=== PATIENT | female | born 1945 | race Caucasian/White ===

== ENCOUNTER 2020-07-27 10:33 | Inpatient (IN) | payer MEDICARE ==
[~2020-07-27] VITALS: Ht 165.1 cm; Wt 76.4 kg
--- NOTE | 2020-07-27 11:12 | PHYS DOC ---
General Adult EDM: Chief Complaint: MEDICAL CLEARANCE HPI: HPI: 75-year-old female presents for medical clearance of behavioral health admission. The patient was reported to be combative at her care facility. She was folding over chairs and throwing things. She is agitated and does not want to be here in the ED. She denies any pain or medical complaints to me. Review of Systems: Review of Systems: Constitutional: Denies fever or chills Eyes: Denies change in visual acuity HENT: Denies nasal congestion or sore throat Respiratory: Denies cough or shortness of breath Cardiovascular: Denies chest pain or edema GI: Denies abdominal pain, nausea, vomiting, bloody stools or diarrhea : Denies dysuria Musculoskeletal: Denies back pain or joint pain Integument: Denies rash Neurologic: Denies headache, focal weakness or sensory changes Endocrine: Denies polyuria or polydipsia Lymphatic: Denies swollen glands Psychiatric: Agitated Physical Exam: PE: Constitutional: Well developed, well nourished, no acute distress, non-toxic appearance. [] HENT: Normocephalic, atraumatic, bilateral external ears normal, oropharynx moist, no oral exudates, nose normal. [] Eyes: PERRLA, EOMI, conjunctiva normal, no discharge. [] Neck: Normal range of motion, no tenderness, supple, no stridor. [] Cardiovascular: Heart rate regular rhythm, no murmur [] Lungs & Thorax: Bilateral breath sounds clear to auscultation [] Abdomen: Bowel sounds normal, soft, no tenderness, no masses, no pulsatile masses. [] Skin: Warm, dry, no erythema, no rash. [] Back: No tenderness, no CVA tenderness. [] Extremities: No tenderness, no cyanosis, no clubbing, ROM intact, no edema. [] Neurologic: Alert and oriented X 3, normal motor function, normal sensory func tion, no focal deficits noted. [] Psychologic: Affect agitated. [] EKG: EKG: Sinus rhythm, rate 60, normal axis, no ST elevation or depression. [] Radiology/Procedures: Radiology/Procedures: [] Heart Score: C/O Chest Pain: N/A Risk Factors: Risk Factors: DM, Current or recent (<one month) smoker, HTN, HLP, family history of CAD, obesity. Risk Scores: Score 0 - 3: 2.5% MACE over next 6 weeks - Discharge Home Score 4 - 6: 20.3% MACE over next 6 weeks - Admit for Clinical Observation Score 7 - 10: 72.7% MACE over next 6 weeks - Early Invasive Strategies Course & Med Decision Making: Course & Med Decision Making Pertinent Labs and Imaging studies reviewed. (See chart for details) The patient's labs are unremarkable. Her urinalysis is negative for infection. Her EKG is unremarkable. She has medically stable for behavioral health admission at this time. [] Dragon Disclaimer: Dragon Disclaimer: This electronic medical record was generated, in whole or in part, using a voice recognition dictation system. Departure Departure: Impression: Primary Impression: Medical clearance for psychiatric admission Disposition: HOME / SELF CARE / HOMELESS Condition: STABLE Referrals: JUDIT BULLOCK (PCP) PA AMANDA DO Jul 27, 2020 11:12
[2020-07-27 11:23] LABS: BASO # 0.1 x10^3/uL (0.0-0.2); BASO % 1 % (0-3); EOS % 0 % (0-3); HEMATOCRIT 35.6 % (36.0-47.0); HEMOGLOBIN 12.1 g/dL (12.0-15.5); LYMPH # 1.1 x10^3/uL (1.0-4.8); LYMPH % 10 % (24-48); MEAN CORPUSCULAR HEMOGLOBIN 33 pg (25-35); MEAN CORPUSCULAR HGB CONC 34 g/dL (31-37); MEAN CORPUSCULAR VOLUME 96 fL (79-100); MONO # 0.9 x10^3/uL (0.0-1.1); MONO % 8 % (0-9); NEUT # 8.9 x10^3uL (1.8-7.7); NEUT % 80 % (31-73); PLATELET COUNT 481 x10^3/uL (140-400); RED BLOOD COUNT 3.72 x10^6/uL (3.50-5.40); RED CELL DISTRIBUTION WIDTH 13.6 % (11.5-14.5)
[2020-07-27 11:30] LABS: CALCIUM 9.3 mg/dL (8.5-10.1); CREATININE 0.8 mg/dL (0.6-1.0); GFR 70.3; POTASSIUM 4.5 mmol/L (3.5-5.1)
[2020-07-27 11:36] LABS: ALBUMIN 3.2 g/dL (3.4-5.0); ALBUMIN/GLOBULIN RATIO 0.8 (1.0-1.7); MAGNESIUM 2.3 mg/dL (1.8-2.4); TOTAL BILIRUBIN 0.4 mg/dL (0.2-1.0); TOTAL PROTEIN 7.1 g/dL (6.4-8.2)
[2020-07-27 12:36] LABS: BILIRUBIN,URINE NEG (NEG); CLARITY,URINE CLEAR; COLOR,URINE YELLOW; GLUCOSE,URINE NEG (NEG); NITRITE,URINE NEG (NEG); UROBILINOGEN,URINE 0.2 mg/dL (0.2 mg/dL)
[2020-07-27 12:38] LABS: BACTERIA,URINE 0 /HPF (0-FEW); RBC,URINE OCC /HPF (0-2); SQUAMOUS EPITHELIAL CELL,UR MANY /LPF; WBC,URINE OCC /HPF (0-4)
[2020-07-27] MEDS ORDERED: ATOR10TA60 PO (13:12)
[2020-07-27] MEDS ORDERED: LOSA100T14 PO (13:12)
[2020-07-27] MEDS ORDERED: MONT10TA80 PO (13:12)
[2020-07-27] MEDS ORDERED: CARV6.25 PO (13:12)
[2020-07-27] MEDS ORDERED: ACET500T68 PO (13:12)
[2020-07-27] MEDS ORDERED: FEXO180T16 PO (13:12)
[2020-07-27] MEDS ORDERED: MULT1TAB82 PO (13:12)
[2020-07-27] MEDS ORDERED: CYCL1DRO EACHEYE (13:12)
[2020-07-27] MEDS ORDERED: PANT20TA58 PO (13:12)
[2020-07-27] MEDS ORDERED: CLON0.5T20 PO (13:12)
[2020-07-27] MEDS ORDERED: CLOB15CR TP (13:12)
[2020-07-27] MEDS ORDERED: PROP15DR40 EACHEYE (13:12)
[2020-07-27] MEDS ORDERED: DILT240T8 PO (13:12)
[2020-07-27] MEDS ORDERED: CLON0.5T4 PO ×2 (13:12)
[2020-07-27] MEDS ORDERED: LEVO125T5 PO (13:12)
[2020-07-27] MEDS ORDERED: MEMA10TA PO (13:12)
--- NOTE | 2020-07-27 13:30 | NUR ---
Admission Note with Justification for Admission to [facility] Patient admitted to [facility] for protective oversight for emergency stabilization of acute psychiatric crisis. Pt admitted from: [facility] via [facility] ED Mode of arrival: EMS Accompanied By: EMS and ED personnel Precipitating behaviors that initiated intake and admission: Patient admitted from [facility] via [facility] ED for reportedly flipping dining room chairs, throwing ensure bottles at staff, pushing and shoving staff, eloping from locked facility, being obsessive, and attention seeking Description of failure of out patient attempts at stabilization in previous setting list behavior and medication trials: Medication changes and verbal redirection not successful. Behaviors and assessment findings upon admission: Patient is manic, hyperverbal, and obsessive wearing a johnson jacket and gloves. She is asking repeatedly for her her . Patient will not sit down, is refusing to take off her jacket, and was aggressive with staff that removed her purse. Patient refused to stay in her room and was up wandering in the halls exit seeking. She is refusing assessment, is unable to answer orientation questions, and is very disorganized. Plan: Admit for protective oversight for adjustment and stabilization of medications, behaviors and mood. Intense treatment regimen including groups, medication adjustments, therapy, consistent regimen for ADL's, self care, and sleep hygiene. Daily monitoring by Inpatient staff, Psychiatry, and Medical Physician.
--- NOTE | 2020-07-27 13:32 | EKG ---
[address] [address] Test Date: 2020-07-27 Test Time: 11:39:41 Pat Name: JOSSIE TANG Department: Room: Gender: F Wire Lather: ESTEBAN : 1945 Requested By: PA AMANDA Order Number: [id number] Reading MD: Measurements Intervals Minter Rate: 60 P: 54 WY: 216 QRS: 12 QRSD: 84 T: 33 QT: 396 QTc: 396 Interpretive Statements SINUS RHYTHM NORMAL ECG RI6.02 No previous ECG available for comparison
[2020-07-27] MEDS ORDERED: clonazePAM 0.5 MG TABLET PO PRN ×2 (15:30→16:00)
[2020-07-27] MEDS ORDERED: MAG HYDROX/AL HYDROX/SIMETH 30 ML ORAL.SUSP PO PRN (15:30)
[2020-07-27] MEDS ORDERED: METHYL SALICYLATE/MENTHOL TOPICAL OINTMENT 57GM TUBE. TP PRN (15:30)
[2020-07-27] MEDS ORDERED: MAGNESIUM HYDROXIDE 2,400 MG/30 ML ORAL.SUSP. PO PRN (15:30)
[2020-07-27 15:52] VITALS: BP 160/90
[2020-07-27] MEDS ORDERED: CLOBETASOL EMOLLIENT 0.05% TOPICAL CREAM 15GM TUBE. TP PRN (16:00)
[2020-07-27] MEDS: CARVEDILOL 6.25 MG TABLET PO SCH (17:06)
[2020-07-27] MEDS: ATORVASTATIN CALCIUM 10 MG TABLET. PO SCH (19:55)
[2020-07-27] MEDS: MONTELUKAST 10 MG TABLET. PO SCH (19:55)
[2020-07-27] MEDS: cycloSPORINE 0.05% OPTH 1 DROP DROPERETTE OU SCH (19:55)
[2020-07-27] MEDS: MEMANTINE 10 MG TABLET. PO SCH (19:55)
[2020-07-27] MEDS ORDERED: clonazePAM 0.5 MG TABLET PO SCH (21:00)
--- NOTE | 2020-07-27 22:02 | PDOC ---
Exam Note: Roni Note: Please also refer to the separate dictated note~for this date of service dictated separately.~Patient seen individually. Discussed the patient with Nursing staff reviewed the chart.~Reviewed interim history and current functioning. Reviewed vital signs,~Labs/ Radiology~and current medications noted below. Continue current treatment with the changes noted in the dictated addendum note Assessment: Vital Signs/I&O: Vital Signs Date Time Temp Pulse Resp B/P (MAP) Pulse Ox O2 Delivery O2 Flow Rate FiO2 07/27/20 17:06 62 160/90 07/27/20 15:52 97.5 20 97 Labs: Laboratory Tests Test 07/27/20 11:00 07/27/20 11:45 White Blood Count 11.0 x10^3/uL (4.0-11.0) Red Blood Count 3.72 x10^6/uL (3.50-5.40) Hemoglobin 12.1 g/dL (12.0-15.5) Hematocrit 35.6 % (36.0-47.0) L Mean Corpuscular Volume 96 fL (79-100) Mean Corpuscular Hemoglobin 33 pg (25-35) Mean Corpuscular Hemoglobin Concent 34 g/dL (31-37) Red Cell Distribution Width 13.6 % (11.5-14.5) Platelet Count 481 x10^3/uL (140-400) H Neutrophils (%) (Auto) 80 % (31-73) H Lymphocytes (%) (Auto) 10 % (24-48) L Monocytes (%) (Auto) 8 % (0-9) Eosinophils (%) (Auto) 0 % (0-3) Basophils (%) (Auto) 1 % (0-3) Neutrophils # (Auto) 8.9 x10^3uL (1.8-7.7) H Lymphocytes # (Auto) 1.1 x10^3/uL (1.0-4.8) Monocytes # (Auto) 0.9 x10^3/uL (0.0-1.1) Eosinophils # (Auto) 0.0 x10^3/uL (0.0-0.7) Basophils # (Auto) 0.1 x10^3/uL (0.0-0.2) Sodium Level 133 mmol/L (136-145) L Potassium Level 4.5 mmol/L (3.5-5.1) Chloride Level 98 mmol/L (98-107) Carbon Dioxide Level 26 mmol/L (21-32) Anion Gap 9 (6-14) Blood Urea Nitrogen 13 mg/dL (7-20) Creatinine 0.8 mg/dL (0.6-1.0) Estimated GFR (Cockcroft-Gault) 70.3 BUN/Creatinine Ratio 16 (6-20) Glucose Level 114 mg/dL (70-99) H Calcium Level 9.3 mg/dL (8.5-10.1) Magnesium Level 2.3 mg/dL (1.8-2.4) Iron Level 61 ug/dL (50-170) Total Iron Binding Capacity 262 ug/dL (250-450) Iron Saturation 23 % (15-34) Total Bilirubin 0.4 mg/dL (0.2-1.0) Aspartate Amino Transferase (AST) 17 U/L (15-37) Alanine Aminotransferase (ALT) 23 U/L (14-59) Alkaline Phosphatase 109 U/L (46-116) Total Protein 7.1 g/dL (6.4-8.2) Albumin 3.2 g/dL (3.4-5.0) L Albumin/Globulin Ratio 0.8 (1.0-1.7) L Urine Collection Type Unknown Urine Color Yellow Urine Clarity Clear Urine pH 7.0 Urine Specific [place] 1.020 Urine Protein Neg (NEG-TRACE) Urine Glucose (UA) Neg mg/dL (NEG) Urine Ketones (Stick) Neg mg/dL (NEG) Urine Blood Neg (NEG) Urine Nitrite Neg (NEG) Urine Bilirubin Neg (NEG) Urine Urobilinogen Dipstick 0.2 mg/dL (0.2 mg/dL) Urine Leukocyte Esterase Neg (NEG) Urine RBC Occ /HPF (0-2) Urine WBC Occ /HPF (0-4) Urine Squamous Epithelial Cells Many /LPF Urine Bacteria 0 /HPF (0-FEW) Current Medications: Meds: Current Medications Medications (Trade) Dose Ordered Sig/Pino Route PRN Reason Start Time Stop Time Status Last Admin Dose Admin Atorvastatin Calcium (Lipitor) 10 mg QHS PO 07/27/20 21:00 07/27/20 19:55 Carvedilol (Coreg) 6.25 mg BIDWMEALS PO 07/27/20 17:00 07/27/20 17:06 Clonazepam (KlonoPIN) 0.5 mg PRN BID PRN PO ANXIETY / AGITATION 07/27/20 15:30 07/27/20 17:06 Clonazepam (KlonoPIN) 0.5 mg QHS PO 07/27/20 21:00 07/27/20 19:55 Cyclosporine (Restasis) 1 drop BID OU 07/27/20 21:00 07/27/20 19:55 Memantine (Namenda) 10 mg BID PO 07/27/20 21:00 07/27/20 19:55 Montelukast Sodium (Singulair) 10 mg HS PO 07/27/20 21:00 07/27/20 19:55 Olanzapine (ZyPREXA ZYDIS) 2.5 mg PRN Q2HRS PRN PO PSYCHOSIS 07/27/20 19:45 07/27/20 19:55 I have reviewed the current psychotropics carefully including drug interactions. Risk benefit ratio favors no change other than as noted in my dictated progress note. Diagnosis: Problems: (1) Major neurocognitive disorder KATHY BARNHART MD Jul 27, 2020 22:02
--- NOTE | 2020-07-27 23:59 | NUR ---
Patient is in the hallway outside the nurses station at start of shift. She is very angry, agitated, disorganized, demanding, and delusional. Banging on nurses station window and door and yelling loudly "You stole my ice cream! Give me my ice cream NOW! Why are you all such rude buttholes? Why did I come here?" She is dressed inappropriately, wearing a fleece winter coat and winter gloves that she refuses to take off. This nurse approached her and told her she could have just ONE more ice cream, but only if she took her medications. She took them whole with no issue, PRN Zydis given with HS medications. When it was time for HS cares, CNAs explained that we needed to take her clothing so we could launder it. She was very resistant, stating "No, these clothes protect me!" She did eventually allow them to take everything but her gloves. She is snarky, irritable, and continues to be demanding. Eventually she took her gloves off on her own and staff placed them in her closet. She denies any pain or discomfort. Appears to be sleeping comfortably at present time. Will continue to monitor.
[2020-07-28 05:29] VITALS: BP 178/82
[2020-07-28] MEDS: LEVOTHYROXINE 125 MCG TABLET PO SCH (05:37)
[2020-07-28] MEDS: MEMANTINE 10 MG TABLET. PO SCH ×2 (09:53→19:55)
[2020-07-28] MEDS: CARVEDILOL 6.25 MG TABLET PO SCH ×2 (09:58→17:18)
[2020-07-28] MEDS: CETIRIZINE HCL 10 MG TABLET PO SCH (09:59)
[2020-07-28] MEDS: MULTIVITAMIN with MINERAL TABLET. PO SCH (09:59)
[2020-07-28] MEDS: LOSARTAN 50 MG TABLET. PO SCH (09:59)
[2020-07-28] MEDS: PANTOPRAZOLE 40 MG TABLET. PO SCH (09:59)
[2020-07-28] MEDS: cycloSPORINE 0.05% OPTH 1 DROP DROPERETTE OU SCH ×2 (09:59→19:54)
[2020-07-28 12:43] LABS: THYROID STIM HORMONE (TSH) 2.957 uIU/mL (0.358-3.740)
[2020-07-28 15:52] VITALS: BP 135/69
--- NOTE | 2020-07-28 18:10 | NUR ---
Patient has been restless, wandering, and agitated during this shift. Before breakfast, she was preoccuppied with calling her . Patient was repeatedly asking staff if they had talked with him. She then became preoccuppied with her purse and was repeatedly demanding that staff return her purse. After breakfast, about 9:30, patient insisted that she had not eaten and repeatedly demanded food. Patient was repeatedly attempting to enter the nurses' station and banging on the window. Offered the patient a selection of snack foods from the dining room, she rejected all of them, stating she wanted 'real food'. She has spent the majority of the afternoon wandering with a peer, occasionally bickering with her and at one point the two had a shouted argument. Patients were and placed in different rooms. She stated that she believed the other patient would kill her in her sleep and that she could not stay here. After dinner these two patients were again walking together and friendly toward each other. Will continue to monitor and report to oncoming shift.
[2020-07-28] MEDS: MONTELUKAST 10 MG TABLET. PO SCH (19:55)
[2020-07-28] MEDS: clonazePAM 0.5 MG TABLET PO SCH (19:55)
[2020-07-28] MEDS: ATORVASTATIN CALCIUM 10 MG TABLET. PO SCH (19:56)
[2020-07-28] MEDS: QUEtiapine 25 MG TABLET. PO SCH (19:56)
--- NOTE | 2020-07-28 20:35 | HP ---
ADMIT DATE: 07/28/2020 PSYCHIATRIC ADMISSION HISTORY AND EVALUATION I met with the patient on evening of 07/28/2020 for this evaluation, also discussed with Jayshree England, field coordinator, and nursing staff; reviewed current and past records. IDENTIFYING DATA: The patient is a 75-year-old female referred to us from [facility] in [place], [place] by her primary care physician, Dr. Patricia Borrego on account of significant aggressive behaviors at the facility. She has reportedly "flipping dining room chairs, throwing and showed bottles at staff, pushing and shoving staff, eloping from locked facility." The patient is extremely obsessive, attention seeking. Behaviors were deemed dangerous, unmanageable. She had failed outpatient psychiatric interventions resulting in this referral. CHIEF COMPLAINT: "I need my snack, I need an extra snack, where is my snack, my snack, my snack." The patient is quite obsessive, repetitive, irritable, labile as I met with her on the evening of 07/28/2020. HISTORY OF PRESENT ILLNESS: The patient has a history of dementia, Alzheimer's, vascular type. She has been residing at the above facility for some time recently, getting more anxious, agitated, paranoid with marked mood lability and aggression. She has had sleep and appetite changes. No clear history of bipolar disorder. No suicidal or homicidal ideation. PAST PSYCHIATRIC HISTORY: As above. PAST MEDICAL HISTORY: Positive for hypothyroidism, bilateral lower extremity cellulitis, history of head injury, chronic constipation, hypertension, history of falls, acid reflux disease, hypokalemia, hyponatremia, diabetes, urinary retention. CODE STATUS: Full code. ACCU-CHEKS: None. ALLERGIES: ADHESIVE TAPE, CLINDAMYCIN, AMLODIPINE. DIET: Regular cardiac. Takes medications whole. ACTIVITIES: Ambulates up ad rylan. LABORATORY DATA: UA on 07/27/2020 was negative. CURRENT PSYCHOTROPICS: Namenda 10 mg b.i.d., Klonopin is being tapered since admission, Zyprexa was added p.r.n. and Luvox started 25 mg at bedtime, and Seroquel 12.5 mg at bedtime started since hospitalization. FAMILY HISTORY: Noncontributory. SOCIAL HISTORY: No history of alcohol, drug abuse, physical, sexual or elder abuse. She is not known to be a perpetrator. REACTION TO HOSPITALIZATION: The patient oblivious of it. ASSETS: Supportive living at the above facility. REVIEW OF SYSTEMS: No CV, , pulmonary, eye, ENT system symptoms on review. Reliability poor. MENTAL STATUS EXAM: Oriented to herself. Insight, judgment, recent and remote memory, attention, concentration, fund of knowledge poor consistent with her diagnosis. IMPERSSION: Major neurocognitive disorder, Alzheimer, vascular; with delusion, depression, behavioral disturbance; anxiety disorder, unspecified; impulse control disorder. Rest as noted above. PLAN: Admit to geropsychiatry unit at [facility]. I will see the patient daily individually from a Psychiatric standpoint, medical followup with Dr. Workman/Dr. Garza. Continue patient on her current psychotropics. Observe baseline, initiate Luvox 25 mg at bedtime, Seroquel 12.5 mg at bedtime. Continue Namenda, taper the Klonopin, add Zyprexa p.r.n. Make further changes as clinically indicated. Estimated length of stay 10-12 days. DISPOSITION PLANS: Back to detention when stable. VANDANA DR: Codi TID: [id number]
--- NOTE | 2020-07-28 22:01 | PDOC ---
Exam Note: Roni Note: Please also refer to the separate dictated note~for this date of service dictated separately.~Patient seen individually. Discussed the patient with Nursing staff reviewed the chart.~Reviewed interim history and current functioning. Reviewed vital signs,~Labs/ Radiology~and current medications noted below. Continue current treatment with the changes noted in the dictated addendum note Assessment: Vital Signs/I&O: Vital Signs Date Time Temp Pulse Resp B/P (MAP) Pulse Ox O2 Delivery O2 Flow Rate FiO2 07/28/20 17:18 82 135/69 07/28/20 15:52 98.5 16 98 Room Air I & O 07/27/20 07/27/20 07/28/20 15:00 23:00 07:00 Intake Total 720 ml Balance 720 ml Labs: Laboratory Tests Test 07/28/20 06:58 D-Dimer (Devi) 0.79 mg/L (0.00-0.50) H Iron Level 80 ug/dL (50-170) Total Iron Binding Capacity 277 ug/dL (250-450) Iron Saturation 29 % (15-34) Triglycerides Level 31 mg/dL (0-150) Cholesterol Level 178 mg/dL (0-200) LDL Cholesterol, Calculated 80 mg/dL (0-100) VLDL Cholesterol, Calculated 6 mg/dL (0-40) Non-HDL Cholesterol Calculated 86 mg/dL (0-129) HDL Cholesterol 92 mg/dL (40-60) H Cholesterol/HDL Ratio 1.0 Thyroid Stimulating Hormone (TSH) 2.957 uIU/mL (0.358-3.740) Current Medications: Meds: Laboratory Tests Test 07/28/20 06:58 D-Dimer (Devi) 0.79 mg/L Iron Level 80 ug/dL Total Iron Binding Capacity 277 ug/dL Iron Saturation 29 % Triglycerides Level 31 mg/dL Cholesterol Level 178 mg/dL LDL Cholesterol, Calculated 80 mg/dL VLDL Cholesterol, Calculated 6 mg/dL Non-HDL Cholesterol Calculated 86 mg/dL HDL Cholesterol 92 mg/dL Cholesterol/HDL Ratio 1.0 Thyroid Stimulating Hormone (TSH) 2.957 uIU/mL Current Medications Medications (Trade) Dose Ordered Sig/Pino Route PRN Reason Start Time Stop Time Status Last Admin Dose Admin Multi-Ingredient Ointment (Analgesic Rand) 1 cole PRN QID PRN TP MUSCLE PAIN 07/27/20 15:30 Al Hydroxide/Mg Hydroxide (Mylanta Plus Xs) 15 ml PRN AFTMEALHC PRN PO DYSPEPSIA 07/27/20 15:30 Magnesium Hydroxide (Milk Of Magnesia) 2,400 mg PRN QHS PRN PO CONSTIPATION 07/27/20 15:30 Acetaminophen (Tylenol) 1,000 mg PRN Q6HRS PRN PO PAIN 07/27/20 15:30 Atorvastatin Calcium (Lipitor) 10 mg QHS PO 07/27/20 21:00 07/28/20 19:56 Carvedilol (Coreg) 6.25 mg BIDWMEALS PO 07/27/20 17:00 07/28/20 17:18 Clonazepam (KlonoPIN) 0.5 mg PRN BID PRN PO ANXIETY / AGITATION 07/27/20 15:30 07/28/20 16:12 DC 07/27/20 17:06 Clonazepam (KlonoPIN) 0.5 mg QHS PO 07/27/20 21:00 07/28/20 16:13 DC 07/27/20 19:55 Cyclosporine (Restasis) 1 drop BID OU 07/27/20 21:00 07/28/20 19:54 Levothyroxine Sodium (Synthroid) 125 mcg DAILY06 PO 07/28/20 06:00 07/28/20 05:37 Memantine (Namenda) 10 mg BID PO 07/27/20 21:00 07/28/20 19:55 Montelukast Sodium (Singulair) 10 mg HS PO 07/27/20 21:00 07/28/20 19:55 Clobetasol Propionate 1 cole PRN DAILY PRN TP dermatitis 07/27/20 16:00 Clonazepam (KlonoPIN) 0.25 mg PRN QHS PRN PO INSOMNIA, MRX1 07/27/20 16:00 07/28/20 16:13 DC Diltiazem HCl (Cardizem 24hr Cd) 240 mg DAILY PO 07/28/20 09:00 07/28/20 09:59 Cetirizine HCl (ZyrTEC) 10 mg DAILY PO 07/28/20 09:00 07/28/20 09:59 Losartan Potassium (Cozaar) 100 mg DAILY PO 07/28/20 09:00 07/28/20 09:59 Multivitamins/ Calcium (Thera-M Plus) 1 tab DAILY PO 07/28/20 09:00 07/28/20 09:59 Pantoprazole Sodium (Protonix) 40 mg DAILY PO 07/28/20 09:00 07/28/20 09:59 Artificial Tears (Artificial Tears) 1 drop PRN QID PRN OU DRY EYE 07/27/20 16:00 Olanzapine (ZyPREXA ZYDIS) 2.5 mg PRN Q2HRS PRN PO PSYCHOSIS 07/27/20 19:45 07/28/20 19:56 Clonazepam (KlonoPIN) 0.25 mg QHS PO 07/28/20 21:00 07/30/20 23:50 07/28/20 19:55 Quetiapine Fumarate (SEROquel) 12.5 mg QHS PO 07/28/20 21:00 07/28/20 19:56 Fluvoxamine Maleate (Luvox) 25 mg QHS PO 07/28/20 21:00 07/28/20 19:54 Current Medications Medications (Trade) Dose Ordered Sig/Pino Route PRN Reason Start Time Stop Time Status Last Admin Dose Admin Levothyroxine Sodium (Synthroid) 125 mcg DAILY06 PO 07/28/20 06:00 07/28/20 05:37 Diltiazem HCl (Cardizem 24hr Cd) 240 mg DAILY PO 07/28/20 09:00 07/28/20 09:59 Cetirizine HCl (ZyrTEC) 10 mg DAILY PO 07/28/20 09:00 07/28/20 09:59 Losartan Potassium (Cozaar) 100 mg DAILY PO 07/28/20 09:00 07/28/20 09:59 Multivitamins/ Calcium (Thera-M Plus) 1 tab DAILY PO 07/28/20 09:00 07/28/20 09:59 Pantoprazole Sodium (Protonix) 40 mg DAILY PO 07/28/20 09:00 07/28/20 09:59 Clonazepam (KlonoPIN) 0.25 mg QHS PO 07/28/20 21:00 07/30/20 23:50 07/28/20 19:55 Quetiapine Fumarate (SEROquel) 12.5 mg QHS PO 07/28/20 21:00 07/28/20 19:56 Fluvoxamine Maleate (Luvox) 25 mg QHS PO 07/28/20 21:00 07/28/20 19:54 I have reviewed the current psychotropics carefully including drug interactions. Risk benefit ratio favors no change other than as noted in my dictated progress note. Diagnosis: Problems: (1) Dementia in Alzheimer's disease with delusions (2) Dementia in Alzheimer's disease with depression (3) Dementia of the Alzheimer's type with early onset with behavioral disturbance (4) Dementia, vascular, with delusions (5) Dementia, vascular, with depression (6) Anxiety disorder, unspecified (7) Impulse control disorder, unspecified (8) Major neurocognitive disorder KATHY BARNHART MD Jul 28, 2020 22:01
--- NOTE | 2020-07-28 22:32 | NUR ---
Patient is located in the day room on assumption of care. She continues to be disorganized, confused and demanding. She consistently picks fights with other patients and staff, name calling and being rude for no apparent reason. She was compliant with medications taken whole. Resistant and angry with HS cares, worried about her clothing. Denies any pain or discomfort. She is currently in her room, awake in bed. Will continue to monitor.
--- NOTE | 2020-07-28 23:30 | CONS ---
CONSULTATION FOR MEDICAL MANAGEMENT HISTORY OF PRESENT ILLNESS: The patient is a 75-year-old female patient, a resident at [facility] in Memory Unit in [place] who was admitted to [facility] Emergency Department on account of reportedly flipping dining room chairs, throwing Ensure bottles at staff, pushing and shoving staffs, eloping from locked facility, being obsessive and attention seeking all this in a background of major neurocognitive disorder, vascular Alzheimer with delusion, depression with anxiety disorder and unspecified impulse control disorder. She apparently has had multiple medical problems including hypothyroidism, history of head injury, bilateral lower extremity cellulitis, chronic constipation, hypertension, history of falls, acid reflux disease, hypokalemia, hyponatremia, type 2 diabetes mellitus and urinary retention, PAST PSYCHIATRIC HISTORY: Significant for anxiety and dementia. PAST SURGICAL HISTORY: Unremarkable. ALLERGIES: She is allergic to ADHESIVES, AMLODIPINE and CLINDAMYCIN. MEDICATIONS: She is currently on the following medications: She is on fexofenadine for Amanda 180 mg once a day, atorvastatin calcium 10 mg at bedtime, carvedilol 6.25 mg twice a day with meals, diltiazem 240 mg daily, losartan potassium 100 mg daily, acetaminophen 1000 mg every 6 hours, clonazepam 0.5 mg at bedtime, clonazepam 0.5 mg at 07:17, clonazepam 0.25-0.5 mg p.o. p.r.n. at bedtime, Namenda 10 mg twice a day, Singulair 10 mg a day at bedtime, cyclosporine for Restasis 1 drop to both eyes twice a day and polyethylene glycol 1 drop to both eyes 4 times a day, Protonix 40 mg once a day, levothyroxine sodium 125 mcg once a day, clobetasol propionate 15 g cream apply topically daily for dermatitis, and multivitamin with mineral 1 tablet once a day. FAMILY HISTORY: Unobtainable. SOCIAL HISTORY: She is apparently . Her lives in the assisted living side. 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 No further information available. PHYSICAL EXAMINATION: GENERAL: When I saw her today, she looked well and was clearly in no apparent respiratory distress. There was no pallor, jaundice, cyanosis. No lymphadenopathy, no thyromegaly, no jugular venous distention, no lower limb edema. VITAL SIGNS: Her heart rate was 62, blood pressure was 178/82, temperature was 97.5, respiratory rate was 18, and oxygen saturation was 100% on room air. HEENT: Showed normocephalic, atraumatic. NECK: Supple. HEART: Showed normal first and second heart sounds, no gallop, rub or murmur. CHEST: Clear to auscultation. No crepitation or rhonchi. ABDOMEN: Distended, soft, nontender. NEUROLOGIC: She is demented, but without any obvious lateralizing sign. All her cranial nerves are intact. She moves extremities without difficulty. She ambulates without assistance or assistive devices. LABORATORY DATA: Showed a white cell count of 11,000, hemoglobin 12, hematocrit 36, MCV 96 and platelet count of 481,000 with normal manual differential. Her chemistry showed a serum sodium 133, potassium 4.5, chloride 98, bicarbonate 26, anion gap of 9, BUN 13, creatinine 0.8. Estimated GFR was 70 mL per minute. Her glucose 114, calcium was 9.3, magnesium was 2.3. Serum iron 61, TIBC was 262 and iron saturation was 23. Total bilirubin, AST, ALT, alkaline phosphatase were normal. Total protein 7.1, albumin was 3.2. Her D-dimer was 0.79. Urinalysis was essentially unremarkable. ASSESSMENT: In summary, this is a 75-year-old female patient, a resident at [facility] ____ Memory unit who was admitted on account of flipping dining room chairs, throwing Ensure bottles at staff, pushing a shoving staff, eloping from locked facility, being obsessed and attention seeking all this in a background of major neurocognitive disorder, vascular Alzheimer with delusion, depression; behavioral disorder; anxiety disorder and impulse control disorder. The patient has multiple medical problems including hypertension, hypothyroidism, gastroesophageal reflux disease, type 2 diabetes. Her vital signs show that her blood pressure is suboptimally controlled, but otherwise all her lab work are well within acceptable range except perhaps mild hyponatremia. PLAN: My plan is to continue to monitor her blood pressure and might have to adjust her antihypertensive medication as she is already on losartan 100 mg once a day, diltiazem 240 mg once a day. She is also on carvedilol 6.25 mg twice a day. We might have to increase the carvedilol if heart rate ____. Meanwhile, continue with all other medication. I would also follow all her lab work that is still pending at the time of this dictation and make any necessary recommendation. Thank you, Dr. Valderrama, for allowing me to participate in the care of this patient. DANETTE/ADAMS/HORTENCIA DR: DANETTE/seven TID: [id number]
[2020-07-29] MEDS: POLYVINYL ALCOHOL 1.4% OPHTH SOLUTION 15ML BOTTLE. OU PRN (01:07)
[2020-07-29 02:31] LABS: HEMOGLOBIN A1C 4.9 % (4.8-5.6)
[2020-07-29 05:44] VITALS: BP 173/81
[2020-07-29] MEDS: LEVOTHYROXINE 125 MCG TABLET PO SCH (05:58)
--- NOTE | 2020-07-29 08:44 | PDOC ---
Exam Note: Roni Note: This is an addendum to Initial Psychiatric Evaluation to correct the error in my dictation under # [id number]. The correct information is Date of admission 07/27/2018. Date of dictation 07/28/2020. This document corrects the original document under dictation #[id number]. Assessment: Vital Signs/I&O: Vital Signs Date Time Temp Pulse Resp B/P (MAP) Pulse Ox O2 Delivery O2 Flow Rate FiO2 07/29/20 05:44 98.0 72 16 173/81 (111) 95 Room Air I & O 07/28/20 07/28/20 07/29/20 15:00 23:00 07:00 Intake Total 600 ml 480 ml Balance 600 ml 480 ml Current Medications: Meds: Current Medications Medications (Trade) Dose Ordered Sig/Pino Route PRN Reason Start Time Stop Time Status Last Admin Dose Admin Multi-Ingredient Ointment (Analgesic [place]) 1 cole PRN QID PRN TP MUSCLE PAIN 07/27/20 15:30 Al Hydroxide/Mg Hydroxide (Mylanta Plus Xs) 15 ml PRN AFTMEALHC PRN PO DYSPEPSIA 07/27/20 15:30 Magnesium Hydroxide (Milk Of Magnesia) 2,400 mg PRN QHS PRN PO CONSTIPATION 07/27/20 15:30 Acetaminophen (Tylenol) 1,000 mg PRN Q6HRS PRN PO PAIN 07/27/20 15:30 Atorvastatin Calcium (Lipitor) 10 mg QHS PO 07/27/20 21:00 07/28/20 19:56 Carvedilol (Coreg) 6.25 mg BIDWMEALS PO 07/27/20 17:00 07/28/20 17:18 Clonazepam (KlonoPIN) 0.5 mg PRN BID PRN PO ANXIETY / AGITATION 07/27/20 15:30 07/28/20 16:12 DC 07/27/20 17:06 Clonazepam (KlonoPIN) 0.5 mg QHS PO 07/27/20 21:00 07/28/20 16:13 DC 07/27/20 19:55 Cyclosporine (Restasis) 1 drop BID OU 07/27/20 21:00 07/28/20 19:54 Levothyroxine Sodium (Synthroid) 125 mcg DAILY06 PO 07/28/20 06:00 07/29/20 05:58 Memantine (Namenda) 10 mg BID PO 07/27/20 21:00 07/28/20 19:55 Montelukast Sodium (Singulair) 10 mg HS PO 07/27/20 21:00 07/28/20 19:55 Clobetasol Propionate 1 cole PRN DAILY PRN TP dermatitis 07/27/20 16:00 Clonazepam (KlonoPIN) 0.25 mg PRN QHS PRN PO INSOMNIA, MRX1 07/27/20 16:00 07/28/20 16:13 DC Diltiazem HCl (Cardizem 24hr Cd) 240 mg DAILY PO 07/28/20 09:00 07/28/20 09:59 Cetirizine HCl (ZyrTEC) 10 mg DAILY PO 07/28/20 09:00 07/28/20 09:59 Losartan Potassium (Cozaar) 100 mg DAILY PO 07/28/20 09:00 07/28/20 09:59 Multivitamins/ Calcium (Thera-M Plus) 1 tab DAILY PO 07/28/20 09:00 07/28/20 09:59 Pantoprazole Sodium (Protonix) 40 mg DAILY PO 07/28/20 09:00 07/28/20 09:59 Artificial Tears (Artificial Tears) 1 drop PRN QID PRN OU DRY EYE 07/27/20 16:00 07/29/20 01:07 Olanzapine (ZyPREXA ZYDIS) 2.5 mg PRN Q2HRS PRN PO PSYCHOSIS 07/27/20 19:45 07/29/20 01:07 Clonazepam (KlonoPIN) 0.25 mg QHS PO 07/28/20 21:00 07/30/20 23:50 07/28/20 19:55 Quetiapine Fumarate (SEROquel) 12.5 mg QHS PO 07/28/20 21:00 07/28/20 19:56 Fluvoxamine Maleate (Luvox) 25 mg QHS PO 07/28/20 21:00 07/28/20 19:54 Current Medications Medications (Trade) Dose Ordered Sig/Pino Route PRN Reason Start Time Stop Time Status Last Admin Dose Admin Diltiazem HCl (Cardizem 24hr Cd) 240 mg DAILY PO 07/28/20 09:00 07/28/20 09:59 Cetirizine HCl (ZyrTEC) 10 mg DAILY PO 07/28/20 09:00 07/28/20 09:59 Losartan Potassium (Cozaar) 100 mg DAILY PO 07/28/20 09:00 07/28/20 09:59 Multivitamins/ Calcium (Thera-M Plus) 1 tab DAILY PO 07/28/20 09:00 07/28/20 09:59 Pantoprazole Sodium (Protonix) 40 mg DAILY PO 07/28/20 09:00 07/28/20 09:59 Clonazepam (KlonoPIN) 0.25 mg QHS PO 07/28/20 21:00 07/30/20 23:50 07/28/20 19:55 Quetiapine Fumarate (SEROquel) 12.5 mg QHS PO 07/28/20 21:00 07/28/20 19:56 Fluvoxamine Maleate (Luvox) 25 mg QHS PO 07/28/20 21:00 07/28/20 19:54 I have reviewed the current psychotropics carefully including drug interactions. Risk benefit ratio favors no change other than as noted in my dictated progress note. Diagnosis: Problems: (1) Major neurocognitive disorder (2) Impulse control disorder, unspecified (3) Anxiety disorder, unspecified (4) Dementia, vascular, with depression (5) Dementia, vascular, with delusions (6) Dementia in Alzheimer's disease with depression (7) Dementia in Alzheimer's disease with delusions (8) Dementia of the Alzheimer's type with early onset with behavioral disturbance KATHY BARNHART MD Jul 29, 2020 08:44
[2020-07-29] MEDS: cycloSPORINE 0.05% OPTH 1 DROP DROPERETTE OU SCH ×2 (09:00→20:06)
--- NOTE | 2020-07-29 09:01 | PDOC ---
Exam Note: Roni Note: This note is a late entry for 07/28/2020 covers elements not covered in my initial note. Subjective: The patient was seen individually in the evening of 07/28/2020 with Artemio SCHAFER, discussed and reviewed the chart. She slept 6-1/2 hours previous night. Overall the patient remains somewhat obsessive, very confused, anxious, restless, yelling at one of the other demented patients at one point. Review of Systems: Ambulation impaired in wheelchair. No CV, , pulmonary, eye system symptoms on review. Mental Status Exam: The patient is reasonably oriented. Insight and judgment, recent and remote memory, attention and concentration, fund of knowledge is poor consistent with her diagnoses. Laboratory Data: Reviewed. 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 Anxiety disorder unspecified. Impulse control disorder unspecified. Plan: The patient is currently on Klonopin 0.5 mg h.s., reduce to 0.25 mg h.s. for 3 days and stop it. DC p.r.n. Klonopin. Start Luvox 25 mg p.o h.s., Seroquel 12.5 mg p.o. h.s. as a mood stabilizer. Hopefully the Luvox will help some of her obsessive, repetitive, persistent, disruptive, intrusive behaviors. We will adjust further as clinically indicated. Assessment: Vital Signs/I&O: Vital Signs Date Time Temp Pulse Resp B/P (MAP) Pulse Ox O2 Delivery O2 Flow Rate FiO2 07/29/20 05:44 98.0 72 16 173/81 (111) 95 Room Air I & O 07/28/20 07/28/20 07/29/20 15:00 23:00 07:00 Intake Total 600 ml 480 ml Balance 600 ml 480 ml Current Medications: Meds: Current Medications Medications (Trade) Dose Ordered Sig/Pino Route PRN Reason Start Time Stop Time Status Last Admin Dose Admin Multi-Ingredient Ointment (Analgesic [place]) 1 cole PRN QID PRN TP MUSCLE PAIN 07/27/20 15:30 Al Hydroxide/Mg Hydroxide (Mylanta Plus Xs) 15 ml PRN AFTMEALHC PRN PO DYSPEPSIA 07/27/20 15:30 Magnesium Hydroxide (Milk Of Magnesia) 2,400 mg PRN QHS PRN PO CONSTIPATION 07/27/20 15:30 Acetaminophen (Tylenol) 1,000 mg PRN Q6HRS PRN PO PAIN 07/27/20 15:30 Atorvastatin Calcium (Lipitor) 10 mg QHS PO 07/27/20 21:00 07/28/20 19:56 Carvedilol (Coreg) 6.25 mg BIDWMEALS PO 07/27/20 17:00 07/28/20 17:18 Clonazepam (KlonoPIN) 0.5 mg PRN BID PRN PO ANXIETY / AGITATION 07/27/20 15:30 07/28/20 16:12 DC 07/27/20 17:06 Clonazepam (KlonoPIN) 0.5 mg QHS PO 07/27/20 21:00 07/28/20 16:13 DC 07/27/20 19:55 Cyclosporine (Restasis) 1 drop BID OU 07/27/20 21:00 07/28/20 19:54 Levothyroxine Sodium (Synthroid) 125 mcg DAILY06 PO 07/28/20 06:00 07/29/20 05:58 Memantine (Namenda) 10 mg BID PO 07/27/20 21:00 07/28/20 19:55 Montelukast Sodium (Singulair) 10 mg HS PO 07/27/20 21:00 07/28/20 19:55 Clobetasol Propionate 1 cole PRN DAILY PRN TP dermatitis 07/27/20 16:00 Clonazepam (KlonoPIN) 0.25 mg PRN QHS PRN PO INSOMNIA, MRX1 07/27/20 16:00 07/28/20 16:13 DC Diltiazem HCl (Cardizem 24hr Cd) 240 mg DAILY PO 07/28/20 09:00 07/28/20 09:59 Cetirizine HCl (ZyrTEC) 10 mg DAILY PO 07/28/20 09:00 07/28/20 09:59 Losartan Potassium (Cozaar) 100 mg DAILY PO 07/28/20 09:00 07/28/20 09:59 Multivitamins/ Calcium (Thera-M Plus) 1 tab DAILY PO 07/28/20 09:00 07/28/20 09:59 Pantoprazole Sodium (Protonix) 40 mg DAILY PO 07/28/20 09:00 07/28/20 09:59 Artificial Tears (Artificial Tears) 1 drop PRN QID PRN OU DRY EYE 07/27/20 16:00 07/29/20 01:07 Olanzapine (ZyPREXA ZYDIS) 2.5 mg PRN Q2HRS PRN PO PSYCHOSIS 07/27/20 19:45 07/29/20 01:07 Clonazepam (KlonoPIN) 0.25 mg QHS PO 07/28/20 21:00 07/30/20 23:50 07/28/20 19:55 Quetiapine Fumarate (SEROquel) 12.5 mg QHS PO 07/28/20 21:00 07/28/20 19:56 Fluvoxamine Maleate (Luvox) 25 mg QHS PO 07/28/20 21:00 07/28/20 19:54 Current Medications Medications (Trade) Dose Ordered Sig/Pino Route PRN Reason Start Time Stop Time Status Last Admin Dose Admin Clonazepam (KlonoPIN) 0.25 mg QHS PO 07/28/20 21:00 07/30/20 23:50 07/28/20 19:55 Quetiapine Fumarate (SEROquel) 12.5 mg QHS PO 07/28/20 21:00 07/28/20 19:56 Fluvoxamine Maleate (Luvox) 25 mg QHS PO 07/28/20 21:00 07/28/20 19:54 I have reviewed the current psychotropics carefully including drug interactions. Risk benefit ratio favors no change other than as noted in my dictated progress note. Diagnosis: Problems: (1) Major neurocognitive disorder (2) Impulse control disorder, unspecified (3) Anxiety disorder, unspecified (4) Dementia, vascular, with depression (5) Dementia, vascular, with delusions (6) Dementia in Alzheimer's disease with depression (7) Dementia in Alzheimer's disease with delusions (8) Dementia of the Alzheimer's type with early onset with behavioral d KATHY Pink MD Jul 29, 2020 09:01
[2020-07-29] MEDS: CETIRIZINE HCL 10 MG TABLET PO SCH (11:27)
[2020-07-29] MEDS: MEMANTINE 10 MG TABLET. PO SCH ×2 (11:28→20:07)
[2020-07-29] MEDS: LOSARTAN 50 MG TABLET. PO SCH (11:28)
[2020-07-29] MEDS: MULTIVITAMIN with MINERAL TABLET. PO SCH (11:28)
[2020-07-29] MEDS: PANTOPRAZOLE 40 MG TABLET. PO SCH (11:28)
[2020-07-29] MEDS: CARVEDILOL 6.25 MG TABLET PO SCH ×2 (11:29→17:50)
--- NOTE | 2020-07-29 11:30 | NUR ---
Attempted to provide patient with morning medications; she refused to get out of bed and refused medications stating she doesn't 'feel well'. Patient would not elaborate or describe what was wrong, she repeatedly answered 'leave me alone' to most questions. She refused assessment. Patient did eventually get out of bed then pointed to the room aross the [place] and stated she was going to bed over there and walked away. Patient has again removed her armband. Will attempt to provide medications at a later time and continue to monitor.
--- NOTE | 2020-07-29 12:30 | NUR ---
Patient is in better mood, accepted morning medications. She is refusing all the food on the tray except the desert, stating she cannot eat that food. Will continue to monitor.
[2020-07-29 15:17] VITALS: BP 128/83
[2020-07-29] MEDS: QUEtiapine 25 MG TABLET. PO SCH (20:07)
[2020-07-29] MEDS: clonazePAM 0.5 MG TABLET PO SCH (20:07)
[2020-07-29] MEDS: ATORVASTATIN CALCIUM 10 MG TABLET. PO SCH (20:07)
[2020-07-29] MEDS: MONTELUKAST 10 MG TABLET. PO SCH (20:08)
[2020-07-29] MEDS: MIRTAZAPINE 7.5 MG TABLET. PO SCH (20:08)
--- NOTE | 2020-07-29 22:04 | PDOC ---
Exam Note: Roni Note: Please also refer to the separate dictated note~for this date of service dictated separately.~Patient seen individually. Discussed the patient with Nursing staff reviewed the chart.~Reviewed interim history and current functioning. Reviewed vital signs,~Labs/ Radiology~and current medications noted below. Continue current treatment with the changes noted in the dictated addendum note Assessment: Vital Signs/I&O: Vital Signs Date Time Temp Pulse Resp B/P (MAP) Pulse Ox O2 Delivery O2 Flow Rate FiO2 07/29/20 17:50 60 128/83 07/29/20 15:17 97.9 17 98 07/29/20 05:44 Room Air I & O 07/28/20 07/28/20 07/29/20 15:00 23:00 07:00 Intake Total 600 ml 480 ml Balance 600 ml 480 ml Current Medications: Meds: Current Medications Medications (Trade) Dose Ordered Sig/Pino Route PRN Reason Start Time Stop Time Status Last Admin Dose Admin Multi-Ingredient Ointment (Analgesic [place]) 1 cole PRN QID PRN TP MUSCLE PAIN 07/27/20 15:30 Al Hydroxide/Mg Hydroxide (Mylanta Plus Xs) 15 ml PRN AFTMEALHC PRN PO DYSPEPSIA 07/27/20 15:30 Magnesium Hydroxide (Milk Of Magnesia) 2,400 mg PRN QHS PRN PO CONSTIPATION 07/27/20 15:30 Acetaminophen (Tylenol) 1,000 mg PRN Q6HRS PRN PO PAIN 07/27/20 15:30 Atorvastatin Calcium (Lipitor) 10 mg QHS PO 07/27/20 21:00 07/29/20 20:07 Carvedilol (Coreg) 6.25 mg BIDWMEALS PO 07/27/20 17:00 07/29/20 17:50 Clonazepam (KlonoPIN) 0.5 mg PRN BID PRN PO ANXIETY / AGITATION 07/27/20 15:30 07/28/20 16:12 DC 07/27/20 17:06 Clonazepam (KlonoPIN) 0.5 mg QHS PO 07/27/20 21:00 07/28/20 16:13 DC 07/27/20 19:55 Cyclosporine (Restasis) 1 drop BID OU 07/27/20 21:00 07/29/20 20:06 Levothyroxine Sodium (Synthroid) 125 mcg DAILY06 PO 07/28/20 06:00 07/29/20 05:58 Memantine (Namenda) 10 mg BID PO 07/27/20 21:00 07/29/20 20:07 Montelukast Sodium (Singulair) 10 mg HS PO 07/27/20 21:00 07/29/20 20:08 Clobetasol Propionate 1 cole PRN DAILY PRN TP dermatitis 07/27/20 16:00 Clonazepam (KlonoPIN) 0.25 mg PRN QHS PRN PO INSOMNIA, MRX1 07/27/20 16:00 07/28/20 16:13 DC Diltiazem HCl (Cardizem 24hr Cd) 240 mg DAILY PO 07/28/20 09:00 07/29/20 11:27 Cetirizine HCl (ZyrTEC) 10 mg DAILY PO 07/28/20 09:00 07/29/20 11:27 Losartan Potassium (Cozaar) 100 mg DAILY PO 07/28/20 09:00 07/29/20 11:28 Multivitamins/ Calcium (Thera-M Plus) 1 tab DAILY PO 07/28/20 09:00 07/29/20 11:28 Pantoprazole Sodium (Protonix) 40 mg DAILY PO 07/28/20 09:00 07/29/20 11:28 Artificial Tears (Artificial Tears) 1 drop PRN QID PRN OU DRY EYE 07/27/20 16:00 07/29/20 01:07 Olanzapine (ZyPREXA ZYDIS) 2.5 mg PRN Q2HRS PRN PO PSYCHOSIS 07/27/20 19:45 07/29/20 01:07 Clonazepam (KlonoPIN) 0.25 mg QHS PO 07/28/20 21:00 07/30/20 23:50 07/29/20 20:07 Quetiapine Fumarate (SEROquel) 12.5 mg QHS PO 07/28/20 21:00 07/29/20 20:07 Fluvoxamine Maleate (Luvox) 25 mg QHS PO 07/28/20 21:00 07/29/20 20:07 Mirtazapine (Remeron) 7.5 mg QHS PO 07/29/20 21:00 07/29/20 20:08 Current Medications Medications (Trade) Dose Ordered Sig/Pino Route PRN Reason Start Time Stop Time Status Last Admin Dose Admin Mirtazapine (Remeron) 7.5 mg QHS PO 07/29/20 21:00 07/29/20 20:08 I have reviewed the current psychotropics carefully including drug interactions. Risk benefit ratio favors no change other than as noted in my dictated progress note. Diagnosis: Problems: (1) Major neurocognitive disorder (2) Impulse control disorder, unspecified (3) Anxiety disorder, unspecified (4) Dementia, vascular, with depression (5) Dementia, vascular, with delusions (6) Dementia in Alzheimer's disease with depression (7) Dementia in Alzheimer's disease with delusions (8) Dementia of the Alzheimer's type with early onset with behavioral disturbance KATHY BARNHART MD Jul 29, 2020 22:04
--- NOTE | 2020-07-29 23:22 | NUR ---
Patient is located in the day room on assumption of care. She continues to be disorganized, confused and demanding. She consistently picks fights with other patients and staff, name calling and being rude for no apparent reason. She was compliant with medications taken whole. Denies any pain or discomfort. She is currently in her room, awake in bed. Will continue to monitor.
[2020-07-30] MEDS: LEVOTHYROXINE 125 MCG TABLET PO SCH (05:46)
[2020-07-30 06:01] VITALS: BP 160/88
--- NOTE | 2020-07-30 08:31 | PDOC ---
Exam Note: Roni Note: This note is a late entry for 07/29/2020 covers elements not covered in my initial note. Subjective: The patient was seen individually in the evening of 07/29/2020 with Artemio SCHAFER, discussed and reviewed the chart. She slept 4-1/2 hours previous night. The patient has been rude, sarcastic. Received Zyprexa at night and 1 a.m., due to her marked agitation. She has been following another demented patient around the unit and was up all night repeatedly washing her face and compulsively doing this. She has been irritable at times, refusing a.m. medications. She remains extremely confused. Review of Systems: Ambulation impaired in wheelchair. No CV, , pulmonary, eye system symptoms on review. Reliability poor. She complains of feeling cold, had both her hands folded forward and hands put inside the opposite sleeve to keep her warm. Mental Status Exam: The patient is reasonably oriented. Insight and judgment, recent and remote memory, attention and concentration, fund of knowledge is poor consistent with her diagnoses. Laboratory Data: Reviewed. 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 Anxiety disorder unspecified. Impulse control disorder unspecified. Plan: Continue current psychotropics. Start Remeron 7.5 mg p.o. h.s. to help insomnia and anxiety as well. Adjust further as clinically indicated. Assessment: Vital Signs/I&O: Vital Signs Date Time Temp Pulse Resp B/P (MAP) Pulse Ox O2 Delivery O2 Flow Rate FiO2 07/30/20 06:01 97.8 63 18 160/88 (112) 98 07/29/20 05:44 Room Air I & O 07/29/20 07/29/20 07/30/20 15:00 23:00 07:00 Intake Total 120 ml 480 ml Balance 120 ml 480 ml Current Medications: Meds: Current Medications Medications (Trade) Dose Ordered Sig/Pino Route PRN Reason Start Time Stop Time Status Last Admin Dose Admin Multi-Ingredient Ointment (Analgesic [place]) 1 cole PRN QID PRN TP MUSCLE PAIN 07/27/20 15:30 Al Hydroxide/Mg Hydroxide (Mylanta Plus Xs) 15 ml PRN AFTMEALHC PRN PO DYSPEPSIA 07/27/20 15:30 Magnesium Hydroxide (Milk Of Magnesia) 2,400 mg PRN QHS PRN PO CONSTIPATION 07/27/20 15:30 Acetaminophen (Tylenol) 1,000 mg PRN Q6HRS PRN PO PAIN 07/27/20 15:30 Atorvastatin Calcium (Lipitor) 10 mg QHS PO 07/27/20 21:00 07/29/20 20:07 Carvedilol (Coreg) 6.25 mg BIDWMEALS PO 07/27/20 17:00 07/29/20 17:50 Clonazepam (KlonoPIN) 0.5 mg PRN BID PRN PO ANXIETY / AGITATION 07/27/20 15:30 07/28/20 16:12 DC 07/27/20 17:06 Clonazepam (KlonoPIN) 0.5 mg QHS PO 07/27/20 21:00 07/28/20 16:13 DC 07/27/20 19:55 Cyclosporine (Restasis) 1 drop BID OU 07/27/20 21:00 07/29/20 20:06 Levothyroxine Sodium (Synthroid) 125 mcg DAILY06 PO 07/28/20 06:00 07/30/20 05:46 Memantine (Namenda) 10 mg BID PO 07/27/20 21:00 07/29/20 20:07 Montelukast Sodium (Singulair) 10 mg HS PO 07/27/20 21:00 07/29/20 20:08 Clobetasol Propionate 1 cole PRN DAILY PRN TP dermatitis 07/27/20 16:00 Clonazepam (KlonoPIN) 0.25 mg PRN QHS PRN PO INSOMNIA, MRX1 07/27/20 16:00 07/28/20 16:13 DC Diltiazem HCl (Cardizem 24hr Cd) 240 mg DAILY PO 07/28/20 09:00 07/29/20 11:27 Cetirizine HCl (ZyrTEC) 10 mg DAILY PO 07/28/20 09:00 07/29/20 11:27 Losartan Potassium (Cozaar) 100 mg DAILY PO 07/28/20 09:00 07/29/20 11:28 Multivitamins/ Calcium (Thera-M Plus) 1 tab DAILY PO 07/28/20 09:00 07/29/20 11:28 Pantoprazole Sodium (Protonix) 40 mg DAILY PO 07/28/20 09:00 07/29/20 11:28 Artificial Tears (Artificial Tears) 1 drop PRN QID PRN OU DRY EYE 07/27/20 16:00 07/29/20 01:07 Olanzapine (ZyPREXA ZYDIS) 2.5 mg PRN Q2HRS PRN PO PSYCHOSIS 07/27/20 19:45 07/29/20 01:07 Clonazepam (KlonoPIN) 0.25 mg QHS PO 07/28/20 21:00 07/30/20 23:50 07/29/20 20:07 Quetiapine Fumarate (SEROquel) 12.5 mg QHS PO 07/28/20 21:00 07/29/20 20:07 Fluvoxamine Maleate (Luvox) 25 mg QHS PO 07/28/20 21:00 07/29/20 20:07 Mirtazapine (Remeron) 7.5 mg QHS PO 07/29/20 21:00 07/29/20 20:08 Current Medications Medications (Trade) Dose Ordered Sig/Pino Route PRN Reason Start Time Stop Time Status Last Admin Dose Admin Mirtazapine (Remeron) 7.5 mg QHS PO 07/29/20 21:00 07/29/20 20:08 I have reviewed the current psychotropics carefully including drug interactions. Risk benefit ratio favors no change other than as noted in my dictated progress note. Diagnosis: Problems: (1) Major neurocognitive disorder (2) Impulse control disorder, unspecified (3) Anxiety disorder, unspecified (4) Dementia, vascular, with depression (5) Dementia, vascular, with delusions (6) Dementia in Alzheimer's disease with depression (7) Dementia in Alzheimer's disease with delusions (8) Dementia of the Alzheimer's type with early onset with behavioral disturbance KATHY BARNHART MD Jul 30, 2020 08:31
[2020-07-30] MEDS: MULTIVITAMIN with MINERAL TABLET. PO SCH (09:14)
[2020-07-30] MEDS: MEMANTINE 10 MG TABLET. PO SCH ×2 (09:14→19:25)
[2020-07-30] MEDS: LOSARTAN 50 MG TABLET. PO SCH (09:14)
[2020-07-30] MEDS: PANTOPRAZOLE 40 MG TABLET. PO SCH (09:15)
[2020-07-30] MEDS: CETIRIZINE HCL 10 MG TABLET PO SCH (09:15)
[2020-07-30] MEDS: cycloSPORINE 0.05% OPTH 1 DROP DROPERETTE OU SCH ×2 (09:15→19:26)
[2020-07-30] MEDS: CARVEDILOL 6.25 MG TABLET PO SCH ×2 (09:15→17:19)
--- NOTE | 2020-07-30 11:39 | NUR ---
WEEKLY ACTIVITY THERAPY NOTE Date of Admission:07/27/20 Date of AT Assessment: TBD Precipitating behaviors that initiated intake and admission: Patient admitted from [facility] via [facility] for reportedly flipping dining room chairs, throwing ensure bottles at staff, pushing and shoving staff, eloping from locked facility, being obsessive, and attention seeking Goal aimed: TBD Initial Goal: TBD Weekly progress towards goal: NA Group participation level: new patient Weekly highlights: arrived to unit Behaviors observed: wandering when group was going on, difficult to engage, restless and concerned about being alone, needed a lot of reassurance Plan: meet/ assess Pt Beneficial adaptations:
--- NOTE | 2020-07-30 12:10 | NUR ---
ACTIVITY THERAPY ASSESSMENT completed based on notes, observation and interview. Pt was sitting in the dining room eating her lunch. Pt was compliant and willing to answer assessment questions. Pt was a bit irritable at times during the assessment. AT explained groups that were offered on [facility] and pt had little to no interests. Pt said that she doubts she would attend group. AT reminded pt that she was in exercise group this morning. Pt asked if she did any exercises this morning and AT told her that she followed along to all exercises. Pt was able to recall past event but struggled with current events. Pt said that she was in [place] and was unaware of where she came from prior to admission. Pt said that she was and had two children. Pt said that she does not have any contact with her children or anybody. AT asked pt if she felt stress at this point in time.Pt said that she she feels stressed everyday. AT asked pt how she geremias with stress and she said "eating or I paint things out in my head." Pt was hard to redirect at this time as she said she wanted to find her . Initial goal aimed to increase stress management and relaxation skills. Pt will participate in at least five individual or group Activity Therapy sessions per week. Addendum: 08/06/20 at 1138 by RAY HICKS ACT Goal changed 08/06:Pt will participate in all group Activity Therapy sessions offered.
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
[2020-07-30 15:29] VITALS: BP 172/82
--- NOTE | 2020-07-30 16:06 | NUR ---
Nursing note: Pt has been pleasantly confused, med compliant and cooperative this shift. She denies having any pain at time of assessment. It was noted that pt has shanika in the back of her head, that pt was picking at. Facility was called to determine when the shanika were placed and when they were supposed to be removed. Facility was unable to give me a date that the shanika were placed and said they would call back with the information. Awaiting a return phone call from [facility]. She is currently sitting quietly in the day room. Will continue to monitor.
[2020-07-30] MEDS: MONTELUKAST 10 MG TABLET. PO SCH (19:25)
[2020-07-30] MEDS: MIRTAZAPINE 7.5 MG TABLET. PO SCH (19:25)
[2020-07-30] MEDS: QUEtiapine 25 MG TABLET. PO SCH (19:25)
[2020-07-30] MEDS: ATORVASTATIN CALCIUM 10 MG TABLET. PO SCH (19:26)
[2020-07-30] MEDS: clonazePAM 0.5 MG TABLET PO SCH (19:27)
[2020-07-30] MEDS: POLYVINYL ALCOHOL 1.4% OPHTH SOLUTION 15ML BOTTLE. OU PRN (20:17)
--- NOTE | 2020-07-30 21:51 | PDOC ---
Exam Note: Roni Note: Please also refer to the separate dictated note~for this date of service dictated separately.~Patient seen individually. Discussed the patient with Nursing staff reviewed the chart.~Reviewed interim history and current functioning. Reviewed vital signs,~Labs/ Radiology~and current medications noted below. Continue current treatment with the changes noted in the dictated addendum note Assessment: Vital Signs/I&O: Vital Signs Date Time Temp Pulse Resp B/P (MAP) Pulse Ox O2 Delivery O2 Flow Rate FiO2 07/30/20 17:19 61 172/82 07/30/20 15:29 97.1 18 99 07/29/20 05:44 Room Air I & O 07/29/20 07/29/20 07/30/20 15:00 23:00 07:00 Intake Total 120 ml 480 ml Balance 120 ml 480 ml Current Medications: Meds: Current Medications Medications (Trade) Dose Ordered Sig/Pino Route PRN Reason Start Time Stop Time Status Last Admin Dose Admin Multi-Ingredient Ointment (Analgesic [place]) 1 cole PRN QID PRN TP MUSCLE PAIN 07/27/20 15:30 Al Hydroxide/Mg Hydroxide (Mylanta Plus Xs) 15 ml PRN AFTMEALHC PRN PO DYSPEPSIA 07/27/20 15:30 Magnesium Hydroxide (Milk Of Magnesia) 2,400 mg PRN QHS PRN PO CONSTIPATION 07/27/20 15:30 Acetaminophen (Tylenol) 1,000 mg PRN Q6HRS PRN PO PAIN 07/27/20 15:30 Atorvastatin Calcium (Lipitor) 10 mg QHS PO 07/27/20 21:00 07/30/20 19:26 Carvedilol (Coreg) 6.25 mg BIDWMEALS PO 07/27/20 17:00 07/30/20 17:19 Clonazepam (KlonoPIN) 0.5 mg PRN BID PRN PO ANXIETY / AGITATION 07/27/20 15:30 07/28/20 16:12 DC 07/27/20 17:06 Clonazepam (KlonoPIN) 0.5 mg QHS PO 07/27/20 21:00 07/28/20 16:13 DC 07/27/20 19:55 Cyclosporine (Restasis) 1 drop BID OU 07/27/20 21:00 07/30/20 19:26 Levothyroxine Sodium (Synthroid) 125 mcg DAILY06 PO 07/28/20 06:00 07/30/20 05:46 Memantine (Namenda) 10 mg BID PO 07/27/20 21:00 07/30/20 19:25 Montelukast Sodium (Singulair) 10 mg HS PO 07/27/20 21:00 07/30/20 19:25 Clobetasol Propionate 1 cole PRN DAILY PRN TP dermatitis 07/27/20 16:00 Clonazepam (KlonoPIN) 0.25 mg PRN QHS PRN PO INSOMNIA, MRX1 07/27/20 16:00 07/28/20 16:13 DC Diltiazem HCl (Cardizem 24hr Cd) 240 mg DAILY PO 07/28/20 09:00 07/30/20 09:16 Cetirizine HCl (ZyrTEC) 10 mg DAILY PO 07/28/20 09:00 07/30/20 09:15 Losartan Potassium (Cozaar) 100 mg DAILY PO 07/28/20 09:00 07/30/20 09:14 Multivitamins/ Calcium (Thera-M Plus) 1 tab DAILY PO 07/28/20 09:00 07/30/20 09:14 Pantoprazole Sodium (Protonix) 40 mg DAILY PO 07/28/20 09:00 07/30/20 09:15 Artificial Tears (Artificial Tears) 1 drop PRN QID PRN OU DRY EYE 07/27/20 16:00 07/30/20 20:17 Olanzapine (ZyPREXA ZYDIS) 2.5 mg PRN Q2HRS PRN PO PSYCHOSIS 07/27/20 19:45 07/29/20 01:07 Clonazepam (KlonoPIN) 0.25 mg QHS PO 07/28/20 21:00 07/30/20 23:50 07/30/20 19:27 Quetiapine Fumarate (SEROquel) 12.5 mg QHS PO 07/28/20 21:00 07/30/20 19:25 Fluvoxamine Maleate (Luvox) 25 mg QHS PO 07/28/20 21:00 07/30/20 23:00 07/30/20 19:26 Mirtazapine (Remeron) 7.5 mg QHS PO 07/29/20 21:00 07/30/20 19:25 Fluvoxamine Maleate (Luvox) 50 mg QHS PO 07/31/20 21:00 I have reviewed the current psychotropics carefully including drug interactions. Risk benefit ratio favors no change other than as noted in my dictated progress note. Diagnosis: Problems: (1) Major neurocognitive disorder (2) Impulse control disorder, unspecified (3) Anxiety disorder, unspecified (4) Dementia, vascular, with depression (5) Dementia, vascular, with delusions (6) Dementia in Alzheimer's disease with depression (7) Dementia in Alzheimer's disease with delusions (8) Dementia of the Alzheimer's type with early onset with behavioral disturbance KATHY BARNHART MD Jul 30, 2020 21:51
--- NOTE | 2020-07-31 00:42 | NUR ---
Pt sitting in day room when approached. Pt confused, disorganized, and sarcastic. Pt was moving her straw up and down in her water bottle causing a distraction. When staff asked her not to do it, pt stated "well, I have to have water for my eyes, they are so dry". I then asked pt if she would like her eye drops to which she rudely stated "like you're going to get them for me anyway. It's not like you care". I informed pt that I would in fact get her eye drops for her and that she needs to request them and not speak passive aggressively to other pt's. Pt cooperative with assessment and compliant with medications administered whole. PRN Artificial Tears administered for dry eyes.
[2020-07-31] MEDS: LEVOTHYROXINE 125 MCG TABLET PO SCH (06:00)
[2020-07-31 06:11] VITALS: BP 173/80
--- NOTE | 2020-07-31 07:50 | NUR ---
Wound/Ostomy Care Wound Type/Assessment: right great toe and left 4th toe have unstageable pressure ulcers to plantar side with large callouses. Both toes are reddened and swollen. Redness extending down right foot, outlined at this time. 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
[2020-07-31] MEDS: PANTOPRAZOLE 40 MG TABLET. PO SCH (08:33)
[2020-07-31] MEDS: MULTIVITAMIN with MINERAL TABLET. PO SCH (08:33)
[2020-07-31] MEDS: CARVEDILOL 6.25 MG TABLET PO SCH ×2 (08:33→17:10)
[2020-07-31] MEDS: MEMANTINE 10 MG TABLET. PO SCH ×2 (08:33→20:12)
[2020-07-31] MEDS: LOSARTAN 50 MG TABLET. PO SCH (08:33)
[2020-07-31] MEDS: CETIRIZINE HCL 10 MG TABLET PO SCH (08:33)
[2020-07-31] MEDS: cycloSPORINE 0.05% OPTH 1 DROP DROPERETTE OU SCH ×2 (08:37→20:13)
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
--- NOTE | 2020-07-31 10:29 | NUR ---
Nursing note: Pt in dining room at time of AM med pass and assessment. She is med compliant and cooperative. She is pleasantly confused and has no concerns at time of assessment. She is currently sitting in the day room for group. Will continue to monitor.
--- NOTE | 2020-07-31 10:34 | NUR ---
Nursing note: Wound care saw pt regarding the open areas on pt's toes. Wound care suggested x-rays of both the R great toe and L 3rd toe d/t possible infection. Dr. Workman notified. New orders received to get x-rays, CBC, CMP, CRP and sed rate.
--- NOTE | 2020-07-31 11:27 | TX PLAN ---
Interdisciplinary Tx Plan Admission Information Jul 27, 2020 at 13:19 Legal Status (on Admission): Voluntary DPOA/Guardian Name: Emre Carroll Contact Other Contact Name: [facility] Other Contact Verified Code Status: Full Code Allergies: Coded Allergies: adhesive (Verified Allergy, Unknown, 07/27/20) amlodipine (Verified Allergy, Unknown, Swelling, 07/27/20) clindamycin (Verified Allergy, Unknown, Rash, 07/27/20) Diagnoses Primary Diagnosis: Major Neurocognitiave D/O vascular Alzheimers with Delusions, depression and BD Reasons for Admission: Aggressive, Combative, Confusion/Disoriented, Poor impulse control Problem in Patient's Words: Definite decline in cognition Additional Admission Comments: According to the intake, pt is flipping chairs in the dining room, aggressive, throwing Ensure bottles at staff, agitated, pushing/shoving staff, eloped from facility in which staff was trying to prevent. Problems Active Problems: delusional verbal aggression Inactive Problems: Medication compliance Pt Strengths/Limitations Ability for [place]: Poor Cognitive Functioning/Ability: Fair Communication Skills/Ability: Fair Financial Resources: Good Insight/Judgement: Poor Intellectual Ability: Fair Physical Health: Poor Social Skills: Poor Stability in Family: Good Stability in School/Work: Poor Verbal Skills: Fair Discharge Criteria Discharge Criteria: No need for close observ., Adequate arrangements @DC, Improved behavior, Improved mood/thought Preliminary Discharge Plan Preliminary DC Plan: Current Living Arrange. Special Precautions Fall Risk: Low Initial D/C Plan Pt may return to [facility] (memory care unit) once stable. Identified Discharge Needs: Continued psychiatric services Currently Utilized Resources Currently Utilized Resources/P: Primary care physician Referrals Community Resources: Referral for continued psychiatric services Identified Problems/Hx/Goals Objectives/Short-Term Goals Short Term Goals: Dec. Aggression, Dec. Hallucination/Delus, Dec. Outbursts, Improved Social Skills, Medication Stabilization, Promote Coping Skill Short Term Goals in Patient's: N/A Interventions/Frequency Staff Interventions/Frequency&: Psychiatrist to assess pt at least 3x per week for medication management Social work to assess pt at least 2x per week to identify barriers to care and discharge planning. Nursing to assess medication effects, behavioral management and completion of 15 minute checks daily. Encourage group participation in activities (if applicable) or 1:1 engagement based off activity dept goals. 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 She also worked 4 years at the [employer] and received a certificate to further her skills in psychology. 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 Pt has her Bachelors in Psychology and received her Masters in Psychology; pt attended and initially started on her degree in School Counseling/Psychology. Community Follow-up Primary Care Physician Referral to psychiatrist/neurology Treatment Plan Explained Patient/Breeding Manager had this treatment plan explained to him/her as indicated by the signature below and has been given the opportunity to ask questions and make suggestions: Date: Patient/Breeding Manager Signature: Patient/Breeding Manager Decline: No (Pt is involved in pt care.) LUPE IGNACIO Jul 31, 2020 11:27
--- NOTE | 2020-07-31 14:56 | RAD ---
XR BILAT FEET 3 VIEWS Clinical Indication: Reason: possible infection left 3rd toe Comparison: None. Findings: Right: No acute fracture is identified. No bone erosion is seen. There is mild dorsal soft tissue swelling o verlying the metatarsals. There is calcification along the distal Achilles tendon, cannot exclude tatum cific tendinosis. The joint spaces are maintained. Left: There is soft tissue swelling of the third toe. No definite bone erosion is identified. Lateral view is limited due to bony overlap. There is mild lateral subluxation of the distal phalanx of the second toe in relation to the middle phalanx. No acute fracture is identified. There are moderate calcaneal bone spurs. The mineralization is normal. IMPRESSION: There is soft tissue swelling of the left third toe. No radiographic evidence of osteomyelitis. If th ere is high clinical suspicion consider three-phase bone scan. Electronically signed by: Lane Mejia MD (07/31/2020 2:53 PM) [facility]
[2020-07-31 15:48] VITALS: BP 126/62
[2020-07-31 19:34] LABS: BASO # 0.1 x10^3/uL (0.0-0.2); BASO % 1 % (0-3); EOS # 0.1 x10^3/uL (0.0-0.7); EOS % 1 % (0-3); HEMOGLOBIN 10.8 g/dL (12.0-15.5); LYMPH # 1.5 x10^3/uL (1.0-4.8); LYMPH % 19 % (24-48); MEAN CORPUSCULAR HEMOGLOBIN 33 pg (25-35); MEAN CORPUSCULAR HGB CONC 34 g/dL (31-37); MEAN CORPUSCULAR VOLUME 96 fL (79-100); MONO # 1.2 x10^3/uL (0.0-1.1); MONO % 15 % (0-9); NEUT % 64 % (31-73); PLATELET COUNT 344 x10^3/uL (140-400); RED BLOOD COUNT 3.32 x10^6/uL (3.50-5.40); RED CELL DISTRIBUTION WIDTH 13.5 % (11.5-14.5); WHITE BLOOD COUNT 7.8 x10^3/uL (4.0-11.0)
[2020-07-31 19:42] LABS: ALBUMIN 2.9 g/dL (3.4-5.0); ALBUMIN/GLOBULIN RATIO 0.8 (1.0-1.7); C REACTIVE PROTEIN 16.9 mg/L (0-3.3); CALCIUM 8.6 mg/dL (8.5-10.1); CREATININE 1.1 mg/dL (0.6-1.0); GFR 48.7; POTASSIUM 3.9 mmol/L (3.5-5.1); TOTAL BILIRUBIN 0.4 mg/dL (0.2-1.0); TOTAL PROTEIN 6.6 g/dL (6.4-8.2)
[2020-07-31] MEDS: MIRTAZAPINE 7.5 MG TABLET. PO SCH (20:12)
[2020-07-31] MEDS: QUEtiapine 25 MG TABLET. PO SCH (20:12)
[2020-07-31] MEDS: MONTELUKAST 10 MG TABLET. PO SCH (20:12)
[2020-07-31] MEDS: ATORVASTATIN CALCIUM 10 MG TABLET. PO SCH (20:12)
[2020-07-31 20:38] LABS: SEDIMENTATION RATE 25 (0-25)
--- NOTE | 2020-07-31 21:58 | PDOC ---
Exam Note: Roni Note: Please also refer to the separate dictated note~for this date of service dictated separately.~Patient seen individually. Discussed the patient with Nursing staff reviewed the chart.~Reviewed interim history and current functioning. Reviewed vital signs,~Labs/ Radiology~and current medications noted below. Continue current treatment with the changes noted in the dictated addendum note Assessment: Vital Signs/I&O: Vital Signs Date Time Temp Pulse Resp B/P (MAP) Pulse Ox O2 Delivery O2 Flow Rate FiO2 07/31/20 17:10 60 126/62 07/31/20 15:48 97.9 18 98 07/29/20 05:44 Room Air I & O 07/30/20 07/30/20 07/31/20 15:00 23:00 07:00 Intake Total 600 ml 360 ml 240 ml Balance 600 ml 360 ml 240 ml Labs: Laboratory Tests Test 07/31/20 19:17 White Blood Count 7.8 x10^3/uL (4.0-11.0) Red Blood Count 3.32 x10^6/uL (3.50-5.40) L Hemoglobin 10.8 g/dL (12.0-15.5) L Hematocrit 32.0 % (36.0-47.0) L Mean Corpuscular Volume 96 fL (79-100) Mean Corpuscular Hemoglobin 33 pg (25-35) Mean Corpuscular Hemoglobin Concent 34 g/dL (31-37) Red Cell Distribution Width 13.5 % (11.5-14.5) Platelet Count 344 x10^3/uL (140-400) Neutrophils (%) (Auto) 64 % (31-73) Lymphocytes (%) (Auto) 19 % (24-48) L Monocytes (%) (Auto) 15 % (0-9) H Eosinophils (%) (Auto) 1 % (0-3) Basophils (%) (Auto) 1 % (0-3) Neutrophils # (Auto) 5.0 x10^3uL (1.8-7.7) Lymphocytes # (Auto) 1.5 x10^3/uL (1.0-4.8) Monocytes # (Auto) 1.2 x10^3/uL (0.0-1.1) H Eosinophils # (Auto) 0.1 x10^3/uL (0.0-0.7) Basophils # (Auto) 0.1 x10^3/uL (0.0-0.2) Erythrocyte Sedimentation Rate 25 (0-25) Sodium Level 140 mmol/L (136-145) Potassium Level 3.9 mmol/L (3.5-5.1) Chloride Level 102 mmol/L (98-107) Carbon Dioxide Level 32 mmol/L (21-32) Anion Gap 6 (6-14) Blood Urea Nitrogen 29 mg/dL (7-20) H Creatinine 1.1 mg/dL (0.6-1.0) H Estimated GFR (Cockcroft-Gault) 48.7 BUN/Creatinine Ratio 26 (6-20) H Glucose Level 104 mg/dL (70-99) H Calcium Level 8.6 mg/dL (8.5-10.1) Total Bilirubin 0.4 mg/dL (0.2-1.0) Aspartate Amino Transferase (AST) 17 U/L (15-37) Alanine Aminotransferase (ALT) 19 U/L (14-59) Alkaline Phosphatase 84 U/L (46-116) C-Reactive Protein 16.9 mg/L (0-3.3) H Total Protein 6.6 g/dL (6.4-8.2) Albumin 2.9 g/dL (3.4-5.0) L Albumin/Globulin Ratio 0.8 (1.0-1.7) L Current Medications: Meds: Laboratory Tests Test 07/31/20 19:17 White Blood Count 7.8 x10^3/uL Red Blood Count 3.32 x10^6/uL Hemoglobin 10.8 g/dL Hematocrit 32.0 % Mean Corpuscular Volume 96 fL Mean Corpuscular Hemoglobin 33 pg Mean Corpuscular Hemoglobin Concent 34 g/dL Red Cell Distribution Width 13.5 % Platelet Count 344 x10^3/uL Neutrophils (%) (Auto) 64 % Lymphocytes (%) (Auto) 19 % Monocytes (%) (Auto) 15 % Eosinophils (%) (Auto) 1 % Basophils (%) (Auto) 1 % Neutrophils # (Auto) 5.0 x10^3uL Lymphocytes # (Auto) 1.5 x10^3/uL Monocytes # (Auto) 1.2 x10^3/uL Eosinophils # (Auto) 0.1 x10^3/uL Basophils # (Auto) 0.1 x10^3/uL Erythrocyte Sedimentation Rate 25 Sodium Level 140 mmol/L Potassium Level 3.9 mmol/L Chloride Level 102 mmol/L Carbon Dioxide Level 32 mmol/L Anion Gap 6 Blood Urea Nitrogen 29 mg/dL Creatinine 1.1 mg/dL Estimated GFR (Cockcroft-Gault) 48.7 BUN/Creatinine Ratio 26 Glucose Level 104 mg/dL Calcium Level 8.6 mg/dL Total Bilirubin 0.4 mg/dL Aspartate Amino Transf (AST/SGOT) 17 U/L Alanine Aminotransferase (ALT/SGPT) 19 U/L Alkaline Phosphatase 84 U/L C-Reactive Protein 16.9 mg/L Total Protein 6.6 g/dL Albumin 2.9 g/dL Albumin/Globulin Ratio 0.8 Current Medications Medications (Trade) Dose Ordered Sig/Pino Route PRN Reason Start Time Stop Time Status Last Admin Dose Admin Multi-Ingredient Ointment (Analgesic [place]) 1 cole PRN QID PRN TP MUSCLE PAIN 07/27/20 15:30 Al Hydroxide/Mg Hydroxide (Mylanta Plus Xs) 15 ml PRN AFTMEALHC PRN PO DYSPEPSIA 07/27/20 15:30 Magnesium Hydroxide (Milk Of Magnesia) 2,400 mg PRN QHS PRN PO CONSTIPATION 07/27/20 15:30 Acetaminophen (Tylenol) 1,000 mg PRN Q6HRS PRN PO PAIN 07/27/20 15:30 Atorvastatin Calcium (Lipitor) 10 mg QHS PO 07/27/20 21:00 07/31/20 20:12 Carvedilol (Coreg) 6.25 mg BIDWMEALS PO 07/27/20 17:00 07/31/20 17:10 Clonazepam (KlonoPIN) 0.5 mg PRN BID PRN PO ANXIETY / AGITATION 07/27/20 15:30 07/28/20 16:12 DC 07/27/20 17:06 Clonazepam (KlonoPIN) 0.5 mg QHS PO 07/27/20 21:00 07/28/20 16:13 DC 07/27/20 19:55 Cyclosporine (Restasis) 1 drop BID OU 07/27/20 21:00 07/31/20 20:13 Levothyroxine Sodium (Synthroid) 125 mcg DAILY06 PO 07/28/20 06:00 07/31/20 06:00 Memantine (Namenda) 10 mg BID PO 07/27/20 21:00 07/31/20 20:12 Montelukast Sodium (Singulair) 10 mg HS PO 07/27/20 21:00 07/31/20 20:12 Clobetasol Propionate 1 cole PRN DAILY PRN TP dermatitis 07/27/20 16:00 Clonazepam (KlonoPIN) 0.25 mg PRN QHS PRN PO INSOMNIA, MRX1 07/27/20 16:00 07/28/20 16:13 DC Diltiazem HCl (Cardizem 24hr Cd) 240 mg DAILY PO 07/28/20 09:00 07/31/20 08:37 Cetirizine HCl (ZyrTEC) 10 mg DAILY PO 07/28/20 09:00 07/31/20 08:33 Losartan Potassium (Cozaar) 100 mg DAILY PO 07/28/20 09:00 07/31/20 08:33 Multivitamins/ Calcium (Thera-M Plus) 1 tab DAILY PO 07/28/20 09:00 07/31/20 08:33 Pantoprazole Sodium (Protonix) 40 mg DAILY PO 07/28/20 09:00 07/31/20 08:33 Artificial Tears (Artificial Tears) 1 drop PRN QID PRN OU DRY EYE 07/27/20 16:00 07/30/20 20:17 Olanzapine (ZyPREXA ZYDIS) 2.5 mg PRN Q2HRS PRN PO PSYCHOSIS 07/27/20 19:45 07/29/20 01:07 Clonazepam (KlonoPIN) 0.25 mg QHS PO 07/28/20 21:00 07/30/20 23:50 DC 07/30/20 19:27 Quetiapine Fumarate (SEROquel) 12.5 mg QHS PO 07/28/20 21:00 07/31/20 20:12 Fluvoxamine Maleate (Luvox) 25 mg QHS PO 07/28/20 21:00 07/30/20 23:00 DC 07/30/20 19:26 Mirtazapine (Remeron) 7.5 mg QHS PO 07/29/20 21:00 07/31/20 20:12 Fluvoxamine Maleate (Luvox) 50 mg QHS PO 07/31/20 21:00 07/31/20 20:11 Current Medications Medications (Trade) Dose Ordered Sig/Pino Route PRN Reason Start Time Stop Time Status Last Admin Dose Admin Fluvoxamine Maleate (Luvox) 50 mg QHS PO 07/31/20 21:00 07/31/20 20:11 I have reviewed the current psychotropics carefully including drug interactions. Risk benefit ratio favors no change other than as noted in my dictated progress note. Diagnosis: Problems: (1) Major neurocognitive disorder (2) Impulse control disorder, unspecified (3) Anxiety disorder, unspecified (4) Dementia, vascular, with depression (5) Dementia, vascular, with delusions (6) Dementia in Alzheimer's disease with depression (7) Dementia in Alzheimer's disease with delusions (8) Dementia of the Alzheimer's type with early onset with behavioral disturbance KATHY BARNHART MD Jul 31, 2020 21:58
--- NOTE | 2020-07-31 22:16 | NUR ---
Pt sitting quietly in the day room when approached. Pt confused, disorganized, and anxious. Pt worried about where she will be staying tonight and wanting to know where she will be sleeping. Staff provided reassurance and re-direction. Pt cooperative with assessment and compliant with medications administered whole.
[2020-08-01 05:44] VITALS: BP 163/84
[2020-08-01] MEDS: LEVOTHYROXINE 125 MCG TABLET PO SCH (05:57)
--- NOTE | 2020-08-01 07:56 | PDOC ---
Exam Note: Roni Note: This note is a late entry for 07/30/2020 covers elements not covered in my initial note. Subjective: The patient was reviewed in the morning of 07/30/2020 for a treatment team meeting with Jayshree Ramachandran, Fide Delgado (social services coordinator), An Akers, [employer], Myrna, activity therapy and Glendy SCHAFER, discussed and reviewed the chart. She slept 5-1/2 hours previous night. The patient was found to have some two scalp sutures. Nursing staff will check with Dr. Workman and given her history of head injury, we will check her CT head as well. Review of Systems: Ambulation impaired in wheelchair. No CV, , pulmonary, eye system symptoms on review. Positive for feeling cold. Mental Status Exam: The patient is reasonably oriented. Insight and judgment, recent and remote memory, attention and concentration, fund of knowledge is poor consistent with her diagnoses. 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 Laboratory Data: Reviewed. 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 Anxiety disorder unspecified. Impulse control disorder unspecified. Plan: Continue current psychotropics. Adjust further as clinically indicated. Follow up on the scalp shanika. Assessment: Vital Signs/I&O: Vital Signs Date Time Temp Pulse Resp B/P (MAP) Pulse Ox O2 Delivery O2 Flow Rate FiO2 08/01/20 05:44 97.6 61 16 163/84 (110) 98 07/29/20 05:44 Room Air I & O 07/31/20 07/31/20 08/01/20 14:59 22:59 06:59 Intake Total 600 ml 360 ml 240 ml Balance 600 ml 360 ml 240 ml Labs: Laboratory Tests Test 07/31/20 19:17 White Blood Count 7.8 x10^3/uL (4.0-11.0) Red Blood Count 3.32 x10^6/uL (3.50-5.40) L Hemoglobin 10.8 g/dL (12.0-15.5) L Hematocrit 32.0 % (36.0-47.0) L Mean Corpuscular Volume 96 fL (79-100) Mean Corpuscular Hemoglobin 33 pg (25-35) Mean Corpuscular Hemoglobin Concent 34 g/dL (31-37) Red Cell Distribution Width 13.5 % (11.5-14.5) Platelet Count 344 x10^3/uL (140-400) Neutrophils (%) (Auto) 64 % (31-73) Lymphocytes (%) (Auto) 19 % (24-48) L Monocytes (%) (Auto) 15 % (0-9) H Eosinophils (%) (Auto) 1 % (0-3) Basophils (%) (Auto) 1 % (0-3) Neutrophils # (Auto) 5.0 x10^3uL (1.8-7.7) Lymphocytes # (Auto) 1.5 x10^3/uL (1.0-4.8) Monocytes # (Auto) 1.2 x10^3/uL (0.0-1.1) H Eosinophils # (Auto) 0.1 x10^3/uL (0.0-0.7) Basophils # (Auto) 0.1 x10^3/uL (0.0-0.2) Erythrocyte Sedimentation Rate 25 (0-25) Sodium Level 140 mmol/L (136-145) Potassium Level 3.9 mmol/L (3.5-5.1) Chloride Level 102 mmol/L (98-107) Carbon Dioxide Level 32 mmol/L (21-32) Anion Gap 6 (6-14) Blood Urea Nitrogen 29 mg/dL (7-20) H Creatinine 1.1 mg/dL (0.6-1.0) H Estimated GFR (Cockcroft-Gault) 48.7 BUN/Creatinine Ratio 26 (6-20) H Glucose Level 104 mg/dL (70-99) H Calcium Level 8.6 mg/dL (8.5-10.1) Total Bilirubin 0.4 mg/dL (0.2-1.0) Aspartate Amino Transferase (AST) 17 U/L (15-37) Alanine Aminotransferase (ALT) 19 U/L (14-59) Alkaline Phosphatase 84 U/L (46-116) C-Reactive Protein 16.9 mg/L (0-3.3) H Total Protein 6.6 g/dL (6.4-8.2) Albumin 2.9 g/dL (3.4-5.0) L Albumin/Globulin Ratio 0.8 (1.0-1.7) L Current Medications: Meds: Laboratory Tests Test 07/31/20 19:17 White Blood Count 7.8 x10^3/uL Red Blood Count 3.32 x10^6/uL Hemoglobin 10.8 g/dL Hematocrit 32.0 % Mean Corpuscular Volume 96 fL Mean Corpuscular Hemoglobin 33 pg Mean Corpuscular Hemoglobin Concent 34 g/dL Red Cell Distribution Width 13.5 % Platelet Count 344 x10^3/uL Neutrophils (%) (Auto) 64 % Lymphocytes (%) (Auto) 19 % Monocytes (%) (Auto) 15 % Eosinophils (%) (Auto) 1 % Basophils (%) (Auto) 1 % Neutrophils # (Auto) 5.0 x10^3uL Lymphocytes # (Auto) 1.5 x10^3/uL Monocytes # (Auto) 1.2 x10^3/uL Eosinophils # (Auto) 0.1 x10^3/uL Basophils # (Auto) 0.1 x10^3/uL Erythrocyte Sedimentation Rate 25 Sodium Level 140 mmol/L Potassium Level 3.9 mmol/L Chloride Level 102 mmol/L Carbon Dioxide Level 32 mmol/L Anion Gap 6 Blood Urea Nitrogen 29 mg/dL Creatinine 1.1 mg/dL Estimated GFR (Cockcroft-Gault) 48.7 BUN/Creatinine Ratio 26 Glucose Level 104 mg/dL Calcium Level 8.6 mg/dL Total Bilirubin 0.4 mg/dL Aspartate Amino Transf (AST/SGOT) 17 U/L Alanine Aminotransferase (ALT/SGPT) 19 U/L Alkaline Phosphatase 84 U/L C-Reactive Protein 16.9 mg/L Total Protein 6.6 g/dL Albumin 2.9 g/dL Albumin/Globulin Ratio 0.8 Current Medications Medications (Trade) Dose Ordered Sig/Pino Route PRN Reason Start Time Stop Time Status Last Admin Dose Admin Multi-Ingredient Ointment (Analgesic [place]) 1 cole PRN QID PRN TP MUSCLE PAIN 07/27/20 15:30 Al Hydroxide/Mg Hydroxide (Mylanta Plus Xs) 15 ml PRN AFTMEALHC PRN PO DYSPEPSIA 07/27/20 15:30 Magnesium Hydroxide (Milk Of Magnesia) 2,400 mg PRN QHS PRN PO CONSTIPATION 07/27/20 15:30 Acetaminophen (Tylenol) 1,000 mg PRN Q6HRS PRN PO PAIN 07/27/20 15:30 Atorvastatin Calcium (Lipitor) 10 mg QHS PO 07/27/20 21:00 07/31/20 20:12 Carvedilol (Coreg) 6.25 mg BIDWMEALS PO 07/27/20 17:00 07/31/20 17:10 Clonazepam (KlonoPIN) 0.5 mg PRN BID PRN PO ANXIETY / AGITATION 07/27/20 15:30 07/28/20 16:12 DC 07/27/20 17:06 Clonazepam (KlonoPIN) 0.5 mg QHS PO 07/27/20 21:00 07/28/20 16:13 DC 07/27/20 19:55 Cyclosporine (Restasis) 1 drop BID OU 07/27/20 21:00 07/31/20 20:13 Levothyroxine Sodium (Synthroid) 125 mcg DAILY06 PO 07/28/20 06:00 08/01/20 05:57 Memantine (Namenda) 10 mg BID PO 07/27/20 21:00 07/31/20 20:12 Montelukast Sodium (Singulair) 10 mg HS PO 07/27/20 21:00 07/31/20 20:12 Clobetasol Propionate 1 cole PRN DAILY PRN TP dermatitis 07/27/20 16:00 Clonazepam (KlonoPIN) 0.25 mg PRN QHS PRN PO INSOMNIA, MRX1 07/27/20 16:00 07/28/20 16:13 DC Diltiazem HCl (Cardizem 24hr Cd) 240 mg DAILY PO 07/28/20 09:00 07/31/20 08:37 Cetirizine HCl (ZyrTEC) 10 mg DAILY PO 07/28/20 09:00 07/31/20 08:33 Losartan Potassium (Cozaar) 100 mg DAILY PO 07/28/20 09:00 07/31/20 08:33 Multivitamins/ Calcium (Thera-M Plus) 1 tab DAILY PO 07/28/20 09:00 07/31/20 08:33 Pantoprazole Sodium (Protonix) 40 mg DAILY PO 07/28/20 09:00 07/31/20 08:33 Artificial Tears (Artificial Tears) 1 drop PRN QID PRN OU DRY EYE 07/27/20 16:00 07/30/20 20:17 Olanzapine (ZyPREXA ZYDIS) 2.5 mg PRN Q2HRS PRN PO PSYCHOSIS 07/27/20 19:45 07/29/20 01:07 Clonazepam (KlonoPIN) 0.25 mg QHS PO 07/28/20 21:00 07/30/20 23:50 DC 07/30/20 19:27 Quetiapine Fumarate (SEROquel) 12.5 mg QHS PO 07/28/20 21:00 07/31/20 20:12 Fluvoxamine Maleate (Luvox) 25 mg QHS PO 07/28/20 21:00 07/30/20 23:00 DC 07/30/20 19:26 Mirtazapine (Remeron) 7.5 mg QHS PO 07/29/20 21:00 07/31/20 20:12 Fluvoxamine Maleate (Luvox) 50 mg QHS PO 07/31/20 21:00 07/31/20 20:11 Current Medications Medications (Trade) Dose Ordered Sig/Pino Route PRN Reason Start Time Stop Time Status Last Admin Dose Admin Fluvoxamine Maleate (Luvox) 50 mg QHS PO 07/31/20 21:00 07/31/20 20:11 I have reviewed the current psychotropics carefully including drug interactions. Risk benefit ratio favors no change other than as noted in my dictated progress note. Diagnosis: Problems: (1) Major neurocognitive disorder (2) Impulse control disorder, unspecified (3) Anxiety disorder, unspecified (4) Dementia, vascular, with depression (5) Dementia, vascular, with delusions (6) Dementia in Alzheimer's disease with depression (7) Dementia in Alzheimer's disease with delusions (8) Dementia of the Alzheimer's type with early onset with behavioral disturbance KATHY BARNHART MD Aug 01, 2020 07:56
--- NOTE | 2020-08-01 08:15 | PDOC ---
Exam Note: Roni Note: This note is a late entry for 07/31/2020 covers elements not covered in my initial note. Subjective: The patient was seen individually in the evening of 07/31/2020 with Glendy SCHAFER, discussed and reviewed the chart. She slept 4-3/4 hours previous night. Previous night the patient was snarky and irritable per nursing staff. She has done better today. Her toes look terrible per nursing staff and wound consult has been requested. We will defer to Dr. Workman/Dr. Garza. X-ray and bone scan have been requested by Dr. Workman. Review of Systems: Ambulation impaired in wheelchair. No CV, , pulmonary, eye system symptoms on review. Mental Status Exam: The patient is reasonably oriented. Insight and judgment, recent and remote memory, attention and concentration, fund of knowledge is poor consistent with her diagnoses. Laboratory Data: Reviewed. 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 Anxiety disorder unspecified. Impulse control disorder unspecified. Plan: Continue current psychotropics. Assessment: Vital Signs/I&O: Vital Signs Date Time Temp Pulse Resp B/P (MAP) Pulse Ox O2 Delivery O2 Flow Rate FiO2 08/01/20 05:44 97.6 61 16 163/84 (110) 98 07/29/20 05:44 Room Air I & O 07/31/20 07/31/20 08/01/20 14:59 22:59 06:59 Intake Total 600 ml 360 ml 240 ml Balance 600 ml 360 ml 240 ml Labs: Laboratory Tests Test 07/31/20 19:17 White Blood Count 7.8 x10^3/uL (4.0-11.0) Red Blood Count 3.32 x10^6/uL (3.50-5.40) L Hemoglobin 10.8 g/dL (12.0-15.5) L Hematocrit 32.0 % (36.0-47.0) L Mean Corpuscular Volume 96 fL (79-100) Mean Corpuscular Hemoglobin 33 pg (25-35) Mean Corpuscular Hemoglobin Concent 34 g/dL (31-37) Red Cell Distribution Width 13.5 % (11.5-14.5) Platelet Count 344 x10^3/uL (140-400) Neutrophils (%) (Auto) 64 % (31-73) Lymphocytes (%) (Auto) 19 % (24-48) L Monocytes (%) (Auto) 15 % (0-9) H Eosinophils (%) (Auto) 1 % (0-3) Basophils (%) (Auto) 1 % (0-3) Neutrophils # (Auto) 5.0 x10^3uL (1.8-7.7) Lymphocytes # (Auto) 1.5 x10^3/uL (1.0-4.8) Monocytes # (Auto) 1.2 x10^3/uL (0.0-1.1) H Eosinophils # (Auto) 0.1 x10^3/uL (0.0-0.7) Basophils # (Auto) 0.1 x10^3/uL (0.0-0.2) Erythrocyte Sedimentation Rate 25 (0-25) Sodium Level 140 mmol/L (136-145) Potassium Level 3.9 mmol/L (3.5-5.1) Chloride Level 102 mmol/L (98-107) Carbon Dioxide Level 32 mmol/L (21-32) Anion Gap 6 (6-14) Blood Urea Nitrogen 29 mg/dL (7-20) H Creatinine 1.1 mg/dL (0.6-1.0) H Estimated GFR (Cockcroft-Gault) 48.7 BUN/Creatinine Ratio 26 (6-20) H Glucose Level 104 mg/dL (70-99) H Calcium Level 8.6 mg/dL (8.5-10.1) Total Bilirubin 0.4 mg/dL (0.2-1.0) Aspartate Amino Transferase (AST) 17 U/L (15-37) Alanine Aminotransferase (ALT) 19 U/L (14-59) Alkaline Phosphatase 84 U/L (46-116) C-Reactive Protein 16.9 mg/L (0-3.3) H Total Protein 6.6 g/dL (6.4-8.2) Albumin 2.9 g/dL (3.4-5.0) L Albumin/Globulin Ratio 0.8 (1.0-1.7) L Current Medications: Meds: Laboratory Tests Test 07/31/20 19:17 White Blood Count 7.8 x10^3/uL Red Blood Count 3.32 x10^6/uL Hemoglobin 10.8 g/dL Hematocrit 32.0 % Mean Corpuscular Volume 96 fL Mean Corpuscular Hemoglobin 33 pg Mean Corpuscular Hemoglobin Concent 34 g/dL Red Cell Distribution Width 13.5 % Platelet Count 344 x10^3/uL Neutrophils (%) (Auto) 64 % Lymphocytes (%) (Auto) 19 % Monocytes (%) (Auto) 15 % Eosinophils (%) (Auto) 1 % Basophils (%) (Auto) 1 % Neutrophils # (Auto) 5.0 x10^3uL Lymphocytes # (Auto) 1.5 x10^3/uL Monocytes # (Auto) 1.2 x10^3/uL Eosinophils # (Auto) 0.1 x10^3/uL Basophils # (Auto) 0.1 x10^3/uL Erythrocyte Sedimentation Rate 25 Sodium Level 140 mmol/L Potassium Level 3.9 mmol/L Chloride Level 102 mmol/L Carbon Dioxide Level 32 mmol/L Anion Gap 6 Blood Urea Nitrogen 29 mg/dL Creatinine 1.1 mg/dL Estimated GFR (Cockcroft-Gault) 48.7 BUN/Creatinine Ratio 26 Glucose Level 104 mg/dL Calcium Level 8.6 mg/dL Total Bilirubin 0.4 mg/dL Aspartate Amino Transf (AST/SGOT) 17 U/L Alanine Aminotransferase (ALT/SGPT) 19 U/L Alkaline Phosphatase 84 U/L C-Reactive Protein 16.9 mg/L Total Protein 6.6 g/dL Albumin 2.9 g/dL Albumin/Globulin Ratio 0.8 Current Medications Medications (Trade) Dose Ordered Sig/Pino Route PRN Reason Start Time Stop Time Status Last Admin Dose Admin Multi-Ingredient Ointment (Analgesic [place]) 1 cole PRN QID PRN TP MUSCLE PAIN 07/27/20 15:30 Al Hydroxide/Mg Hydroxide (Mylanta Plus Xs) 15 ml PRN AFTMEALHC PRN PO DYSPEPSIA 07/27/20 15:30 Magnesium Hydroxide (Milk Of Magnesia) 2,400 mg PRN QHS PRN PO CONSTIPATION 07/27/20 15:30 Acetaminophen (Tylenol) 1,000 mg PRN Q6HRS PRN PO PAIN 07/27/20 15:30 Atorvastatin Calcium (Lipitor) 10 mg QHS PO 07/27/20 21:00 07/31/20 20:12 Carvedilol (Coreg) 6.25 mg BIDWMEALS PO 07/27/20 17:00 07/31/20 17:10 Clonazepam (KlonoPIN) 0.5 mg PRN BID PRN PO ANXIETY / AGITATION 07/27/20 15:30 07/28/20 16:12 DC 07/27/20 17:06 Clonazepam (KlonoPIN) 0.5 mg QHS PO 07/27/20 21:00 07/28/20 16:13 DC 07/27/20 19:55 Cyclosporine (Restasis) 1 drop BID OU 07/27/20 21:00 07/31/20 20:13 Levothyroxine Sodium (Synthroid) 125 mcg DAILY06 PO 07/28/20 06:00 08/01/20 05:57 Memantine (Namenda) 10 mg BID PO 07/27/20 21:00 07/31/20 20:12 Montelukast Sodium (Singulair) 10 mg HS PO 07/27/20 21:00 07/31/20 20:12 Clobetasol Propionate 1 cole PRN DAILY PRN TP dermatitis 07/27/20 16:00 Clonazepam (KlonoPIN) 0.25 mg PRN QHS PRN PO INSOMNIA, MRX1 07/27/20 16:00 07/28/20 16:13 DC Diltiazem HCl (Cardizem 24hr Cd) 240 mg DAILY PO 07/28/20 09:00 07/31/20 08:37 Cetirizine HCl (ZyrTEC) 10 mg DAILY PO 07/28/20 09:00 07/31/20 08:33 Losartan Potassium (Cozaar) 100 mg DAILY PO 07/28/20 09:00 07/31/20 08:33 Multivitamins/ Calcium (Thera-M Plus) 1 tab DAILY PO 07/28/20 09:00 07/31/20 08:33 Pantoprazole Sodium (Protonix) 40 mg DAILY PO 07/28/20 09:00 07/31/20 08:33 Artificial Tears (Artificial Tears) 1 drop PRN QID PRN OU DRY EYE 07/27/20 16:00 07/30/20 20:17 Olanzapine (ZyPREXA ZYDIS) 2.5 mg PRN Q2HRS PRN PO PSYCHOSIS 07/27/20 19:45 07/29/20 01:07 Clonazepam (KlonoPIN) 0.25 mg QHS PO 07/28/20 21:00 07/30/20 23:50 DC 07/30/20 19:27 Quetiapine Fumarate (SEROquel) 12.5 mg QHS PO 07/28/20 21:00 07/31/20 20:12 Fluvoxamine Maleate (Luvox) 25 mg QHS PO 07/28/20 21:00 07/30/20 23:00 DC 07/30/20 19:26 Mirtazapine (Remeron) 7.5 mg QHS PO 07/29/20 21:00 07/31/20 20:12 Fluvoxamine Maleate (Luvox) 50 mg QHS PO 07/31/20 21:00 07/31/20 20:11 Current Medications Medications (Trade) Dose Ordered Sig/Pino Route PRN Reason Start Time Stop Time Status Last Admin Dose Admin Fluvoxamine Maleate (Luvox) 50 mg QHS PO 07/31/20 21:00 07/31/20 20:11 I have reviewed the current psychotropics carefully including drug interactions. Risk benefit ratio favors no change other than as noted in my dictated progress note. Diagnosis: Problems: (1) Major neurocognitive disorder (2) Impulse control disorder, unspecified (3) Anxiety disorder, unspecified (4) Dementia, vascular, with depression (5) Dementia, vascular, with delusions (6) Dementia in Alzheimer's disease with depression (7) Dementia in Alzheimer's disease with delusions (8) Dementia of the Alzheimer's type with early onset with behavioral disturbance KATHY BARNHART MD Aug 01, 2020 08:15
[2020-08-01] MEDS: CARVEDILOL 6.25 MG TABLET PO SCH ×2 (08:33→17:44)
[2020-08-01] MEDS: PANTOPRAZOLE 40 MG TABLET. PO SCH (08:33)
[2020-08-01] MEDS: CETIRIZINE HCL 10 MG TABLET PO SCH (08:33)
[2020-08-01] MEDS: MULTIVITAMIN with MINERAL TABLET. PO SCH (08:33)
[2020-08-01] MEDS: MEMANTINE 10 MG TABLET. PO SCH ×2 (08:34→21:00)
[2020-08-01] MEDS: cycloSPORINE 0.05% OPTH 1 DROP DROPERETTE OU SCH ×2 (08:34→21:00)
[2020-08-01] MEDS: LOSARTAN 50 MG TABLET. PO SCH (08:34)
--- NOTE | 2020-08-01 11:30 | NUR ---
Pt A&O to name and only, she is pleasantly confused. Pt is appropriate with her interactions with others and no behavior issues are noted at this time. She is compliant with whole medications. She is scheduled for a bone scan today d/t wounds on the L foot. She denies pain when asked. No SI/HI/VH/AH/delusions noted at this time. Plan of care continues will pass to next shift.
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
[2020-08-01 15:50] VITALS: BP 147/74
--- NOTE | 2020-08-01 16:49 | RAD ---
NM THREE PHASE BONE SCAN Clinical Indication: Right foot first and third toe and left foot third toe wounds. Comparison: Bilateral foot radiographs, prior day. TECHNIQUE: Patient is injected with 25 mCi of technetium 99m MDP. Dorsal and plantar angiographic pha se images of the feet acquired. Immediate static dorsal and plantar images obtained. Following routin e delay, right and left lateral, plantar, and dorsal images of the feet acquired. Findings: There is hyperemia of the medial distal right foot and hyperemia of the distal left foot. On the immediate static (blood pool) images the increased tracer uptake that localizes to the left th ird toe and the right great toe. On the delay images there is moderate increased tracer uptake of the distal phalanx of the right grea t toe. There is faint increased tracer uptake at the tip of the right third toe and the tip of the le ft third toe. IMPRESSION: 1. The distal phalanx of the right great toe is positive on all 3 phases of the bone scan suggesting osteomyelitis. 2. The tip of the left third toe is also positive on all 3 phases of the bone scan although only lavell ntly positive on the delay images, but remains suspicious for osteomyelitis. 3. There is faint increased tracer uptake at the tip of the right third toe on the delay images but is negative on the angiographic and immediate static phases. Electronically signed by: Lane Mejia MD (08/01/2020 4:47 PM) [facility]
[2020-08-01] MEDS: MIRTAZAPINE 7.5 MG TABLET. PO SCH (20:59)
[2020-08-01] MEDS: MONTELUKAST 10 MG TABLET. PO SCH (20:59)
[2020-08-01] MEDS: QUEtiapine 25 MG TABLET. PO SCH (20:59)
[2020-08-01] MEDS: ATORVASTATIN CALCIUM 10 MG TABLET. PO SCH (21:00)
--- NOTE | 2020-08-01 21:51 | PDOC ---
Exam Note: Roni Note: Please also refer to the separate dictated note~for this date of service dictated separately.~Patient seen individually. Discussed the patient with Nursing staff reviewed the chart.~Reviewed interim history and current functioning. Reviewed vital signs,~Labs/ Radiology~and current medications noted below. Continue current treatment with the changes noted in the dictated addendum note Assessment: Vital Signs/I&O: Vital Signs Date Time Temp Pulse Resp B/P (MAP) Pulse Ox O2 Delivery O2 Flow Rate FiO2 08/01/20 17:44 64 147/74 08/01/20 15:50 98.2 18 99 07/29/20 05:44 Room Air I & O 07/31/20 07/31/20 08/01/20 14:59 22:59 06:59 Intake Total 600 ml 360 ml 240 ml Balance 600 ml 360 ml 240 ml Current Medications: Meds: Current Medications Medications (Trade) Dose Ordered Sig/Pino Route PRN Reason Start Time Stop Time Status Last Admin Dose Admin Multi-Ingredient Ointment (Analgesic [place]) 1 cole PRN QID PRN TP MUSCLE PAIN 07/27/20 15:30 Al Hydroxide/Mg Hydroxide (Mylanta Plus Xs) 15 ml PRN AFTMEALHC PRN PO DYSPEPSIA 07/27/20 15:30 Magnesium Hydroxide (Milk Of Magnesia) 2,400 mg PRN QHS PRN PO CONSTIPATION 07/27/20 15:30 Acetaminophen (Tylenol) 1,000 mg PRN Q6HRS PRN PO PAIN 07/27/20 15:30 Atorvastatin Calcium (Lipitor) 10 mg QHS PO 07/27/20 21:00 08/01/20 21:00 Carvedilol (Coreg) 6.25 mg BIDWMEALS PO 07/27/20 17:00 08/01/20 17:44 Clonazepam (KlonoPIN) 0.5 mg PRN BID PRN PO ANXIETY / AGITATION 07/27/20 15:30 07/28/20 16:12 DC 07/27/20 17:06 Clonazepam (KlonoPIN) 0.5 mg QHS PO 07/27/20 21:00 07/28/20 16:13 DC 07/27/20 19:55 Cyclosporine (Restasis) 1 drop BID OU 07/27/20 21:00 08/01/20 21:00 Levothyroxine Sodium (Synthroid) 125 mcg DAILY06 PO 07/28/20 06:00 08/01/20 05:57 Memantine (Namenda) 10 mg BID PO 07/27/20 21:00 08/01/20 21:00 Montelukast Sodium (Singulair) 10 mg HS PO 07/27/20 21:00 08/01/20 20:59 Clobetasol Propionate 1 cole PRN DAILY PRN TP dermatitis 07/27/20 16:00 Clonazepam (KlonoPIN) 0.25 mg PRN QHS PRN PO INSOMNIA, MRX1 07/27/20 16:00 07/28/20 16:13 DC Diltiazem HCl (Cardizem 24hr Cd) 240 mg DAILY PO 07/28/20 09:00 08/01/20 08:33 Cetirizine HCl (ZyrTEC) 10 mg DAILY PO 07/28/20 09:00 08/01/20 08:33 Losartan Potassium (Cozaar) 100 mg DAILY PO 07/28/20 09:00 08/01/20 08:34 Multivitamins/ Calcium (Thera-M Plus) 1 tab DAILY PO 07/28/20 09:00 08/01/20 08:33 Pantoprazole Sodium (Protonix) 40 mg DAILY PO 07/28/20 09:00 08/01/20 08:33 Artificial Tears (Artificial Tears) 1 drop PRN QID PRN OU DRY EYE 07/27/20 16:00 07/30/20 20:17 Olanzapine (ZyPREXA ZYDIS) 2.5 mg PRN Q2HRS PRN PO PSYCHOSIS 07/27/20 19:45 07/29/20 01:07 Clonazepam (KlonoPIN) 0.25 mg QHS PO 07/28/20 21:00 07/30/20 23:50 DC 07/30/20 19:27 Quetiapine Fumarate (SEROquel) 12.5 mg QHS PO 07/28/20 21:00 08/01/20 20:59 Fluvoxamine Maleate (Luvox) 25 mg QHS PO 07/28/20 21:00 07/30/20 23:00 DC 07/30/20 19:26 Mirtazapine (Remeron) 7.5 mg QHS PO 07/29/20 21:00 08/01/20 20:59 Fluvoxamine Maleate (Luvox) 50 mg QHS PO 07/31/20 21:00 08/01/20 20:59 Quetiapine Fumarate (SEROquel) 12.5 mg 1200 PO 08/02/20 12:00 I have reviewed the current psychotropics carefully including drug interactions. Risk benefit ratio favors no change other than as noted in my dictated progress note. Diagnosis: Problems: (1) Major neurocognitive disorder (2) Impulse control disorder, unspecified (3) Anxiety disorder, unspecified (4) Dementia, vascular, with depression (5) Dementia, vascular, with delusions (6) Dementia in Alzheimer's disease with depression (7) Dementia in Alzheimer's disease with delusions (8) Dementia of the Alzheimer's type with early onset with behavioral disturbance KATHY BARNHART MD Aug 01, 2020 21:51
--- NOTE | 2020-08-02 00:11 | NUR ---
Pt lying in bed with eyes closed when approached. Pt confused, disorganized, and irritable. Pt became anxious and was yelling at staff during HS cares, requiring re-direction from staff. Pt cooperative with assessment and compliant with medications administered whole. Pt has not displayed any aggressive behaviors thus far this shift.
[2020-08-02] MEDS: LEVOTHYROXINE 125 MCG TABLET PO SCH (05:25)
[2020-08-02 05:48] VITALS: BP 153/72
--- NOTE | 2020-08-02 06:51 | PDOC ---
Exam Note: Roni Note: This note is a late entry for 08/01/2020 covers elements not covered in my initial note. Subjective: The patient was seen individually in the evening of 08/01/2020 with Cassi RN, discussed and reviewed the chart. She slept 5-3/4 hours previous night. The patient remains confused. Her bone scan is positive for osteomyelitis. We will defer to Dr. Garza. She was quite agitated during showers and ended up getting a skin tear and trying to hit the nursing staff who were assisting her. Review of Systems: Ambulation impaired in wheelchair. No CV, , pulmonary, ey e system symptoms on review. Mental Status Exam: The patient is reasonably oriented. Insight and judgment, recent and remote memory, attention and concentration, fund of knowledge is poor consistent with her diagnoses. Laboratory Data: Reviewed. 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 Anxiety disorder unspecified. Impulse control disorder unspecified. Plan: Continue current psychotropics. Add Seroquel 12.5 mg at noon. Continue 12.5 mg h.s. along with Luvox and Namenda. Klonopin is being tapered and Remeron 7.5 mg h.s. Adjust further as clinically indicated. Assessment: Vital Signs/I&O: Vital Signs Date Time Temp Pulse Resp B/P (MAP) Pulse Ox O2 Delivery O2 Flow Rate FiO2 08/02/20 05:48 97.7 60 16 153/72 (99) 98 07/29/20 05:44 Room Air I & O 08/01/20 08/01/20 08/02/20 15:00 23:00 07:00 Intake Total 1140 ml 360 ml 240 ml Balance 1140 ml 360 ml 240 ml Current Medications: Meds: Current Medications Medications (Trade) Dose Ordered Sig/Pino Route PRN Reason Start Time Stop Time Status Last Admin Dose Admin Multi-Ingredient Ointment (Analgesic [place]) 1 cole PRN QID PRN TP MUSCLE PAIN 07/27/20 15:30 Al Hydroxide/Mg Hydroxide (Mylanta Plus Xs) 15 ml PRN AFTMEALHC PRN PO DYSPEPSIA 07/27/20 15:30 Magnesium Hydroxide (Milk Of Magnesia) 2,400 mg PRN QHS PRN PO CONSTIPATION 07/27/20 15:30 Acetaminophen (Tylenol) 1,000 mg PRN Q6HRS PRN PO PAIN 07/27/20 15:30 Atorvastatin Calcium (Lipitor) 10 mg QHS PO 07/27/20 21:00 08/01/20 21:00 Carvedilol (Coreg) 6.25 mg BIDWMEALS PO 07/27/20 17:00 08/01/20 17:44 Clonazepam (KlonoPIN) 0.5 mg PRN BID PRN PO ANXIETY / AGITATION 07/27/20 15:30 07/28/20 16:12 DC 07/27/20 17:06 Clonazepam (KlonoPIN) 0.5 mg QHS PO 07/27/20 21:00 07/28/20 16:13 DC 07/27/20 19:55 Cyclosporine (Restasis) 1 drop BID OU 07/27/20 21:00 08/01/20 21:00 Levothyroxine Sodium (Synthroid) 125 mcg DAILY06 PO 07/28/20 06:00 08/02/20 05:25 Memantine (Namenda) 10 mg BID PO 07/27/20 21:00 08/01/20 21:00 Montelukast Sodium (Singulair) 10 mg HS PO 07/27/20 21:00 08/01/20 20:59 Clobetasol Propionate 1 cole PRN DAILY PRN TP dermatitis 07/27/20 16:00 Clonazepam (KlonoPIN) 0.25 mg PRN QHS PRN PO INSOMNIA, MRX1 07/27/20 16:00 07/28/20 16:13 DC Diltiazem HCl (Cardizem 24hr Cd) 240 mg DAILY PO 07/28/20 09:00 08/01/20 08:33 Cetirizine HCl (ZyrTEC) 10 mg DAILY PO 07/28/20 09:00 08/01/20 08:33 Losartan Potassium (Cozaar) 100 mg DAILY PO 07/28/20 09:00 08/01/20 08:34 Multivitamins/ Calcium (Thera-M Plus) 1 tab DAILY PO 07/28/20 09:00 08/01/20 08:33 Pantoprazole Sodium (Protonix) 40 mg DAILY PO 07/28/20 09:00 08/01/20 08:33 Artificial Tears (Artificial Tears) 1 drop PRN QID PRN OU DRY EYE 07/27/20 16:00 07/30/20 20:17 Olanzapine (ZyPREXA ZYDIS) 2.5 mg PRN Q2HRS PRN PO PSYCHOSIS 07/27/20 19:45 07/29/20 01:07 Clonazepam (KlonoPIN) 0.25 mg QHS PO 07/28/20 21:00 07/30/20 23:50 DC 07/30/20 19:27 Quetiapine Fumarate (SEROquel) 12.5 mg QHS PO 07/28/20 21:00 08/01/20 20:59 Fluvoxamine Maleate (Luvox) 25 mg QHS PO 07/28/20 21:00 07/30/20 23:00 DC 07/30/20 19:26 Mirtazapine (Remeron) 7.5 mg QHS PO 07/29/20 21:00 08/01/20 20:59 Fluvoxamine Maleate (Luvox) 50 mg QHS PO 07/31/20 21:00 08/01/20 20:59 Quetiapine Fumarate (SEROquel) 12.5 mg 1200 PO 08/02/20 12:00 I have reviewed the current psychotropics carefully including drug interactions. Risk benefit ratio favors no change other than as noted in my dictated progress note. Diagnosis: Problems: (1) Major neurocognitive disorder (2) Impulse control disorder, unspecified (3) Anxiety disorder, unspecified (4) Dementia, vascular, with depression (5) Dementia, vascular, with delusions (6) Dementia in Alzheimer's disease with depression (7) Dementia in Alzheimer's disease with delusions (8) Dementia of the Alzheimer's type with early onset with behavioral disturbance KATHY BARNHART MD Aug 02, 2020 06:51
[2020-08-02] MEDS: CARVEDILOL 6.25 MG TABLET PO SCH ×2 (08:18→17:15)
[2020-08-02] MEDS: cycloSPORINE 0.05% OPTH 1 DROP DROPERETTE OU SCH ×2 (08:18→20:01)
[2020-08-02] MEDS: PANTOPRAZOLE 40 MG TABLET. PO SCH (08:19)
[2020-08-02] MEDS: MEMANTINE 10 MG TABLET. PO SCH ×2 (08:19→20:00)
[2020-08-02] MEDS: LOSARTAN 50 MG TABLET. PO SCH (08:19)
[2020-08-02] MEDS: CETIRIZINE HCL 10 MG TABLET PO SCH (08:20)
[2020-08-02] MEDS: MULTIVITAMIN with MINERAL TABLET. PO SCH (08:20)
[2020-08-02] MEDS: DOXYCYCLINE HYCLATE 100 MG TABLET PO SCH ×2 (12:28→20:00)
[2020-08-02] MEDS: QUEtiapine 25 MG TABLET. PO SCH ×2 (12:29→20:01)
[2020-08-02] MEDS: SMZ/TMP 800/160MG TABLET. PO SCH ×2 (12:29→20:00)
[2020-08-02 15:55] VITALS: BP 160/78
--- NOTE | 2020-08-02 18:30 | NUR ---
Patient has been mildly anxious, restless, and wandering throughout this shift. She has been compliant with medications and assessment. Patient repeatedly asked staff 'why am i here' throughout the afternoon. Will continue to monitor and report to oncoming.
[2020-08-02] MEDS: MIRTAZAPINE 7.5 MG TABLET. PO SCH (20:00)
[2020-08-02] MEDS: MONTELUKAST 10 MG TABLET. PO SCH (20:00)
[2020-08-02] MEDS: LACTOBACILLUS RHAMNOSUS GG 1 CAPSULE. PO SCH (20:00)
[2020-08-02] MEDS: ATORVASTATIN CALCIUM 10 MG TABLET. PO SCH (20:01)
[2020-08-02] MEDS: ACETAMINOPHEN 500 MG TABLET PO PRN (20:10)
--- NOTE | 2020-08-02 21:00 | NUR ---
Patient reports pain in her feet and toes. Patient has wounds on her Right foot, 1st and 2nd toes and on her Left foot 3rd toe, is on antibiotics and wound care follows. PRN tylenol given for pain per order, will continue to monitor.
--- NOTE | 2020-08-02 22:00 | PDOC ---
Exam Note: Roni Note: Please also refer to the separate dictated note~for this date of service dictated separately.~Patient seen individually. Discussed the patient with Nursing staff reviewed the chart.~Reviewed interim history and current functioning. Reviewed vital signs,~Labs/ Radiology~and current medications noted below. Continue current treatment with the changes noted in the dictated addendum note Assessment: Vital Signs/I&O: Vital Signs Date Time Temp Pulse Resp B/P (MAP) Pulse Ox O2 Delivery O2 Flow Rate FiO2 08/02/20 17:15 53 160/78 08/02/20 15:55 97.2 16 99 Room Air I & O 08/01/20 08/01/20 08/02/20 15:00 23:00 07:00 Intake Total 1140 ml 360 ml 240 ml Balance 1140 ml 360 ml 240 ml Current Medications: Meds: Current Medications Medications (Trade) Dose Ordered Sig/Pino Route PRN Reason Start Time Stop Time Status Last Admin Dose Admin Multi-Ingredient Ointment (Analgesic [place]) 1 cole PRN QID PRN TP MUSCLE PAIN 07/27/20 15:30 Al Hydroxide/Mg Hydroxide (Mylanta Plus Xs) 15 ml PRN AFTMEALHC PRN PO DYSPEPSIA 07/27/20 15:30 Magnesium Hydroxide (Milk Of Magnesia) 2,400 mg PRN QHS PRN PO CONSTIPATION 07/27/20 15:30 Acetaminophen (Tylenol) 1,000 mg PRN Q6HRS PRN PO PAIN 07/27/20 15:30 08/02/20 20:10 Atorvastatin Calcium (Lipitor) 10 mg QHS PO 07/27/20 21:00 08/02/20 20:01 Carvedilol (Coreg) 6.25 mg BIDWMEALS PO 07/27/20 17:00 08/02/20 17:15 Clonazepam (KlonoPIN) 0.5 mg PRN BID PRN PO ANXIETY / AGITATION 07/27/20 15:30 07/28/20 16:12 DC 07/27/20 17:06 Clonazepam (KlonoPIN) 0.5 mg QHS PO 07/27/20 21:00 07/28/20 16:13 DC 07/27/20 19:55 Cyclosporine (Restasis) 1 drop BID OU 07/27/20 21:00 08/02/20 20:01 Levothyroxine Sodium (Synthroid) 125 mcg DAILY06 PO 07/28/20 06:00 08/02/20 05:25 Memantine (Namenda) 10 mg BID PO 07/27/20 21:00 08/02/20 20:00 Montelukast Sodium (Singulair) 10 mg HS PO 07/27/20 21:00 08/02/20 20:00 Clobetasol Propionate 1 cole PRN DAILY PRN TP dermatitis 07/27/20 16:00 Clonazepam (KlonoPIN) 0.25 mg PRN QHS PRN PO INSOMNIA, MRX1 07/27/20 16:00 07/28/20 16:13 DC Diltiazem HCl (Cardizem 24hr Cd) 240 mg DAILY PO 07/28/20 09:00 08/02/20 08:19 Cetirizine HCl (ZyrTEC) 10 mg DAILY PO 07/28/20 09:00 08/02/20 08:20 Losartan Potassium (Cozaar) 100 mg DAILY PO 07/28/20 09:00 08/02/20 08:19 Multivitamins/ Calcium (Thera-M Plus) 1 tab DAILY PO 07/28/20 09:00 08/02/20 08:20 Pantoprazole Sodium (Protonix) 40 mg DAILY PO 07/28/20 09:00 08/02/20 08:19 Artificial Tears (Artificial Tears) 1 drop PRN QID PRN OU DRY EYE 07/27/20 16:00 07/30/20 20:17 Olanzapine (ZyPREXA ZYDIS) 2.5 mg PRN Q2HRS PRN PO PSYCHOSIS 07/27/20 19:45 07/29/20 01:07 Clonazepam (KlonoPIN) 0.25 mg QHS PO 07/28/20 21:00 07/30/20 23:50 DC 07/30/20 19:27 Quetiapine Fumarate (SEROquel) 12.5 mg QHS PO 07/28/20 21:00 08/02/20 20:01 Fluvoxamine Maleate (Luvox) 25 mg QHS PO 07/28/20 21:00 07/30/20 23:00 DC 07/30/20 19:26 Mirtazapine (Remeron) 7.5 mg QHS PO 07/29/20 21:00 08/02/20 20:00 Fluvoxamine Maleate (Luvox) 50 mg QHS PO 07/31/20 21:00 08/02/20 20:00 Quetiapine Fumarate (SEROquel) 12.5 mg 1200 PO 08/02/20 12:00 08/02/20 12:29 Doxycycline Hyclate (Vibra-Tab) 100 mg BID PO 08/02/20 10:00 08/02/20 20:00 Trimethoprim/ Sulfamethoxazole (Bactrim Ds) 1 tab BID PO 08/02/20 10:00 08/02/20 20:00 Lactobacillus Rhamnosus (Culturelle) 1 cap BID PO 08/02/20 21:00 08/02/20 20:00 Current Medications Medications (Trade) Dose Ordered Sig/Pino Route PRN Reason Start Time Stop Time Status Last Admin Dose Admin Quetiapine Fumarate (SEROquel) 12.5 mg 1200 PO 08/02/20 12:00 08/02/20 12:29 Doxycycline Hyclate (Vibra-Tab) 100 mg BID PO 08/02/20 10:00 08/02/20 20:00 Trimethoprim/ Sulfamethoxazole (Bactrim Ds) 1 tab BID PO 08/02/20 10:00 08/02/20 20:00 Lactobacillus Rhamnosus (Culturelle) 1 cap BID PO 08/02/20 21:00 08/02/20 20:00 I have reviewed the current psychotropics carefully including drug interactions. Risk benefit ratio favors no change other than as noted in my dictated progress note. Diagnosis: Problems: (1) Major neurocognitive disorder (2) Impulse control disorder, unspecified (3) Anxiety disorder, unspecified (4) Dementia, vascular, with depression (5) Dementia, vascular, with delusions (6) Dementia in Alzheimer's disease with depression (7) Dementia in Alzheimer's disease with delusions (8) Dementia of the Alzheimer's type with early onset with behavioral disturbance KATHY BARNHART MD Aug 02, 2020 22:00
--- NOTE | 2020-08-03 00:24 | PN ---
DATE: 08/02/2020 ATTENDING PHYSICIAN: Dr. Valderrama I am seeing this patient for abnormal bone scan. SUBJECTIVE: The patient is a 75. She was here and Dr. Workman saw her initially. He is the one that ordered the bone scan. She is diabetic. There is swelling, erythema of both feet, specifically the great toe of the right foot. OBJECTIVE FINDINGS: GENERAL: On exam today, she is ambulating with her padded sock. There is no pain due to neuropathy. Her blood pressure and vital signs are stable. She is afebrile. LUNGS: Clear. CARDIOVASCULAR: Showed regular heart tones. ABDOMEN: Soft. EXTREMITIES: There is redness and erythema involving the right great toe. There is a distal callus formation and there is minimal swelling. There are no open sores identified. LABORATORY DATA: The 3-phase bone scan ordered by Dr. Workman shows the distal phalanx of the right great toe is positive, all 3 phases bone scan suggesting osteomyelitis. The tip of the left third toe was also positive. There is also associated cellulitis of the skin. ASSESSMENT: 1. A 75-year-old female from a [facility] in [place] with diabetes. 2. Osteomyelitis, distal phalanx of the right great toe. She is not too symptomatic this time. 3. The osteomyelitis appears to be chronic. 4. Type 2 diabetes. 5. Profound dementia. RECOMMENDATIONS: 1. I would recommend a trial of one week of oral antibiotics to help with the local cellulitis. 2. We will try to contact her power of corporate attorney, I am not sure if the or any children. In any event, she will eventually need orthopedic consultation for debridement and most likely amputation of the great toe. 3. Other home meds were continued. 4. At this time, I reviewed her allergies. I would recommend a trial of a combination of doxycycline 100 mg b.i.d. and Bactrim DS 1 b.i.d. I should gladly follow along during her next several days to see if the infection is improved. NAMITA/OUMAR/HORTENCIA DR: Johnnie TID: [id number]
--- NOTE | 2020-08-03 00:28 | NUR ---
Shadi patient was attention seeking from staff and peers. She is very forgetful and asks the same questions repeatedly despite being answered, this was becoming an annoyance to peers around her that are more oriented. She has a very short term memory (less than 5 minutes) and is forgetful. Patient following a peer and then following this nurse around the unit and stating "I don't want to be alone". Nurse assisted patient in the bathroom, patient was disorganized and seemed unable to comprehend how to pull her brief up before her pants after going to the bathroom. Patient stated repeatedly that her feet/toes hurt. Patient has diagnosis of osteomylitis on several toes. Dr Garza started her on oral Bactrim and Doxycyline for the infection. Wound care has seen patient, patient will not keep bandages on her toes and they are currently open to air. Nurse encouraged patient to keep her socks on, stop touching her toes and to elevate her feet. PRN tylenol provided for patient per order for foot/toe pain. It was not fully effective as she was still reporting pain after reassessment.
[2020-08-03] MEDS: ACETAMINOPHEN 500 MG TABLET PO PRN ×2 (05:18→20:47)
[2020-08-03] MEDS: LEVOTHYROXINE 125 MCG TABLET PO SCH (05:18)
--- NOTE | 2020-08-03 05:21 | NUR ---
Patient has temporal temperature of 101.3 F. PRN tylenol given for elevated temperature and foot pain per order. Will advise hospitalist of elevated temperature.
[2020-08-03 05:40] VITALS: BP 159/74
[2020-08-03] MEDS ORDERED: CETI10TA16 PO (05:51)
[2020-08-03] MEDS ORDERED: DOXY100C2 PO (05:52)
[2020-08-03] MEDS ORDERED: LACT1CAP21 PO (05:52)
[2020-08-03] MEDS ORDERED: MAG355OR12 PO (05:53)
[2020-08-03] MEDS ORDERED: METH57CR17 TP (05:54)
[2020-08-03] MEDS ORDERED: MAGN24003 PO (05:54)
[2020-08-03] MEDS ORDERED: MIRT7.5T8 PO (05:55)
[2020-08-03] MEDS ORDERED: OLAN5TAB99 PO (05:56)
[2020-08-03] MEDS ORDERED: QUET25TA5 PO ×2 (05:58→06:00)
[2020-08-03] MEDS ORDERED: FLUV50TA2 PO (06:01)
[2020-08-03] MEDS ORDERED: SULF1TAB24 PO (06:01)
--- NOTE | 2020-08-03 06:06 | NUR ---
Dr Garza ordered Zofran 4mg PRN q 6hrs for nausea. He stated he plans to speak with her POA today per his progress note of yesterday. No other orders were received.
[2020-08-03] MEDS ORDERED: ONDANSETRON ODT 4 MG TAB.RAPDIS PO PRN (06:15)
--- NOTE | 2020-08-03 06:19 | NUR ---
Patient reports nausea. PRN zofran given per order for nausea, will continue to monitor.
[2020-08-03] MEDS ORDERED: ONDA4TAB12 PO (06:23)
[2020-08-03] MEDS: CETIRIZINE HCL 10 MG TABLET PO SCH (09:12)
[2020-08-03] MEDS: LACTOBACILLUS RHAMNOSUS GG 1 CAPSULE. PO SCH ×2 (09:13→20:46)
[2020-08-03] MEDS: DOXYCYCLINE HYCLATE 100 MG TABLET PO SCH ×2 (09:13→20:46)
[2020-08-03] MEDS: CARVEDILOL 6.25 MG TABLET PO SCH ×2 (09:13→17:43)
[2020-08-03] MEDS: PANTOPRAZOLE 40 MG TABLET. PO SCH (09:14)
[2020-08-03] MEDS: MULTIVITAMIN with MINERAL TABLET. PO SCH (09:14)
[2020-08-03] MEDS: MEMANTINE 10 MG TABLET. PO SCH ×2 (09:14→20:46)
[2020-08-03] MEDS: cycloSPORINE 0.05% OPTH 1 DROP DROPERETTE OU SCH ×2 (09:14→20:48)
[2020-08-03] MEDS: LOSARTAN 50 MG TABLET. PO SCH (09:14)
[2020-08-03] MEDS: SMZ/TMP 800/160MG TABLET. PO SCH ×2 (09:14→20:48)
[2020-08-03] MEDS: QUEtiapine 25 MG TABLET. PO SCH ×2 (12:19→20:47)
[2020-08-03 16:03] VITALS: BP 100/62
--- NOTE | 2020-08-03 17:48 | NUR ---
Patient has been mildly anxious, restless, and wandering throughout this shift. She has been compliant with medications and assessment. She was occasionally preoccupied with another patient and followed her around. Will continue to monitor and report to oncoming.
[2020-08-03] MEDS: MONTELUKAST 10 MG TABLET. PO SCH (20:46)
[2020-08-03] MEDS: ATORVASTATIN CALCIUM 10 MG TABLET. PO SCH (20:47)
[2020-08-03] MEDS: MIRTAZAPINE 7.5 MG TABLET. PO SCH (20:48)
--- NOTE | 2020-08-03 21:56 | PDOC ---
Exam Note: Roni Note: Please also refer to the separate dictated note~for this date of service dictated separately.~Patient seen individually. Discussed the patient with Nursing staff reviewed the chart.~Reviewed interim history and current functioning. Reviewed vital signs,~Labs/ Radiology~and current medications noted below. Continue current treatment with the changes noted in the dictated addendum note Assessment: Vital Signs/I&O: Vital Signs Date Time Temp Pulse Resp B/P (MAP) Pulse Ox O2 Delivery O2 Flow Rate FiO2 08/03/20 17:43 67 100/62 08/03/20 16:03 97.8 16 95 Room Air I & O 08/02/20 08/02/20 08/03/20 15:00 23:00 07:00 Intake Total 840 ml 480 ml Balance 840 ml 480 ml Current Medications: Meds: Current Medications Medications (Trade) Dose Ordered Sig/Pino Route PRN Reason Start Time Stop Time Status Last Admin Dose Admin Multi-Ingredient Ointment (Analgesic [place]) 1 cole PRN QID PRN TP MUSCLE PAIN 07/27/20 15:30 Al Hydroxide/Mg Hydroxide (Mylanta Plus Xs) 15 ml PRN AFTMEALHC PRN PO DYSPEPSIA 07/27/20 15:30 Magnesium Hydroxide (Milk Of Magnesia) 2,400 mg PRN QHS PRN PO CONSTIPATION 07/27/20 15:30 Acetaminophen (Tylenol) 1,000 mg PRN Q6HRS PRN PO PAIN 07/27/20 15:30 08/03/20 20:47 Atorvastatin Calcium (Lipitor) 10 mg QHS PO 07/27/20 21:00 08/03/20 20:47 Carvedilol (Coreg) 6.25 mg BIDWMEALS PO 07/27/20 17:00 08/03/20 17:43 Clonazepam (KlonoPIN) 0.5 mg PRN BID PRN PO ANXIETY / AGITATION 07/27/20 15:30 07/28/20 16:12 DC 07/27/20 17:06 Clonazepam (KlonoPIN) 0.5 mg QHS PO 07/27/20 21:00 07/28/20 16:13 DC 07/27/20 19:55 Cyclosporine (Restasis) 1 drop BID OU 07/27/20 21:00 08/03/20 20:48 Levothyroxine Sodium (Synthroid) 125 mcg DAILY06 PO 07/28/20 06:00 08/03/20 05:18 Memantine (Namenda) 10 mg BID PO 07/27/20 21:00 08/03/20 20:46 Montelukast Sodium (Singulair) 10 mg HS PO 07/27/20 21:00 08/03/20 20:46 Clobetasol Propionate 1 cole PRN DAILY PRN TP dermatitis 07/27/20 16:00 Clonazepam (KlonoPIN) 0.25 mg PRN QHS PRN PO INSOMNIA, MRX1 07/27/20 16:00 07/28/20 16:13 DC Diltiazem HCl (Cardizem 24hr Cd) 240 mg DAILY PO 07/28/20 09:00 08/03/20 09:14 Cetirizine HCl (ZyrTEC) 10 mg DAILY PO 07/28/20 09:00 08/03/20 09:12 Losartan Potassium (Cozaar) 100 mg DAILY PO 07/28/20 09:00 08/03/20 09:14 Multivitamins/ Calcium (Thera-M Plus) 1 tab DAILY PO 07/28/20 09:00 08/03/20 09:14 Pantoprazole Sodium (Protonix) 40 mg DAILY PO 07/28/20 09:00 08/03/20 09:14 Artificial Tears (Artificial Tears) 1 drop PRN QID PRN OU DRY EYE 07/27/20 16:00 07/30/20 20:17 Olanzapine (ZyPREXA ZYDIS) 2.5 mg PRN Q2HRS PRN PO PSYCHOSIS 07/27/20 19:45 07/29/20 01:07 Clonazepam (KlonoPIN) 0.25 mg QHS PO 07/28/20 21:00 07/30/20 23:50 DC 07/30/20 19:27 Quetiapine Fumarate (SEROquel) 12.5 mg QHS PO 07/28/20 21:00 08/03/20 20:47 Fluvoxamine Maleate (Luvox) 25 mg QHS PO 07/28/20 21:00 07/30/20 23:00 DC 07/30/20 19:26 Mirtazapine (Remeron) 7.5 mg QHS PO 07/29/20 21:00 08/03/20 20:48 Fluvoxamine Maleate (Luvox) 50 mg QHS PO 07/31/20 21:00 08/03/20 20:47 Quetiapine Fumarate (SEROquel) 12.5 mg 1200 PO 08/02/20 12:00 08/03/20 12:19 Doxycycline Hyclate (Vibra-Tab) 100 mg BID PO 08/02/20 10:00 08/03/20 20:46 Trimethoprim/ Sulfamethoxazole (Bactrim Ds) 1 tab BID PO 08/02/20 10:00 08/03/20 20:48 Lactobacillus Rhamnosus (Culturelle) 1 cap BID PO 08/02/20 21:00 08/03/20 20:46 Ondansetron HCl (Zofran Odt) 4 mg PRN Q6HRS PRN PO NAUSEA/VOMITING 08/03/20 06:15 08/03/20 06:18 Current Medications Medications (Trade) Dose Ordered Sig/Pino Route PRN Reason Start Time Stop Time Status Last Admin Dose Admin Ondansetron HCl (Zofran Odt) 4 mg PRN Q6HRS PRN PO NAUSEA/VOMITING 08/03/20 06:15 08/03/20 06:18 I have reviewed the current psychotropics carefully including drug interactions. Risk benefit ratio favors no change other than as noted in my dictated progress note. Diagnosis: Problems: (1) Major neurocognitive disorder (2) Impulse control disorder, unspecified (3) Anxiety disorder, unspecified (4) Dementia, vascular, with depression (5) Dementia, vascular, with delusions (6) Dementia in Alzheimer's disease with depression (7) Dementia in Alzheimer's disease with delusions (8) Dementia of the Alzheimer's type with early onset with behavioral disturbance KATHY BARNHART MD Aug 03, 2020 21:56
--- NOTE | 2020-08-03 22:54 | NUR ---
Patient has been intrusive tonight, constantly entering peers rooms. She has been hard to redirect and irritable. She gets angry when staff approaches her to return to the day room or to exit a peers room. She said "well what do you want?" when nurse handed her the med cup and water. She is compliant with medications taken whole but needed instructions as to what to do with them ie: put them in your mouth, now drink some water. At other times she says random things like "I need to wash my eyes", she is disorganized and oriented only to herself at this time. Patient has sores/wounds to toes and was encourages to sit with feet elevated but was not willing to do so. She takes her bandages off and also her socks. PRN tylenol given with HS meds per order for foot pain.
[2020-08-04 05:53] VITALS: BP 134/69
[2020-08-04] MEDS: ACETAMINOPHEN 500 MG TABLET PO PRN ×2 (05:54→20:24)
[2020-08-04] MEDS: LEVOTHYROXINE 125 MCG TABLET PO SCH (05:54)
--- NOTE | 2020-08-04 05:55 | NUR ---
PRN tylenol provided for pain per order. Patient has pain in her feet and toes.
--- NOTE | 2020-08-04 07:12 | PDOC ---
Exam Note: Roni Note: This note is a late entry for 08/02/2020 covers elements not covered in my initial note. Subjective: The patient was seen individually in the evening of 08/02/2020 with Artemio SCHAFER, discussed and reviewed the chart. She slept 7-1/4 hours previous night. The patient has been started on antibiotics for osteomyelitis per Dr. Garza and if this ineffective she may need surgical intervention for her toes. She remains confused, somewhat restless at times, disorganized, irritable but redirects. Review of Systems: Ambulation impaired in wheelchair. No CV, , pulmonary, eye system symptoms on review. Mental Status Exam: The patient is reasonably oriented. Insight and judgment, recent and remote memory, attention and concentration, fund of knowledge is poor consistent with her diagnoses. Laboratory Data: Reviewed. 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 Anxiety disorder unspecified. Impulse control disorder unspecified. Plan: Continue current psychotropics. Assessment: Vital Signs/I&O: Vital Signs Date Time Temp Pulse Resp B/P (MAP) Pulse Ox O2 Delivery O2 Flow Rate FiO2 08/04/20 05:53 98.0 65 16 134/69 (90) 97 Room Air I & O 08/03/20 08/03/20 08/04/20 15:00 23:00 07:00 Intake Total 240 ml 840 ml Balance 240 ml 840 ml Current Medications: Meds: Current Medications Medications (Trade) Dose Ordered Sig/Pino Route PRN Reason Start Time Stop Time Status Last Admin Dose Admin Multi-Ingredient Ointment (Analgesic [place]) 1 cole PRN QID PRN TP MUSCLE PAIN 07/27/20 15:30 Al Hydroxide/Mg Hydroxide (Mylanta Plus Xs) 15 ml PRN AFTMEALHC PRN PO DYSPEPSIA 07/27/20 15:30 Magnesium Hydroxide (Milk Of Magnesia) 2,400 mg PRN QHS PRN PO CONSTIPATION 07/27/20 15:30 Acetaminophen (Tylenol) 1,000 mg PRN Q6HRS PRN PO PAIN 07/27/20 15:30 08/04/20 05:54 Atorvastatin Calcium (Lipitor) 10 mg QHS PO 07/27/20 21:00 08/03/20 20:47 Carvedilol (Coreg) 6.25 mg BIDWMEALS PO 07/27/20 17:00 08/03/20 17:43 Clonazepam (KlonoPIN) 0.5 mg PRN BID PRN PO ANXIETY / AGITATION 07/27/20 15:30 07/28/20 16:12 DC 07/27/20 17:06 Clonazepam (KlonoPIN) 0.5 mg QHS PO 07/27/20 21:00 07/28/20 16:13 DC 07/27/20 19:55 Cyclosporine (Restasis) 1 drop BID OU 07/27/20 21:00 08/03/20 20:48 Levothyroxine Sodium (Synthroid) 125 mcg DAILY06 PO 07/28/20 06:00 08/04/20 05:54 Memantine (Namenda) 10 mg BID PO 07/27/20 21:00 08/03/20 20:46 Montelukast Sodium (Singulair) 10 mg HS PO 07/27/20 21:00 08/03/20 20:46 Clobetasol Propionate 1 cole PRN DAILY PRN TP dermatitis 07/27/20 16:00 Clonazepam (KlonoPIN) 0.25 mg PRN QHS PRN PO INSOMNIA, MRX1 07/27/20 16:00 07/28/20 16:13 DC Diltiazem HCl (Cardizem 24hr Cd) 240 mg DAILY PO 07/28/20 09:00 08/03/20 09:14 Cetirizine HCl (ZyrTEC) 10 mg DAILY PO 07/28/20 09:00 08/03/20 09:12 Losartan Potassium (Cozaar) 100 mg DAILY PO 07/28/20 09:00 08/03/20 09:14 Multivitamins/ Calcium (Thera-M Plus) 1 tab DAILY PO 07/28/20 09:00 08/03/20 09:14 Pantoprazole Sodium (Protonix) 40 mg DAILY PO 07/28/20 09:00 08/03/20 09:14 Artificial Tears (Artificial Tears) 1 drop PRN QID PRN OU DRY EYE 07/27/20 16:00 07/30/20 20:17 Olanzapine (ZyPREXA ZYDIS) 2.5 mg PRN Q2HRS PRN PO PSYCHOSIS 07/27/20 19:45 07/29/20 01:07 Clonazepam (KlonoPIN) 0.25 mg QHS PO 07/28/20 21:00 07/30/20 23:50 DC 07/30/20 19:27 Quetiapine Fumarate (SEROquel) 12.5 mg QHS PO 07/28/20 21:00 08/03/20 20:47 Fluvoxamine Maleate (Luvox) 25 mg QHS PO 07/28/20 21:00 07/30/20 23:00 DC 07/30/20 19:26 Mirtazapine (Remeron) 7.5 mg QHS PO 07/29/20 21:00 08/03/20 20:48 Fluvoxamine Maleate (Luvox) 50 mg QHS PO 07/31/20 21:00 08/03/20 20:47 Quetiapine Fumarate (SEROquel) 12.5 mg 1200 PO 08/02/20 12:00 08/03/20 12:19 Doxycycline Hyclate (Vibra-Tab) 100 mg BID PO 08/02/20 10:00 08/03/20 20:46 Trimethoprim/ Sulfamethoxazole (Bactrim Ds) 1 tab BID PO 08/02/20 10:00 08/03/20 20:48 Lactobacillus Rhamnosus (Culturelle) 1 cap BID PO 08/02/20 21:00 08/03/20 20:46 Ondansetron HCl (Zofran Odt) 4 mg PRN Q6HRS PRN PO NAUSEA/VOMITING 08/03/20 06:15 08/03/20 06:18 I have reviewed the current psychotropics carefully including drug interactions. Risk benefit ratio favors no change other than as noted in my dictated progress note. Diagnosis: Problems: (1) Major neurocognitive disorder (2) Impulse control disorder, unspecified (3) Anxiety disorder, unspecified (4) Dementia, vascular, with depression (5) Dementia, vascular, with delusions (6) Dementia in Alzheimer's disease with depression (7) Dementia in Alzheimer's disease with delusions (8) Dementia of the Alzheimer's type with early onset with behavioral disturbance KATHY BARNHART MD Aug 04, 2020 07:12
--- NOTE | 2020-08-04 07:29 | PDOC ---
Exam Note: Roni Note: This note is a late entry for 08/03/2020 covers elements not covered in my initial note. Subjective: The patient was seen individually in the evening of 08/03/2020 with Artemio SCHAFER, discussed and reviewed the chart. She slept 8-1/4 hours previous night. The patient has been started on antibiotics per Dr. Garza for her toe infection but we will defer management also to Dr. Workman/Dr. Garza. Review of Systems: Ambulation impaired in wheelchair. No CV, , pulmonary, eye system symptoms on review. Mental Status Exam: The patient is reasonably oriented. Insight and judgment, recent and remote memory, attention and concentration, fund of knowledge is poor consistent with her diagnoses. Laboratory Data: Reviewed. 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 Anxiety disorder unspecified. Impulse control disorder unspecified. Plan: Continue current psychotropics. Assessment: Vital Signs/I&O: Vital Signs Date Time Temp Pulse Resp B/P (MAP) Pulse Ox O2 Delivery O2 Flow Rate FiO2 08/04/20 05:53 98.0 65 16 134/69 (90) 97 Room Air I & O 08/03/20 08/03/20 08/04/20 15:00 23:00 07:00 Intake Total 240 ml 840 ml Balance 240 ml 840 ml Current Medications: Meds: Current Medications Medications (Trade) Dose Ordered Sig/Pino Route PRN Reason Start Time Stop Time Status Last Admin Dose Admin Multi-Ingredient Ointment (Analgesic [place]) 1 cole PRN QID PRN TP MUSCLE PAIN 07/27/20 15:30 Al Hydroxide/Mg Hydroxide (Mylanta Plus Xs) 15 ml PRN AFTMEALHC PRN PO DYSPEPSIA 07/27/20 15:30 Magnesium Hydroxide (Milk Of Magnesia) 2,400 mg PRN QHS PRN PO CONSTIPATION 07/27/20 15:30 Acetaminophen (Tylenol) 1,000 mg PRN Q6HRS PRN PO PAIN 07/27/20 15:30 08/04/20 05:54 Atorvastatin Calcium (Lipitor) 10 mg QHS PO 07/27/20 21:00 08/03/20 20:47 Carvedilol (Coreg) 6.25 mg BIDWMEALS PO 07/27/20 17:00 08/03/20 17:43 Clonazepam (KlonoPIN) 0.5 mg PRN BID PRN PO ANXIETY / AGITATION 07/27/20 15:30 07/28/20 16:12 DC 07/27/20 17:06 Clonazepam (KlonoPIN) 0.5 mg QHS PO 07/27/20 21:00 07/28/20 16:13 DC 07/27/20 19:55 Cyclosporine (Restasis) 1 drop BID OU 07/27/20 21:00 08/03/20 20:48 Levothyroxine Sodium (Synthroid) 125 mcg DAILY06 PO 07/28/20 06:00 08/04/20 05:54 Memantine (Namenda) 10 mg BID PO 07/27/20 21:00 08/03/20 20:46 Montelukast Sodium (Singulair) 10 mg HS PO 07/27/20 21:00 08/03/20 20:46 Clobetasol Propionate 1 cole PRN DAILY PRN TP dermatitis 07/27/20 16:00 Clonazepam (KlonoPIN) 0.25 mg PRN QHS PRN PO INSOMNIA, MRX1 07/27/20 16:00 07/28/20 16:13 DC Diltiazem HCl (Cardizem 24hr Cd) 240 mg DAILY PO 07/28/20 09:00 08/03/20 09:14 Cetirizine HCl (ZyrTEC) 10 mg DAILY PO 07/28/20 09:00 08/03/20 09:12 Losartan Potassium (Cozaar) 100 mg DAILY PO 07/28/20 09:00 08/03/20 09:14 Multivitamins/ Calcium (Thera-M Plus) 1 tab DAILY PO 07/28/20 09:00 08/03/20 09:14 Pantoprazole Sodium (Protonix) 40 mg DAILY PO 07/28/20 09:00 08/03/20 09:14 Artificial Tears (Artificial Tears) 1 drop PRN QID PRN OU DRY EYE 07/27/20 16:00 07/30/20 20:17 Olanzapine (ZyPREXA ZYDIS) 2.5 mg PRN Q2HRS PRN PO PSYCHOSIS 07/27/20 19:45 07/29/20 01:07 Clonazepam (KlonoPIN) 0.25 mg QHS PO 07/28/20 21:00 07/30/20 23:50 DC 07/30/20 19:27 Quetiapine Fumarate (SEROquel) 12.5 mg QHS PO 07/28/20 21:00 08/03/20 20:47 Fluvoxamine Maleate (Luvox) 25 mg QHS PO 07/28/20 21:00 07/30/20 23:00 DC 07/30/20 19:26 Mirtazapine (Remeron) 7.5 mg QHS PO 07/29/20 21:00 08/03/20 20:48 Fluvoxamine Maleate (Luvox) 50 mg QHS PO 07/31/20 21:00 08/03/20 20:47 Quetiapine Fumarate (SEROquel) 12.5 mg 1200 PO 08/02/20 12:00 08/03/20 12:19 Doxycycline Hyclate (Vibra-Tab) 100 mg BID PO 08/02/20 10:00 08/03/20 20:46 Trimethoprim/ Sulfamethoxazole (Bactrim Ds) 1 tab BID PO 08/02/20 10:00 08/03/20 20:48 Lactobacillus Rhamnosus (Culturelle) 1 cap BID PO 08/02/20 21:00 08/03/20 20:46 Ondansetron HCl (Zofran Odt) 4 mg PRN Q6HRS PRN PO NAUSEA/VOMITING 08/03/20 06:15 08/03/20 06:18 I have reviewed the current psychotropics carefully including drug interactions. Risk benefit ratio favors no change other than as noted in my dictated progress note. Diagnosis: Problems: (1) Major neurocognitive disorder (2) Impulse control disorder, unspecified (3) Anxiety disorder, unspecified (4) Dementia, vascular, with depression (5) Dementia, vascular, with delusions (6) Dementia in Alzheimer's disease with depression (7) Dementia in Alzheimer's disease with delusions (8) Dementia of the Alzheimer's type with early onset with behavioral disturbance KATHY BARNHART MD Aug 04, 2020 07:29
[2020-08-04] MEDS: CETIRIZINE HCL 10 MG TABLET PO SCH (07:54)
[2020-08-04] MEDS: PANTOPRAZOLE 40 MG TABLET. PO SCH (07:54)
[2020-08-04] MEDS: LOSARTAN 50 MG TABLET. PO SCH (07:54)
[2020-08-04] MEDS: LACTOBACILLUS RHAMNOSUS GG 1 CAPSULE. PO SCH ×2 (07:54→20:24)
[2020-08-04] MEDS: SMZ/TMP 800/160MG TABLET. PO SCH ×2 (07:54→20:24)
[2020-08-04] MEDS: MULTIVITAMIN with MINERAL TABLET. PO SCH (07:54)
[2020-08-04] MEDS: DOXYCYCLINE HYCLATE 100 MG TABLET PO SCH ×2 (07:54→20:24)
[2020-08-04] MEDS: MEMANTINE 10 MG TABLET. PO SCH ×2 (07:55→20:24)
[2020-08-04] MEDS: CARVEDILOL 6.25 MG TABLET PO SCH ×2 (07:55→17:40)
[2020-08-04] MEDS: cycloSPORINE 0.05% OPTH 1 DROP DROPERETTE OU SCH ×2 (07:55→20:25)
[2020-08-04] MEDS: QUEtiapine 25 MG TABLET. PO SCH ×2 (12:24→20:25)
[2020-08-04 16:11] VITALS: BP 114/62
[2020-08-04] MEDS: ATORVASTATIN CALCIUM 10 MG TABLET. PO SCH (20:24)
[2020-08-04] MEDS: MONTELUKAST 10 MG TABLET. PO SCH (20:24)
[2020-08-04] MEDS: MIRTAZAPINE 7.5 MG TABLET. PO SCH (20:25)
--- NOTE | 2020-08-04 23:15 | PDOC ---
Exam Note: Roni Note: Please also refer to the separate dictated note~for this date of service dictated separately.~Patient seen individually. Discussed the patient with Nursing staff reviewed the chart.~Reviewed interim history and current functioning. Reviewed vital signs,~Labs/ Radiology~and current medications noted below. Continue current treatment with the changes noted in the dictated addendum note Assessment: Vital Signs/I&O: Vital Signs Date Time Temp Pulse Resp B/P (MAP) Pulse Ox O2 Delivery O2 Flow Rate FiO2 08/04/20 17:40 67 114/62 08/04/20 16:11 97.2 18 98 08/04/20 05:53 Room Air I & O 08/03/20 08/03/20 08/04/20 15:00 23:00 07:00 Intake Total 240 ml 840 ml Balance 240 ml 840 ml Current Medications: Meds: Current Medications Medications (Trade) Dose Ordered Sig/Pino Route PRN Reason Start Time Stop Time Status Last Admin Dose Admin Multi-Ingredient Ointment (Analgesic [place]) 1 cole PRN QID PRN TP MUSCLE PAIN 07/27/20 15:30 Al Hydroxide/Mg Hydroxide (Mylanta Plus Xs) 15 ml PRN AFTMEALHC PRN PO DYSPEPSIA 07/27/20 15:30 Magnesium Hydroxide (Milk Of Magnesia) 2,400 mg PRN QHS PRN PO CONSTIPATION 07/27/20 15:30 Acetaminophen (Tylenol) 1,000 mg PRN Q6HRS PRN PO PAIN 07/27/20 15:30 08/04/20 20:24 Atorvastatin Calcium (Lipitor) 10 mg QHS PO 07/27/20 21:00 08/04/20 20:24 Carvedilol (Coreg) 6.25 mg BIDWMEALS PO 07/27/20 17:00 08/04/20 17:40 Clonazepam (KlonoPIN) 0.5 mg PRN BID PRN PO ANXIETY / AGITATION 07/27/20 15:30 07/28/20 16:12 DC 07/27/20 17:06 Clonazepam (KlonoPIN) 0.5 mg QHS PO 07/27/20 21:00 07/28/20 16:13 DC 07/27/20 19:55 Cyclosporine (Restasis) 1 drop BID OU 07/27/20 21:00 08/04/20 20:25 Levothyroxine Sodium (Synthroid) 125 mcg DAILY06 PO 07/28/20 06:00 08/04/20 05:54 Memantine (Namenda) 10 mg BID PO 07/27/20 21:00 08/04/20 20:24 Montelukast Sodium (Singulair) 10 mg HS PO 07/27/20 21:00 08/04/20 20:24 Clobetasol Propionate 1 cole PRN DAILY PRN TP dermatitis 07/27/20 16:00 Clonazepam (KlonoPIN) 0.25 mg PRN QHS PRN PO INSOMNIA, MRX1 07/27/20 16:00 07/28/20 16:13 DC Diltiazem HCl (Cardizem 24hr Cd) 240 mg DAILY PO 07/28/20 09:00 08/04/20 07:53 Cetirizine HCl (ZyrTEC) 10 mg DAILY PO 07/28/20 09:00 08/04/20 07:54 Losartan Potassium (Cozaar) 100 mg DAILY PO 07/28/20 09:00 08/04/20 07:54 Multivitamins/ Calcium (Thera-M Plus) 1 tab DAILY PO 07/28/20 09:00 08/04/20 07:54 Pantoprazole Sodium (Protonix) 40 mg DAILY PO 07/28/20 09:00 08/04/20 07:54 Artificial Tears (Artificial Tears) 1 drop PRN QID PRN OU DRY EYE 07/27/20 16:00 07/30/20 20:17 Olanzapine (ZyPREXA ZYDIS) 2.5 mg PRN Q2HRS PRN PO PSYCHOSIS 07/27/20 19:45 08/04/20 20:24 Clonazepam (KlonoPIN) 0.25 mg QHS PO 07/28/20 21:00 07/30/20 23:50 DC 07/30/20 19:27 Quetiapine Fumarate (SEROquel) 12.5 mg QHS PO 07/28/20 21:00 08/04/20 20:25 Fluvoxamine Maleate (Luvox) 25 mg QHS PO 07/28/20 21:00 07/30/20 23:00 DC 07/30/20 19:26 Mirtazapine (Remeron) 7.5 mg QHS PO 07/29/20 21:00 08/04/20 20:25 Fluvoxamine Maleate (Luvox) 50 mg QHS PO 07/31/20 21:00 08/04/20 20:25 Quetiapine Fumarate (SEROquel) 12.5 mg 1200 PO 08/02/20 12:00 08/04/20 12:24 Doxycycline Hyclate (Vibra-Tab) 100 mg BID PO 08/02/20 10:00 08/04/20 20:24 Trimethoprim/ Sulfamethoxazole (Bactrim Ds) 1 tab BID PO 08/02/20 10:00 08/04/20 20:24 Lactobacillus Rhamnosus (Culturelle) 1 cap BID PO 08/02/20 21:00 08/04/20 20:24 Ondansetron HCl (Zofran Odt) 4 mg PRN Q6HRS PRN PO NAUSEA/VOMITING 08/03/20 06:15 08/03/20 06:18 I have reviewed the current psychotropics carefully including drug interactions. Risk benefit ratio favors no change other than as noted in my dictated progress note. Diagnosis: Problems: (1) Major neurocognitive disorder (2) Impulse control disorder, unspecified (3) Anxiety disorder, unspecified (4) Dementia, vascular, with depression (5) Dementia, vascular, with delusions (6) Dementia in Alzheimer's disease with depression (7) Dementia in Alzheimer's disease with delusions (8) Dementia of the Alzheimer's type with early onset with behavioral disturbance KATHY BARNHART MD Aug 04, 2020 23:15
--- NOTE | 2020-08-05 05:38 | NUR ---
PRN Tylenol provided per order at bed time for foot/toe pain. Patient was disorganized and irritable last night. She is hard to redirect when she gets focused on something but has a short attention span. She can become confrontational at times but is redirectable because of her short term memory deficit. Patient compliant with medications taken whole, she often needs to be told to put the pills in her mouth and swallow them.
[2020-08-05] MEDS: LEVOTHYROXINE 125 MCG TABLET PO SCH (06:00)
[2020-08-05 06:30] VITALS: BP 126/68
[2020-08-05] MEDS: MULTIVITAMIN with MINERAL TABLET. PO SCH (08:08)
[2020-08-05] MEDS: ACETAMINOPHEN 500 MG TABLET PO PRN (08:08)
[2020-08-05] MEDS: LACTOBACILLUS RHAMNOSUS GG 1 CAPSULE. PO SCH ×2 (08:09→20:32)
[2020-08-05] MEDS: PANTOPRAZOLE 40 MG TABLET. PO SCH (08:09)
[2020-08-05] MEDS: SMZ/TMP 800/160MG TABLET. PO SCH ×2 (08:09→20:33)
[2020-08-05] MEDS: MEMANTINE 10 MG TABLET. PO SCH ×2 (08:09→20:32)
[2020-08-05] MEDS: DOXYCYCLINE HYCLATE 100 MG TABLET PO SCH ×2 (08:09→20:33)
[2020-08-05] MEDS: CETIRIZINE HCL 10 MG TABLET PO SCH (08:09)
[2020-08-05] MEDS: LOSARTAN 50 MG TABLET. PO SCH (08:09)
[2020-08-05] MEDS: CARVEDILOL 6.25 MG TABLET PO SCH ×2 (08:09→17:28)
[2020-08-05] MEDS: cycloSPORINE 0.05% OPTH 1 DROP DROPERETTE OU SCH ×2 (08:10→20:32)
[2020-08-05] MEDS: QUEtiapine 25 MG TABLET. PO SCH ×2 (12:11→20:33)
[2020-08-05 15:42] VITALS: BP 108/67
[2020-08-05] MEDS: ATORVASTATIN CALCIUM 10 MG TABLET. PO SCH (20:32)
[2020-08-05] MEDS: MONTELUKAST 10 MG TABLET. PO SCH (20:32)
[2020-08-05] MEDS: MIRTAZAPINE 7.5 MG TABLET. PO SCH (20:33)
--- NOTE | 2020-08-06 02:27 | NUR ---
Last evening pt walked the halls or sat in the day room until going to bed. She took meds whole without difficulty and requested that we gat a doctor that can fix her toes for her. She has been cooperative with no behaviors tonight.
[2020-08-06 05:53] VITALS: BP 118/68
[2020-08-06] MEDS: LEVOTHYROXINE 125 MCG TABLET PO SCH (07:59)
[2020-08-06] MEDS: SMZ/TMP 800/160MG TABLET. PO SCH ×2 (08:35→19:59)
[2020-08-06] MEDS: LACTOBACILLUS RHAMNOSUS GG 1 CAPSULE. PO SCH ×2 (08:35→20:00)
[2020-08-06] MEDS: CARVEDILOL 6.25 MG TABLET PO SCH ×2 (08:35→17:13)
[2020-08-06] MEDS: CETIRIZINE HCL 10 MG TABLET PO SCH (08:35)
[2020-08-06] MEDS: DOXYCYCLINE HYCLATE 100 MG TABLET PO SCH ×2 (08:35→20:00)
[2020-08-06] MEDS: PANTOPRAZOLE 40 MG TABLET. PO SCH (08:35)
[2020-08-06] MEDS: MULTIVITAMIN with MINERAL TABLET. PO SCH (08:35)
[2020-08-06] MEDS: MEMANTINE 10 MG TABLET. PO SCH ×2 (08:35→19:58)
[2020-08-06] MEDS: cycloSPORINE 0.05% OPTH 1 DROP DROPERETTE OU SCH ×2 (08:36→20:00)
[2020-08-06] MEDS: LOSARTAN 50 MG TABLET. PO SCH (08:36)
--- NOTE | 2020-08-06 09:16 | PDOC ---
Exam Note: Roni Note: This note is a late entry for 08/04/2020 covers elements not covered in my initial note. Subjective: The patient was seen on telehealth rounds in the evening of 08/04/2020 with the nursing staff taking the telehealth camera to each patient, which was on a secure portal, discussed and reviewed the chart with Artemio SCHAFER. She slept 6-1/4 hours previous night. I met with her in her room. She has not been overtly agitated or disruptive. She may have to go to [facility] for surgical debridement of her toe area. We will defer to Dr. Garza. Review of Systems: Positive for some discomfort in her toe. No CV, , pulmonary, eye system symptoms on review. Reliability poor. Mental Status Exam: The patient is reasonably oriented. Insight and judgment, recent and remote memory, attention and concentration, fund of knowledge is poor consistent with her diagnoses. Laboratory Data: Reviewed. 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 Anxiety disorder unspecified. Impulse control disorder unspecified. Plan: Continue current psychotropics. Assessment: Vital Signs/I&O: Vital Signs Date Time Temp Pulse Resp B/P (MAP) Pulse Ox O2 Delivery O2 Flow Rate FiO2 08/06/20 08:36 70 118/68 08/06/20 05:53 99.0 16 94 08/05/20 15:42 Room Air I & O 08/05/20 08/05/20 08/06/20 15:00 23:00 07:00 Intake Total 240 ml 480 ml Balance 240 ml 480 ml Current Medications: Meds: Current Medications Medications (Trade) Dose Ordered Sig/Pino Route PRN Reason Start Time Stop Time Status Last Admin Dose Admin Multi-Ingredient Ointment (Analgesic [place]) 1 cole PRN QID PRN TP MUSCLE PAIN 07/27/20 15:30 Al Hydroxide/Mg Hydroxide (Mylanta Plus Xs) 15 ml PRN AFTMEALHC PRN PO DYSPEPSIA 07/27/20 15:30 Magnesium Hydroxide (Milk Of Magnesia) 2,400 mg PRN QHS PRN PO CONSTIPATION 07/27/20 15:30 Acetaminophen (Tylenol) 1,000 mg PRN Q6HRS PRN PO PAIN 07/27/20 15:30 08/05/20 08:08 Atorvastatin Calcium (Lipitor) 10 mg QHS PO 07/27/20 21:00 08/05/20 20:32 Carvedilol (Coreg) 6.25 mg BIDWMEALS PO 07/27/20 17:00 08/06/20 08:35 Clonazepam (KlonoPIN) 0.5 mg PRN BID PRN PO ANXIETY / AGITATION 07/27/20 15:30 07/28/20 16:12 DC 07/27/20 17:06 Clonazepam (KlonoPIN) 0.5 mg QHS PO 07/27/20 21:00 07/28/20 16:13 DC 07/27/20 19:55 Cyclosporine (Restasis) 1 drop BID OU 07/27/20 21:00 08/06/20 08:36 Levothyroxine Sodium (Synthroid) 125 mcg DAILY06 PO 07/28/20 06:00 08/06/20 07:59 Memantine (Namenda) 10 mg BID PO 07/27/20 21:00 08/06/20 08:35 Montelukast Sodium (Singulair) 10 mg HS PO 07/27/20 21:00 08/05/20 20:32 Clobetasol Propionate 1 cole PRN DAILY PRN TP dermatitis 07/27/20 16:00 Clonazepam (KlonoPIN) 0.25 mg PRN QHS PRN PO INSOMNIA, MRX1 07/27/20 16:00 07/28/20 16:13 DC Diltiazem HCl (Cardizem 24hr Cd) 240 mg DAILY PO 07/28/20 09:00 08/06/20 08:36 Cetirizine HCl (ZyrTEC) 10 mg DAILY PO 07/28/20 09:00 08/06/20 08:35 Losartan Potassium (Cozaar) 100 mg DAILY PO 07/28/20 09:00 08/06/20 08:36 Multivitamins/ Calcium (Thera-M Plus) 1 tab DAILY PO 07/28/20 09:00 08/06/20 08:35 Pantoprazole Sodium (Protonix) 40 mg DAILY PO 07/28/20 09:00 08/06/20 08:35 Artificial Tears (Artificial Tears) 1 drop PRN QID PRN OU DRY EYE 07/27/20 16:00 07/30/20 20:17 Olanzapine (ZyPREXA ZYDIS) 2.5 mg PRN Q2HRS PRN PO PSYCHOSIS 07/27/20 19:45 08/05/20 08:09 Clonazepam (KlonoPIN) 0.25 mg QHS PO 07/28/20 21:00 07/30/20 23:50 DC 07/30/20 19:27 Quetiapine Fumarate (SEROquel) 12.5 mg QHS PO 07/28/20 21:00 08/05/20 20:33 Fluvoxamine Maleate (Luvox) 25 mg QHS PO 07/28/20 21:00 07/30/20 23:00 DC 07/30/20 19:26 Mirtazapine (Remeron) 7.5 mg QHS PO 07/29/20 21:00 08/05/20 20:33 Fluvoxamine Maleate (Luvox) 50 mg QHS PO 07/31/20 21:00 08/05/20 20:33 Quetiapine Fumarate (SEROquel) 12.5 mg 1200 PO 08/02/20 12:00 08/05/20 12:11 Doxycycline Hyclate (Vibra-Tab) 100 mg BID PO 08/02/20 10:00 08/06/20 08:35 Trimethoprim/ Sulfamethoxazole (Bactrim Ds) 1 tab BID PO 08/02/20 10:00 08/06/20 08:35 Lactobacillus Rhamnosus (Culturelle) 1 cap BID PO 08/02/20 21:00 08/06/20 08:35 Ondansetron HCl (Zofran Odt) 4 mg PRN Q6HRS PRN PO NAUSEA/VOMITING 08/03/20 06:15 08/03/20 06:18 I have reviewed the current psychotropics carefully including drug interactions. Risk benefit ratio favors no change other than as noted in my dictated progress note. Diagnosis: Problems: (1) Major neurocognitive disorder (2) Impulse control disorder, unspecified (3) Anxiety disorder, unspecified (4) Dementia, vascular, with depression (5) Dementia, vascular, with delusions (6) Dementia in Alzheimer's disease with depression (7) Dementia in Alzheimer's disease with delusions (8) Dementia of the Alzheimer's type with early onset with behavioral disturbance KATHY BARNHART MD Aug 06, 2020 09:16
--- NOTE | 2020-08-06 11:28 | NUR ---
WEEKLY ACTIVITY THERAPY NOTE Date of Admission:07/27/20 Date of AT Assessment: 07/30 Precipitating behaviors that initiated intake and admission: [facility] for reportedly flipping dining room chairs, throwing ensure bottles at staff, pushing and shoving staff, eloping from locked facility, being obsessive, and attention seeking Goal aimed: increase stress management and relaxation skills Initial Goal: Pt will participate in at least five individual or group Activity Therapy sessions per week. Weekly progress towards goal: exceeded, 10/14 Group participation level: 1 min, 5 mod, 3 full Weekly highlights: flexibility Thursday, tv show theme songs Thursday, balloon bop , flexibility Thursday Behaviors observed: needs some prompting, mostly independent, pleasant Plan: change goal to: Pt will participate in all group Activity Therapy sessions offered. Beneficial adaptations: exercise, some prompting
[2020-08-06] MEDS: QUEtiapine 25 MG TABLET. PO SCH ×2 (12:07→19:59)
--- NOTE | 2020-08-06 13:19 | NUR ---
Nursing Note Patient had an uneventful shift, compliant with medications, patient continues to ask questions repeatedly within minutes of each other but is now easily redirected. Patient still awaiting bed for [facility]. Patient otherwise pleasant throughout shift. Up in dayroom and participating in activities.
--- NOTE | 2020-08-06 14:52 | TX PLAN ---
Interdisciplinary Tx Plan Admission Information Jul 27, 2020 at 13:19 Legal Status (on Admission): Voluntary DPOA/Guardian Name: Emre Carroll Contact Other Contact Name: Camryn Boone Other Contact Verified Code Status: Full Code Allergies: Coded Allergies: adhesive (Verified Allergy, Unknown, 07/27/20) amlodipine (Verified Allergy, Unknown, Swelling, 07/27/20) clindamycin (Verified Allergy, Unknown, Rash, 07/27/20) Diagnoses Primary Diagnosis: Major Neurocognitiave D/O vascular Alzheimers with Delusions, depression and BD Reasons for Admission: Aggressive, Combative, Confusion/Disoriented, Poor impulse control Problem in Patient's Words: Definite decline in cognition Additional Admission Comments: According to the intake, pt is flipping chairs in the dining room, aggressive, throwing Ensure bottles at staff, agitated, pushing/shoving staff, eloped from facility in which staff was trying to prevent. Problems Active Problems: delusional verbal aggression Inactive Problems: Medication compliance Pt Strengths/Limitations Ability for [place]: Poor Cognitive Functioning/Ability: Fair Communication Skills/Ability: Fair Financial Resources: Good Insight/Judgement: Poor Intellectual Ability: Fair Physical Health: Poor Social Skills: Poor Stability in Family: Good Stability in School/Work: Poor Verbal Skills: Fair Discharge Criteria Discharge Criteria: No need for close observ., Adequate arrangements @DC, Improved behavior, Improved mood/thought Preliminary Discharge Plan Preliminary DC Plan: Current Living Arrange. Special Precautions Fall Risk: Low Initial D/C Plan Pt may return [facility] (memory care unit) once stable. Identified Discharge Needs: Continued psychiatric services Currently Utilized Resources Currently Utilized Resources/P: Primary care physician Referrals Community Resources: Referral for continued psychiatric services Identified Problems/Hx/Goals Objectives/Short-Term Goals Short Term Goals: Dec. Aggression, Dec. Hallucination/Delus, Dec. Outbursts, Improved Social Skills, Medication Stabilization, Promote Coping Skill Short Term Goals in Patient's: N/A Interventions/Frequency Staff Interventions/Frequency&: Psychiatrist to assess pt at least 3x per week for medication management Social work to assess pt at least 2x per week to identify barriers to care and discharge planning. Nursing to assess medication effects, behavioral management and completion of 15 minute checks daily. Encourage group participation in activities (if applicable) or 1:1 engagement based off activity dept goals. 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 She also worked 4 years at the [employer] and received a certificate to further her skills in psychology. 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 Pt has her Bachelors in Psychology and received her Masters in Psychology; pt attended and initially started on her degree in School Counseling/Psychology. Community Follow-up Primary Care Physician Referral to psychiatrist/neurology Treatment Plan Explained Patient/Host/Hostess had this treatment plan explained to him/her as indicated by the signature below and has been given the opportunity to ask questions and make suggestions: Date: Patient/Host/Hostess Signature: Status Update Update Pt is eating roughly 50% of meals and sleeping on average 5.5. hours per night. Pt is currently waiting for a bed at [facility] due to her Osteomyelitis and will have potentially three toes amputated. Pt gets somewhat irritated with redirection but can be pleasant and medication compliant. Pt participated in nine groups this week with minimal to moderate participation. Once a bed is opened at [facility] pt will be transferred. Pt family and facility has been notified. LUPE IGNACIO Aug 06, 2020 14:52
[2020-08-06 15:38] VITALS: BP 127/82
--- NOTE | 2020-08-06 16:08 | DS ---
DATE OF DISCHARGE: 08/06/2020 ATTENDING PHYSICIAN: Dr. Valderrama and Dr. Garza. FINAL DISCHARGE DIAGNOSES: 1. Profound dementia with behavioral issues. 2. Type 2 diabetes mellitus. 3. Impulse control disorder. 4. Neurocognitive deficit. 5. Probable osteomyelitis, right great toe. 6. Hypothyroidism, on replacement. 7. Cellulitis. 8. History of closed head injury. 9. Chronic constipation. 10. Essential hypertension. 11. Gastroesophageal reflux disease. HISTORY AND PHYSICAL: This is a 75-year-old female admitted from [facility] in [place], [place] with significant aggressive behavior at the facility and she was throwing chairs and becoming very belligerent. PHYSICAL EXAMINATION: Please see the dictated note. PERTINENT LABORATORY AND X-RAY STUDIES: Are on the database. Please refer to the extensive database. She had an imaging study including a bone scan dated 08/01/2020. There is evidence on all three phases of bone scan suggesting osteomyelitis involving the right great toe. The tip of the left third toe is also positive on three scans, only faintly. There is increased tracer uptake at the tip of the right third toe on the distal images. The patient was admitted. She was seen in consultation by Dr. Workman. Because of persistent swelling and erythema, he ordered a bone scan involving the right great toe. All three phases of the bone scan component is positive and consistent with osteomyelitis. Her psych meds were continued. I talked with Dr. Workman, he was agreeable then to take the patient and transfer to admit her to [facility] and obtain orthopedic consultation for probable debridement and/or amputation. Therefore, on 08/06/2020, arrangements were made for the patient to be transferred to [facility] to be admitted under Dr. Workman for treatment of the osteomyelitis. Her home meds have been reviewed by Dr. Valderrama that include the following: He recommends that she continues her Lipitor 10 mg daily, Coreg 6.25 mg b.i.d., cetirizine p.r.n., Restasis eyedrops twice a day, diltiazem 240 daily, continuation of oral doxycycline 100 mg b.i.d. and Bactrim DS 1 b.i.d. I had started this 4 days ago to help with the cellulitis in addition to losartan, lactobacillus, , Namenda, Remeron, Singulair, multivitamin and ondansetron p.o. . Seroquel 25 mg at bedtime. She remains a FULL CODE. The patient was then discharged from our hospital to go to [facility] with Dr. Workman to be admitted for treatment and orthopedic consultation. ELKIN DR: Johnnie TID: [id number] CC: KATHY VALDERRAMA MD, MARTINA WORKMAN MD
[2020-08-06 17:13] VITALS: BP 127/82
[2020-08-06] MEDS: ATORVASTATIN CALCIUM 10 MG TABLET. PO SCH (19:58)
[2020-08-06] MEDS: MONTELUKAST 10 MG TABLET. PO SCH (19:59)
[2020-08-06] MEDS: MIRTAZAPINE 7.5 MG TABLET. PO SCH (19:59)
--- NOTE | 2020-08-06 22:04 | PDOC ---
Exam Note: Roni Note: Please also refer to the separate dictated note~for this date of service dictated separately.~Patient seen individually. Discussed the patient with Nursing staff reviewed the chart.~Reviewed interim history and current functioning. Reviewed vital signs,~Labs/ Radiology~and current medications noted below. Continue current treatment with the changes noted in the dictated addendum note Assessment: Vital Signs/I&O: Vital Signs Date Time Temp Pulse Resp B/P (MAP) Pulse Ox O2 Delivery O2 Flow Rate FiO2 08/06/20 17:13 62 127/82 08/06/20 15:38 97.9 18 99 08/05/20 15:42 Room Air I & O 08/05/20 08/05/20 08/06/20 15:00 23:00 07:00 Intake Total 240 ml 480 ml Balance 240 ml 480 ml Current Medications: Meds: Current Medications Medications (Trade) Dose Ordered Sig/Pino Route PRN Reason Start Time Stop Time Status Last Admin Dose Admin Multi-Ingredient Ointment (Analgesic [place]) 1 cole PRN QID PRN TP MUSCLE PAIN 07/27/20 15:30 Al Hydroxide/Mg Hydroxide (Mylanta Plus Xs) 15 ml PRN AFTMEALHC PRN PO DYSPEPSIA 07/27/20 15:30 Magnesium Hydroxide (Milk Of Magnesia) 2,400 mg PRN QHS PRN PO CONSTIPATION 07/27/20 15:30 Acetaminophen (Tylenol) 1,000 mg PRN Q6HRS PRN PO PAIN 07/27/20 15:30 08/05/20 08:08 Atorvastatin Calcium (Lipitor) 10 mg QHS PO 07/27/20 21:00 08/06/20 19:58 Carvedilol (Coreg) 6.25 mg BIDWMEALS PO 07/27/20 17:00 08/06/20 17:13 Clonazepam (KlonoPIN) 0.5 mg PRN BID PRN PO ANXIETY / AGITATION 07/27/20 15:30 07/28/20 16:12 DC 07/27/20 17:06 Clonazepam (KlonoPIN) 0.5 mg QHS PO 07/27/20 21:00 07/28/20 16:13 DC 07/27/20 19:55 Cyclosporine (Restasis) 1 drop BID OU 07/27/20 21:00 08/06/20 20:00 Levothyroxine Sodium (Synthroid) 125 mcg DAILY06 PO 07/28/20 06:00 08/06/20 07:59 Memantine (Namenda) 10 mg BID PO 07/27/20 21:00 08/06/20 19:58 Montelukast Sodium (Singulair) 10 mg HS PO 07/27/20 21:00 08/06/20 19:59 Clobetasol Propionate 1 cole PRN DAILY PRN TP dermatitis 07/27/20 16:00 Clonazepam (KlonoPIN) 0.25 mg PRN QHS PRN PO INSOMNIA, MRX1 07/27/20 16:00 07/28/20 16:13 DC Diltiazem HCl (Cardizem 24hr Cd) 240 mg DAILY PO 07/28/20 09:00 08/06/20 08:36 Cetirizine HCl (ZyrTEC) 10 mg DAILY PO 07/28/20 09:00 08/06/20 08:35 Losartan Potassium (Cozaar) 100 mg DAILY PO 07/28/20 09:00 08/06/20 08:36 Multivitamins/ Calcium (Thera-M Plus) 1 tab DAILY PO 07/28/20 09:00 08/06/20 08:35 Pantoprazole Sodium (Protonix) 40 mg DAILY PO 07/28/20 09:00 08/06/20 08:35 Artificial Tears (Artificial Tears) 1 drop PRN QID PRN OU DRY EYE 07/27/20 16:00 07/30/20 20:17 Olanzapine (ZyPREXA ZYDIS) 2.5 mg PRN Q2HRS PRN PO PSYCHOSIS 07/27/20 19:45 08/05/20 08:09 Clonazepam (KlonoPIN) 0.25 mg QHS PO 07/28/20 21:00 07/30/20 23:50 DC 07/30/20 19:27 Quetiapine Fumarate (SEROquel) 12.5 mg QHS PO 07/28/20 21:00 08/06/20 19:59 Fluvoxamine Maleate (Luvox) 25 mg QHS PO 07/28/20 21:00 07/30/20 23:00 DC 07/30/20 19:26 Mirtazapine (Remeron) 7.5 mg QHS PO 07/29/20 21:00 08/06/20 19:59 Fluvoxamine Maleate (Luvox) 50 mg QHS PO 07/31/20 21:00 08/06/20 19:59 Quetiapine Fumarate (SEROquel) 12.5 mg 1200 PO 08/02/20 12:00 08/06/20 12:07 Doxycycline Hyclate (Vibra-Tab) 100 mg BID PO 08/02/20 10:00 08/06/20 20:00 Trimethoprim/ Sulfamethoxazole (Bactrim Ds) 1 tab BID PO 08/02/20 10:00 08/06/20 19:59 Lactobacillus Rhamnosus (Culturelle) 1 cap BID PO 08/02/20 21:00 08/06/20 20:00 Ondansetron HCl (Zofran Odt) 4 mg PRN Q6HRS PRN PO NAUSEA/VOMITING 08/03/20 06:15 08/03/20 06:18 I have reviewed the current psychotropics carefully including drug interactions. Risk benefit ratio favors no change other than as noted in my dictated progress note. Diagnosis: Problems: (1) Major neurocognitive disorder (2) Impulse control disorder, unspecified (3) Anxiety disorder, unspecified (4) Dementia, vascular, with depression (5) Dementia, vascular, with delusions (6) Dementia in Alzheimer's disease with depression (7) Dementia in Alzheimer's disease with delusions (8) Dementia of the Alzheimer's type with early onset with behavioral disturbance KATHY BARNHART MD Aug 06, 2020 22:04
--- NOTE | 2020-08-06 23:33 | NUR ---
Transition Record was faxed to follow-up provider with the following elements: [address] Reason for admission, procedures, tests, principal diagnosis, pending studies, patient instructions, 01/09 contact information for unit, phone number to obtain pending test results, plan for follow-up care, physician follow-up, advanced directive information, and medication list with dose, duration and instructions. This information was included in the following documents: discharge summary History and physical, lab results, study results, progress notes, social work planning form, DC instruction form, patient visit summary, and medication reconciliation form. Date & time record faxed: 08/06/20 1893 Record faxed to: [phone] Record discussed with/ report given to: Laura Cortes RN
--- NOTE | 2020-08-07 06:32 | NUR ---
Called family to inform of pts discharge [facility] [place] at [phone] there was no answer, message left. Also Emre Carroll was called at [phone] no answer, brief message left.
--- NOTE | 2020-08-07 09:34 | PDOC ---
Exam Note: Roni Note: This note is a late entry for 08/05/2020 covers elements not covered in my initial note. Subjective: The patient was seen on telehealth rounds in the afternoon of 08/05/2020 with the nursing staff taking the telehealth camera to each patient, which was on a secure portal, discussed and reviewed the chart with Varghese SCHAFER. She slept 7 hours previous night. Overall the patient remains confused, but otherwise, cooperative. She has had conflicts with one of the other female demented patients but redirects. She may need to be transferred to [facility] for surgical debridement of her feet but we will defer to Dr. Garza. Review of Systems: Positive for discomfort in her toe. No CV, , pulmonary, eye system symptoms on review. Reliability poor. Mental Status Exam: The patient is reasonably oriented. Insight and judgment, recent and remote memory, attention and concentration, fund of knowledge is poor consistent with her diagnoses. Laboratory Data: Reviewed. 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 Anxiety disorder unspecified. Impulse control disorder unspecified. Plan: Continue current psychotropics from initial note. We will defer medical management to Dr. Garza. Assessment: Vital Signs/I&O: Vital Signs Date Time Temp Pulse Resp B/P (MAP) Pulse Ox O2 Delivery O2 Flow Rate FiO2 08/06/20 17:13 62 127/82 08/06/20 15:38 97.9 18 99 08/05/20 15:42 Room Air I & O 08/06/20 08/06/20 08/07/20 15:00 23:00 07:00 Intake Total 720 ml 600 ml Balance 720 ml 600 ml Current Medications: Meds: Current Medications Medications (Trade) Dose Ordered Sig/Pino Route PRN Reason Start Time Stop Time Status Last Admin Dose Admin Multi-Ingredient Ointment (Analgesic [place]) 1 cole PRN QID PRN TP MUSCLE PAIN 07/27/20 15:30 08/06/20 23:48 DC Al Hydroxide/Mg Hydroxide (Mylanta Plus Xs) 15 ml PRN AFTMEALHC PRN PO DYSPEPSIA 07/27/20 15:30 08/06/20 23:48 DC Magnesium Hydroxide (Milk Of Magnesia) 2,400 mg PRN QHS PRN PO CONSTIPATION 07/27/20 15:30 08/06/20 23:48 DC Acetaminophen (Tylenol) 1,000 mg PRN Q6HRS PRN PO PAIN 07/27/20 15:30 08/06/20 23:48 DC 08/05/20 08:08 Atorvastatin Calcium (Lipitor) 10 mg QHS PO 07/27/20 21:00 08/06/20 23:48 DC 08/06/20 19:58 Carvedilol (Coreg) 6.25 mg BIDWMEALS PO 07/27/20 17:00 08/06/20 23:48 DC 08/06/20 17:13 Clonazepam (KlonoPIN) 0.5 mg PRN BID PRN PO ANXIETY / AGITATION 07/27/20 15:30 07/28/20 16:12 DC 07/27/20 17:06 Clonazepam (KlonoPIN) 0.5 mg QHS PO 07/27/20 21:00 07/28/20 16:13 DC 07/27/20 19:55 Cyclosporine (Restasis) 1 drop BID OU 07/27/20 21:00 08/06/20 23:48 DC 08/06/20 20:00 Levothyroxine Sodium (Synthroid) 125 mcg DAILY06 PO 07/28/20 06:00 08/06/20 23:48 DC 08/06/20 07:59 Memantine (Namenda) 10 mg BID PO 07/27/20 21:00 08/06/20 23:48 DC 08/06/20 19:58 Montelukast Sodium (Singulair) 10 mg HS PO 07/27/20 21:00 08/06/20 23:48 DC 08/06/20 19:59 Clobetasol Propionate 1 cole PRN DAILY PRN TP dermatitis 07/27/20 16:00 08/06/20 23:48 DC Clonazepam (KlonoPIN) 0.25 mg PRN QHS PRN PO INSOMNIA, MRX1 07/27/20 16:00 07/28/20 16:13 DC Diltiazem HCl (Cardizem 24hr Cd) 240 mg DAILY PO 07/28/20 09:00 08/06/20 23:48 DC 08/06/20 08:36 Cetirizine HCl (ZyrTEC) 10 mg DAILY PO 07/28/20 09:00 08/06/20 23:48 DC 08/06/20 08:35 Losartan Potassium (Cozaar) 100 mg DAILY PO 07/28/20 09:00 08/06/20 23:48 DC 08/06/20 08:36 Multivitamins/ Calcium (Thera-M Plus) 1 tab DAILY PO 07/28/20 09:00 08/06/20 23:48 DC 08/06/20 08:35 Pantoprazole Sodium (Protonix) 40 mg DAILY PO 07/28/20 09:00 08/06/20 23:48 DC 08/06/20 08:35 Artificial Tears (Artificial Tears) 1 drop PRN QID PRN OU DRY EYE 07/27/20 16:00 08/06/20 23:48 DC 07/30/20 20:17 Olanzapine (ZyPREXA ZYDIS) 2.5 mg PRN Q2HRS PRN PO PSYCHOSIS 07/27/20 19:45 08/06/20 23:48 DC 08/05/20 08:09 Clonazepam (KlonoPIN) 0.25 mg QHS PO 07/28/20 21:00 07/30/20 23:50 DC 07/30/20 19:27 Quetiapine Fumarate (SEROquel) 12.5 mg QHS PO 07/28/20 21:00 08/06/20 23:48 DC 08/06/20 19:59 Fluvoxamine Maleate (Luvox) 25 mg QHS PO 07/28/20 21:00 07/30/20 23:00 DC 07/30/20 19:26 Mirtazapine (Remeron) 7.5 mg QHS PO 07/29/20 21:00 08/06/20 23:48 DC 08/06/20 19:59 Fluvoxamine Maleate (Luvox) 50 mg QHS PO 07/31/20 21:00 08/06/20 23:48 DC 08/06/20 19:59 Quetiapine Fumarate (SEROquel) 12.5 mg 1200 PO 08/02/20 12:00 08/06/20 23:48 DC 08/06/20 12:07 Doxycycline Hyclate (Vibra-Tab) 100 mg BID PO 08/02/20 10:00 08/06/20 23:48 DC 08/06/20 20:00 Trimethoprim/ Sulfamethoxazole (Bactrim Ds) 1 tab BID PO 08/02/20 10:00 08/06/20 23:48 DC 08/06/20 19:59 Lactobacillus Rhamnosus (Culturelle) 1 cap BID PO 08/02/20 21:00 08/06/20 23:48 DC 08/06/20 20:00 Ondansetron HCl (Zofran Odt) 4 mg PRN Q6HRS PRN PO NAUSEA/VOMITING 08/03/20 06:15 08/06/20 23:48 DC 08/03/20 06:18 I have reviewed the current psychotropics carefully including drug interactions. Risk benefit ratio favors no change other than as noted in my dictated progress note. Diagnosis: Problems: (1) Major neurocognitive disorder (2) Impulse control disorder, unspecified (3) Anxiety disorder, unspecified (4) Dementia, vascular, with depression (5) Dementia, vascular, with delusions (6) Dementia in Alzheimer's disease with depression (7) Dementia in Alzheimer's disease with delusions (8) Dementia of the Alzheimer's type with early onset with behavioral disturbance KATHY BARNHART MD Aug 07, 2020 09:34
--- NOTE | 2020-08-09 23:44 | DS ---
DATE OF DISCHARGE: 08/06/2020 DISCHARGE SUMMARY-PSYCHIATRIC PROGRESS NOTE This is a late entry, date of service 08/06, covers the elements not covered in my initial note 08/06. REASON FOR ADMISSION: Please refer to the admission history for details. Briefly, the patient is a 75-year-old female [facility]. She has been increasingly confused, was "flipping dining room chairs, throwing Ensure bottles at staff, pushing and shoving staff, eloping from locked facility." She was being obsessive, reportedly attention seeking. Behaviors were deemed dangerous, unmanageable. She is more confused, psychotic, had failed outpatient psychiatric interventions resulting in this referral. SIGNIFICANT FINDINGS AND CLINICAL COURSE: Following admission, the patient was seen daily individually by myself from a psychiatric standpoint, medical followup with Dr. Workman/Dr. Garza. The patient remained extremely confused, paranoid, agitated. Following admission, adjustments were made in her psychotropics. She was doing better on a combination of Luvox 50 mg at bedtime for her obsessive-compulsive symptoms and mood symptoms, Seroquel 12.5 mg noon at 2100, Remeron 7.5 mg at bedtime, Namenda 10 mg b.i.d., Zyprexa p.r.n. Adjustments were being made in her psychotropics, but at this stage, she seemed to need amputation of the toe on her lower extremity and was transferred to [facility] for that. Prior to discharge, no CV, , pulmonary, eye, ENT system symptoms on review. MENTAL STATUS EXAMINATION: The patient is oriented to herself. Insight, judgment, recent and remote memory, attention, concentration, fund of knowledge poor consistent with her diagnoses. FINAL DIAGNOSES: Major neurocognitive disorder; Alzheimer, vascular with delusion; depression, behavioral disturbance; anxiety disorder, unspecified; impulse control disorder, unspecified. Rest unchanged from admission. Toe on the lower extremity needed amputation. DISCHARGE MEDICATIONS: Please refer to the MRAD and if the patient continues to have behavioral dyscontrol post-medical stabilization at [facility], we will consider readmitting her for further psychiatric stabilization; otherwise, she may return back to the residential from [facility]. KATHARINA/MEGAN/TOMAS DR: Codi TID: [id number]
== END 2020-08-06 23:09 | disposition short-term general hospital (02) | DRG 57 ==
LOC: ER 10:33 → GEROPSY 13:19
PROVIDERS: ADMIT Psychiatry & Neurology Psychiatry; ATTEND Psychiatry & Neurology Psychiatry
DX: G30.9 Alzheimer's disease, unspecified (principal); F02.81 Dementia in other diseases classified elsewhere, unspecified severity, with behavioral disturbance; M86.8X7 Other osteomyelitis, ankle and foot; L03.90 Cellulitis, unspecified; F01.51 Vascular dementia, unspecified severity, with behavioral disturbance; E03.9 Hypothyroidism, unspecified; E11.69 Type 2 diabetes mellitus with other specified complication; F41.8 Other specified anxiety disorders; F63.9 Impulse disorder, unspecified; I10 Essential (primary) hypertension; K21.9 Gastro-esophageal reflux disease without esophagitis; K59.09 Other constipation; Z87.828 Personal history of other (healed) physical injury and trauma; Z91.81 History of falling; Z79.4 Long term (current) use of insulin; Z88.8 Allergy status to other drugs, medicaments and biological substances; Z79.899 Other long term (current) drug therapy
CPT/HCPCS: 36415; 73630; 78315; 80053; 80061; 81001; 82306; 82607; 83036; 83540; 83550; 83735; 84436; 84443; 84480; 85025; 85379; 85651; 86140; 86592; 93005; A9503; Q0162; 97535; 99285-25

== ENCOUNTER 2020-08-08 17:30 | Inpatient (IN) | payer MEDICARE ==
[~2020-08-08] VITALS: Ht 167.6 cm; Wt 75.0 kg
[~2020-08-08 17:30] MED LIST: ACET500T68 PO; ATOR10TA60 PO; CARV6.25 PO; CETI10TA16 PO; CLOB15CR TP; CLON0.5T20 PO; CLON0.5T4 PO; CYCL1DRO EACHEYE; DILT240T8 PO; DOXY100C2 PO; FEXO180T16 PO; FLUV50TA2 PO; LACT1CAP21 PO; LEVO125T5 PO; LOSA100T14 PO; MAG355OR12 PO; MAGN24003 PO; MEMA10TA PO; METH57CR17 TP; MIRT7.5T8 PO; MONT10TA80 PO; MULT1TAB82 PO; OLAN5TAB99 PO; ONDA4TAB12 PO; PANT20TA58 PO; PROP15DR40 EACHEYE; QUET25TA5 PO; SULF1TAB24 PO
[2020-08-08 22:35] VITALS: BP 174/68
[2020-08-08] MEDS ORDERED: MAG HYDROX/AL HYDROX/SIMETH 30 ML ORAL.SUSP PO PRN (23:00)
[2020-08-08] MEDS ORDERED: METHYL SALICYLATE/MENTHOL TOPICAL OINTMENT 57GM TUBE. TP PRN (23:00)
[2020-08-08] MEDS ORDERED: CEFD300C PO (23:06)
[2020-08-08] MEDS ORDERED: MAGNESIUM HYDROXIDE 2,400 MG/30 ML ORAL.SUSP. PO PRN (23:15)
[2020-08-08] MEDS ORDERED: ACETAMINOPHEN 325 MG TABLET PO PRN (23:15)
[2020-08-08] MEDS ORDERED: CLOBETASOL EMOLLIENT 0.05% TOPICAL CREAM 15GM TUBE. TP PRN (23:30)
[2020-08-09] MEDS: cycloSPORINE 0.05% OPTH 1 DROP DROPERETTE OU SCH ×3 (00:22→20:51)
[2020-08-09] MEDS: QUEtiapine 25 MG TABLET. PO SCH ×3 (00:23→20:51)
[2020-08-09] MEDS: MIRTAZAPINE 7.5 MG TABLET. PO SCH ×2 (00:23→20:50)
[2020-08-09] MEDS: ATORVASTATIN CALCIUM 10 MG TABLET. PO SCH ×2 (00:23→20:51)
[2020-08-09] MEDS: MONTELUKAST 10 MG TABLET. PO SCH ×2 (00:23→20:50)
[2020-08-09] MEDS: MEMANTINE 10 MG TABLET. PO SCH ×3 (00:23→20:52)
--- NOTE | 2020-08-09 01:32 | NUR ---
Admission Note with Justification for Admission to [facility] Patient admitted to [facility] for protective oversight for emergency stabilization of acute psychiatric crisis. Pt admitted from: [place] Mode of arrival: EMS Accompanied By: [facility] Staff Precipitating behaviors that initiated intake and admission: Pt ripped out her IV at [facility] was wandering about confused. Description of failure of out patient attempts at stabilization in previous setting list behavior and medication trials: Pt was transferred to [facility] for orthopedic surgery. 2 amputations first the to right great toe, and right third toe nail, then right foot third toe amputation partial. Behaviors and assessment findings upon admission: Pt calm and cooperative, pleasant denies complaints no behaviors. Plan: Admit for protective oversight for adjustment and stabilization of medications, behaviors and mood. Intense treatment regimen including groups, medication adjustments, therapy, consistent regimen for ADL's, self care, and sleep hygiene. Daily monitoring by Inpatient staff, Psychiatry, and Medical Physician.
--- NOTE | 2020-08-09 02:30 | NUR ---
Patient arrived at facility from [place] around 2230, transported by EMT and was directed to her room (206). Patient showed some confusion and incoherence in her communication, but was able to answer some questions and follow simple commands. Patient admission vitals were within normal ranges (see vitals record/history). Patient has bilateral amputation: Big toe of right foot and Middle toe of left foot following Osteomyelitis. Wounds were assessed and were both well approximated with no signs of bleeding and/or infection. New Petrolatum Gauze and Kerlix were applied as wound dressing. Patient has Bilateral edema +2 left foot and +4 right leg; for which patient has been placed on list to be seen by Dr. Workman in the morning. Patient was administered er night meds after orientation to her room and being helped into bed. She was compliant with all her bedtime medications and showed no signs of nausea and vomiting. She reports more of tenderness than pain on both legs, but also has some neuropathy which may make pain sensation diminished. Patient stayed in bed, resting with eyes closed, breathing normally and showing no signs of distress. Will continue to monitor patient throughout shift for any changes.
--- NOTE | 2020-08-09 03:07 | NUR ---
Patient was very ambulatory and labile during shit and on a few occasions was exit seeking. She was redirected by nursing staff at least twice after banging loudly on the wall, glass or door, while speaking incoherently. Patient was also delusional, believing she was talking to her brother or family at certain times. She was compliant with bed time medications and showed no signs of nausea and vomiting. After wandering the hallways for almost 3 hours of the shift, patient was directed to her room where she stayed for the remainder of the night in bed, resting with eyes closed. breathing normally and showing no distress. Addendum: 08/09/20 at 0340 by VERÓNICA MORRISSEY RN note on wrong patient
[2020-08-09] MEDS: ACETAMINOPHEN 500 MG TABLET PO PRN ×2 (05:36→13:20)
[2020-08-09] MEDS: LEVOTHYROXINE 125 MCG TABLET PO SCH (05:36)
--- NOTE | 2020-08-09 05:45 | NUR ---
VS at 0625 shows temp 99.2, cheeks flushed; SaO2 low 90's; pt sleeping, arouses easily to voice, denies any distress; temp recheck in 5 min shows 100.2 oral; PRN Tylenol 1000mg given; O2 at 2L via nasal applied, Sats increased to 94% with ease; lungs CTA bilaterally, respirations even and unlabored; easily returns to sleep; will continue to monitor.
[2020-08-09 05:47] LABS: BILIRUBIN,URINE NEG (NEG); CLARITY,URINE CLEAR; COLOR,URINE YELLOW; GLUCOSE,URINE NEG (NEG); NITRITE,URINE NEG (NEG); UROBILINOGEN,URINE 0.2 mg/dL (0.2 mg/dL)
[2020-08-09 05:50] LABS: BACTERIA,URINE 0 /HPF (0-FEW); RBC,URINE 0 /HPF (0-2); SQUAMOUS EPITHELIAL CELL,UR OCC /LPF; WBC,URINE RARE /HPF (0-4)
[2020-08-09 06:07] VITALS: BP 155/70
--- NOTE | 2020-08-09 06:28 | NUR ---
notified of pt condition, orders taken for BCx2, bilat venous doppler, bladder scan, and d/c ceftin; bladder scan at bedside shows 910ml urine in bladder, assisted pt to restroom, voids without difficulty; transfers with minimal assist x1; upon returning to bed, post-void residual shows 876ml urine; red agnes catheter inserted via sterile technique, immediate return of 900ml clear pale yellow urine via dependent drainage bag, pt marino procedure without distress; catheter remains in place at present time pending physician eval; temp unchanged at 100.2 oral; O2 Sat 95-96% on 2L via nasal canula; easily returns to sleep; denies any pain or c/o when questioned; will continue to monitor and relay all clinical findings at change of shift to oncoming nurse.
--- NOTE | 2020-08-09 06:45 | NUR ---
Wound Care Wound care follow up for post op assessment of distal amputation of L 2nd toe and right great toes. Sutures intact and skin approximated, dry bloody drainage cleansed with chloroprep. No redness noted on left foot, right great toe and metatarsals remain red and swollen. Pt is mildly febrile at 99.9 at time of visit. Recommend incisions be cleansed daily with chloroprep or betadine and covered with xeroform and gauze. Discussed care of incisions with RN who will follow up with Dr Workman regarding pt status. WC will follow up next week to monitor incision sites
[2020-08-09 07:00] LABS: BASO # 0.1 x10^3/uL (0.0-0.2); BASO % 1 % (0-3); EOS # 0.2 x10^3/uL (0.0-0.7); EOS % 1 % (0-3); HEMATOCRIT 30.7 % (36.0-47.0); HEMOGLOBIN 10.5 g/dL (12.0-15.5); LYMPH # 0.8 x10^3/uL (1.0-4.8); LYMPH % 7 % (24-48); MEAN CORPUSCULAR HEMOGLOBIN 32 pg (25-35); MEAN CORPUSCULAR HGB CONC 34 g/dL (31-37); MEAN CORPUSCULAR VOLUME 95 fL (79-100); MONO % 9 % (0-9); NEUT # 9.8 x10^3uL (1.8-7.7); NEUT % 83 % (31-73); PLATELET COUNT 336 x10^3/uL (140-400); RED BLOOD COUNT 3.25 x10^6/uL (3.50-5.40); RED CELL DISTRIBUTION WIDTH 13.1 % (11.5-14.5); WHITE BLOOD COUNT 11.9 x10^3/uL (4.0-11.0)
[2020-08-09 07:13] LABS: ALBUMIN 2.5 g/dL (3.4-5.0); ALBUMIN/GLOBULIN RATIO 0.7 (1.0-1.7); CALCIUM 8.7 mg/dL (8.5-10.1); GFR 54.3; MAGNESIUM 1.7 mg/dL (1.8-2.4); TOTAL BILIRUBIN 0.5 mg/dL (0.2-1.0); TOTAL PROTEIN 5.9 g/dL (6.4-8.2)
[2020-08-09] MEDS ORDERED: CEFDINIR 300 MG CAPSULE PO SCH (09:00)
--- NOTE | 2020-08-09 10:32 | NUR ---
Pt was re-admitted last night; pt slept 5 hours and continues to be sleep as team meets. Pt has a low grade fever and her lower legs are swollen, red and hot to the touch. Pt has not had any behaviors at this time. Pt Clonazepam was discontinued as she received IV Geodon at the hospital. Pt is retaining water and has a lainez in. Nursing has expressed concerns that pt is not medically stable and will address this with Dr. Workman during rounds. No medications will be started until we know she is medically stable. Pt had a right toe amputated, took her toenail off the 3rd toe and her other is still present. Wound care saw pt this morning and is concerned that she is back.
--- NOTE | 2020-08-09 11:56 | NUR ---
WEEKLY ACTIVITY THERAPY NOTE Date of Admission:07/27/20, DC 08/[address] [facility], Readmitted 08/09 Date of AT Assessment: 07/30 remains valid Precipitating behaviors that initiated 08/09 admission: Pt ripped out her IV at [facility] was wandering about confused. Precipitating behaviors that initiated intake and 07/27 admission: Patient admitted from [facility] via [facility] for reportedly flipping dining room chairs, throwing ensure bottles at staff, pushing and shoving staff, eloping from locked facility, being obsessive, and attention seeking Goal aimed: increase stress management and relaxation skills Initial Goal: Pt will participate in at least five individual or group Activity Therapy sessions per week. Weekly progress towards goal: goal evaluation begins next week due to readmit Group participation level: Prior to DC, Pt. engaged moderately to fully in most groups Weekly highlights: arrived back to unit Behaviors observed: Prior to DC, Pt. was pleasant and appropriate in groups, smiled often and was able to recall most trivia questions Plan: no change to goal Beneficial adaptations: TBD
[2020-08-09 12:12] LABS: THYROXINE 9.1 ug/dL (4.5-12.0)
[2020-08-09] MEDS: LACTOBACILLUS RHAMNOSUS GG 1 CAPSULE. PO SCH ×2 (12:14→20:51)
[2020-08-09] MEDS: LOSARTAN 50 MG TABLET. PO SCH (12:14)
[2020-08-09] MEDS: MULTIVITAMIN with MINERAL TABLET. PO SCH (12:14)
[2020-08-09] MEDS: CETIRIZINE HCL 10 MG TABLET PO SCH (12:14)
[2020-08-09] MEDS: CARVEDILOL 6.25 MG TABLET PO SCH ×2 (12:15→17:28)
[2020-08-09] MEDS: PANTOPRAZOLE 40 MG TABLET. PO SCH (12:15)
[2020-08-09] MEDS: DOXYCYCLINE HYCLATE 100 MG TABLET PO SCH ×2 (12:17→20:52)
[2020-08-09] MEDS: SMZ/TMP 800/160MG TABLET. PO SCH ×2 (12:17→20:51)
--- NOTE | 2020-08-09 12:50 | RAD ---
Bilateral lower extremity venous duplex study 08/09/2020 11:19 AM Clinical History: Reason: SWELLING BLE / Spl. Instructions: / History: Comparison: None Technique: Using a combination of real time ultrasound imaging and color-flow and pulse Doppler imagi ng techniques along with graded compression and augmentation, duplex evaluation of the deep venous sy stem of the both lower extremities was performed. Multiple images were obtained. Findings: There is no sonographic evidence of deep venous thrombosis involving the visualized deep ve nous structures of either lower extremity. 4.1 x 2.7 x 1.9 cm Nagy's cyst noted on the right. Impression: No evidence of deep venous thrombosis involving either lower extremity Electronically signed by: Deangelo Rhodes MD (08/09/2020 12:48 PM) [id number]
[2020-08-09] MEDS ORDERED: IOHEXOL 350 MG/ML 100 ML VIAL. IV ONE (15:15)
--- NOTE | 2020-08-09 15:58 | NUR ---
BETTYE returned call to BETTYE Jamison at [facility]. She was not available in which SW asked to speak with Berenice Boyer or Colten. Colten was available; BETTYE gave him an update on how pt is doing and concerns that she continues to be medically unstable. At this time, pt has not had any physical aggression or behaviors noted; however, pt is getting more medical work up as nursing is concerned about possible sepsis or complications from the amputation. BETTYE will continue to keep the facility updated.
--- NOTE | 2020-08-09 16:17 | RAD ---
EXAM: CT angiography of the chest with intravenous contrast. HISTORY: Respiratory failure. Elevated d-dimer. TECHNIQUE: Computed tomographic images of the chest were obtained following the administration of int ravenous contrast according to angiography protocol. Multiplanar reformatting was performed and three dimensional maximum intensity projection images were obtained. *One or more of the following individualized dose reduction techniques were utilized for this examina tion: 1. Automated exposure control. 2. Adjustment of the mA and/or kV according to patient size. 3. Use of iterative reconstruction technique. COMPARISON: None. FINDINGS: There is no convincing pulmonary embolism. There is cardiomegaly. There are prominent centr al pulmonary arteries suggesting a component of pulmonary artery hypertension. There is no aortic dis section or aneurysm. There are nonspecific mediastinal and hilar lymph nodes which are likely reactiv e. There are small thyroid nodules and calcifications. There are moderate right and small left pleura l effusions. There is no pneumothorax. There is bilateral basilar compressive atelectasis. There is a 5 mm nodule within the lateral right middle lobe. There is a 4 mm nodule with adjacent 6 mm pleural- based nodule within the posterior right lung apex. There is no acute finding involving the upper abdo men. There is a subacute appearing left L1 transverse process fracture with surrounding callus format ion. No vertebral fracture is seen. IMPRESSION: 1. Moderate right and small left pleural effusions with bilateral basilar compressive atelectasis. 2. Small bilateral pulmonary nodules measuring up to 6 mm. Follow-up can be performed in one year if there are risk factors for for neoplasm. 3. Cardiomegaly and prominent central pulmonary arteries likely due to chronic pulmonary artery hyper tension. 4. Prominent mediastinal and hilar lymph nodes, likely reactive in etiology. 5. Heterogeneous thyroid. This can be better assessed with a thyroid sonogram. 6. Subacute appearing left L1 transverse process fracture. Electronically signed by: Rosalind Grant MD (08/09/2020 4:14 PM) [id number]
[2020-08-09 16:24] VITALS: BP 126/73
--- NOTE | 2020-08-09 16:26 | NUR ---
Nursing note: Pt was allowed to sleep in this AM and received AM meds when she got up for lunch. Pt's temperature has decreased and is WNL. Pt's O2 sats are upper 90s on RA. She is complaining of pain in her feet. PRN tylenol given with good effect. Pt has had no behaviors this shift. Dr. Workman informed of pt's ultrasound & lab results. New orders for chest CTA of the chest. 20G IV started in R wrist. Pt tolerated procedure well. She is currently sitting quietly in the day room. Will continue to monitor.
--- NOTE | 2020-08-09 18:47 | NUR ---
Nursing note: Dr. Workman informed of pt's chest CTA results. New orders received for lovenox 40mg daily for PE prophylaxis.
--- NOTE | 2020-08-09 20:07 | HP ---
ADMIT DATE: 08/09/2020 PSYCHIATRIC ADMISSION HISTORY/EVALUATION IDENTIFYING DATA: The patient is a 75-year-old female who was referred back to us from [facility] after she had her toe amputated. She was previously an inpatient on a unit being medically stabilized and adjustments had been made in her psychotropics for the marked agitation and aggression, disruptive, and paranoia, which made her unmanageable at [facility]. Despite surgical intervention, the patient continued to be extremely agitated, disruptive at [facility], had been on one-on-one status. She is referred back for inpatient psychiatric stabilization. CHIEF COMPLAINT: "I have been here a long time." The patient in fact was admitted last evening. I received a call from GILMAR Cosme last evening with clinical information from [facility] with disruptive behaviors, agitation, paranoia, confusion, needing further inpatient psychiatric stabilization. HISTORY OF PRESENT ILLNESS: The patient has a history of dementia, Alzheimer's, vascular type. She has been residing at [facility] prior to coming to us. On 07/17/2020, she has remained extremely agitated on one-on-one status, paranoid, confused at [facility] post her amputation. She has had sleep and appetite changes. No active suicidal or homicidal ideation. PAST PSYCHIATRIC HISTORY: As above. PAST MEDICAL HISTORY: Osteomyelitis of the toes, hypertension, hyperlipidemia, hypothyroidism, GERD, frequent falls. DIET: Regular. CODE STATUS: Full code. Ambulates with assistance. CURRENT PSYCHOTROPICS: Luvox 50 mg at bedtime, Namenda 10 mg b.i.d., Remeron 7.5 mg at bedtime, Seroquel 12.5 mg at noon and at bedtime, Zyprexa p.r.n. The patient's Klonopin was discontinued at [facility]. FAMILY HISTORY: Noncontributory. SOCIAL HISTORY: No history of alcohol, drug abuse, physical, sexual or elder abuse. She is not known to be a perpetrator. REACTION TO HOSPITALIZATION: The patient oblivious of this. ASSETS: Supportive living at the longterm. Supportive family. REVIEW OF SYSTEMS: Positive for some discomfort in her right great toe, which has been amputated. No CV, , pulmonary, eye, ENT system symptoms on review. MENTAL STATUS EXAM: The patient is oriented to herself. Insight, judgment, recent and remote memory, attention, concentration, fund of knowledge poor consistent with her diagnosis. The patient was also staffed at treatment team meeting with entire team today including, GILMAR Haynes; Fide; Jayshree England; and Kassi, social service staff; Pallavi, activity therapy staff. She has had a low-grade fever. Bilateral lower extremities are hot, we will defer to Dr. Workman. She slept 5 hours previous night. Continues to have poorly because she retains urine. Venous Dopplers, bilateral lower extremity ordered per Dr. Workman. D-dimer elevated. Mental status exam, oriented to herself. Insight, judgment, recent and remote memory, attention, concentration, fund of knowledge poor consistent with her diagnosis. IMPRESSION: Major neurocognitive disorder, Alzheimer, vascular with delusion, depression, behavioral disturbance, anxiety disorder, unspecified; impulse control disorder, unspecified. Rest as above. PLAN: Admit to geropsychiatry unit at [facility]. I will see the patient daily individually from a psychiatric standpoint, medical followup, Dr. Workman/Dr. Garza. Continue current psychotropics, make further adjustments as clinically indicated for behavioral control and once stable, we will transition back to longterm. ESTIMATED LENGTH OF STAY: Five to seven days. DISPOSITION: Plan is back to longterm when stable. MEGAN DR: Codi TID: [id number]
[2020-08-09] MEDS: ENOXAPARIN 40 MG/0.4 ML SYRINGE. SQ SCH (20:50)
[2020-08-09] MEDS: MAGNESIUM HYDROXIDE 2,400 MG/30 ML ORAL.SUSP. PO PRN (21:10)
--- NOTE | 2020-08-09 21:10 | CONS ---
DATE OF CONSULTATION: 08/09/2020 HISTORY OF PRESENT ILLNESS: The patient is a 75-year-old female patient who was transferred to [facility], as she was diagnosed with osteomyelitis involving the right big toe and left third toe based on a bone scan done at [facility]. She was seen in consultation by the orthopedic surgeon as well as the Infectious Disease and she was continued on her doxycycline and Bactrim. She underwent amputation of the right great toe and left third toe, debridement of the right third toe and trimming the remaining toenails and was transferred back to [facility] for inpatient psychiatric stabilization. Early this morning, the nursing staff stated that the patient has markedly swollen right lower extremity compared to the left. She was also hypoxic with an oxygen saturation of 88% on room air, for which she was started on 2 liters of oxygen and therefore, we ordered lab work including CBC and a CMP, D-dimer, venous Doppler ultrasound of both lower extremities. Her lab work showed mild leukocytosis with a white cell count of 11,900 with normochromic normocytic anemia; however, the platelet count were normal. Her D-dimer was elevated at 1.77. We did actually ordered venous Doppler ultrasound and showed no evidence of deep vein thrombosis involving either lower extremity. The patient was continued on her medication including doxycycline and trimethoprim sulfamethoxazole. PAST MEDICAL HISTORY: Significant for hypothyroidism, history of head injury, bilateral lower extremity cellulitis, chronic constipation, hypertension, history of falls, acid reflux disease, hypokalemia, hyponatremia, type 2 diabetes mellitus, urinary retention. PAST SURGICAL HISTORY: Significant for amputation of right big toe and left third toe. ALLERGIES: SHE IS ALLERGIC TO ADHESIVES, AMLODIPINE AND CLINDAMYCIN. FAMILY HISTORY: Noncontributory. SOCIAL HISTORY: She is apparently . Her lives in the [facility]isted Living Facility. 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 She does not smoke, drink alcohol or use any recreational drugs. MEDICATIONS: She is currently on the following medication: She is on Seroquel 12.5 mg at noon, multivitamin 1 tablet once a day, losartan potassium 100 mg daily, lactobacillus rhamnosus 1 capsule twice a day, doxycycline 100 mg twice a day, diltiazem 240 mg daily, trimethoprim sulfamethoxazole 1 tablet twice a day, cetirizine 10 mg daily, carvedilol 6.25 mg twice a day, Protonix 40 mg daily, levothyroxine 125 mcg daily, fluvoxamine 50 mg at bedtime, Seroquel 12.5 mg at bedtime, Singulair 10 mg at bedtime, mirtazapine 7.5 mg at bedtime, Namenda 10 mg twice a day, cyclosporine 1 drop to both eyes twice a day, atorvastatin 10 mg at bedtime, milk of magnesia 30 mL once a day, clobetasol propionate 1 application daily p.r.n. for dermatitis. She is on Zofran ODT 4 mg every 6 hours and acetaminophen 1000 mg every 6 hours. PHYSICAL EXAMINATION: GENERAL: When I examined her this afternoon, she was sitting comfortably in her chair in no apparent respiratory distress. There was no pallor, jaundice, cyanosis, no lymphadenopathy, no thyromegaly, no jugular venous distention, but mild bilateral lower limb edema, more so on the right than left. VITAL SIGNS: Her heart rate was 82, blood pressure is 155/70, temperature was 100.2, respiratory rate was 16 and oxygen saturation was 94% on 2 liters of oxygen. HEAD, EYES, EARS, NOSE, AND THROAT: Normocephalic, atraumatic. NECK: Supple. HEART: Normal first and second heart sounds, no gallop, rub or murmur. CHEST: Clear to auscultation. No crepitation or rhonchi. ABDOMEN: Distended, soft, nontender. NEUROLOGIC: She is demented without any obvious lateralizing sign. The patient has wounds in both feet covered with dressing. LABORATORY DATA: This morning showed a white cell count of 11,900, hemoglobin 10.5, hematocrit 30, MCV 95 and platelet count 336,000 with normal manual differential. Her D-dimer was high at 1.77. Her chemistry showed a serum sodium 137, potassium 4, chloride 104, bicarbonate 28, anion gap of 5, BUN 19, creatinine 1, estimated GFR was 54 mL per minute. Her glucose was 94, calcium was 8.7, magnesium was 1.7. Total bilirubin, AST, ALT, alkaline phosphatase were normal. Total protein was 5.9, albumin was 2.5. Her serum iron, TIBC and iron saturation are all consistent with replete iron stores. Her vitamin B12 was 644 picograms, 25-hydroxy vitamin D was 35 ng/mL, which is well within normal range. Her TSH is normal. Total T4 is normal, however, total T3 was slightly low at 55. Urinalysis was essentially unremarkable. Her venous Doppler ultrasound was negative for deep vein thrombosis. Given that she has fever, hypoxia and elevated D-dimer, I will arrange for her to have a CT angio of the chest and meanwhile we will continue with oral antibiotics as before. If CT angio of the chest shows any abnormality, we will decide on management accordingly. Thank you, Dr. Valderrama, for allowing me to participate in the care of this patient. TARYN DR: Donna TID: [id number]
--- NOTE | 2020-08-09 21:58 | PDOC ---
Exam Note: Roni Note: This is late entry for 08/09/2020. Please also refer to the separate dictated note~for this date of service dictated separately.~Patient seen individually. Discussed the patient with Nursing staff reviewed the chart.~Reviewed interim history and current functioning. Reviewed vital signs,~Labs/ Radiology~and curre nt medications noted below. Continue current treatment with the changes noted in the dictated addendum note Assessment: Vital Signs/I&O: Vital Signs Date Time Temp Pulse Resp B/P (MAP) Pulse Ox O2 Delivery O2 Flow Rate FiO2 08/09/20 17:28 65 126/73 08/09/20 16:24 98.0 20 97 Room Air 08/09/20 06:07 2.0 Labs: Laboratory Tests Test 08/09/20 01:30 08/09/20 06:48 08/09/20 08:19 Urine Collection Type Unknown Urine Color Yellow Urine Clarity Clear Urine pH 7.0 Urine Specific [place] 1.015 Urine Protein Neg (NEG-TRACE) Urine Glucose (UA) Neg mg/dL (NEG) Urine Ketones (Stick) Neg mg/dL (NEG) Urine Blood Neg (NEG) Urine Nitrite Neg (NEG) Urine Bilirubin Neg (NEG) Urine Urobilinogen Dipstick 0.2 mg/dL (0.2 mg/dL) Urine Leukocyte Esterase Neg (NEG) Urine RBC 0 /HPF (0-2) Urine WBC Rare /HPF (0-4) Urine Squamous Epithelial Cells Occ /LPF Urine Bacteria 0 /HPF (0-FEW) White Blood Count 11.9 x10^3/uL (4.0-11.0) H Red Blood Count 3.25 x10^6/uL (3.50-5.40) L Hemoglobin 10.5 g/dL (12.0-15.5) L Hematocrit 30.7 % (36.0-47.0) L Mean Corpuscular Volume 95 fL (79-100) Mean Corpuscular Hemoglobin 32 pg (25-35) Mean Corpuscular Hemoglobin Concent 34 g/dL (31-37) Red Cell Distribution Width 13.1 % (11.5-14.5) Platelet Count 336 x10^3/uL (140-400) Neutrophils (%) (Auto) 83 % (31-73) H Lymphocytes (%) (Auto) 7 % (24-48) L Monocytes (%) (Auto) 9 % (0-9) Eosinophils (%) (Auto) 1 % (0-3) Basophils (%) (Auto) 1 % (0-3) Neutrophils # (Auto) 9.8 x10^3uL (1.8-7.7) H Lymphocytes # (Auto) 0.8 x10^3/uL (1.0-4.8) L Monocytes # (Auto) 1.0 x10^3/uL (0.0-1.1) Eosinophils # (Auto) 0.2 x10^3/uL (0.0-0.7) Basophils # (Auto) 0.1 x10^3/uL (0.0-0.2) D-Dimer (Devi) 1.77 mg/L (0.00-0.50) H Sodium Level 137 mmol/L (136-145) Potassium Level 4.0 mmol/L (3.5-5.1) Chloride Level 104 mmol/L (98-107) Carbon Dioxide Level 28 mmol/L (21-32) Anion Gap 5 (6-14) L Blood Urea Nitrogen 19 mg/dL (7-20) Creatinine 1.0 mg/dL (0.6-1.0) Estimated GFR (Cockcroft-Gault) 54.3 BUN/Creatinine Ratio 19 (6-20) Glucose Level 94 mg/dL (70-99) Calcium Level 8.7 mg/dL (8.5-10.1) Magnesium Level 1.7 mg/dL (1.8-2.4) L Iron Level 15 ug/dL (50-170) L Total Iron Binding Capacity 160 ug/dL (250-450) L Iron Saturation 9 % (15-34) L Total Bilirubin 0.5 mg/dL (0.2-1.0) Aspartate Amino Transferase (AST) 26 U/L (15-37) Alanine Aminotransferase (ALT) 41 U/L (14-59) Alkaline Phosphatase 94 U/L (46-116) Total Protein 5.9 g/dL (6.4-8.2) L Albumin 2.5 g/dL (3.4-5.0) L Albumin/Globulin Ratio 0.7 (1.0-1.7) L Vitamin B12 Level 644 pg/mL (247-911) 25-Hydroxy Vitamin D Total 35.0 ng/mL (30-100) Thyroid Stimulating Hormone (TSH) 3.190 uIU/mL (0.358-3.740) Thyroxine (T4) 9.1 ug/dL (4.5-12.0) Total Triiodothyronine (TT3) 55 ng/dL (71-180) L Glucose (Fingerstick) 89 mg/dL (70-99) Current Medications: Meds: Laboratory Tests Test 08/09/20 01:30 08/09/20 06:48 08/09/20 08:19 Urine Collection Type Unknown Urine Color Yellow Urine Clarity Clear Urine pH 7.0 Urine Specific [place] 1.015 Urine Protein Neg Urine Glucose (UA) Neg mg/dL Urine Ketones (Stick) Neg mg/dL Urine Blood Neg Urine Nitrite Neg Urine Bilirubin Neg Urine Urobilinogen Dipstick 0.2 mg/dL Urine Leukocyte Esterase Neg Urine RBC 0 /HPF Urine WBC Rare /HPF Urine Squamous Epithelial Cells Occ /LPF Urine Bacteria 0 /HPF White Blood Count 11.9 x10^3/uL Red Blood Count 3.25 x10^6/uL Hemoglobin 10.5 g/dL Hematocrit 30.7 % Mean Corpuscular Volume 95 fL Mean Corpuscular Hemoglobin 32 pg Mean Corpuscular Hemoglobin Concent 34 g/dL Red Cell Distribution Width 13.1 % Platelet Count 336 x10^3/uL Neutrophils (%) (Auto) 83 % Lymphocytes (%) (Auto) 7 % Monocytes (%) (Auto) 9 % Eosinophils (%) (Auto) 1 % Basophils (%) (Auto) 1 % Neutrophils # (Auto) 9.8 x10^3uL Lymphocytes # (Auto) 0.8 x10^3/uL Monocytes # (Auto) 1.0 x10^3/uL Eosinophils # (Auto) 0.2 x10^3/uL Basophils # (Auto) 0.1 x10^3/uL D-Dimer (Devi) 1.77 mg/L Sodium Level 137 mmol/L Potassium Level 4.0 mmol/L Chloride Level 104 mmol/L Carbon Dioxide Level 28 mmol/L Anion Gap 5 Blood Urea Nitrogen 19 mg/dL Creatinine 1.0 mg/dL Estimated GFR (Cockcroft-Gault) 54.3 BUN/Creatinine Ratio 19 Glucose Level 94 mg/dL Calcium Level 8.7 mg/dL Magnesium Level 1.7 mg/dL Iron Level 15 ug/dL Total Iron Binding Capacity 160 ug/dL Iron Saturation 9 % Total Bilirubin 0.5 mg/dL Aspartate Amino Transf (AST/SGOT) 26 U/L Alanine Aminotransferase (ALT/SGPT) 41 U/L Alkaline Phosphatase 94 U/L Total Protein 5.9 g/dL Albumin 2.5 g/dL Albumin/Globulin Ratio 0.7 Vitamin B12 Level 644 pg/mL 25-Hydroxy Vitamin D Total 35.0 ng/mL Thyroid Stimulating Hormone (TSH) 3.190 uIU/mL Thyroxine (T4) 9.1 ug/dL Total Triiodothyronine 55 ng/dL Glucose (Fingerstick) 89 mg/dL Current Medications Medications (Trade) Dose Ordered Sig/Pino Route PRN Reason Start Time Stop Time Status Last Admin Dose Admin Acetaminophen (Tylenol) 1,000 mg PRN Q6HRS PRN PO PAIN 08/08/20 23:00 08/09/20 13:20 Atorvastatin Calcium (Lipitor) 10 mg QHS PO 08/09/20 00:00 08/09/20 20:51 Carvedilol (Coreg) 6.25 mg BIDWMEALS PO 08/09/20 08:00 08/09/20 17:28 Cefdinir (Omnicef) 300 mg BID PO 08/09/20 09:00 08/09/20 05:54 DC Cetirizine HCl (ZyrTEC) 10 mg DAILY PO 08/09/20 09:00 08/09/20 12:14 Cyclosporine (Restasis) 1 drop BID OU 08/09/20 00:00 08/09/20 20:51 Levothyroxine Sodium (Synthroid) 125 mcg DAILY06 PO 08/09/20 06:00 08/09/20 05:36 Al Hydroxide/Mg Hydroxide (Mylanta Plus Xs) 15 ml PRN AFTMEALHC PRN PO DYSPEPSIA 08/08/20 23:00 Memantine (Namenda) 10 mg BID PO 08/09/20 00:00 08/09/20 20:52 Multi-Ingredient Ointment (Analgesic Furman) 1 cole PRN QID PRN TP MUSCLE PAIN 08/08/20 23:00 Mirtazapine (Remeron) 7.5 mg QHS PO 08/09/20 00:00 08/09/20 20:50 Montelukast Sodium (Singulair) 10 mg HS PO 08/09/20 00:00 08/09/20 20:50 Olanzapine (ZyPREXA ZYDIS) 2.5 mg PRN Q2HRS PRN PO PSYCHOSIS 08/08/20 23:00 Ondansetron HCl (Zofran Odt) 4 mg PRN Q6HRS PRN PO nausea/vomiting 08/08/20 23:00 Quetiapine Fumarate (SEROquel) 12.5 mg NOON PO 08/09/20 12:00 08/09/20 12:13 Quetiapine Fumarate (SEROquel) 12.5 mg QHS PO 08/09/20 00:00 08/09/20 20:51 Trimethoprim/ Sulfamethoxazole (Bactrim Ds) 1 tab BID PO 08/09/20 09:00 08/09/20 20:51 Clobetasol Propionate 1 cole PRN DAILY PRN TP dermatitis 08/08/20 23:30 Diltiazem HCl (Cardizem 24hr Cd) 240 mg DAILY PO 08/09/20 09:00 08/09/20 12:14 Doxycycline Hyclate (Vibra-Tab) 100 mg BID PO 08/09/20 09:00 08/09/20 20:52 Fluvoxamine Maleate (Luvox) 50 mg QHS PO 08/09/20 00:00 08/09/20 20:52 Lactobacillus Rhamnosus (Culturelle) 1 cap BID PO 08/09/20 09:00 08/09/20 20:51 Losartan Potassium (Cozaar) 100 mg DAILY PO 08/09/20 09:00 08/09/20 12:14 Magnesium Hydroxide (Milk Of Magnesia) 2,400 mg PRN QHS PRN PO CONSTIPATION 08/08/20 23:30 08/09/20 21:10 Multivitamins/ Calcium (Thera-M Plus) 1 tab DAILY PO 08/09/20 09:00 08/09/20 12:14 Pantoprazole Sodium (Protonix) 40 mg DAILYAC PO 08/09/20 07:30 08/09/20 12:15 Acetaminophen (Tylenol) 650 mg PRN Q6HRS PRN PO MILD PAIN / TEMP > 100.3'F 08/08/20 23:15 UNV Magnesium Hydroxide (Milk Of Magnesia) 2,400 mg PRN QHS PRN PO CONSTIPATION 08/08/20 23:15 UNV Iohexol (Omnipaque 350 Mg/ml) 100 ml 1X ONCE IV 08/09/20 15:15 08/09/20 15:16 DC 08/09/20 15:15 Enoxaparin Sodium (Lovenox 40mg Syringe) 40 mg Q24H SQ 08/09/20 21:00 08/09/20 20:50 Current Medications Medications (Trade) Dose Ordered Sig/Pino Route PRN Reason Start Time Stop Time Status Last Admin Dose Admin Acetaminophen (Tylenol) 1,000 mg PRN Q6HRS PRN PO PAIN 08/08/20 23:00 08/09/20 13:20 Atorvastatin Calcium (Lipitor) 10 mg QHS PO 08/09/20 00:00 08/09/20 20:51 Carvedilol (Coreg) 6.25 mg BIDWMEALS PO 08/09/20 08:00 08/09/20 17:28 Cetirizine HCl (ZyrTEC) 10 mg DAILY PO 08/09/20 09:00 08/09/20 12:14 Cyclosporine (Restasis) 1 drop BID OU 08/09/20 00:00 08/09/20 20:51 Levothyroxine Sodium (Synthroid) 125 mcg DAILY06 PO 08/09/20 06:00 08/09/20 05:36 Memantine (Namenda) 10 mg BID PO 08/09/20 00:00 08/09/20 20:52 Mirtazapine (Remeron) 7.5 mg QHS PO 08/09/20 00:00 08/09/20 20:50 Montelukast Sodium (Singulair) 10 mg HS PO 08/09/20 00:00 08/09/20 20:50 Quetiapine Fumarate (SEROquel) 12.5 mg NOON PO 08/09/20 12:00 08/09/20 12:13 Quetiapine Fumarate (SEROquel) 12.5 mg QHS PO 08/09/20 00:00 08/09/20 20:51 Trimethoprim/ Sulfamethoxazole (Bactrim Ds) 1 tab BID PO 08/09/20 09:00 08/09/20 20:51 Diltiazem HCl (Cardizem 24hr Cd) 240 mg DAILY PO 08/09/20 09:00 08/09/20 12:14 Doxycycline Hyclate (Vibra-Tab) 100 mg BID PO 08/09/20 09:00 08/09/20 20:52 Fluvoxamine Maleate (Luvox) 50 mg QHS PO 08/09/20 00:00 08/09/20 20:52 Lactobacillus Rhamnosus (Culturelle) 1 cap BID PO 08/09/20 09:00 08/09/20 20:51 Losartan Potassium (Cozaar) 100 mg DAILY PO 08/09/20 09:00 08/09/20 12:14 Magnesium Hydroxide (Milk Of Magnesia) 2,400 mg PRN QHS PRN PO CONSTIPATION 08/08/20 23:30 08/09/20 21:10 Multivitamins/ Calcium (Thera-M Plus) 1 tab DAILY PO 08/09/20 09:00 08/09/20 12:14 Pantoprazole Sodium (Protonix) 40 mg DAILYAC PO 08/09/20 07:30 08/09/20 12:15 Iohexol (Omnipaque 350 Mg/ml) 100 ml 1X ONCE IV 08/09/20 15:15 08/09/20 15:16 DC 08/09/20 15:15 Enoxaparin Sodium (Lovenox 40mg Syringe) 40 mg Q24H SQ 08/09/20 21:00 08/09/20 20:50 I have reviewed the current psychotropics carefully including drug interactions. Risk benefit ratio favors no change other than as noted in my dictated progress note. Diagnosis: Problems: (1) Major neurocognitive disorder (2) Impulse control disorder, unspecified (3) Anxiety disorder, unspecified (4) Dementia, vascular, with depression (5) Dementia, vascular, with delusions (6) Dementia in Alzheimer's disease with depression (7) Dementia in Alzheimer's disease with delusions (8) Dementia of the Alzheimer's type with early onset with behavioral dist KATHY Rivera MD Aug 09, 2020 21:58
--- NOTE | 2020-08-10 00:54 | NUR ---
Nursing Note Pt up in chair in day room, was somewhat drowsy, slumped over in chair to one side. Awakens to voice takes po meds willingly, pt states she feels better this evening. VSS at this point and skin is cool and dry. Pt assisted to bed with staff X 2 for ADLS, complained of constipation, milk of mag given at HS. Pt states her tarun area feels as though it's not working as it should, reminded her that she has a lainez in place for urinary retention. Draining clear yellow urine. Pt confused regarding orientation questions. Resting in bed follow up vitals this pm WNL. Lungs diminished in the bases.
[2020-08-10] MEDS: LEVOTHYROXINE 125 MCG TABLET PO SCH (06:00)
[2020-08-10 06:04] VITALS: BP 151/74
[2020-08-10] MEDS: PANTOPRAZOLE 40 MG TABLET. PO SCH (06:17)
[2020-08-10] MEDS: CETIRIZINE HCL 10 MG TABLET PO SCH (08:18)
[2020-08-10] MEDS: MULTIVITAMIN with MINERAL TABLET. PO SCH (08:19)
[2020-08-10] MEDS: CARVEDILOL 6.25 MG TABLET PO SCH ×2 (08:19→17:10)
[2020-08-10] MEDS: LOSARTAN 50 MG TABLET. PO SCH (08:20)
[2020-08-10] MEDS: SMZ/TMP 800/160MG TABLET. PO SCH ×2 (08:20→20:21)
[2020-08-10] MEDS: MEMANTINE 10 MG TABLET. PO SCH ×2 (08:20→20:21)
[2020-08-10] MEDS: LACTOBACILLUS RHAMNOSUS GG 1 CAPSULE. PO SCH ×2 (08:20→20:21)
[2020-08-10] MEDS: DOXYCYCLINE HYCLATE 100 MG TABLET PO SCH ×2 (08:20→20:21)
[2020-08-10] MEDS: cycloSPORINE 0.05% OPTH 1 DROP DROPERETTE OU SCH ×2 (08:21→20:20)
--- NOTE | 2020-08-10 09:30 | NUR ---
ACTIVITY THERAPY ASSESSMENT Pt. was agreeable to speak with CIRCUIT WALKER. She was confused about recent events that qualified her to return to [facility]. She didn't know where she went, why she left but figured she was being "shown as an object" and did not like that way she was treated- inhumane and that makes her very mad she explained. When asked where we were now, she thought some place "" and figured she should be safe here. She was calm and planned on staying low-santos while she was here. She responds well to being reassured and explained how things work. Goal change from 08/06: Pt will participate in all group Activity Therapy sessions offered remains valid. Original ACTIVITY THERAPY ASSESSMENT from 07/30/2020 at 1210 remains valid: completed based on notes, observation and interview. Pt was sitting in the dining room eating her lunch. Pt was compliant and willing to answer assessment questions. Pt was a bit irritable at times during the assessment. AT explained groups that were offered on [facility] and pt had little to no interests. Pt said that she doubts she would attend group. AT reminded pt that she was in exercise group this morning. Pt asked if she did any exercises this morning and AT told her that she followed along to all exercises. Pt was able to recall past event but struggled with current events. Pt said that she was in [place] and was unaware of where she came from prior to admission. Pt said that she was and had two children. Pt said that she does not have any contact with her children or anybody. AT asked pt if she felt stress at this point in time.Pt said that she she feels stressed everyday. AT asked pt how she geremias with stress and she said "eating or I paint things out in my head." Pt was hard to redirect at this time as she said she wanted to find her . Initial goal aimed to increase stress management and relaxation skills. Pt will participate in at least five individual or group Activity Therapy sessions per week. Goal changed 08/06:Pt will participate in all group Activity Therapy sessions offered.
--- NOTE | 2020-08-10 10:00 | NUR ---
PSYCHOSOCIAL ASSESSMENT ADMISSION DATE: 08/08/20 CONTACT INFORMATION: DPOA/Guardian Contact Name: Emre Carroll Contact Address: [address] [place] [address], [address]; [place] [address] Contact Phone #: ETHNIC ORIGIN: REASONS FOR ADMISSION: ADDITIONAL ADMISSION COMMENTS: According to the intake, pt was readmitted to [facility] from receiving an amputation on the right foot. Pt continues to be confused, agitated, pulled out her IV, verbally and physically aggressive. REASON FOR ADMISSION IN PATIENT/FAMILY'S OWN WORDS: Decline in cognition PATIENT/FAMILY EXPECTATIONS FOR ADMISSION: Medication and behavioral mgmt LIVING SITUATION: Patient lives with: Other living arrangements: Contact Name: Camryn Boone Contact Address: [facility], [place] [address] Contact Phone #: Contact Fax #: FAMILY RELATIONS: Marital Status: # of Marriages: 1 # of Children: 2 [facility] Family Support: Cooperative Involved in DC Planning Additional Comments r/t Family: Pt has been to her Emre for the last 54 years. P states that he is not sure why they have remained as they have had a toxic relationship and guess "it was the right thing to do by honoring their vows". Pt admits to cheating a few times and pt was very verbally abusive towards him. He was never good enough and could not appease her with the things he did. Together shira and Emre have a daughter (Zenobia) and a son (Rodríguez) who both live in [place]. SIGNIFICANT PSYCHIATRIC/MEDICAL HISTORY: Psychiatric/Treatment History: This is pt second admission to [facility]. Pt has never been inpt before. Pt started showing signs of Dementia in 2015 but was not diagnosed until years later by the neurologist Dr. Naidu. Pertinent Family History: Pt father had Parkinsons, her mother had terminal colon cancer, pt son Rodríguez is dx with Bipolar D/O but stable. Pt had breast cancer in 2009. HISTORICAL DATA: Childhood Environment: Other-see below Childhood Environment Additional Comments: Pt was born in [place]. Reports that pt mother was also very aggressive in her demeanor but her father was a laid back/soft spoken man. Pt father had Parkinson and her mother from terminal Cancer. Pt has 2 brothers both living, but do not have contact with them. Trauma History: Abuses Others Is Trauma: Additional Comments: Pt reports not abuse in her history; however, pt was very verbally and emotionally abusive to others. 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 Pt also did some training at the [employer] for a few years. She retired in 2009 due to complications with breast cancer. service: N Anabaptist background: Not very synagogue. Pt believes in organized cheondoism but no specific denomination. Pt attended Muslim services without pt. Sexual orientation: Heterosexual Educational Level: Pt graduated HS (12th grade). Pt has her Bachelors in Psychology and received her Masters in Psychology; pt attended and initially started on her degree in School Counseling/Psychology. Past/Present Interests/Hobbies: Pt "no clue. 53 years and I couldn't tell you". Financial support/resources: Alf/Pension Social Security Monthly income: Person handling finances: Pt handles all finances Do you have a history of legal problems: N Cultural considerations: None SOCIAL RELATIONSHIPS-CURRENT/PAST: Psychiatrist: None PCP: Dr. Patricia Borrego Counselor/Therapist: None [facility] [facility]: None Support Group: None Body Welder/Filler Operator: None Other relationships: Neurologist (Dr. Naidu) STRENGTHS & WEAKNESSES: Patient's strengths: Good family support Financial support Other patient strengths: Patient's weaknesses: Impulsive Physically Aggressive Verbally Aggressive Other patient weaknesses: PRELIMINARY PLAN OF TREATMENT: Preliminary plan: Promote Coping Skill Medication Stabilization Dec. Outbursts Dec. Aggression Other preliminary treatment comments: DISCHARGE PLANNING: Discharge planning/disposition: Current Living Arrange. Additional discharge needs identified: Continued psychiatric services ADDITIONAL INFORMATION: Other Pertinent Data: Completed PSA from previous admission. Pt will plan to return to [facility] upon discharge and SW will work with the family and facility on those plans.
[2020-08-10] MEDS: QUEtiapine 25 MG TABLET. PO SCH ×2 (12:16→20:21)
--- NOTE | 2020-08-10 15:06 | NUR ---
NURSING NOTE Alert to self et location, but not situation. She takes a leader role with a small group of ladies that follow her around the unit, et sit together at meals. She was very agitated this morning 2/2 lainez catheter bag and wheelchair use. After repeatedly disconnecting bag from indwelling portion of lainez, pt was changed to leg bag and has been more compliant. She has been encouraged to use wheelchair for mobility 2/2 very recent partial amputation of toes, but insists on walking and does not take appreciable periods of rest. She rates pain low, et declines any pain control for surgically altered areas of feet. Dressings are dry et intact. Wanders unit with group of women, but is not exit seeking. No disruptive behaviors exhibited this shift once catheter bag change made.
[2020-08-10 16:01] VITALS: BP 129/76
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
[2020-08-10] MEDS: ATORVASTATIN CALCIUM 10 MG TABLET. PO SCH (20:20)
[2020-08-10] MEDS: ENOXAPARIN 40 MG/0.4 ML SYRINGE. SQ SCH (20:20)
[2020-08-10] MEDS: MONTELUKAST 10 MG TABLET. PO SCH (20:21)
[2020-08-10] MEDS: MIRTAZAPINE 7.5 MG TABLET. PO SCH (20:21)
[2020-08-10] MEDS: MAGNESIUM HYDROXIDE 2,400 MG/30 ML ORAL.SUSP. PO PRN (21:58)
--- NOTE | 2020-08-10 22:49 | NUR ---
Nursing note: Pt compliant with medications today at beginning of shift; attempted to have BM and per PENELOPE Norris, pt was straining and unable to pass BM. HS, pt became anxious/agitated. Stated that she did not want lainez left in place, did not believe she had surgery on her feet, became anxious when staff tried to leave room, restless. Gave pt milk of mag for constipation, zydis for agitation. Addendum: 08/11/20 at 0514 by CODY LOERA RN Bilat toe dressings changed with iodine, xeroform, ABD, and kerlex + sock per orders from wound care.
--- NOTE | 2020-08-10 22:50 | PDOC ---
Exam Note: Roni Note: Please also refer to the separate dictated note~for this date of service dictated separately.~Patient seen individually. Discussed the patient with Nursing staff reviewed the chart.~Reviewed interim history and current functioning. Reviewed vital signs,~Labs/ Radiology~and current medications noted below. Continue current treatment with the changes noted in the dictated addendum note Assessment: Vital Signs/I&O: Vital Signs Date Time Temp Pulse Resp B/P (MAP) Pulse Ox O2 Delivery O2 Flow Rate FiO2 08/10/20 17:10 62 129/76 08/10/20 16:01 97.9 18 96 08/10/20 06:04 Room Air 08/09/20 06:07 2.0 I & O 08/09/20 08/09/20 08/10/20 15:00 23:00 07:00 Intake Total 120 ml 240 ml Output Total 650 ml Balance 120 ml 240 ml -650 ml Current Medications: I have reviewed the current psychotropics carefully including drug interactions. Risk benefit ratio favors no change other than as noted in my dictated progress note. Diagnosis: Problems: (1) Impulse control disorder, unspecified (2) Anxiety disorder, unspecified (3) Dementia, vascular, with depression (4) Dementia, vascular, with delusions (5) Dementia in Alzheimer's disease with depression (6) Dementia in Alzheimer's disease with delusions (7) Dementia of the Alzheimer's type with early onset with behavioral disturbanc e (8) Major neurocognitive disorder KATHY BARNHART MD Aug 10, 2020 22:50
[2020-08-11] MEDS: LEVOTHYROXINE 125 MCG TABLET PO SCH (05:04)
[2020-08-11 05:54] VITALS: BP 130/72
[2020-08-11] MEDS: PANTOPRAZOLE 40 MG TABLET. PO SCH (11:07)
[2020-08-11] MEDS: ACETAMINOPHEN 500 MG TABLET PO PRN (11:07)
[2020-08-11] MEDS: LOSARTAN 50 MG TABLET. PO SCH (11:07)
[2020-08-11] MEDS: CARVEDILOL 6.25 MG TABLET PO SCH ×2 (11:07→17:00)
[2020-08-11] MEDS: LACTOBACILLUS RHAMNOSUS GG 1 CAPSULE. PO SCH ×2 (11:07→19:56)
[2020-08-11] MEDS: MULTIVITAMIN with MINERAL TABLET. PO SCH (11:07)
[2020-08-11] MEDS: DOXYCYCLINE HYCLATE 100 MG TABLET PO SCH ×2 (11:07→19:49)
[2020-08-11] MEDS: SMZ/TMP 800/160MG TABLET. PO SCH ×2 (11:07→19:49)
[2020-08-11] MEDS: MEMANTINE 10 MG TABLET. PO SCH ×2 (11:07→19:49)
[2020-08-11] MEDS: cycloSPORINE 0.05% OPTH 1 DROP DROPERETTE OU SCH ×2 (11:08→19:48)
[2020-08-11] MEDS: CETIRIZINE HCL 10 MG TABLET PO SCH (11:08)
[2020-08-11] MEDS: QUEtiapine 25 MG TABLET. PO SCH ×2 (12:23→19:49)
[2020-08-11 15:37] VITALS: BP 102/64
[2020-08-11] MEDS: ENOXAPARIN 40 MG/0.4 ML SYRINGE. SQ SCH (19:48)
[2020-08-11] MEDS: MIRTAZAPINE 7.5 MG TABLET. PO SCH (19:49)
[2020-08-11] MEDS: MONTELUKAST 10 MG TABLET. PO SCH (19:49)
[2020-08-11] MEDS: ATORVASTATIN CALCIUM 10 MG TABLET. PO SCH (19:49)
--- NOTE | 2020-08-11 22:27 | PDOC ---
Exam Note: Roni Note: Please also refer to the separate dictated note~for this date of service dictated separately.~Patient seen individually. Discussed the patient with Nursing staff reviewed the chart.~Reviewed interim history and current functioning. Reviewed vital signs,~Labs/ Radiology~and current medications noted below. Continue current treatment with the changes noted in the dictated addendum note Assessment: Vital Signs/I&O: Vital Signs Date Time Temp Pulse Resp B/P (MAP) Pulse Ox O2 Delivery O2 Flow Rate FiO2 08/11/20 17:00 60 102/64 08/11/20 15:37 97.9 20 98 08/11/20 05:54 Room Air 08/09/20 06:07 2.0 I & O 08/10/20 08/10/20 08/11/20 15:00 23:00 07:00 Intake Total 700 ml 480 ml Output Total 1100 ml Balance 700 ml -620 ml Current Medications: I have reviewed the current psychotropics carefully including drug interactions. Risk benefit ratio favors no change other than as noted in my dictated progress note. Diagnosis: Problems: (1) Impulse control disorder, unspecified (2) Anxiety disorder, unspecified (3) Dementia, vascular, with depression (4) Dementia, vascular, with delusions (5) Dementia in Alzheimer's disease with depression (6) Dementia in Alzheimer's disease with delusions (7) Dementia of the Alzheimer's type with early onset with behavioral disturbance (8) Major neurocognitive disorder KATHY BARNHART MD Aug 11, 2020 22:27
--- NOTE | 2020-08-12 04:46 | NUR ---
2130: Pt accidental DC'd her catheter last night. Pt agitated and restive with adls. Pt shouting a staff. Pt changed and dressed for bed with x2 assist. 0415: Pt bladder scanned this am, greater than 492 notes. Pt assisted to the toilet and was able to void a minimal amount. Bladder scan repeated and greater than 450 remained. Lainez catheter replaced. Pt educated on lainez catheter and reminded about the importance of leaving it in place.
[2020-08-12] MEDS: ONDANSETRON ODT 4 MG TAB.RAPDIS PO PRN (05:13)
[2020-08-12] MEDS: LEVOTHYROXINE 125 MCG TABLET PO SCH (05:13)
[2020-08-12 05:43] VITALS: BP 152/75
--- NOTE | 2020-08-12 05:59 | NUR ---
Pt increasingly more agitated, attempting remove catheter. Attempt to educated pt on the purpose of the catheter. Pt attempting again to undress and pull on catheter. Pt placed in onesie x4 assist. Pt still attempting to remove catheter again. Assisted pt to the dayroom. Pt stating that she can't trust us and that we are trying to harm her. PRN zyprexa given as ordered. Pt standing in dayroom and refusing to let go of the door. Pt stating, "Its the only thing i have left, if i let go you will have taken everything from me." Reassured pt that we were trying to look out for her best interest and that she is safe. Redirecting unsuccessful at this time.
[2020-08-12] MEDS: CARVEDILOL 6.25 MG TABLET PO SCH ×2 (08:50→16:49)
[2020-08-12] MEDS: MULTIVITAMIN with MINERAL TABLET. PO SCH (08:50)
[2020-08-12] MEDS: cycloSPORINE 0.05% OPTH 1 DROP DROPERETTE OU SCH ×2 (08:50→19:46)
[2020-08-12] MEDS: LACTOBACILLUS RHAMNOSUS GG 1 CAPSULE. PO SCH ×2 (08:51→19:44)
[2020-08-12] MEDS: CETIRIZINE HCL 10 MG TABLET PO SCH (08:51)
[2020-08-12] MEDS: LOSARTAN 50 MG TABLET. PO SCH (08:51)
[2020-08-12] MEDS: SMZ/TMP 800/160MG TABLET. PO SCH ×2 (08:51→19:46)
[2020-08-12] MEDS: PANTOPRAZOLE 40 MG TABLET. PO SCH (08:51)
[2020-08-12] MEDS: DOXYCYCLINE HYCLATE 100 MG TABLET PO SCH ×2 (08:51→19:45)
[2020-08-12] MEDS: MEMANTINE 10 MG TABLET. PO SCH ×2 (08:51→19:45)
--- NOTE | 2020-08-12 09:21 | PDOC ---
Exam Note: Roni Note: This note is a late entry for 08/10/2020 covers elements not covered in my initial note. Subjective: The patient was seen on telehealth rounds in the afternoon of 08/10/2020 as an option during the COVID-19 pandemic period with Emi SCHAFER, discussed and reviewed the chart. She slept 7 hours previous night. The patient has been confused and her catheter is leaking. She has been given a leg bag and then seems to tolerate this well. She does have bilateral pleural effusion. We will defer medical management to Dr. Workman/Dr. Garza. The patient has not been agitated or aggressive but remains confused. Review of Systems: No CV, , pulmonary, eye, ENT system symptoms on review. Mental Status Exam: The patient is alert and oriented to herself and situation. Speech has some latency, coherent. Abstraction fair. Computation impaired Attention span short. Mood and affect labile. No suicidal or homicidal ideation. Laboratory Data: Reviewed. Impression: Major neurocognitive disorder Alzheimer vascular with delusion, depression, and behavioral disturbance. Anxiety disorder unspecified. Impulse control disorder unspecified. Plan: Continue current psychotropics unchanged. Assessment: Vital Signs/I&O: Vital Signs Date Time Temp Pulse Resp B/P (MAP) Pulse Ox O2 Delivery O2 Flow Rate FiO2 08/12/20 08:51 76 152/75 08/12/20 05:43 98.9 16 96 08/11/20 05:54 Room Air 08/09/20 06:07 2.0 I & O 08/11/20 08/11/20 08/12/20 15:00 23:00 07:00 Intake Total 120 ml 600 ml Output Total 600 ml Balance 120 ml 0 ml Current Medications: Meds: Current Medications Medications (Trade) Dose Ordered Sig/Pino Route PRN Reason Start Time Stop Time Status Last Admin Dose Admin Acetaminophen (Tylenol) 1,000 mg PRN Q6HRS PRN PO PAIN 08/08/20 23:00 08/11/20 11:07 Atorvastatin Calcium (Lipitor) 10 mg QHS PO 08/09/20 00:00 08/11/20 19:49 Carvedilol (Coreg) 6.25 mg BIDWMEALS PO 08/09/20 08:00 08/12/20 08:50 Cefdinir (Omnicef) 300 mg BID PO 08/09/20 09:00 08/09/20 05:54 DC Cetirizine HCl (ZyrTEC) 10 mg DAILY PO 08/09/20 09:00 08/12/20 08:51 Cyclosporine (Restasis) 1 drop BID OU 08/09/20 00:00 08/12/20 08:50 Levothyroxine Sodium (Synthroid) 125 mcg DAILY06 PO 08/09/20 06:00 08/12/20 05:13 Al Hydroxide/Mg Hydroxide (Mylanta Plus Xs) 15 ml PRN AFTMEALHC PRN PO DYSPEPSIA 08/08/20 23:00 Memantine (Namenda) 10 mg BID PO 08/09/20 00:00 08/12/20 08:51 Multi-Ingredient Ointment (Analgesic [place]) 1 cole PRN QID PRN TP MUSCLE PAIN 08/08/20 23:00 Mirtazapine (Remeron) 7.5 mg QHS PO 08/09/20 00:00 08/11/20 19:49 Montelukast Sodium (Singulair) 10 mg HS PO 08/09/20 00:00 08/11/20 19:49 Olanzapine (ZyPREXA ZYDIS) 2.5 mg PRN Q2HRS PRN PO PSYCHOSIS 08/08/20 23:00 08/12/20 05:39 Ondansetron HCl (Zofran Odt) 4 mg PRN Q6HRS PRN PO nausea/vomiting 08/08/20 23:00 08/12/20 05:13 Quetiapine Fumarate (SEROquel) 12.5 mg NOON PO 08/09/20 12:00 08/11/20 12:23 Quetiapine Fumarate (SEROquel) 12.5 mg QHS PO 08/09/20 00:00 08/11/20 19:49 Trimethoprim/ Sulfamethoxazole (Bactrim Ds) 1 tab BID PO 08/09/20 09:00 08/12/20 08:51 Clobetasol Propionate 1 cole PRN DAILY PRN TP dermatitis 08/08/20 23:30 Diltiazem HCl (Cardizem 24hr Cd) 240 mg DAILY PO 08/09/20 09:00 08/12/20 08:51 Doxycycline Hyclate (Vibra-Tab) 100 mg BID PO 08/09/20 09:00 08/12/20 08:51 Fluvoxamine Maleate (Luvox) 50 mg QHS PO 08/09/20 00:00 08/11/20 19:49 Lactobacillus Rhamnosus (Culturelle) 1 cap BID PO 08/09/20 09:00 08/12/20 08:51 Losartan Potassium (Cozaar) 100 mg DAILY PO 08/09/20 09:00 08/12/20 08:51 Magnesium Hydroxide (Milk Of Magnesia) 2,400 mg PRN QHS PRN PO CONSTIPATION 08/08/20 23:30 08/10/20 21:58 Multivitamins/ Calcium (Thera-M Plus) 1 tab DAILY PO 08/09/20 09:00 08/12/20 08:50 Pantoprazole Sodium (Protonix) 40 mg DAILYAC PO 08/09/20 07:30 08/12/20 08:51 Acetaminophen (Tylenol) 650 mg PRN Q6HRS PRN PO MILD PAIN / TEMP > 100.3'F 08/08/20 23:15 UNV Magnesium Hydroxide (Milk Of Magnesia) 2,400 mg PRN QHS PRN PO CONSTIPATION 08/08/20 23:15 UNV Iohexol (Omnipaque 350 Mg/ml) 100 ml 1X ONCE IV 08/09/20 15:15 08/09/20 15:16 DC 08/09/20 15:15 Enoxaparin Sodium (Lovenox 40mg Syringe) 40 mg Q24H SQ 08/09/20 21:00 08/11/20 19:48 Oxycodone HCl (Roxicodone) 5 mg PRN Q6HRS PRN PO PAIN 08/11/20 14:30 I have reviewed the current psychotropics carefully including drug interactions. Risk benefit ratio favors no change other than as noted in my dictated progress note. Diagnosis: Problems: (1) Impulse control disorder, unspecified (2) Anxiety disorder, unspecified (3) Dementia, vascular, with depression (4) Dementia, vascular, with delusions (5) Dementia in Alzheimer's disease with depression (6) Dementia in Alzheimer's disease with delusions (7) Dementia of the Alzheimer's type with early onset with behavioral disturbance (8) Major neurocognitive disorder KATHY BARNHART MD Aug 12, 2020 09:21
--- NOTE | 2020-08-12 09:44 | PDOC ---
Exam Note: Roni Note: This note is a late entry for 08/11/2020 covers elements not covered in my initial note. Subjective: The patient was seen on telehealth rounds in the afternoon of 08/11/2020 as an option during the COVID-19 pandemic period with Carmelina SCHAFER, discussed and reviewed the chart. She slept 6-1/4 hours previous night. She slept in, in the morning as well. She got up around 11 a.m. Review of Systems: She complains of some back pain and impaired ambulation. No CV, , pulmonary, eye, ENT system symptoms on review. Mental Status Exam: The patient is alert and oriented to herself and situation. Speech has some latency, coherent. Abstraction fair. Computation impaired Attention span short. Mood and affect labile. No suicidal or homicidal ideation. Laboratory Data: Reviewed. Impression: Major neurocognitive disorder Alzheimer vascular with delusion, depression, and behavioral disturbance. Anxiety disorder unspecified. Impulse control disorder unspecified. Plan: Continue current psychotropics unchanged. Assessment: Vital Signs/I&O: Vital Signs Date Time Temp Pulse Resp B/P (MAP) Pulse Ox O2 Delivery O2 Flow Rate FiO2 08/12/20 08:51 76 152/75 08/12/20 05:43 98.9 16 96 08/11/20 05:54 Room Air 08/09/20 06:07 2.0 I & O 08/11/20 08/11/20 08/12/20 15:00 23:00 07:00 Intake Total 120 ml 600 ml Output Total 600 ml Balance 120 ml 0 ml Current Medications: Meds: Current Medications Medications (Trade) Dose Ordered Sig/Pino Route PRN Reason Start Time Stop Time Status Last Admin Dose Admin Acetaminophen (Tylenol) 1,000 mg PRN Q6HRS PRN PO PAIN 08/08/20 23:00 08/11/20 11:07 Atorvastatin Calcium (Lipitor) 10 mg QHS PO 08/09/20 00:00 08/11/20 19:49 Carvedilol (Coreg) 6.25 mg BIDWMEALS PO 08/09/20 08:00 08/12/20 08:50 Cefdinir (Omnicef) 300 mg BID PO 08/09/20 09:00 08/09/20 05:54 DC Cetirizine HCl (ZyrTEC) 10 mg DAILY PO 08/09/20 09:00 08/12/20 08:51 Cyclosporine (Restasis) 1 drop BID OU 08/09/20 00:00 08/12/20 08:50 Levothyroxine Sodium (Synthroid) 125 mcg DAILY06 PO 08/09/20 06:00 08/12/20 05:13 Al Hydroxide/Mg Hydroxide (Mylanta Plus Xs) 15 ml PRN AFTMEALHC PRN PO DYSPEPSIA 08/08/20 23:00 Memantine (Namenda) 10 mg BID PO 08/09/20 00:00 08/12/20 08:51 Multi-Ingredient Ointment (Analgesic [place]) 1 cole PRN QID PRN TP MUSCLE PAIN 08/08/20 23:00 Mirtazapine (Remeron) 7.5 mg QHS PO 08/09/20 00:00 08/11/20 19:49 Montelukast Sodium (Singulair) 10 mg HS PO 08/09/20 00:00 08/11/20 19:49 Olanzapine (ZyPREXA ZYDIS) 2.5 mg PRN Q2HRS PRN PO PSYCHOSIS 08/08/20 23:00 08/12/20 05:39 Ondansetron HCl (Zofran Odt) 4 mg PRN Q6HRS PRN PO nausea/vomiting 08/08/20 23:00 08/12/20 05:13 Quetiapine Fumarate (SEROquel) 12.5 mg NOON PO 08/09/20 12:00 08/11/20 12:23 Quetiapine Fumarate (SEROquel) 12.5 mg QHS PO 08/09/20 00:00 08/11/20 19:49 Trimethoprim/ Sulfamethoxazole (Bactrim Ds) 1 tab BID PO 08/09/20 09:00 08/12/20 08:51 Clobetasol Propionate 1 cole PRN DAILY PRN TP dermatitis 08/08/20 23:30 Diltiazem HCl (Cardizem 24hr Cd) 240 mg DAILY PO 08/09/20 09:00 08/12/20 08:51 Doxycycline Hyclate (Vibra-Tab) 100 mg BID PO 08/09/20 09:00 08/12/20 08:51 Fluvoxamine Maleate (Luvox) 50 mg QHS PO 08/09/20 00:00 08/11/20 19:49 Lactobacillus Rhamnosus (Culturelle) 1 cap BID PO 08/09/20 09:00 08/12/20 08:51 Losartan Potassium (Cozaar) 100 mg DAILY PO 08/09/20 09:00 08/12/20 08:51 Magnesium Hydroxide (Milk Of Magnesia) 2,400 mg PRN QHS PRN PO CONSTIPATION 08/08/20 23:30 08/10/20 21:58 Multivitamins/ Calcium (Thera-M Plus) 1 tab DAILY PO 08/09/20 09:00 08/12/20 08:50 Pantoprazole Sodium (Protonix) 40 mg DAILYAC PO 08/09/20 07:30 08/12/20 08:51 Acetaminophen (Tylenol) 650 mg PRN Q6HRS PRN PO MILD PAIN / TEMP > 100.3'F 08/08/20 23:15 UNV Magnesium Hydroxide (Milk Of Magnesia) 2,400 mg PRN QHS PRN PO CONSTIPATION 08/08/20 23:15 UNV Iohexol (Omnipaque 350 Mg/ml) 100 ml 1X ONCE IV 08/09/20 15:15 08/09/20 15:16 DC 08/09/20 15:15 Enoxaparin Sodium (Lovenox 40mg Syringe) 40 mg Q24H SQ 08/09/20 21:00 08/11/20 19:48 Oxycodone HCl (Roxicodone) 5 mg PRN Q6HRS PRN PO PAIN 08/11/20 14:30 I have reviewed the current psychotropics carefully including drug interactions. Risk benefit ratio favors no change other than as noted in my dictated progress note. Diagnosis: Problems: (1) Impulse control disorder, unspecified (2) Anxiety disorder, unspecified (3) Dementia, vascular, with depression (4) Dementia, vascular, with delusions (5) Dementia in Alzheimer's disease with depression (6) Dementia in Alzheimer's disease with delusions (7) Dementia of the Alzheimer's type with early onset with behavioral disturbance (8) Major neurocognitive disorder KATHY BARNHART MD Aug 12, 2020 09:44
--- NOTE | 2020-08-12 11:22 | NUR ---
Nursing Note Shama given at 1045, pt pacing and wandering looking for her family anxious and upset. Med compliant and cooperative.
[2020-08-12] MEDS: QUEtiapine 25 MG TABLET. PO SCH ×2 (12:19→19:45)
[2020-08-12] MEDS: oxyCODONE IR 5 MG TABLET PO PRN (16:01)
[2020-08-12 16:32] VITALS: BP 123/73
[2020-08-12] MEDS: ATORVASTATIN CALCIUM 10 MG TABLET. PO SCH (19:45)
[2020-08-12] MEDS: MONTELUKAST 10 MG TABLET. PO SCH (19:45)
[2020-08-12] MEDS: ENOXAPARIN 40 MG/0.4 ML SYRINGE. SQ SCH (19:46)
[2020-08-12] MEDS: MIRTAZAPINE 7.5 MG TABLET. PO SCH (19:46)
--- NOTE | 2020-08-12 21:56 | PDOC ---
Exam Note: Roni Note: Please also refer to the separate dictated note~for this date of service dictated separately.~Patient seen individually. Discussed the patient with Nursing staff reviewed the chart.~Reviewed interim history and current functioning. Reviewed vital signs,~Labs/ Radiology~and current medications noted below. Continue current treatment with the changes noted in the dictated addendum note Assessment: Vital Signs/I&O: Vital Signs Date Time Temp Pulse Resp B/P (MAP) Pulse Ox O2 Delivery O2 Flow Rate FiO2 08/12/20 16:49 62 123/73 08/12/20 16:44 98 08/12/20 16:32 97.5 18 08/11/20 05:54 Room Air 08/09/20 06:07 2.0 I & O 08/11/20 08/11/20 08/12/20 15:00 23:00 07:00 Intake Total 120 ml 600 ml Output Total 600 ml Balance 120 ml 0 ml Current Medications: Meds: Current Medications Medications (Trade) Dose Ordered Sig/Pino Route PRN Reason Start Time Stop Time Status Last Admin Dose Admin Acetaminophen (Tylenol) 1,000 mg PRN Q6HRS PRN PO PAIN 08/08/20 23:00 08/11/20 11:07 Atorvastatin Calcium (Lipitor) 10 mg QHS PO 08/09/20 00:00 08/12/20 19:45 Carvedilol (Coreg) 6.25 mg BIDWMEALS PO 08/09/20 08:00 08/12/20 16:49 Cefdinir (Omnicef) 300 mg BID PO 08/09/20 09:00 08/09/20 05:54 DC Cetirizine HCl (ZyrTEC) 10 mg DAILY PO 08/09/20 09:00 08/12/20 08:51 Cyclosporine (Restasis) 1 drop BID OU 08/09/20 00:00 08/12/20 19:46 Levothyroxine Sodium (Synthroid) 125 mcg DAILY06 PO 08/09/20 06:00 08/12/20 05:13 Al Hydroxide/Mg Hydroxide (Mylanta Plus Xs) 15 ml PRN AFTMEALHC PRN PO DYSPEPSIA 08/08/20 23:00 Memantine (Namenda) 10 mg BID PO 08/09/20 00:00 08/12/20 19:45 Multi-Ingredient Ointment (Analgesic [place]) 1 cole PRN QID PRN TP MUSCLE PAIN 08/08/20 23:00 Mirtazapine (Remeron) 7.5 mg QHS PO 08/09/20 00:00 08/12/20 19:46 Montelukast Sodium (Singulair) 10 mg HS PO 08/09/20 00:00 08/12/20 19:45 Olanzapine (ZyPREXA ZYDIS) 2.5 mg PRN Q2HRS PRN PO PSYCHOSIS 08/08/20 23:00 08/12/20 16:01 Ondansetron HCl (Zofran Odt) 4 mg PRN Q6HRS PRN PO nausea/vomiting 08/08/20 23:00 08/12/20 05:13 Quetiapine Fumarate (SEROquel) 12.5 mg NOON PO 08/09/20 12:00 08/12/20 12:19 Quetiapine Fumarate (SEROquel) 12.5 mg QHS PO 08/09/20 00:00 08/12/20 19:45 Trimethoprim/ Sulfamethoxazole (Bactrim Ds) 1 tab BID PO 08/09/20 09:00 08/12/20 19:46 Clobetasol Propionate 1 cole PRN DAILY PRN TP dermatitis 08/08/20 23:30 Diltiazem HCl (Cardizem 24hr Cd) 240 mg DAILY PO 08/09/20 09:00 08/12/20 08:51 Doxycycline Hyclate (Vibra-Tab) 100 mg BID PO 08/09/20 09:00 08/12/20 19:45 Fluvoxamine Maleate (Luvox) 50 mg QHS PO 08/09/20 00:00 08/12/20 19:45 Lactobacillus Rhamnosus (Culturelle) 1 cap BID PO 08/09/20 09:00 08/12/20 19:44 Losartan Potassium (Cozaar) 100 mg DAILY PO 08/09/20 09:00 08/12/20 08:51 Magnesium Hydroxide (Milk Of Magnesia) 2,400 mg PRN QHS PRN PO CONSTIPATION 08/08/20 23:30 08/10/20 21:58 Multivitamins/ Calcium (Thera-M Plus) 1 tab DAILY PO 08/09/20 09:00 08/12/20 08:50 Pantoprazole Sodium (Protonix) 40 mg DAILYAC PO 08/09/20 07:30 08/12/20 08:51 Acetaminophen (Tylenol) 650 mg PRN Q6HRS PRN PO MILD PAIN / TEMP > 100.3'F 08/08/20 23:15 UNV Magnesium Hydroxide (Milk Of Magnesia) 2,400 mg PRN QHS PRN PO CONSTIPATION 08/08/20 23:15 UNV Iohexol (Omnipaque 350 Mg/ml) 100 ml 1X ONCE IV 08/09/20 15:15 08/09/20 15:16 DC 08/09/20 15:15 Enoxaparin Sodium (Lovenox 40mg Syringe) 40 mg Q24H SQ 08/09/20 21:00 08/12/20 19:46 Oxycodone HCl (Roxicodone) 5 mg PRN Q6HRS PRN PO PAIN 08/11/20 14:30 08/12/20 16:01 I have reviewed the current psychotropics carefully including drug interactions. Risk benefit ratio favors no change other than as noted in my dictated progress note. Diagnosis: Problems: (1) Impulse control disorder, unspecified (2) Anxiety disorder, unspecified (3) Dementia, vascular, with depression (4) Dementia, vascular, with delusions (5) Dementia in Alzheimer's disease with depression (6) Dementia in Alzheimer's disease with delusions (7) Dementia of the Alzheimer's type with early onset with behavioral disturbance (8) Major neurocognitive disorder KATHY BARNHART MD Aug 12, 2020 21:56
--- NOTE | 2020-08-12 23:00 | NUR ---
Pt anxious and disorganized this evening. Pt wandering unit and repeatedly stating that she needs to go pee. Pt unable to comprehend/ retain that she has a lainez in place. Pt compliant with whole medications and shower.
[2020-08-13 05:24] VITALS: BP 155/72
[2020-08-13] MEDS: LEVOTHYROXINE 125 MCG TABLET PO SCH (05:29)
[2020-08-13] MEDS: MULTIVITAMIN with MINERAL TABLET. PO SCH (08:02)
[2020-08-13] MEDS: MEMANTINE 10 MG TABLET. PO SCH ×2 (08:02→20:14)
[2020-08-13] MEDS: SMZ/TMP 800/160MG TABLET. PO SCH ×2 (08:03→20:14)
[2020-08-13] MEDS: LOSARTAN 50 MG TABLET. PO SCH (08:03)
[2020-08-13] MEDS: CETIRIZINE HCL 10 MG TABLET PO SCH (08:04)
[2020-08-13] MEDS: DOXYCYCLINE HYCLATE 100 MG TABLET PO SCH ×2 (08:04→20:14)
[2020-08-13] MEDS: PANTOPRAZOLE 40 MG TABLET. PO SCH (08:04)
[2020-08-13] MEDS: LACTOBACILLUS RHAMNOSUS GG 1 CAPSULE. PO SCH ×2 (08:04→20:14)
[2020-08-13] MEDS: cycloSPORINE 0.05% OPTH 1 DROP DROPERETTE OU SCH ×2 (08:04→20:14)
[2020-08-13] MEDS: CARVEDILOL 6.25 MG TABLET PO SCH ×2 (08:04→17:30)
--- NOTE | 2020-08-13 08:41 | PDOC ---
Exam Note: Rnoi Note: This note is a late entry for 08/12/2020 covers elements not covered in my initial note. Subjective: The patient was seen individually in the evening of 08/12/2020 with Nevaeh SCHAFER, discussed and reviewed the chart. She slept 6-3/4 hours previous night. She remains confused, anxious, wandering at times. 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 We will defer to Dr. Workman. Review of Systems: She complains of some back pain and impaired ambulation. No CV, , pulmonary, eye, ENT system symptoms on review. Mental Status Exam: The patient is alert and oriented to herself and situation. Speech has some latency, coherent. Abstraction fair. Computation impaired Attention span short. Mood and affect labile. No suicidal or homicidal ideation. Laboratory Data: Reviewed. Impression: Major neurocognitive disorder Alzheimer vascular with delusion, depression, and behavioral disturbance. Anxiety disorder unspecified. Impulse control disorder unspecified. Plan: Continue current psychotropics unchanged. Assessment: Vital Signs/I&O: Vital Signs Date Time Temp Pulse Resp B/P (MAP) Pulse Ox O2 Delivery O2 Flow Rate FiO2 08/13/20 08:28 76 155/72 08/13/20 05:24 98.0 18 93 08/11/20 05:54 Room Air 08/09/20 06:07 2.0 l I & O 08/12/20 08/12/20 08/13/20 15:00 23:00 07:00 Intake Total 480 ml 360 ml Output Total 650 ml 1000 ml Balance 480 ml -290 ml -1000 ml Current Medications: Meds: Current Medications Medications (Trade) Dose Ordered Sig/Pino Route PRN Reason Start Time Stop Time Status Last Admin Dose Admin Acetaminophen (Tylenol) 1,000 mg PRN Q6HRS PRN PO PAIN 08/08/20 23:00 08/11/20 11:07 Atorvastatin Calcium (Lipitor) 10 mg QHS PO 08/09/20 00:00 08/12/20 19:45 Carvedilol (Coreg) 6.25 mg BIDWMEALS PO 08/09/20 08:00 08/13/20 08:04 Cefdinir (Omnicef) 300 mg BID PO 08/09/20 09:00 08/09/20 05:54 DC Cetirizine HCl (ZyrTEC) 10 mg DAILY PO 08/09/20 09:00 08/13/20 08:04 Cyclosporine (Restasis) 1 drop BID OU 08/09/20 00:00 08/13/20 08:04 Levothyroxine Sodium (Synthroid) 125 mcg DAILY06 PO 08/09/20 06:00 08/13/20 05:29 Al Hydroxide/Mg Hydroxide (Mylanta Plus Xs) 15 ml PRN AFTMEALHC PRN PO DYSPEPSIA 08/08/20 23:00 Memantine (Namenda) 10 mg BID PO 08/09/20 00:00 08/13/20 08:02 Multi-Ingredient Ointment (Analgesic [place]) 1 cole PRN QID PRN TP MUSCLE PAIN 08/08/20 23:00 Mirtazapine (Remeron) 7.5 mg QHS PO 08/09/20 00:00 08/12/20 19:46 Montelukast Sodium (Singulair) 10 mg HS PO 08/09/20 00:00 08/12/20 19:45 Olanzapine (ZyPREXA ZYDIS) 2.5 mg PRN Q2HRS PRN PO PSYCHOSIS 08/08/20 23:00 08/12/20 16:01 Ondansetron HCl (Zofran Odt) 4 mg PRN Q6HRS PRN PO nausea/vomiting 08/08/20 23:00 08/12/20 05:13 Quetiapine Fumarate (SEROquel) 12.5 mg NOON PO 08/09/20 12:00 08/12/20 12:19 Quetiapine Fumarate (SEROquel) 12.5 mg QHS PO 08/09/20 00:00 08/12/20 19:45 Trimethoprim/ Sulfamethoxazole (Bactrim Ds) 1 tab BID PO 08/09/20 09:00 08/13/20 08:03 Clobetasol Propionate 1 cole PRN DAILY PRN TP dermatitis 08/08/20 23:30 Diltiazem HCl (Cardizem 24hr Cd) 240 mg DAILY PO 08/09/20 09:00 08/13/20 08:28 Doxycycline Hyclate (Vibra-Tab) 100 mg BID PO 08/09/20 09:00 08/13/20 08:04 Fluvoxamine Maleate (Luvox) 50 mg QHS PO 08/09/20 00:00 08/12/20 19:45 Lactobacillus Rhamnosus (Culturelle) 1 cap BID PO 08/09/20 09:00 08/13/20 08:04 Losartan Potassium (Cozaar) 100 mg DAILY PO 08/09/20 09:00 08/13/20 08:03 Magnesium Hydroxide (Milk Of Magnesia) 2,400 mg PRN QHS PRN PO CONSTIPATION 08/08/20 23:30 08/10/20 21:58 Multivitamins/ Calcium (Thera-M Plus) 1 tab DAILY PO 08/09/20 09:00 08/13/20 08:02 Pantoprazole Sodium (Protonix) 40 mg DAILYAC PO 08/09/20 07:30 08/13/20 08:04 Acetaminophen (Tylenol) 650 mg PRN Q6HRS PRN PO MILD PAIN / TEMP > 100.3'F 08/08/20 23:15 UNV Magnesium Hydroxide (Milk Of Magnesia) 2,400 mg PRN QHS PRN PO CONSTIPATION 08/08/20 23:15 UNV Iohexol (Omnipaque 350 Mg/ml) 100 ml 1X ONCE IV 08/09/20 15:15 08/09/20 15:16 DC 08/09/20 15:15 Enoxaparin Sodium (Lovenox 40mg Syringe) 40 mg Q24H SQ 08/09/20 21:00 08/12/20 19:46 Oxycodone HCl (Roxicodone) 5 mg PRN Q6HRS PRN PO PAIN 08/11/20 14:30 08/12/20 16:01 I have reviewed the current psychotropics carefully including drug interactions. Risk benefit ratio favors no change other than as noted in my dictated progress note. Diagnosis: Problems: (1) Impulse control disorder, unspecified (2) Anxiety disorder, unspecified (3) Dementia, vascular, with depression (4) Dementia, vascular, with delusions (5) Dementia in Alzheimer's disease with depression (6) Dementia in Alzheimer's disease with delusions (7) Dementia of the Alzheimer's type with early onset with behavioral disturbance (8) Major neurocognitive disorder KATHY BARNHART MD Aug 13, 2020 08:41
[2020-08-13] MEDS: QUEtiapine 25 MG TABLET. PO SCH ×2 (12:24→20:15)
--- NOTE | 2020-08-13 14:29 | NUR ---
nsg note; beltran has been calm and cooperative today, but anxious at times about the dressings on her feet and the lainez catheter. she states she needs to urinate and is reminded that she has a lainez in, but she forgets this information fairly quickly. she has BLE 2+ edema and cooperated this afternoon by laying down for a nap so we could elevate her feet. the dressing changes were down on both feet after lunch before her nap. the incisions are healing well.
[2020-08-13 16:08] VITALS: BP 120/68
[2020-08-13] MEDS: MONTELUKAST 10 MG TABLET. PO SCH (20:14)
[2020-08-13] MEDS: ATORVASTATIN CALCIUM 10 MG TABLET. PO SCH (20:14)
[2020-08-13] MEDS: MIRTAZAPINE 7.5 MG TABLET. PO SCH (20:14)
[2020-08-13] MEDS: ENOXAPARIN 40 MG/0.4 ML SYRINGE. SQ SCH (20:16)
[2020-08-13] MEDS: oxyCODONE IR 5 MG TABLET PO PRN (21:18)
--- NOTE | 2020-08-13 21:56 | PDOC ---
Exam Note: Roni Note: Please also refer to the separate dictated note~for this date of service dictated separately.~Patient seen individually. Discussed the patient with Nursing staff reviewed the chart.~Reviewed interim history and current functioning. Reviewed vital signs,~Labs/ Radiology~and current medications noted below. Continue current treatment with the changes noted in the dictated addendum note Assessment: Vital Signs/I&O: Vital Signs Date Time Temp Pulse Resp B/P (MAP) Pulse Ox O2 Delivery O2 Flow Rate FiO2 08/13/20 21:48 95 08/13/20 17:30 76 120/68 08/13/20 16:08 98.6 18 08/11/20 05:54 Room Air 08/09/20 06:07 2.0 I & O 08/12/20 08/12/20 08/13/20 15:00 23:00 07:00 Intake Total 480 ml 360 ml Output Total 650 ml 1000 ml Balance 480 ml -290 ml -1000 ml Current Medications: Meds: Current Medications Medications (Trade) Dose Ordered Sig/Pino Route PRN Reason Start Time Stop Time Status Last Admin Dose Admin Acetaminophen (Tylenol) 1,000 mg PRN Q6HRS PRN PO PAIN 08/08/20 23:00 08/11/20 11:07 Atorvastatin Calcium (Lipitor) 10 mg QHS PO 08/09/20 00:00 08/13/20 20:14 Carvedilol (Coreg) 6.25 mg BIDWMEALS PO 08/09/20 08:00 08/13/20 17:30 Cefdinir (Omnicef) 300 mg BID PO 08/09/20 09:00 08/09/20 05:54 DC Cetirizine HCl (ZyrTEC) 10 mg DAILY PO 08/09/20 09:00 08/13/20 08:04 Cyclosporine (Restasis) 1 drop BID OU 08/09/20 00:00 08/13/20 20:14 Levothyroxine Sodium (Synthroid) 125 mcg DAILY06 PO 08/09/20 06:00 08/13/20 05:29 Al Hydroxide/Mg Hydroxide (Mylanta Plus Xs) 15 ml PRN AFTMEALHC PRN PO DYSPEPSIA 08/08/20 23:00 Memantine (Namenda) 10 mg BID PO 08/09/20 00:00 08/13/20 20:14 Multi-Ingredient Ointment (Analgesic [place]) 1 cole PRN QID PRN TP MUSCLE PAIN 08/08/20 23:00 Mirtazapine (Remeron) 7.5 mg QHS PO 08/09/20 00:00 08/13/20 20:14 Montelukast Sodium (Singulair) 10 mg HS PO 08/09/20 00:00 08/13/20 20:14 Olanzapine (ZyPREXA ZYDIS) 2.5 mg PRN Q2HRS PRN PO PSYCHOSIS 08/08/20 23:00 08/12/20 16:01 Ondansetron HCl (Zofran Odt) 4 mg PRN Q6HRS PRN PO nausea/vomiting 08/08/20 23:00 08/12/20 05:13 Quetiapine Fumarate (SEROquel) 12.5 mg NOON PO 08/09/20 12:00 08/13/20 12:24 Quetiapine Fumarate (SEROquel) 12.5 mg QHS PO 08/09/20 00:00 08/13/20 20:15 Trimethoprim/ Sulfamethoxazole (Bactrim Ds) 1 tab BID PO 08/09/20 09:00 08/13/20 20:14 Clobetasol Propionate 1 cole PRN DAILY PRN TP dermatitis 08/08/20 23:30 Diltiazem HCl (Cardizem 24hr Cd) 240 mg DAILY PO 08/09/20 09:00 08/13/20 08:28 Doxycycline Hyclate (Vibra-Tab) 100 mg BID PO 08/09/20 09:00 08/13/20 20:14 Fluvoxamine Maleate (Luvox) 50 mg QHS PO 08/09/20 00:00 08/13/20 20:15 Lactobacillus Rhamnosus (Culturelle) 1 cap BID PO 08/09/20 09:00 08/13/20 20:14 Losartan Potassium (Cozaar) 100 mg DAILY PO 08/09/20 09:00 08/13/20 08:03 Magnesium Hydroxide (Milk Of Magnesia) 2,400 mg PRN QHS PRN PO CONSTIPATION 08/08/20 23:30 08/10/20 21:58 Multivitamins/ Calcium (Thera-M Plus) 1 tab DAILY PO 08/09/20 09:00 08/13/20 08:02 Pantoprazole Sodium (Protonix) 40 mg DAILYAC PO 08/09/20 07:30 08/13/20 08:04 Acetaminophen (Tylenol) 650 mg PRN Q6HRS PRN PO MILD PAIN / TEMP > 100.3'F 08/08/20 23:15 UNV Magnesium Hydroxide (Milk Of Magnesia) 2,400 mg PRN QHS PRN PO CONSTIPATION 08/08/20 23:15 UNV Iohexol (Omnipaque 350 Mg/ml) 100 ml 1X ONCE IV 08/09/20 15:15 08/09/20 15:16 DC 08/09/20 15:15 Enoxaparin Sodium (Lovenox 40mg Syringe) 40 mg Q24H SQ 08/09/20 21:00 08/13/20 20:16 Oxycodone HCl (Roxicodone) 5 mg PRN Q6HRS PRN PO PAIN 08/11/20 14:30 08/13/20 21:18 I have reviewed the current psychotropics carefully including drug interactions. Risk benefit ratio favors no change other than as noted in my dictated progress note. Diagnosis: Problems: (1) Impulse control disorder, unspecified (2) Anxiety disorder, unspecified (3) Dementia, vascular, with depression (4) Dementia, vascular, with delusions (5) Dementia in Alzheimer's disease with depression (6) Dementia in Alzheimer's disease with delusions (7) Dementia of the Alzheimer's type with early onset with behavioral disturbance (8) Major neurocognitive disorder KATHY BARNHART MD Aug 13, 2020 21:56
--- NOTE | 2020-08-13 23:51 | NUR ---
Pt highly anxious and restless tonight. Pt repeatedly asking the same questions over and over, unable to retain any information. Compliant with whole medications. Pt complained of headache this evening. PRN Tramadol administered with HS medications. Once placed in bed, pt continued to be restless setting off bed alarm repeatedly. Staff at bedside for over an hour redirecting pt to lay down. PRN Zyprexa administered at 2240. Pt currently sleeping in bed with bed alarm on.
[2020-08-14] MEDS: LEVOTHYROXINE 125 MCG TABLET PO SCH (05:47)
[2020-08-14 05:49] VITALS: BP 158/72
--- NOTE | 2020-08-14 06:23 | PDOC ---
Exam Note: Roni Note: This note is a late entry for 08/13/2020 covers elements not covered in my initial note. Subjective: The patient was seen individually in the evening of 08/13/2020 with Carmelina SCHAFER, discussed and reviewed the chart. She slept 7 hours previous night. Appetite is 50%. She gets anxious with Rascon catheter. We will defer to Dr. Workman. She has been quite calm with nursing staff after she got up from her nap. Review of Systems: Impaired ambulation. No CV, , pulmonary, eye, ENT system symptoms on review. Mental Status Exam: The patient is alert and oriented to herself and situation. Speech has some latency, coherent. Abstraction fair. Computation impaired Attention span short. Mood and affect labile. No suicidal or homicidal ideation. Laboratory Data: Reviewed. Impression: Major neurocognitive disorder Alzheimer vascular with delusion, depression, and behavioral disturbance. Anxiety disorder unspecified. Impulse control disorder unspecified. Plan: Continue current psychotropics unchanged. Assessment: Vital Signs/I&O: Vital Signs Date Time Temp Pulse Resp B/P (MAP) Pulse Ox O2 Delivery O2 Flow Rate FiO2 08/14/20 05:49 98.0 78 16 158/72 (100) 96 Room Air 08/09/20 06:07 2.0 I & O 08/13/20 08/13/20 08/14/20 15:00 23:00 07:00 Intake Total 480 ml 480 ml Output Total 1500 ml 2500 ml Balance 480 ml -1020 ml -2500 ml Current Medications: Meds: Current Medications Medications (Trade) Dose Ordered Sig/Pino Route PRN Reason Start Time Stop Time Status Last Admin Dose Admin Acetaminophen (Tylenol) 1,000 mg PRN Q6HRS PRN PO PAIN 08/08/20 23:00 08/11/20 11:07 Atorvastatin Calcium (Lipitor) 10 mg QHS PO 08/09/20 00:00 08/13/20 20:14 Carvedilol (Coreg) 6.25 mg BIDWMEALS PO 08/09/20 08:00 08/13/20 17:30 Cefdinir (Omnicef) 300 mg BID PO 08/09/20 09:00 08/09/20 05:54 DC Cetirizine HCl (ZyrTEC) 10 mg DAILY PO 08/09/20 09:00 08/13/20 08:04 Cyclosporine (Restasis) 1 drop BID OU 08/09/20 00:00 08/13/20 20:14 Levothyroxine Sodium (Synthroid) 125 mcg DAILY06 PO 08/09/20 06:00 08/14/20 05:47 Al Hydroxide/Mg Hydroxide (Mylanta Plus Xs) 15 ml PRN AFTMEALHC PRN PO DYSPEPSIA 08/08/20 23:00 Memantine (Namenda) 10 mg BID PO 08/09/20 00:00 08/13/20 20:14 Multi-Ingredient Ointment (Analgesic [place]) 1 cloe PRN QID PRN TP MUSCLE PAIN 08/08/20 23:00 Mirtazapine (Remeron) 7.5 mg QHS PO 08/09/20 00:00 08/13/20 20:14 Montelukast Sodium (Singulair) 10 mg HS PO 08/09/20 00:00 08/13/20 20:14 Olanzapine (ZyPREXA ZYDIS) 2.5 mg PRN Q2HRS PRN PO PSYCHOSIS 08/08/20 23:00 08/13/20 22:42 Ondansetron HCl (Zofran Odt) 4 mg PRN Q6HRS PRN PO nausea/vomiting 08/08/20 23:00 08/12/20 05:13 Quetiapine Fumarate (SEROquel) 12.5 mg NOON PO 08/09/20 12:00 08/13/20 12:24 Quetiapine Fumarate (SEROquel) 12.5 mg QHS PO 08/09/20 00:00 08/13/20 20:15 Trimethoprim/ Sulfamethoxazole (Bactrim Ds) 1 tab BID PO 08/09/20 09:00 08/13/20 20:14 Clobetasol Propionate 1 cole PRN DAILY PRN TP dermatitis 08/08/20 23:30 Diltiazem HCl (Cardizem 24hr Cd) 240 mg DAILY PO 08/09/20 09:00 08/13/20 08:28 Doxycycline Hyclate (Vibra-Tab) 100 mg BID PO 08/09/20 09:00 08/13/20 20:14 Fluvoxamine Maleate (Luvox) 50 mg QHS PO 08/09/20 00:00 08/13/20 20:15 Lactobacillus Rhamnosus (Culturelle) 1 cap BID PO 08/09/20 09:00 08/13/20 20:14 Losartan Potassium (Cozaar) 100 mg DAILY PO 08/09/20 09:00 08/13/20 08:03 Magnesium Hydroxide (Milk Of Magnesia) 2,400 mg PRN QHS PRN PO CONSTIPATION 08/08/20 23:30 08/10/20 21:58 Multivitamins/ Calcium (Thera-M Plus) 1 tab DAILY PO 08/09/20 09:00 08/13/20 08:02 Pantoprazole Sodium (Protonix) 40 mg DAILYAC PO 08/09/20 07:30 08/13/20 08:04 Acetaminophen (Tylenol) 650 mg PRN Q6HRS PRN PO MILD PAIN / TEMP > 100.3'F 08/08/20 23:15 UNV Magnesium Hydroxide (Milk Of Magnesia) 2,400 mg PRN QHS PRN PO CONSTIPATION 08/08/20 23:15 UNV Iohexol (Omnipaque 350 Mg/ml) 100 ml 1X ONCE IV 08/09/20 15:15 08/09/20 15:16 DC 08/09/20 15:15 Enoxaparin Sodium (Lovenox 40mg Syringe) 40 mg Q24H SQ 08/09/20 21:00 08/13/20 20:16 Oxycodone HCl (Roxicodone) 5 mg PRN Q6HRS PRN PO PAIN 08/11/20 14:30 08/13/20 21:18 I have reviewed the current psychotropics carefully including drug interactions. Risk benefit ratio favors no change other than as noted in my dictated progress note. Diagnosis: Problems: (1) Impulse control disorder, unspecified (2) Anxiety disorder, unspecified (3) Dementia, vascular, with depression (4) Dementia, vascular, with delusions (5) Dementia in Alzheimer's disease with depression (6) Dementia in Alzheimer's disease with delusions (7) Dementia of the Alzheimer's type with early onset with behavioral disturbance (8) Major neurocognitive disorder KATHY BARNHART MD Aug 14, 2020 06:23
[2020-08-14 08:00] LABS: ALBUMIN 2.8 g/dL (3.4-5.0); ALBUMIN/GLOBULIN RATIO 0.7 (1.0-1.7); CALCIUM 8.6 mg/dL (8.5-10.1); CREATININE 0.9 mg/dL (0.6-1.0); GFR 61.4; POTASSIUM 4.1 mmol/L (3.5-5.1); TOTAL BILIRUBIN 0.4 mg/dL (0.2-1.0); TOTAL PROTEIN 6.6 g/dL (6.4-8.2)
[2020-08-14 08:05] LABS: BASO # 0.1 x10^3/uL (0.0-0.2); BASO % 1 % (0-3); EOS % 0 % (0-3); HEMATOCRIT 32.7 % (36.0-47.0); HEMOGLOBIN 10.7 g/dL (12.0-15.5); LYMPH # 0.5 x10^3/uL (1.0-4.8); LYMPH % 5 % (24-48); MEAN CORPUSCULAR HEMOGLOBIN 31 pg (25-35); MEAN CORPUSCULAR HGB CONC 33 g/dL (31-37); MEAN CORPUSCULAR VOLUME 95 fL (79-100); MONO % 9 % (0-9); NEUT # 9.6 x10^3uL (1.8-7.7); NEUT % 86 % (31-73); PLATELET COUNT 340 x10^3/uL (140-400); RED BLOOD COUNT 3.43 x10^6/uL (3.50-5.40); RED CELL DISTRIBUTION WIDTH 13.4 % (11.5-14.5); WHITE BLOOD COUNT 11.2 x10^3/uL (4.0-11.0)
[2020-08-14] MEDS: SMZ/TMP 800/160MG TABLET. PO SCH ×2 (08:47→19:40)
[2020-08-14] MEDS: MEMANTINE 10 MG TABLET. PO SCH ×2 (08:47→19:40)
[2020-08-14] MEDS: MULTIVITAMIN with MINERAL TABLET. PO SCH (08:47)
[2020-08-14] MEDS: PANTOPRAZOLE 40 MG TABLET. PO SCH (08:47)
[2020-08-14] MEDS: CETIRIZINE HCL 10 MG TABLET PO SCH (08:47)
[2020-08-14] MEDS: CARVEDILOL 6.25 MG TABLET PO SCH ×2 (08:47→17:25)
[2020-08-14] MEDS: DOXYCYCLINE HYCLATE 100 MG TABLET PO SCH ×2 (08:47→19:40)
[2020-08-14] MEDS: LACTOBACILLUS RHAMNOSUS GG 1 CAPSULE. PO SCH ×2 (08:47→19:41)
[2020-08-14] MEDS: LOSARTAN 50 MG TABLET. PO SCH (08:48)
[2020-08-14] MEDS: oxyCODONE IR 5 MG TABLET PO PRN (08:48)
[2020-08-14] MEDS: cycloSPORINE 0.05% OPTH 1 DROP DROPERETTE OU SCH ×2 (08:48→19:40)
[2020-08-14] MEDS: QUEtiapine 25 MG TABLET. PO SCH ×2 (12:03→19:40)
[2020-08-14 15:48] VITALS: BP 119/74
[2020-08-14] MEDS: MONTELUKAST 10 MG TABLET. PO SCH (19:40)
[2020-08-14] MEDS: ENOXAPARIN 40 MG/0.4 ML SYRINGE. SQ SCH (19:41)
[2020-08-14] MEDS: MIRTAZAPINE 7.5 MG TABLET. PO SCH (19:41)
[2020-08-14] MEDS: ATORVASTATIN CALCIUM 10 MG TABLET. PO SCH (19:41)
--- NOTE | 2020-08-14 21:59 | PDOC ---
Exam Note: Roni Note: Please also refer to the separate dictated note~for this date of service dictated separately.~Patient seen individually. Discussed the patient with Nursing staff reviewed the chart.~Reviewed interim history and current functioning. Reviewed vital signs,~Labs/ Radiology~and current medications noted below. Continue current treatment with the changes noted in the dictated addendum note Assessment: Vital Signs/I&O: Vital Signs Date Time Temp Pulse Resp B/P (MAP) Pulse Ox O2 Delivery O2 Flow Rate FiO2 08/14/20 17:25 63 119/74 08/14/20 15:48 98.2 18 98 Room Air 08/09/20 06:07 2.0 I & O 08/13/20 08/13/20 08/14/20 15:00 23:00 07:00 Intake Total 480 ml 480 ml Output Total 1500 ml 2500 ml Balance 480 ml -1020 ml -2500 ml Labs: Laboratory Tests Test 08/14/20 07:13 White Blood Count 11.2 x10^3/uL (4.0-11.0) H Red Blood Count 3.43 x10^6/uL (3.50-5.40) L Hemoglobin 10.7 g/dL (12.0-15.5) L Hematocrit 32.7 % (36.0-47.0) L Mean Corpuscular Volume 95 fL (79-100) Mean Corpuscular Hemoglobin 31 pg (25-35) Mean Corpuscular Hemoglobin Concent 33 g/dL (31-37) Red Cell Distribution Width 13.4 % (11.5-14.5) Platelet Count 340 x10^3/uL (140-400) Neutrophils (%) (Auto) 86 % (31-73) H Lymphocytes (%) (Auto) 5 % (24-48) L Monocytes (%) (Auto) 9 % (0-9) Eosinophils (%) (Auto) 0 % (0-3) Basophils (%) (Auto) 1 % (0-3) Neutrophils # (Auto) 9.6 x10^3uL (1.8-7.7) H Lymphocytes # (Auto) 0.5 x10^3/uL (1.0-4.8) L Monocytes # (Auto) 1.0 x10^3/uL (0.0-1.1) Eosinophils # (Auto) 0.0 x10^3/uL (0.0-0.7) Basophils # (Auto) 0.1 x10^3/uL (0.0-0.2) Sodium Level 136 mmol/L (136-145) Potassium Level 4.1 mmol/L (3.5-5.1) Chloride Level 102 mmol/L (98-107) Carbon Dioxide Level 26 mmol/L (21-32) Anion Gap 8 (6-14) Blood Urea Nitrogen 17 mg/dL (7-20) Creatinine 0.9 mg/dL (0.6-1.0) Estimated GFR (Cockcroft-Gault) 61.4 BUN/Creatinine Ratio 19 (6-20) Glucose Level 89 mg/dL (70-99) Calcium Level 8.6 mg/dL (8.5-10.1) Total Bilirubin 0.4 mg/dL (0.2-1.0) Aspartate Amino Transferase (AST) 27 U/L (15-37) Alanine Aminotransferase (ALT) 35 U/L (14-59) Alkaline Phosphatase 79 U/L (46-116) Total Protein 6.6 g/dL (6.4-8.2) Albumin 2.8 g/dL (3.4-5.0) L Albumin/Globulin Ratio 0.7 (1.0-1.7) L Current Medications: Meds: Laboratory Tests Test 08/14/20 07:13 White Blood Count 11.2 x10^3/uL Red Blood Count 3.43 x10^6/uL Hemoglobin 10.7 g/dL Hematocrit 32.7 % Mean Corpuscular Volume 95 fL Mean Corpuscular Hemoglobin 31 pg Mean Corpuscular Hemoglobin Concent 33 g/dL Red Cell Distribution Width 13.4 % Platelet Count 340 x10^3/uL Neutrophils (%) (Auto) 86 % Lymphocytes (%) (Auto) 5 % Monocytes (%) (Auto) 9 % Eosinophils (%) (Auto) 0 % Basophils (%) (Auto) 1 % Neutrophils # (Auto) 9.6 x10^3uL Lymphocytes # (Auto) 0.5 x10^3/uL Monocytes # (Auto) 1.0 x10^3/uL Eosinophils # (Auto) 0.0 x10^3/uL Basophils # (Auto) 0.1 x10^3/uL Sodium Level 136 mmol/L Potassium Level 4.1 mmol/L Chloride Level 102 mmol/L Carbon Dioxide Level 26 mmol/L Anion Gap 8 Blood Urea Nitrogen 17 mg/dL Creatinine 0.9 mg/dL Estimated GFR (Cockcroft-Gault) 61.4 BUN/Creatinine Ratio 19 Glucose Level 89 mg/dL Calcium Level 8.6 mg/dL Total Bilirubin 0.4 mg/dL Aspartate Amino Transf (AST/SGOT) 27 U/L Alanine Aminotransferase (ALT/SGPT) 35 U/L Alkaline Phosphatase 79 U/L Total Protein 6.6 g/dL Albumin 2.8 g/dL Albumin/Globulin Ratio 0.7 Current Medications Medications (Trade) Dose Ordered Sig/Pino Route PRN Reason Start Time Stop Time Status Last Admin Dose Admin Acetaminophen (Tylenol) 1,000 mg PRN Q6HRS PRN PO PAIN 08/08/20 23:00 08/11/20 11:07 Atorvastatin Calcium (Lipitor) 10 mg QHS PO 08/09/20 00:00 08/14/20 19:41 Carvedilol (Coreg) 6.25 mg BIDWMEALS PO 08/09/20 08:00 08/14/20 17:25 Cefdinir (Omnicef) 300 mg BID PO 08/09/20 09:00 08/09/20 05:54 DC Cetirizine HCl (ZyrTEC) 10 mg DAILY PO 08/09/20 09:00 08/14/20 08:47 Cyclosporine (Restasis) 1 drop BID OU 08/09/20 00:00 08/14/20 19:40 Levothyroxine Sodium (Synthroid) 125 mcg DAILY06 PO 08/09/20 06:00 08/14/20 05:47 Al Hydroxide/Mg Hydroxide (Mylanta Plus Xs) 15 ml PRN AFTMEALHC PRN PO DYSPEPSIA 08/08/20 23:00 Memantine (Namenda) 10 mg BID PO 08/09/20 00:00 08/14/20 19:40 Multi-Ingredient Ointment (Analgesic [place]) 1 cole PRN QID PRN TP MUSCLE PAIN 08/08/20 23:00 Mirtazapine (Remeron) 7.5 mg QHS PO 08/09/20 00:00 08/14/20 19:41 Montelukast Sodium (Singulair) 10 mg HS PO 08/09/20 00:00 08/14/20 19:40 Olanzapine (ZyPREXA ZYDIS) 2.5 mg PRN Q2HRS PRN PO PSYCHOSIS 08/08/20 23:00 08/14/20 19:40 Ondansetron HCl (Zofran Odt) 4 mg PRN Q6HRS PRN PO nausea/vomiting 08/08/20 23:00 08/12/20 05:13 Quetiapine Fumarate (SEROquel) 12.5 mg NOON PO 08/09/20 12:00 08/14/20 12:03 Quetiapine Fumarate (SEROquel) 12.5 mg QHS PO 08/09/20 00:00 08/14/20 19:40 Trimethoprim/ Sulfamethoxazole (Bactrim Ds) 1 tab BID PO 08/09/20 09:00 08/14/20 19:40 Clobetasol Propionate 1 cole PRN DAILY PRN TP dermatitis 08/08/20 23:30 Diltiazem HCl (Cardizem 24hr Cd) 240 mg DAILY PO 08/09/20 09:00 08/14/20 08:47 Doxycycline Hyclate (Vibra-Tab) 100 mg BID PO 08/09/20 09:00 08/14/20 19:40 Fluvoxamine Maleate (Luvox) 50 mg QHS PO 08/09/20 00:00 08/14/20 19:41 Lactobacillus Rhamnosus (Culturelle) 1 cap BID PO 08/09/20 09:00 08/14/20 19:41 Losartan Potassium (Cozaar) 100 mg DAILY PO 08/09/20 09:00 08/14/20 08:48 Magnesium Hydroxide (Milk Of Magnesia) 2,400 mg PRN QHS PRN PO CONSTIPATION 08/08/20 23:30 08/10/20 21:58 Multivitamins/ Calcium (Thera-M Plus) 1 tab DAILY PO 08/09/20 09:00 08/14/20 08:47 Pantoprazole Sodium (Protonix) 40 mg DAILYAC PO 08/09/20 07:30 08/14/20 08:47 Acetaminophen (Tylenol) 650 mg PRN Q6HRS PRN PO MILD PAIN / TEMP > 100.3'F 08/08/20 23:15 UNV Magnesium Hydroxide (Milk Of Magnesia) 2,400 mg PRN QHS PRN PO CONSTIPATION 08/08/20 23:15 UNV Iohexol (Omnipaque 350 Mg/ml) 100 ml 1X ONCE IV 08/09/20 15:15 08/09/20 15:16 DC 08/09/20 15:15 Enoxaparin Sodium (Lovenox 40mg Syringe) 40 mg Q24H SQ 08/09/20 21:00 08/14/20 19:41 Oxycodone HCl (Roxicodone) 5 mg PRN Q6HRS PRN PO PAIN 08/11/20 14:30 08/14/20 08:48 I have reviewed the current psychotropics carefully including drug interactions. Risk benefit ratio favors no change other than as noted in my dictated progress note. Diagnosis: Problems: (1) Impulse control disorder, unspecified (2) Anxiety disorder, unspecified (3) Dementia, vascular, with depression (4) Dementia, vascular, with delusions (5) Dementia in Alzheimer's disease with depression (6) Dementia in Alzheimer's disease with delusions (7) Dementia of the Alzheimer's type with early onset with behavioral disturbance (8) Major neurocognitive disorder KATHY BARNHART MD Aug 14, 2020 21:59
--- NOTE | 2020-08-14 23:23 | NUR ---
Pt restless, anxious and disorganized this evening. Poor short term memory. Compliant with whole medications. PRN Zyprexa administered with HS medications.
[2020-08-15 05:52] VITALS: BP 133/76
[2020-08-15] MEDS: LEVOTHYROXINE 125 MCG TABLET PO SCH (06:17)
[2020-08-15] MEDS: cycloSPORINE 0.05% OPTH 1 DROP DROPERETTE OU SCH ×2 (08:12→20:17)
[2020-08-15] MEDS: CARVEDILOL 6.25 MG TABLET PO SCH ×2 (08:13→17:23)
[2020-08-15] MEDS: MEMANTINE 10 MG TABLET. PO SCH ×2 (08:13→20:17)
[2020-08-15] MEDS: DOXYCYCLINE HYCLATE 100 MG TABLET PO SCH ×2 (08:13→20:16)
[2020-08-15] MEDS: CETIRIZINE HCL 10 MG TABLET PO SCH (08:13)
[2020-08-15] MEDS: LACTOBACILLUS RHAMNOSUS GG 1 CAPSULE. PO SCH ×2 (08:13→20:16)
[2020-08-15] MEDS: PANTOPRAZOLE 40 MG TABLET. PO SCH (08:13)
[2020-08-15] MEDS: SMZ/TMP 800/160MG TABLET. PO SCH ×2 (08:13→20:17)
[2020-08-15] MEDS: LOSARTAN 50 MG TABLET. PO SCH (08:13)
[2020-08-15] MEDS: MULTIVITAMIN with MINERAL TABLET. PO SCH (08:14)
--- NOTE | 2020-08-15 08:47 | PDOC ---
Exam Note: Roni Note: This note is a late entry for 08/14/2020 covers elements not covered in my initial note. Subjective: The patient was seen individually in the evening of 08/14/2020 with Varghese SCHAFER, discussed and reviewed the chart. She slept 5-1/2 hours previous night. The patient remains confused but doing reasonably well, wandering, anxious, restless. Review of Systems: Impaired ambulation. No CV, , pulmonary, eye, ENT system symptoms on review. Mental Status Exam: The patient is alert and oriented to herself and situation. I met with her in the dayroom. Speech has some latency, coherent. Abstraction fair. Computation impaired Attention span short. Mood and affect labile. No suicidal or homicidal ideation. Laboratory Data: Reviewed. Impression: Major neurocognitive disorder Alzheimer vascular with delusion, de pression, and behavioral disturbance. Anxiety disorder unspecified. Impulse control disorder unspecified. Plan: Continue current psychotropics unchanged. Assessment: Vital Signs/I&O: Vital Signs Date Time Temp Pulse Resp B/P (MAP) Pulse Ox O2 Delivery O2 Flow Rate FiO2 08/15/20 08:13 77 133/76 08/15/20 05:52 97.6 18 92 Room Air I & O 08/14/20 08/14/20 08/15/20 15:00 23:00 07:00 Intake Total 600 ml 480 ml 120 ml Output Total 850 ml 2200 ml Balance 600 ml -370 ml -2080 ml Current Medications: Meds: Current Medications Medications (Trade) Dose Ordered Sig/Pino Route PRN Reason Start Time Stop Time Status Last Admin Dose Admin Acetaminophen (Tylenol) 1,000 mg PRN Q6HRS PRN PO PAIN 08/08/20 23:00 08/11/20 11:07 Atorvastatin Calcium (Lipitor) 10 mg QHS PO 08/09/20 00:00 08/14/20 19:41 Carvedilol (Coreg) 6.25 mg BIDWMEALS PO 08/09/20 08:00 08/15/20 08:13 Cefdinir (Omnicef) 300 mg BID PO 08/09/20 09:00 08/09/20 05:54 DC Cetirizine HCl (ZyrTEC) 10 mg DAILY PO 08/09/20 09:00 08/15/20 08:13 Cyclosporine (Restasis) 1 drop BID OU 08/09/20 00:00 08/15/20 08:12 Levothyroxine Sodium (Synthroid) 125 mcg DAILY06 PO 08/09/20 06:00 08/15/20 06:17 Al Hydroxide/Mg Hydroxide (Mylanta Plus Xs) 15 ml PRN AFTMEALHC PRN PO DYSPEPSIA 08/08/20 23:00 Memantine (Namenda) 10 mg BID PO 08/09/20 00:00 08/15/20 08:13 Multi-Ingredient Ointment (Analgesic [place]) 1 cole PRN QID PRN TP MUSCLE PAIN 08/08/20 23:00 Mirtazapine (Remeron) 7.5 mg QHS PO 08/09/20 00:00 08/14/20 19:41 Montelukast Sodium (Singulair) 10 mg HS PO 08/09/20 00:00 08/14/20 19:40 Olanzapine (ZyPREXA ZYDIS) 2.5 mg PRN Q2HRS PRN PO PSYCHOSIS 08/08/20 23:00 08/14/20 19:40 Ondansetron HCl (Zofran Odt) 4 mg PRN Q6HRS PRN PO nausea/vomiting 08/08/20 23:00 08/12/20 05:13 Quetiapine Fumarate (SEROquel) 12.5 mg NOON PO 08/09/20 12:00 08/14/20 12:03 Quetiapine Fumarate (SEROquel) 12.5 mg QHS PO 08/09/20 00:00 08/14/20 19:40 Trimethoprim/ Sulfamethoxazole (Bactrim Ds) 1 tab BID PO 08/09/20 09:00 08/15/20 08:13 Clobetasol Propionate 1 cole PRN DAILY PRN TP dermatitis 08/08/20 23:30 Diltiazem HCl (Cardizem 24hr Cd) 240 mg DAILY PO 08/09/20 09:00 08/15/20 08:13 Doxycycline Hyclate (Vibra-Tab) 100 mg BID PO 08/09/20 09:00 08/15/20 08:13 Fluvoxamine Maleate (Luvox) 50 mg QHS PO 08/09/20 00:00 08/14/20 19:41 Lactobacillus Rhamnosus (Culturelle) 1 cap BID PO 08/09/20 09:00 08/15/20 08:13 Losartan Potassium (Cozaar) 100 mg DAILY PO 08/09/20 09:00 08/15/20 08:13 Magnesium Hydroxide (Milk Of Magnesia) 2,400 mg PRN QHS PRN PO CONSTIPATION 08/08/20 23:30 08/10/20 21:58 Multivitamins/ Calcium (Thera-M Plus) 1 tab DAILY PO 08/09/20 09:00 08/15/20 08:14 Pantoprazole Sodium (Protonix) 40 mg DAILYAC PO 08/09/20 07:30 08/15/20 08:13 Acetaminophen (Tylenol) 650 mg PRN Q6HRS PRN PO MILD PAIN / TEMP > 100.3'F 08/08/20 23:15 UNV Magnesium Hydroxide (Milk Of Magnesia) 2,400 mg PRN QHS PRN PO CONSTIPATION 08/08/20 23:15 UNV Iohexol (Omnipaque 350 Mg/ml) 100 ml 1X ONCE IV 08/09/20 15:15 08/09/20 15:16 DC 08/09/20 15:15 Enoxaparin Sodium (Lovenox 40mg Syringe) 40 mg Q24H SQ 08/09/20 21:00 08/14/20 19:41 Oxycodone HCl (Roxicodone) 5 mg PRN Q6HRS PRN PO PAIN 08/11/20 14:30 08/14/20 08:48 I have reviewed the current psychotropics carefully including drug interactions. Risk benefit ratio favors no change other than as noted in my dictated progress note. Diagnosis: Problems: (1) Impulse control disorder, unspecified (2) Anxiety disorder, unspecified (3) Dementia, vascular, with depression (4) Dementia, vascular, with delusions (5) Dementia in Alzheimer's disease with depression (6) Dementia in Alzheimer's disease with delusions (7) Dementia of the Alzheimer's type with early onset with behavioral disturbance (8) Major neurocognitive disorder KATHY BARNHART MD Aug 15, 2020 08:47
[2020-08-15] MEDS: QUEtiapine 25 MG TABLET. PO SCH ×2 (12:08→20:18)
--- NOTE | 2020-08-15 16:07 | TX PLAN ---
Interdisciplinary Tx Plan Admission Information Aug 08, 2020 at 17:30 Legal Status (on Admission): Voluntary DPOA/Guardian Name: Emre Carroll Contact Other Contact Name: Camryn Boone Other Contact Verified Code Status: Full Code Allergies: Coded Allergies: adhesive (Verified Allergy, Unknown, 07/27/20) amlodipine (Verified Allergy, Unknown, Swelling, 07/27/20) clindamycin (Verified Allergy, Unknown, Rash, 07/27/20) Diagnoses Primary Diagnosis: Major Neurocognitive D/O, Alzheimers with delusions, depression and BD. Problem in Patient's Words: Decline in cognition Additional Admission Comments: According to the intake, pt was readmitted to [facility] from receiving an amputation on the right foot. Pt continues to be confused, agitated, pulled out her IV, verbally and physically aggressive. Problems Active Problems: agitated anxious restless Inactive Problems: Medication compliant Pt Strengths/Limitations Ability for [place]: Poor Cognitive Functioning/Ability: Fair Communication Skills/Ability: Fair Financial Resources: Good Insight/Judgement: Poor Intellectual Ability: Fair Physical Health: Poor Social Skills: Fair Stability in Family: Good Stability in School/Work: Poor Verbal Skills: Fair Discharge Criteria Discharge Criteria: No need for close observ., Adequate arrangements @DC, Improved behavior, Improved mood/thought Preliminary Discharge Plan Preliminary DC Plan: Current Living Arrange. Special Precautions Fall Risk: Moderate Initial D/C Plan Pt to return to [facility] once stable. Identified Discharge Needs: Continued psychiatric services Currently Utilized Resources Currently Utilized Resources/P: Primary Care Physician Identified Problems/Hx/Goals Objectives/Short-Term Goals Short Term Goals: Dec. Aggression, Dec. Outbursts, Medication Stabilization, Promote Coping Skill Short Term Goals in Patient's: NA Interventions/Frequency Staff Interventions/Frequency&: Psychiatrist to assess pt at least 3x per week for medication managment. Social Work to assess pt at least 2x per week to identify barriers to care and finalize discharge plans with family/facility. Nursing to assess medication effects, behavior modification and complete 15 minute checks daily. Encourage participation in group activities (if applicable) or 1:1 engagement based off Activity Dept goals. 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 She retired in 2009 due to complications with breast cancer. Education: Pt graduated HS (12th grade). Pt has her Bachelors in Psychology and received her Masters in Psychology; pt attended and initially started on her degree in School Counseling/Psychology. Community Follow-up Primary Care Physician Follow-up for psychiatry services Treatment Plan Explained Patient/Director Of Property Management had this treatment plan explained to him/her as indicated by the signature below and has been given the opportunity to ask questions and make suggestions: Date: Patient/Director Of Property Management Signature: Patient/Director Of Property Management Decline: No ( is active in pt care.) LUPE IGNACIO Aug 15, 2020 16:07
--- NOTE | 2020-08-15 16:08 | NUR ---
Wound Care Wound care follow up for post op assessment of distal amputation of L 2nd toe and right great toes. Sutures intact and skin approximated, dry bloody drainage cleansed with chloroprep. No redness noted on left foot, right great toe and metatarsals remain red and swollen. Recommend incisions be cleansed daily with chloroprep or betadine and covered with xeroform and gauze. Discussed care of incisions with RN who will ensure pt gets follow up with surgeon and ID. WC will follow up next week to monitor incision sites
[2020-08-15 16:16] VITALS: BP 124/74
[2020-08-15] MEDS: MIRTAZAPINE 7.5 MG TABLET. PO SCH (20:16)
[2020-08-15] MEDS: MONTELUKAST 10 MG TABLET. PO SCH (20:16)
[2020-08-15] MEDS: ENOXAPARIN 40 MG/0.4 ML SYRINGE. SQ SCH (20:16)
[2020-08-15] MEDS: ATORVASTATIN CALCIUM 10 MG TABLET. PO SCH (20:17)
--- NOTE | 2020-08-15 21:40 | PDOC ---
Exam Note: Roni Note: Please also refer to the separate dictated note~for this date of service dictated separately.~Patient seen individually. Discussed the patient with Nursing staff reviewed the chart.~Reviewed interim history and current functioning. Reviewed vital signs,~Labs/ Radiology~and current medications noted below. Continue current treatment with the changes noted in the dictated addendum note Assessment: Vital Signs/I&O: Vital Signs Date Time Temp Pulse Resp B/P (MAP) Pulse Ox O2 Delivery O2 Flow Rate FiO2 08/15/20 17:23 61 124/74 08/15/20 16:16 97.9 18 99 08/15/20 05:52 Room Air I & O 08/14/20 08/14/20 08/15/20 14:59 22:59 06:59 Intake Total 600 ml 480 ml 120 ml Output Total 850 ml 2200 ml Balance 600 ml -370 ml -2080 ml Current Medications: Meds: Current Medications Medications (Trade) Dose Ordered Sig/Pino Route PRN Reason Start Time Stop Time Status Last Admin Dose Admin Acetaminophen (Tylenol) 1,000 mg PRN Q6HRS PRN PO MILD PAIN 1-3 08/08/20 23:00 08/11/20 11:07 Atorvastatin Calcium (Lipitor) 10 mg QHS PO 08/09/20 00:00 08/15/20 20:17 Carvedilol (Coreg) 6.25 mg BIDWMEALS PO 08/09/20 08:00 08/15/20 17:23 Cefdinir (Omnicef) 300 mg BID PO 08/09/20 09:00 08/09/20 05:54 DC Cetirizine HCl (ZyrTEC) 10 mg DAILY PO 08/09/20 09:00 08/15/20 08:13 Cyclosporine (Restasis) 1 drop BID OU 08/09/20 00:00 08/15/20 20:17 Levothyroxine Sodium (Synthroid) 125 mcg DAILY06 PO 08/09/20 06:00 08/15/20 06:17 Al Hydroxide/Mg Hydroxide (Mylanta Plus Xs) 15 ml PRN AFTMEALHC PRN PO DYSPEPSIA 08/08/20 23:00 Memantine (Namenda) 10 mg BID PO 08/09/20 00:00 08/15/20 20:17 Multi-Ingredient Ointment (Analgesic [place]) 1 cole PRN QID PRN TP MUSCLE PAIN 08/08/20 23:00 Mirtazapine (Remeron) 7.5 mg QHS PO 08/09/20 00:00 08/15/20 20:16 Montelukast Sodium (Singulair) 10 mg HS PO 08/09/20 00:00 08/15/20 20:16 Olanzapine (ZyPREXA ZYDIS) 2.5 mg PRN Q2HRS PRN PO PSYCHOSIS 08/08/20 23:00 08/14/20 19:40 Ondansetron HCl (Zofran Odt) 4 mg PRN Q6HRS PRN PO nausea/vomiting 08/08/20 23:00 08/12/20 05:13 Quetiapine Fumarate (SEROquel) 12.5 mg NOON PO 08/09/20 12:00 08/15/20 12:08 Quetiapine Fumarate (SEROquel) 12.5 mg QHS PO 08/09/20 00:00 08/15/20 20:18 Trimethoprim/ Sulfamethoxazole (Bactrim Ds) 1 tab BID PO 08/09/20 09:00 08/15/20 20:17 Clobetasol Propionate 1 cole PRN DAILY PRN TP dermatitis 08/08/20 23:30 Diltiazem HCl (Cardizem 24hr Cd) 240 mg DAILY PO 08/09/20 09:00 08/15/20 08:13 Doxycycline Hyclate (Vibra-Tab) 100 mg BID PO 08/09/20 09:00 08/15/20 20:16 Fluvoxamine Maleate (Luvox) 50 mg QHS PO 08/09/20 00:00 08/15/20 20:16 Lactobacillus Rhamnosus (Culturelle) 1 cap BID PO 08/09/20 09:00 08/15/20 20:16 Losartan Potassium (Cozaar) 100 mg DAILY PO 08/09/20 09:00 08/15/20 08:13 Magnesium Hydroxide (Milk Of Magnesia) 2,400 mg PRN QHS PRN PO CONSTIPATION 08/08/20 23:30 08/10/20 21:58 Multivitamins/ Calcium (Thera-M Plus) 1 tab DAILY PO 08/09/20 09:00 08/15/20 08:14 Pantoprazole Sodium (Protonix) 40 mg DAILYAC PO 08/09/20 07:30 08/15/20 08:13 Acetaminophen (Tylenol) 650 mg PRN Q6HRS PRN PO MILD PAIN / TEMP > 100.3'F 08/08/20 23:15 UNV Magnesium Hydroxide (Milk Of Magnesia) 2,400 mg PRN QHS PRN PO CONSTIPATION 08/08/20 23:15 UNV Iohexol (Omnipaque 350 Mg/ml) 100 ml 1X ONCE IV 08/09/20 15:15 08/09/20 15:16 DC 08/09/20 15:15 Enoxaparin Sodium (Lovenox 40mg Syringe) 40 mg Q24H SQ 08/09/20 21:00 08/15/20 20:16 Oxycodone HCl (Roxicodone) 5 mg PRN Q6HRS PRN PO MOD-SEVERE PAIN 08/11/20 14:30 08/14/20 08:48 I have reviewed the current psychotropics carefully including drug interactions. Risk benefit ratio favors no change other than as noted in my dictated progress note. Diagnosis: Problems: (1) Impulse control disorder, unspecified (2) Anxiety disorder, unspecified (3) Dementia, vascular, with depression (4) Dementia, vascular, with delusions (5) Dementia in Alzheimer's disease with depression (6) Dementia in Alzheimer's disease with delusions (7) Dementia of the Alzheimer's type with early onset with behavioral disturbance (8) Major neurocognitive disorder KATHY BARNHART MD Aug 15, 2020 21:40
[2020-08-16] MEDS: MAGNESIUM HYDROXIDE 2,400 MG/30 ML ORAL.SUSP. PO PRN (00:25)
--- NOTE | 2020-08-16 03:40 | NUR ---
Nursing Note The patient was disorganized with her assessment but pleasant during interactions with peers and staff. The patient was able to answer name and that she is in the hospital. The patient was able to take her medications whole. No bowel movement has been noted since 08/10/20. The patients abdomen is slightly enlarged, bowel sounds are active x4 and the patient denies any discomfort when palpating abdomen. Patient given PRN MOM @HS. The patient is currently sleeping in her room.
[2020-08-16 05:53] VITALS: BP 145/79
[2020-08-16] MEDS: LEVOTHYROXINE 125 MCG TABLET PO SCH (06:04)
--- NOTE | 2020-08-16 06:26 | PDOC ---
Exam Note: Roni Note: This note is a late entry for 08/15/2020 covers elements not covered in my initial note. Subjective: The patient was seen individually in the evening of 08/15/2020 with Varghese SCHAFER, discussed and reviewed the chart. She slept 7-1/2 hours previous night. Overall the patient is doing well. She has been wandering, confused, complains of pain in her toe area. Review of Systems: Impaired ambulation. No CV, , pulmonary, eye, ENT system symptoms on review. Reliability poor. Mental Status Exam: The patient is alert and oriented to herself and situation. Speech has some latency, coherent. Abstraction fair. Computation impaired Attention span short. Mood and affect labile. No suicidal or homicidal ideation. Laboratory Data: Reviewed. Impression: Major neurocognitive disorder Alzheimer vascular with delusion, depression, and behavioral disturbance. Anxiety disorder unspecified. Impulse control disorder unspecified. Plan: Continue current psychotropics unchanged. Assessment: Vital Signs/I&O: Vital Signs Date Time Temp Pulse Resp B/P (MAP) Pulse Ox O2 Delivery O2 Flow Rate FiO2 08/16/20 05:53 96.8 58 16 145/79 (101) 96 Room Air I & O 08/15/20 08/15/20 08/16/20 15:00 23:00 07:00 Intake Total 320 ml 120 ml Output Total 950 ml Balance 320 ml 120 ml -950 ml Current Medications: Meds: Current Medications Medications (Trade) Dose Ordered Sig/Pino Route PRN Reason Start Time Stop Time Status Last Admin Dose Admin Acetaminophen (Tylenol) 1,000 mg PRN Q6HRS PRN PO MILD PAIN 1-3 08/08/20 23:00 08/11/20 11:07 Atorvastatin Calcium (Lipitor) 10 mg QHS PO 08/09/20 00:00 08/15/20 20:17 Carvedilol (Coreg) 6.25 mg BIDWMEALS PO 08/09/20 08:00 08/15/20 17:23 Cefdinir (Omnicef) 300 mg BID PO 08/09/20 09:00 08/09/20 05:54 DC Cetirizine HCl (ZyrTEC) 10 mg DAILY PO 08/09/20 09:00 08/15/20 08:13 Cyclosporine (Restasis) 1 drop BID OU 08/09/20 00:00 08/15/20 20:17 Levothyroxine Sodium (Synthroid) 125 mcg DAILY06 PO 08/09/20 06:00 08/16/20 06:04 Al Hydroxide/Mg Hydroxide (Mylanta Plus Xs) 15 ml PRN AFTMEALHC PRN PO DYSPEPSIA 08/08/20 23:00 Memantine (Namenda) 10 mg BID PO 08/09/20 00:00 08/15/20 20:17 Multi-Ingredient Ointment (Analgesic [place]) 1 cole PRN QID PRN TP MUSCLE PAIN 08/08/20 23:00 Mirtazapine (Remeron) 7.5 mg QHS PO 08/09/20 00:00 08/15/20 20:16 Montelukast Sodium (Singulair) 10 mg HS PO 08/09/20 00:00 08/15/20 20:16 Olanzapine (ZyPREXA ZYDIS) 2.5 mg PRN Q2HRS PRN PO PSYCHOSIS 08/08/20 23:00 08/14/20 19:40 Ondansetron HCl (Zofran Odt) 4 mg PRN Q6HRS PRN PO nausea/vomiting 08/08/20 23:00 08/12/20 05:13 Quetiapine Fumarate (SEROquel) 12.5 mg NOON PO 08/09/20 12:00 08/15/20 12:08 Quetiapine Fumarate (SEROquel) 12.5 mg QHS PO 08/09/20 00:00 08/15/20 20:18 Trimethoprim/ Sulfamethoxazole (Bactrim Ds) 1 tab BID PO 08/09/20 09:00 08/15/20 20:17 Clobetasol Propionate 1 cole PRN DAILY PRN TP dermatitis 08/08/20 23:30 Diltiazem HCl (Cardizem 24hr Cd) 240 mg DAILY PO 08/09/20 09:00 08/15/20 08:13 Doxycycline Hyclate (Vibra-Tab) 100 mg BID PO 08/09/20 09:00 08/15/20 20:16 Fluvoxamine Maleate (Luvox) 50 mg QHS PO 08/09/20 00:00 08/15/20 20:16 Lactobacillus Rhamnosus (Culturelle) 1 cap BID PO 08/09/20 09:00 08/15/20 20:16 Losartan Potassium (Cozaar) 100 mg DAILY PO 08/09/20 09:00 08/15/20 08:13 Magnesium Hydroxide (Milk Of Magnesia) 2,400 mg PRN QHS PRN PO CONSTIPATION 08/08/20 23:30 08/16/20 00:25 Multivitamins/ Calcium (Thera-M Plus) 1 tab DAILY PO 08/09/20 09:00 08/15/20 08:14 Pantoprazole Sodium (Protonix) 40 mg DAILYAC PO 08/09/20 07:30 08/15/20 08:13 Acetaminophen (Tylenol) 650 mg PRN Q6HRS PRN PO MILD PAIN / TEMP > 100.3'F 08/08/20 23:15 UNV Magnesium Hydroxide (Milk Of Magnesia) 2,400 mg PRN QHS PRN PO CONSTIPATION 08/08/20 23:15 UNV Iohexol (Omnipaque 350 Mg/ml) 100 ml 1X ONCE IV 08/09/20 15:15 08/09/20 15:16 DC 08/09/20 15:15 Enoxaparin Sodium (Lovenox 40mg Syringe) 40 mg Q24H SQ 08/09/20 21:00 08/15/20 20:16 Oxycodone HCl (Roxicodone) 5 mg PRN Q6HRS PRN PO MOD-SEVERE PAIN 08/11/20 14:30 08/14/20 08:48 I have reviewed the current psychotropics carefully including drug interactions. Risk benefit ratio favors no change other than as noted in my dictated progress note. Diagnosis: Problems: (1) Impulse control disorder, unspecified (2) Anxiety disorder, unspecified (3) Dementia, vascular, with depression (4) Dementia, vascular, with delusions (5) Dementia in Alzheimer's disease with depression (6) Dementia in Alzheimer's disease with delusions (7) Dementia of the Alzheimer's type with early onset with behavioral disturbance (8) Major neurocognitive disorder KATHY BARNHART MD Aug 16, 2020 06:26
[2020-08-16] MEDS: PANTOPRAZOLE 40 MG TABLET. PO SCH (08:22)
[2020-08-16] MEDS: DOXYCYCLINE HYCLATE 100 MG TABLET PO SCH ×2 (08:22→20:03)
[2020-08-16] MEDS: CETIRIZINE HCL 10 MG TABLET PO SCH (08:22)
[2020-08-16] MEDS: CARVEDILOL 6.25 MG TABLET PO SCH ×2 (08:23→17:29)
[2020-08-16] MEDS: SMZ/TMP 800/160MG TABLET. PO SCH ×2 (08:23→20:04)
[2020-08-16] MEDS: MEMANTINE 10 MG TABLET. PO SCH ×2 (08:23→20:04)
[2020-08-16] MEDS: LACTOBACILLUS RHAMNOSUS GG 1 CAPSULE. PO SCH ×2 (08:23→20:03)
[2020-08-16] MEDS: MULTIVITAMIN with MINERAL TABLET. PO SCH (08:24)
[2020-08-16] MEDS: LOSARTAN 50 MG TABLET. PO SCH (08:24)
[2020-08-16] MEDS: cycloSPORINE 0.05% OPTH 1 DROP DROPERETTE OU SCH ×2 (08:24→20:15)
[2020-08-16] MEDS ORDERED: MAGNESIUM CITRATE 296 ML SOLUTION. PO PRN (09:00)
--- NOTE | 2020-08-16 10:52 | NUR ---
Patient up in day room, unsure of what he should be doing , patient repeat questions for reassurance. [place] has daily dressing changes to right great toe and let third toe fro amputation, , right and left wrist for skin tear.appetite adequate. Compliant with taking medication whole. Patient is redirected at time it takes the patient a few minutes to understand.
[2020-08-16] MEDS: POLYETHYLENE GLYCOL 3350 17 GM PACKET. PO SCH (12:13)
[2020-08-16] MEDS: QUEtiapine 25 MG TABLET. PO SCH ×2 (12:13→20:04)
--- NOTE | 2020-08-16 12:28 | NUR ---
WEEKLY ACTIVITY THERAPY NOTE Date of Admission: 08/07/20 Date of AT Assessment: 08/09 Precipitating behaviors that initiated intake and admission: Patient admitted from home via [place] [facility] for reportedly being paranoid, accusing of sleeping with daughter, eloping from home, stating family members holding her hostage, refusing to eat or bathe, picked up a hammer and made a tool out of wire to defend herself, and accusing family of lying to hospital staff. Goal aimed: increase stress management and relaxation skills Initial Goal: Pt will participate in at least five individual or group Activity Therapy session per week. Weekly progress towards goal: did not achieve, 4/5 Group participation level: 2 min, 1 mod, 1 full Weekly highlights: patio time and danced in group Thursday, milkshake Thursday afternoon Behaviors observed: pleasant, consoled a peer Plan: no change to goal Beneficial adaptations: music
--- NOTE | 2020-08-16 12:52 | NUR ---
Treatment team note: Pt is eating roughly 50% of meals and sleeping on average 7 hours per night. Pt is very anxious and restless; often asking for what steps and needing direction on where she should be. Pt does get irritated with her medical cares (e.g. lainez, dressing changes on her toe) but does allow staff/wound care to address them. Pt is medication compliant whole; pt has attended a few groups with week, needing prompting to participate and appears to have decreased interactions with peers. Pt is ambulating with the RW around the unit and is doing well. SW will send continued therapy orders upon discharge to pt facility. SW will follow up with her and with the facility on discharge plans for the middle of next week.
--- NOTE | 2020-08-16 12:56 | TX PLAN ---
Interdisciplinary Tx Plan Admission Information Aug 08, 2020 at 17:30 Legal Status (on Admission): Voluntary DPOA/Guardian Name: Emre Carroll Contact Other Contact Name: Camryn Boone Other Contact Verified Code Status: Full Code Allergies: Coded Allergies: adhesive (Verified Allergy, Unknown, 07/27/20) amlodipine (Verified Allergy, Unknown, Swelling, 07/27/20) clindamycin (Verified Allergy, Unknown, Rash, 07/27/20) Diagnoses Primary Diagnosis: Major Neurocognitive D/O, Alzheimers with delusions, depression and BD. Problem in Patient's Words: Decline in cognition Additional Admission Comments: According to the intake, pt was readmitted to [facility] from receiving an amputation on the right foot. Pt continues to be confused, agitated, pulled out her IV, verbally and physically aggressive. Problems Active Problems: agitated anxious restless Inactive Problems: Medication compliant Pt Strengths/Limitations Ability for [place]: Poor Cognitive Functioning/Ability: Fair Communication Skills/Ability: Fair Financial Resources: Good Insight/Judgement: Poor Intellectual Ability: Fair Physical Health: Poor Social Skills: Fair Stability in Family: Good Stability in School/Work: Poor Verbal Skills: Fair Discharge Criteria Discharge Criteria: No need for close observ., Adequate arrangements @DC, Improved behavior, Improved mood/thought Preliminary Discharge Plan Preliminary DC Plan: Current Living Arrange. Special Precautions Fall Risk: Moderate Initial D/C Plan Pt to return to [facility] once stable. Identified Discharge Needs: Continued psychiatric services Currently Utilized Resources Currently Utilized Resources/P: Primary Care Physician Identified Problems/Hx/Goals Objectives/Short-Term Goals Short Term Goals: Dec. Aggression, Dec. Outbursts, Medication Stabilization, Promote Coping Skill Short Term Goals in Patient's: NA Interventions/Frequency Staff Interventions/Frequency&: Psychiatrist to assess pt at least 3x per week for medication managment. Social Work to assess pt at least 2x per week to identify barriers to care and finalize discharge plans with family/facility. Nursing to assess medication effects, behavior modification and complete 15 minute checks daily. Encourage participation in group activities (if applicable) or 1:1 engagement based off Activity Dept goals. 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 She retired in 2009 due to complications with breast cancer. Education: Pt graduated HS (12th grade). Pt has her Bachelors in Psychology and received her Masters in Psychology; pt attended and initially started on her degree in School Counseling/Psychology. 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 Pt is very anxious and restless; often asking for what steps and needing direction on where she should be. Pt does get irritated with her medical cares (e.g. lainez, dressing changes on her toe) but does allow staff/wound care to address them. Pt is medication compliant whole; pt has attended a few groups with week, needing prompting to participate and appears to have decreased interactions with peers. Pt is ambulating with the RW around the unit and is doing well. SW will send continued therapy orders upon discharge to pt facility. SW will follow up with her and with the facility on discharge plans for the middle of next week. LUPE IGNACIO Aug 16, 2020 12:56
[2020-08-16 16:03] VITALS: BP 124/76
[2020-08-16] MEDS: MIRTAZAPINE 7.5 MG TABLET. PO SCH (20:03)
[2020-08-16] MEDS: ATORVASTATIN CALCIUM 10 MG TABLET. PO SCH (20:03)
[2020-08-16] MEDS: MONTELUKAST 10 MG TABLET. PO SCH (20:03)
[2020-08-16] MEDS: ENOXAPARIN 40 MG/0.4 ML SYRINGE. SQ SCH (20:16)
--- NOTE | 2020-08-16 22:13 | PDOC ---
Exam Note: Roni Note: Please also refer to the separate dictated note~for this date of service dictated separately.~Patient seen individually. Discussed the patient with Nursing staff reviewed the chart.~Reviewed interim history and current functioning. Reviewed vital signs,~Labs/ Radiology~and current medications noted below. Continue current treatment with the changes noted in the dictated addendum note Assessment: Vital Signs/I&O: Vital Signs Date Time Temp Pulse Resp B/P (MAP) Pulse Ox O2 Delivery O2 Flow Rate FiO2 08/16/20 17:29 52 124/76 08/16/20 16:03 97.4 16 99 08/16/20 05:53 Room Air I & O 08/15/20 08/15/20 08/16/20 15:00 23:00 07:00 Intake Total 320 ml 120 ml Output Total 950 ml Balance 320 ml 120 ml -950 ml Current Medications: Meds: Current Medications Medications (Trade) Dose Ordered Sig/Pino Route PRN Reason Start Time Stop Time Status Last Admin Dose Admin Acetaminophen (Tylenol) 1,000 mg PRN Q6HRS PRN PO MILD PAIN 1-3 08/08/20 23:00 08/11/20 11:07 Atorvastatin Calcium (Lipitor) 10 mg QHS PO 08/09/20 00:00 08/16/20 20:03 Carvedilol (Coreg) 6.25 mg BIDWMEALS PO 08/09/20 08:00 08/16/20 17:29 Cefdinir (Omnicef) 300 mg BID PO 08/09/20 09:00 08/09/20 05:54 DC Cetirizine HCl (ZyrTEC) 10 mg DAILY PO 08/09/20 09:00 08/16/20 08:22 Cyclosporine (Restasis) 1 drop BID OU 08/09/20 00:00 08/16/20 20:15 Levothyroxine Sodium (Synthroid) 125 mcg DAILY06 PO 08/09/20 06:00 08/16/20 06:04 Al Hydroxide/Mg Hydroxide (Mylanta Plus Xs) 15 ml PRN AFTMEALHC PRN PO DYSPEPSIA 08/08/20 23:00 Memantine (Namenda) 10 mg BID PO 08/09/20 00:00 08/16/20 20:04 Multi-Ingredient Ointment (Analgesic [place]) 1 cole PRN QID PRN TP MUSCLE PAIN 08/08/20 23:00 Mirtazapine (Remeron) 7.5 mg QHS PO 08/09/20 00:00 08/16/20 20:03 Montelukast Sodium (Singulair) 10 mg HS PO 08/09/20 00:00 08/16/20 20:03 Olanzapine (ZyPREXA ZYDIS) 2.5 mg PRN Q2HRS PRN PO PSYCHOSIS 08/08/20 23:00 08/14/20 19:40 Ondansetron HCl (Zofran Odt) 4 mg PRN Q6HRS PRN PO nausea/vomiting 08/08/20 23:00 08/12/20 05:13 Quetiapine Fumarate (SEROquel) 12.5 mg NOON PO 08/09/20 12:00 08/16/20 12:13 Quetiapine Fumarate (SEROquel) 12.5 mg QHS PO 08/09/20 00:00 08/16/20 20:04 Trimethoprim/ Sulfamethoxazole (Bactrim Ds) 1 tab BID PO 08/09/20 09:00 08/16/20 20:04 Clobetasol Propionate 1 cole PRN DAILY PRN TP dermatitis 08/08/20 23:30 Diltiazem HCl (Cardizem 24hr Cd) 240 mg DAILY PO 08/09/20 09:00 08/16/20 08:23 Doxycycline Hyclate (Vibra-Tab) 100 mg BID PO 08/09/20 09:00 08/16/20 20:03 Fluvoxamine Maleate (Luvox) 50 mg QHS PO 08/09/20 00:00 08/16/20 20:03 Lactobacillus Rhamnosus (Culturelle) 1 cap BID PO 08/09/20 09:00 08/16/20 20:03 Losartan Potassium (Cozaar) 100 mg DAILY PO 08/09/20 09:00 08/16/20 08:24 Magnesium Hydroxide (Milk Of Magnesia) 2,400 mg PRN QHS PRN PO CONSTIPATION 08/08/20 23:30 08/16/20 00:25 Multivitamins/ Calcium (Thera-M Plus) 1 tab DAILY PO 08/09/20 09:00 08/16/20 08:24 Pantoprazole Sodium (Protonix) 40 mg DAILYAC PO 08/09/20 07:30 08/16/20 08:22 Acetaminophen (Tylenol) 650 mg PRN Q6HRS PRN PO MILD PAIN / TEMP > 100.3'F 08/08/20 23:15 UNV Magnesium Hydroxide (Milk Of Magnesia) 2,400 mg PRN QHS PRN PO CONSTIPATION 08/08/20 23:15 UNV Iohexol (Omnipaque 350 Mg/ml) 100 ml 1X ONCE IV 08/09/20 15:15 08/09/20 15:16 DC 08/09/20 15:15 Enoxaparin Sodium (Lovenox 40mg Syringe) 40 mg Q24H SQ 08/09/20 21:00 08/16/20 20:16 Oxycodone HCl (Roxicodone) 5 mg PRN Q6HRS PRN PO MOD-SEVERE PAIN 08/11/20 14:30 08/14/20 08:48 Magnesium Citrate (Citroma) 296 ml PRN 1X PRN PO CONSTIPATION 08/16/20 09:00 Polyethylene Glycol (miraLAX) 17 gm DAILY PO 08/16/20 09:00 08/16/20 12:13 Current Medications Medications (Trade) Dose Ordered Sig/Pino Route PRN Reason Start Time Stop Time Status Last Admin Dose Admin Polyethylene Glycol (miraLAX) 17 gm DAILY PO 08/16/20 09:00 08/16/20 12:13 I have reviewed the current psychotropics carefully including drug interactions. Risk benefit ratio favors no change other than as noted in my dictated progress note. Diagnosis: Problems: (1) Impulse control disorder, unspecified (2) Anxiety disorder, unspecified (3) Dementia, vascular, with depression (4) Dementia, vascular, with delusions (5) Dementia in Alzheimer's disease with depression (6) Dementia in Alzheimer's disease with delusions (7) Dementia of the Alzheimer's type with early onset with behavioral disturbance (8) Major neurocognitive disorder KATHY BARNHART MD Aug 16, 2020 22:13
--- NOTE | 2020-08-16 23:14 | NUR ---
Suspicious of others this evening at times, however generally calm and cooperative; cooperative with staff, takes all medications without difficulty; denies any pain to both feet, dressings CDI, pedal pulses present; does not remember surgery earlier this week to amputate 2.5 toes; spent most of evening in dayroom watching movie, retires to bed by 2129; sleeping soundly at present time, will continue to monitor.
[2020-08-17] MEDS: LEVOTHYROXINE 125 MCG TABLET PO SCH (04:59)
[2020-08-17 06:14] VITALS: BP 145/69
--- NOTE | 2020-08-17 06:54 | PDOC ---
Exam Note: Roni Note: This note is a late entry for 08/16/2020 covers elements not covered in my initial note. Subjective: The patient was seen individually in the morning of 08/16/2020 for a treatment team meeting with Jayshree Ramachandran, Kassi Bradley (social media developer), Pallavi, activity therapy and Vivian SCHAFER, discussed and reviewed the chart. She slept 7 hours previous night. The patient has complained of some constipation and has a Rascon in place, at times a little resistive to cares but seemed to be medically stable, not having to return back to [facility] status post amputation of her toe. Review of Systems: Impaired ambulation. No CV, , pulmonary, eye, ENT system symptoms on review. Reliability poor. Mental Status Exam: The patient is alert and oriented to herself and situation. The patient is repeatedly asking if her family knew where she was and I reassured her that they are . She was back at me about 20 mins later into the rounds asking the same question, having forgotten our previous discussion. Speech has some latency, coherent. Abstraction fair. Computation impaired Attention span short. Mood and affect labile. No suicidal or homicidal ideation. Laboratory Data: Reviewed. Impression: Major neurocognitive disorder Alzheimer vascular with delusion, depression, and behavioral disturbance. Anxiety disorder unspecified. Impulse control disorder unspecified. Plan: Continue current psychotropics unchanged. Assessment: Vital Signs/I&O: Vital Signs Date Time Temp Pulse Resp B/P (MAP) Pulse Ox O2 Delivery O2 Flow Rate FiO2 08/17/20 06:14 97.5 62 14 145/69 (94) 97 08/16/20 05:53 Room Air I & O 08/16/20 08/16/20 08/17/20 15:00 23:00 07:00 Intake Total 720 ml 480 ml Output Total 650 ml 1800 ml Balance 720 ml -170 ml -1800 ml Current Medications: Meds: Current Medications Medications (Trade) Dose Ordered Sig/Pino Route PRN Reason Start Time Stop Time Status Last Admin Dose Admin Acetaminophen (Tylenol) 1,000 mg PRN Q6HRS PRN PO MILD PAIN 1-3 08/08/20 23:00 08/11/20 11:07 Atorvastatin Calcium (Lipitor) 10 mg QHS PO 08/09/20 00:00 08/16/20 20:03 Carvedilol (Coreg) 6.25 mg BIDWMEALS PO 08/09/20 08:00 08/16/20 17:29 Cefdinir (Omnicef) 300 mg BID PO 08/09/20 09:00 08/09/20 05:54 DC Cetirizine HCl (ZyrTEC) 10 mg DAILY PO 08/09/20 09:00 08/16/20 08:22 Cyclosporine (Restasis) 1 drop BID OU 08/09/20 00:00 08/16/20 20:15 Levothyroxine Sodium (Synthroid) 125 mcg DAILY06 PO 08/09/20 06:00 08/17/20 04:59 Al Hydroxide/Mg Hydroxide (Mylanta Plus Xs) 15 ml PRN AFTMEALHC PRN PO DYSPEPSIA 08/08/20 23:00 Memantine (Namenda) 10 mg BID PO 08/09/20 00:00 08/16/20 20:04 Multi-Ingredient Ointment (Analgesic Converse) 1 cole PRN QID PRN TP MUSCLE PAIN 08/08/20 23:00 Mirtazapine (Remeron) 7.5 mg QHS PO 08/09/20 00:00 08/16/20 20:03 Montelukast Sodium (Singulair) 10 mg HS PO 08/09/20 00:00 08/16/20 20:03 Olanzapine (ZyPREXA ZYDIS) 2.5 mg PRN Q2HRS PRN PO PSYCHOSIS 08/08/20 23:00 08/14/20 19:40 Ondansetron HCl (Zofran Odt) 4 mg PRN Q6HRS PRN PO nausea/vomiting 08/08/20 23:00 08/12/20 05:13 Quetiapine Fumarate (SEROquel) 12.5 mg NOON PO 08/09/20 12:00 08/16/20 12:13 Quetiapine Fumarate (SEROquel) 12.5 mg QHS PO 08/09/20 00:00 08/16/20 20:04 Trimethoprim/ Sulfamethoxazole (Bactrim Ds) 1 tab BID PO 08/09/20 09:00 08/16/20 20:04 Clobetasol Propionate 1 cole PRN DAILY PRN TP dermatitis 08/08/20 23:30 Diltiazem HCl (Cardizem 24hr Cd) 240 mg DAILY PO 08/09/20 09:00 08/16/20 08:23 Doxycycline Hyclate (Vibra-Tab) 100 mg BID PO 08/09/20 09:00 08/16/20 20:03 Fluvoxamine Maleate (Luvox) 50 mg QHS PO 08/09/20 00:00 08/16/20 20:03 Lactobacillus Rhamnosus (Culturelle) 1 cap BID PO 08/09/20 09:00 08/16/20 20:03 Losartan Potassium (Cozaar) 100 mg DAILY PO 08/09/20 09:00 08/16/20 08:24 Magnesium Hydroxide (Milk Of Magnesia) 2,400 mg PRN QHS PRN PO CONSTIPATION 08/08/20 23:30 08/16/20 00:25 Multivitamins/ Calcium (Thera-M Plus) 1 tab DAILY PO 08/09/20 09:00 08/16/20 08:24 Pantoprazole Sodium (Protonix) 40 mg DAILYAC PO 08/09/20 07:30 08/16/20 08:22 Acetaminophen (Tylenol) 650 mg PRN Q6HRS PRN PO MILD PAIN / TEMP > 100.3'F 08/08/20 23:15 UNV Magnesium Hydroxide (Milk Of Magnesia) 2,400 mg PRN QHS PRN PO CONSTIPATION 08/08/20 23:15 UNV Iohexol (Omnipaque 350 Mg/ml) 100 ml 1X ONCE IV 08/09/20 15:15 08/09/20 15:16 DC 08/09/20 15:15 Enoxaparin Sodium (Lovenox 40mg Syringe) 40 mg Q24H SQ 08/09/20 21:00 08/16/20 20:16 Oxycodone HCl (Roxicodone) 5 mg PRN Q6HRS PRN PO MOD-SEVERE PAIN 08/11/20 14:30 08/14/20 08:48 Magnesium Citrate (Citroma) 296 ml PRN 1X PRN PO CONSTIPATION 08/16/20 09:00 Polyethylene Glycol (miraLAX) 17 gm DAILY PO 08/16/20 09:00 08/16/20 12:13 Current Medications Medications (Trade) Dose Ordered Sig/Pino Route PRN Reason Start Time Stop Time Status Last Admin Dose Admin Polyethylene Glycol (miraLAX) 17 gm DAILY PO 08/16/20 09:00 08/16/20 12:13 I have reviewed the current psychotropics carefully including drug interactions. Risk benefit ratio favors no change other than as noted in my dictated progress note. Diagnosis: Problems: (1) Impulse control disorder, unspecified (2) Anxiety disorder, unspecified (3) Dementia, vascular, with depression (4) Dementia, vascular, with delusions (5) Dementia in Alzheimer's disease with depression (6) Dementia in Alzheimer's disease with delusions (7) Dementia of the Alzheimer's type with early onset with behavioral disturbance (8) Major neurocognitive disorder KATHY BARNHART MD Aug 17, 2020 06:54
[2020-08-17] MEDS: cycloSPORINE 0.05% OPTH 1 DROP DROPERETTE OU SCH ×2 (08:07→21:01)
[2020-08-17] MEDS: PANTOPRAZOLE 40 MG TABLET. PO SCH (08:07)
[2020-08-17] MEDS: MEMANTINE 10 MG TABLET. PO SCH ×2 (08:07→21:01)
[2020-08-17] MEDS: DOXYCYCLINE HYCLATE 100 MG TABLET PO SCH ×2 (08:08→21:01)
[2020-08-17] MEDS: LACTOBACILLUS RHAMNOSUS GG 1 CAPSULE. PO SCH ×2 (08:08→21:01)
[2020-08-17] MEDS: LOSARTAN 50 MG TABLET. PO SCH (08:08)
[2020-08-17] MEDS: CARVEDILOL 6.25 MG TABLET PO SCH ×2 (08:08→17:26)
[2020-08-17] MEDS: SMZ/TMP 800/160MG TABLET. PO SCH ×2 (08:08→21:00)
[2020-08-17] MEDS: MULTIVITAMIN with MINERAL TABLET. PO SCH (08:08)
[2020-08-17] MEDS: POLYETHYLENE GLYCOL 3350 17 GM PACKET. PO SCH (08:09)
[2020-08-17] MEDS: CETIRIZINE HCL 10 MG TABLET PO SCH (08:09)
[2020-08-17] MEDS: QUEtiapine 25 MG TABLET. PO SCH ×2 (13:41→21:01)
--- NOTE | 2020-08-17 14:10 | NUR ---
NSG NOTE; Maribel Burton is calm today, but confused with poor short term memory. she repeatedly asks what we are doing next, but forgets quickly after I tell her. She has been in the dayroom between meals, but hasn't socialized with other patients today
[2020-08-17 15:53] VITALS: BP 98/57
--- NOTE | 2020-08-17 16:05 | PDOC2 ---
CONSULT DOS: DATE: 08/17/20 TIME: 15:52 Reason for Consult: Osteomyelitis of the right great toe and left third toe. Status post amputation on 08/07. Referring Physician: Dr. Workman History of Present Illness Patient currently in care at [facility] Patient wa s diagnosed with osteomyelitis of her distal right great toe and distal left third toe per Dr. Power on 08/07/2020 at [facility]. Incision sites were closed with 6 sutures. Patient was evaluated by infectious disease, Dr. Cuellar, and placed on doxycycline and Bactrim p.o. Patient without underlying diabetes and no known history of difficulty with wound healing. Past Medical History Significant for hypothyroidism, history of head injury, bilateral lower extremity cellulitis, chronic constipation, hypertension, history of falls, acid reflux disease, hypokalemia, hyponatremia, type 2 diabetes mellitus, urinary retention. Past Surgical History Significant for amputation of right big toe and left third toe. Current Medications Current Medications Acetaminophen (Tylenol) 1,000 mg PRN Q6HRS PRN PO MILD PAIN 1-3 Last administered on 08/11/20at 11:07; Start 08/08/20 at 23:00 Atorvastatin Calcium (Lipitor) 10 mg QHS PO Last administered on 08/16/20at 20:03; Start 08/09/20 at 00:00 Carvedilol (Coreg) 6.25 mg BIDWMEALS PO Last administered on 08/17/20at 08:08; Start 08/09/20 at 08:00 Cefdinir (Omnicef) 300 mg BID PO ; Start 08/09/20 at 09:00; Stop 08/09/20 at 05:54; Status DC Cetirizine HCl (ZyrTEC) 10 mg DAILY PO Last administered on 08/17/20at 08:09; Start 08/09/20 at 09:00 Cyclosporine (Restasis) 1 drop BID OU Last administered on 08/17/20at 08:07; Start 08/09/20 at 00:00 Levothyroxine Sodium (Synthroid) 125 mcg DAILY06 PO Last administered on 08/17/20at 04:59; Start 08/09/20 at 06:00 Al Hydroxide/Mg Hydroxide (Mylanta Plus Xs) 15 ml PRN AFTMEALHC PRN PO DYSPEPSIA; Start 08/08/20 at 23:00 Memantine (Namenda) 10 mg BID PO Last administered on 08/17/20 08:07; Start 08/09/20 at 00:00 Multi-Ingredient Ointment (Analgesic Catlett) 1 shanique PRN QID PRN TP MUSCLE PAIN; Start 08/08/20 at 23:00 Mirtazapine (Remeron) 7.5 mg QHS PO Last administered on 08/16/20 20:03; Start 08/09/20 at 00:00 Montelukast Sodium (Singulair) 10 mg HS PO Last administered on 08/16/20 20:03; Start 08/09/20 at 00:00 Olanzapine (ZyPREXA ZYDIS) 2.5 mg PRN Q2HRS PRN PO PSYCHOSIS Last administered on 08/14/20 19:40; Start 08/08/20 at 23:00 Ondansetron HCl (Zofran Odt) 4 mg PRN Q6HRS PRN PO nausea/vomiting Last administered on 08/12/20 05:13; Start 08/08/20 at 23:00 Quetiapine Fumarate (SEROquel) 12.5 mg NOON PO Last administered on 08/17/20 13:41; Start 08/09/20 at 12:00 Quetiapine Fumarate (SEROquel) 12.5 mg QHS PO Last administered on 08/16/20 20:04; Start 08/09/20 at 00:00 Trimethoprim/ Sulfamethoxazole (Bactrim Ds) 1 tab BID PO Last administered on 08/17/20at 08:08; Start 08/09/20 at 09:00 Clobetasol Propionate 1 shanique PRN DAILY PRN TP dermatitis; Start 08/08/20 at 23:30 Diltiazem HCl (Cardizem 24hr Cd) 240 mg DAILY PO Last administered on 08/17/20 08:09; Start 08/09/20 at 09:00 Doxycycline Hyclate (Vibra-Tab) 100 mg BID PO Last administered on 08/17/20 08:08; Start 08/09/20 at 09:00 Fluvoxamine Maleate (Luvox) 50 mg QHS PO Last administered on 08/16/20 20:03; Start 08/09/20 at 00:00 Lactobacillus Rhamnosus (Culturelle) 1 cap BID PO Last administered on 08/17/20at 08:08; Start 08/09/20 at 09:00 Losartan Potassium (Cozaar) 100 mg DAILY PO Last administered on 08/17/20at 08:08; Start 08/09/20 at 09:00 Magnesium Hydroxide (Milk Of Magnesia) 2,400 mg PRN QHS PRN PO CONSTIPATION Last administered on 08/16/20at 00:25; Start 08/08/20 at 23:30 Multivitamins/ Calcium (Thera-M Plus) 1 tab DAILY PO Last administered on 08/17/20at 08:08; Start 08/09/20 at 09:00 Pantoprazole Sodium (Protonix) 40 mg DAILYAC PO Last administered on 08/17/20 08:07; Start 08/09/20 at 07:30 Acetaminophen (Tylenol) 650 mg PRN Q6HRS PRN PO MILD PAIN / TEMP > 100.3'F; Start 08/08/20 at 23:15; Status UNV Magnesium Hydroxide (Milk Of Magnesia) 2,400 mg PRN QHS PRN PO CONSTIPATION; Start 08/08/20 at 23:15; Status UNV Iohexol (Omnipaque 350 Mg/ml) 100 ml 1X ONCE IV Last administered on 08/09/20at 15:15; Start 08/09/20 at 15:15; Stop 08/09/20 at 15:16; Status DC Enoxaparin Sodium (Lovenox 40mg Syringe) 40 mg Q24H SQ Last administered on 08/16/20at 20:16; Start 08/09/20 at 21:00 Oxycodone HCl (Roxicodone) 5 mg PRN Q6HRS PRN PO MOD-SEVERE PAIN Last a dministered on 08/14/20at 08:48; Start 08/11/20 at 14:30 Magnesium Citrate (Citroma) 296 ml PRN 1X PRN PO CONSTIPATION; Start 08/16/20 at 09:00 Polyethylene Glycol (miraLAX) 17 gm DAILY PO Last administered on 08/17/20at 08:09; Start 08/16/20 at 09:00 Active Scripts Active Reported Cefdinir 300 Mg Capsule 300 Mg PO BID Ondansetron Odt (Ondansetron) 4 Mg Tab.rapdis 4 Mg PO PRN Q6HRS PRN Fluvoxamine Maleate 50 Mg Tablet 50 Mg PO QHS Bactrim Ds Tablet (Sulfamethoxazole/Trimethoprim) 1 Each Tablet 1 Each PO BID 7 Days Seroquel (Quetiapine Fumarate) 25 Mg Tablet 12.5 Mg PO NOON Seroquel (Quetiapine Fumarate) 25 Mg Tablet 12.5 Mg PO QHS Zyprexa Zydis (Olanzapine) 5 Mg Tab.rapdis 2.5 Mg PO PRN Q2HRS PRN max daily dose 10mg/24hrs Mirtazapine 7.5 Mg Tablet 7.5 Mg PO QHS Bengay Greaseless Cream (Methyl Salicylate/Menthol) 57 Gm Cream..g. 1 Shanique TP PRN QID PRN Milk Of Magnesia (Magnesium Hydroxide) 2,400 Mg/10 Ml Oral.susp 2,400 Mg PO PRN QHS PRN Maalox Maximum Strength Susp (Mag Hydrox/Al Hydrox/Simeth) 355 Ml Oral.susp 15 Ml PO PRN AFTMEALHC PRN Culturelle (Lactobacillus Rhamnosus Gg) 1 Each Capsule 1 Each PO BID Doxycycline Hyclate 100 Mg Capsule 100 Mg PO BID 7 Days Cetirizine Hcl 10 Mg Tablet 10 Mg PO DAILY Clobetasol Propionate 15 Gm Cream..g. 1 Shanique TP PRN DAILY PRN Acetaminophen 500 Mg Tablet 1,000 Mg PO PRN Q6HRS PRN Restasis (Cyclosporine) 1 Each Droperette 1 Drop EACHEYE BID Protonix (Pantoprazole Sodium) 20 Mg Tablet.dr 40 Mg PO DAILY Montelukast Sodium Tablet (Montelukast Sodium) 10 Mg Tablet 10 Mg PO HS Namenda (Memantine Hcl) 10 Mg Tablet 10 Mg PO BID Losartan Potassium 100 Mg Tablet 100 Mg PO DAILY Levothyroxine Sodium 125 Mcg Tablet 125 Mcg PO DAILY06 Diltiazem 24Hr ER (Diltiazem HCl) 240 Mg Tab.er.24h 240 Mg PO DAILY Certavite-Antioxidant Tablet (Multivitamin/Iron/Folic Acid) 1 Each Tablet 1 Each PO DAILY Coreg (Carvedilol) 6.25 Mg Tablet 6.25 Mg PO BIDWMEALS Atorvastatin Calcium 10 Mg Tablet 10 Mg PO QHS Allergies: Coded Allergies: adhesive (Verified Allergy, Unknown, 07/27/20) amlodipine (Verified Allergy, Unknown, Swelling, 07/27/20) clindamycin (Verified Allergy, Unknown, Rash, 07/27/20) Review of System May be inaccurate secondary to patient's underlying mental illness and dementia. Patient denies painful symptoms at this time. Patient does complain of tingling of feet. Patient denies cough or shortness of breath. Patient states that she has been eating and drinking well without nausea, vomiting or diarrhea. Patient states that she is scared to sleep in room by herself and is afraid of being left alone. Physical Exam Patient awake and alert 75-year-old female who appears very anxious in conversation. Vital signs are stable. Patient is afebrile. Patient evaluated in wheelchair while sitting in residents room. Respirations are even and unlabored. Patient is on room air not requiring supplemental oxygen. Abdomen is soft, nontender and nondistended. Skin is warm, dry and pink. The left distal third toe is amputated, and closed with sutures. There is mild surrounding edema, however no erythema present. No discharge noted on previous dressing. The right distal great toe is surgically amputated. Incision is closed with edges well approximated by sutures. Mild erythema is present which is improved over the last several days. This erythema does extend to the dorsal aspect of the foot. There is 2+ pitting edema which extends to the lower extremity. No active drainage noted on previous dressing. Pedal pulses are not palpable, found by Doppler. VITALS Vital Signs Date Time Temp Pulse Resp B/P (MAP) Pulse Ox O2 Delivery O2 Flow Rate FiO2 08/17/20 08:09 62 145/69 08/17/20 06:14 97.5 14 97 08/16/20 05:53 Room Air Assessment/Plan Osteomyelitis of the right great toe and left third toe, surgically amputated on 08/07 -Followed by infectious disease and currently on p.o. antibiotics, doxycycline and Bactrim -Incision site currently closed and well approximated with sutures. Scheduled to be removed on 08/29. -If wound stagnate or worsen in healing, would recommend arterial Doppler to rule out underlying arterial insufficiency. -Recommend bilateral postop shoes to be worn with ambulation to encourage offloading and improved healing of surgical wounds. -Dietary consulting to ensure patient with adequate protein intake for optimal wound healing. -Our team will continue to follow the patient for wound care during her stay at [facility]. Current wound care orders: Cleanse and pat dry affected areas and skin prep surrounding tissue. Cover with Xeroform and secure with multiple layers of Kerlix. Change daily or as needed if dressing loose or saturated. JAVAD JUAREZ APRN Aug 17, 2020 16:05
[2020-08-17] MEDS ORDERED: hydrOXYzine HCL 10 MG TABLET PO PRN (17:15)
[2020-08-17] MEDS: MIRTAZAPINE 7.5 MG TABLET. PO SCH (21:01)
[2020-08-17] MEDS: MONTELUKAST 10 MG TABLET. PO SCH (21:01)
[2020-08-17] MEDS: ATORVASTATIN CALCIUM 10 MG TABLET. PO SCH (21:01)
[2020-08-17] MEDS: ENOXAPARIN 40 MG/0.4 ML SYRINGE. SQ SCH (21:02)
--- NOTE | 2020-08-17 21:55 | PDOC ---
Exam Note: Roni Note: Please also refer to the separate dictated note~for this date of service dictated separately.~Patient seen individually. Discussed the patient with Nursing staff reviewed the chart.~Reviewed interim history and current functioning. Reviewed vital signs,~Labs/ Radiology~and current medications noted below. Continue current treatment with the changes noted in the dictated addendum note Assessment: Vital Signs/I&O: Vital Signs Date Time Temp Pulse Resp B/P (MAP) Pulse Ox O2 Delivery O2 Flow Rate FiO2 08/17/20 17:26 55 98/57 08/17/20 15:53 97.1 18 100 08/16/20 05:53 Room Air I & O 08/16/20 08/16/20 08/17/20 15:00 23:00 07:00 Intake Total 720 ml 480 ml Output Total 650 ml 1800 ml Balance 720 ml -170 ml -1800 ml Current Medications: Meds: Current Medications Medications (Trade) Dose Ordered Sig/Pino Route PRN Reason Start Time Stop Time Status Last Admin Dose Admin Acetaminophen (Tylenol) 1,000 mg PRN Q6HRS PRN PO MILD PAIN 1-3 08/08/20 23:00 08/11/20 11:07 Atorvastatin Calcium (Lipitor) 10 mg QHS PO 08/09/20 00:00 08/17/20 21:01 Carvedilol (Coreg) 6.25 mg BIDWMEALS PO 08/09/20 08:00 08/17/20 17:26 Cefdinir (Omnicef) 300 mg BID PO 08/09/20 09:00 08/09/20 05:54 DC Cetirizine HCl (ZyrTEC) 10 mg DAILY PO 08/09/20 09:00 08/17/20 08:09 Cyclosporine (Restasis) 1 drop BID OU 08/09/20 00:00 08/17/20 21:01 Levothyroxine Sodium (Synthroid) 125 mcg DAILY06 PO 08/09/20 06:00 08/17/20 04:59 Al Hydroxide/Mg Hydroxide (Mylanta Plus Xs) 15 ml PRN AFTMEALHC PRN PO DYSPEPSIA 08/08/20 23:00 Memantine (Namenda) 10 mg BID PO 08/09/20 00:00 08/17/20 21:01 Multi-Ingredient Ointment (Analgesic [place]) 1 cole PRN QID PRN TP MUSCLE PAIN 08/08/20 23:00 Mirtazapine (Remeron) 7.5 mg QHS PO 08/09/20 00:00 08/17/20 21:01 Montelukast Sodium (Singulair) 10 mg HS PO 08/09/20 00:00 08/17/20 21:01 Olanzapine (ZyPREXA ZYDIS) 2.5 mg PRN Q2HRS PRN PO PSYCHOSIS 08/08/20 23:00 08/14/20 19:40 Ondansetron HCl (Zofran Odt) 4 mg PRN Q6HRS PRN PO nausea/vomiting 08/08/20 23:00 08/12/20 05:13 Quetiapine Fumarate (SEROquel) 12.5 mg NOON PO 08/09/20 12:00 08/17/20 13:41 Quetiapine Fumarate (SEROquel) 12.5 mg QHS PO 08/09/20 00:00 08/17/20 21:01 Trimethoprim/ Sulfamethoxazole (Bactrim Ds) 1 tab BID PO 08/09/20 09:00 08/17/20 21:00 Clobetasol Propionate 1 cole PRN DAILY PRN TP dermatitis 08/08/20 23:30 Diltiazem HCl (Cardizem 24hr Cd) 240 mg DAILY PO 08/09/20 09:00 08/17/20 08:09 Doxycycline Hyclate (Vibra-Tab) 100 mg BID PO 08/09/20 09:00 08/17/20 21:01 Fluvoxamine Maleate (Luvox) 50 mg QHS PO 08/09/20 00:00 08/17/20 21:01 Lactobacillus Rhamnosus (Culturelle) 1 cap BID PO 08/09/20 09:00 08/17/20 21:01 Losartan Potassium (Cozaar) 100 mg DAILY PO 08/09/20 09:00 08/17/20 08:08 Magnesium Hydroxide (Milk Of Magnesia) 2,400 mg PRN QHS PRN PO CONSTIPATION 08/08/20 23:30 08/16/20 00:25 Multivitamins/ Calcium (Thera-M Plus) 1 tab DAILY PO 08/09/20 09:00 08/17/20 08:08 Pantoprazole Sodium (Protonix) 40 mg DAILYAC PO 08/09/20 07:30 08/17/20 08:07 Acetaminophen (Tylenol) 650 mg PRN Q6HRS PRN PO MILD PAIN / TEMP > 100.3'F 08/08/20 23:15 UNV Magnesium Hydroxide (Milk Of Magnesia) 2,400 mg PRN QHS PRN PO CONSTIPATION 08/08/20 23:15 UNV Iohexol (Omnipaque 350 Mg/ml) 100 ml 1X ONCE IV 08/09/20 15:15 08/09/20 15:16 DC 08/09/20 15:15 Enoxaparin Sodium (Lovenox 40mg Syringe) 40 mg Q24H SQ 08/09/20 21:00 08/17/20 21:02 Oxycodone HCl (Roxicodone) 5 mg PRN Q6HRS PRN PO MOD-SEVERE PAIN 08/11/20 14:30 08/14/20 08:48 Magnesium Citrate (Citroma) 296 ml PRN 1X PRN PO CONSTIPATION 08/16/20 09:00 Polyethylene Glycol (miraLAX) 17 gm DAILY PO 08/16/20 09:00 08/17/20 08:09 Hydroxyzine HCl (Atarax) 10 mg PRN Q6HRS PRN PO ITCHING 08/17/20 17:15 I have reviewed the current psychotropics carefully including drug interactions. Risk benefit ratio favors no change other than as noted in my dictated progress note. Diagnosis: Problems: (1) Impulse control disorder, unspecified (2) Anxiety disorder, unspecified (3) Dementia, vascular, with depression (4) Dementia, vascular, with delusions (5) Dementia in Alzheimer's disease with depression (6) Dementia in Alzheimer's disease with delusions (7) Dementia of the Alzheimer's type with early onset with behavioral disturbance (8) Major neurocognitive disorder KATHY BARNHART MD Aug 17, 2020 21:55
--- NOTE | 2020-08-18 02:45 | NUR ---
Nursing Notes The patient was calm and cooperative with cares and assessments. The patient was disorganized during interactions but was pleasant. The patient was able to answer name only during her assessment. The patient took her medication whole. The patient is currently sleeping in her room.
[2020-08-18 06:10] VITALS: BP 163/81
[2020-08-18] MEDS: LEVOTHYROXINE 125 MCG TABLET PO SCH (06:19)
[2020-08-18] MEDS: cycloSPORINE 0.05% OPTH 1 DROP DROPERETTE OU SCH ×2 (08:27→20:09)
[2020-08-18] MEDS: POLYETHYLENE GLYCOL 3350 17 GM PACKET. PO SCH (08:27)
[2020-08-18] MEDS: MULTIVITAMIN with MINERAL TABLET. PO SCH (08:28)
[2020-08-18] MEDS: PANTOPRAZOLE 40 MG TABLET. PO SCH (08:28)
[2020-08-18] MEDS: SMZ/TMP 800/160MG TABLET. PO SCH ×2 (08:28→20:08)
[2020-08-18] MEDS: LOSARTAN 50 MG TABLET. PO SCH (08:28)
[2020-08-18] MEDS: MEMANTINE 10 MG TABLET. PO SCH ×2 (08:28→20:08)
[2020-08-18] MEDS: DOXYCYCLINE HYCLATE 100 MG TABLET PO SCH ×2 (08:28→20:08)
[2020-08-18] MEDS: CARVEDILOL 6.25 MG TABLET PO SCH ×2 (08:28→17:21)
[2020-08-18] MEDS: LACTOBACILLUS RHAMNOSUS GG 1 CAPSULE. PO SCH ×2 (08:29→20:08)
[2020-08-18] MEDS: CETIRIZINE HCL 10 MG TABLET PO SCH (08:29)
[2020-08-18] MEDS: QUEtiapine 25 MG TABLET. PO SCH ×2 (12:13→20:09)
--- NOTE | 2020-08-18 14:12 | NUR ---
Nursing note: Patient in dinning room at time of AM med pass and assessment, medication taken whole. She is oriented to self. Patient is confused, forgetful, very short term memory and irritable with peers. Patient reported slight discomfort when bilateral feet dressings were changed. She is currently sitting in day room. Will continue to monitor.
[2020-08-18 15:54] VITALS: BP 135/83
[2020-08-18] MEDS: MONTELUKAST 10 MG TABLET. PO SCH (20:08)
[2020-08-18] MEDS: ATORVASTATIN CALCIUM 10 MG TABLET. PO SCH (20:08)
[2020-08-18] MEDS: MIRTAZAPINE 7.5 MG TABLET. PO SCH (20:08)
[2020-08-18] MEDS: ENOXAPARIN 40 MG/0.4 ML SYRINGE. SQ SCH (20:08)
--- NOTE | 2020-08-18 22:12 | PDOC ---
Exam Note: Roni Note: Please also refer to the separate dictated note~for this date of service dictated separately.~Patient seen individually. Discussed the patient with Nursing staff reviewed the chart.~Reviewed interim history and current functioning. Reviewed vital signs,~Labs/ Radiology~and current medications noted below. Continue current treatment with the changes noted in the dictated addendum note Assessment: Vital Signs/I&O: Vital Signs Date Time Temp Pulse Resp B/P (MAP) Pulse Ox O2 Delivery O2 Flow Rate FiO2 08/18/20 17:21 58 135/83 08/18/20 15:54 98.0 18 99 08/16/20 05:53 Room Air I & O 08/17/20 08/17/20 08/18/20 15:00 23:00 07:00 Intake Total 720 ml 600 ml Output Total 700 ml 1800 ml Balance 720 ml -100 ml -1800 ml Current Medications: Meds: Current Medications Medications (Trade) Dose Ordered Sig/Pino Route PRN Reason Start Time Stop Time Status Last Admin Dose Admin Acetaminophen (Tylenol) 1,000 mg PRN Q6HRS PRN PO MILD PAIN 1-3 08/08/20 23:00 08/11/20 11:07 Atorvastatin Calcium (Lipitor) 10 mg QHS PO 08/09/20 00:00 08/18/20 20:08 Carvedilol (Coreg) 6.25 mg BIDWMEALS PO 08/09/20 08:00 08/18/20 17:21 Cefdinir (Omnicef) 300 mg BID PO 08/09/20 09:00 08/09/20 05:54 DC Cetirizine HCl (ZyrTEC) 10 mg DAILY PO 08/09/20 09:00 08/18/20 08:29 Cyclosporine (Restasis) 1 drop BID OU 08/09/20 00:00 08/18/20 20:09 Levothyroxine Sodium (Synthroid) 125 mcg DAILY06 PO 08/09/20 06:00 08/18/20 06:19 Al Hydroxide/Mg Hydroxide (Mylanta Plus Xs) 15 ml PRN AFTMEALHC PRN PO DYSPEPSIA 08/08/20 23:00 Memantine (Namenda) 10 mg BID PO 08/09/20 00:00 08/18/20 20:08 Multi-Ingredient Ointment (Analgesic [place]) 1 cole PRN QID PRN TP MUSCLE PAIN 08/08/20 23:00 Mirtazapine (Remeron) 7.5 mg QHS PO 08/09/20 00:00 08/18/20 20:08 Montelukast Sodium (Singulair) 10 mg HS PO 08/09/20 00:00 08/18/20 20:08 Olanzapine (ZyPREXA ZYDIS) 2.5 mg PRN Q2HRS PRN PO PSYCHOSIS 08/08/20 23:00 08/14/20 19:40 Ondansetron HCl (Zofran Odt) 4 mg PRN Q6HRS PRN PO nausea/vomiting 08/08/20 23:00 08/12/20 05:13 Quetiapine Fumarate (SEROquel) 12.5 mg NOON PO 08/09/20 12:00 08/18/20 12:13 Quetiapine Fumarate (SEROquel) 12.5 mg QHS PO 08/09/20 00:00 08/18/20 20:09 Trimethoprim/ Sulfamethoxazole (Bactrim Ds) 1 tab BID PO 08/09/20 09:00 08/18/20 20:08 Clobetasol Propionate 1 cole PRN DAILY PRN TP dermatitis 08/08/20 23:30 Diltiazem HCl (Cardizem 24hr Cd) 240 mg DAILY PO 08/09/20 09:00 08/18/20 08:27 Doxycycline Hyclate (Vibra-Tab) 100 mg BID PO 08/09/20 09:00 08/18/20 20:08 Fluvoxamine Maleate (Luvox) 50 mg QHS PO 08/09/20 00:00 08/18/20 20:09 Lactobacillus Rhamnosus (Culturelle) 1 cap BID PO 08/09/20 09:00 08/18/20 20:08 Losartan Potassium (Cozaar) 100 mg DAILY PO 08/09/20 09:00 08/18/20 08:28 Magnesium Hydroxide (Milk Of Magnesia) 2,400 mg PRN QHS PRN PO CONSTIPATION 08/08/20 23:30 08/16/20 00:25 Multivitamins/ Calcium (Thera-M Plus) 1 tab DAILY PO 08/09/20 09:00 08/18/20 08:28 Pantoprazole Sodium (Protonix) 40 mg DAILYAC PO 08/09/20 07:30 08/18/20 08:28 Acetaminophen (Tylenol) 650 mg PRN Q6HRS PRN PO MILD PAIN / TEMP > 100.3'F 08/08/20 23:15 UNV Magnesium Hydroxide (Milk Of Magnesia) 2,400 mg PRN QHS PRN PO CONSTIPATION 08/08/20 23:15 UNV Iohexol (Omnipaque 350 Mg/ml) 100 ml 1X ONCE IV 08/09/20 15:15 08/09/20 15:16 DC 08/09/20 15:15 Enoxaparin Sodium (Lovenox 40mg Syringe) 40 mg Q24H SQ 08/09/20 21:00 08/18/20 20:08 Oxycodone HCl (Roxicodone) 5 mg PRN Q6HRS PRN PO MOD-SEVERE PAIN 08/11/20 14:30 08/14/20 08:48 Magnesium Citrate (Citroma) 296 ml PRN 1X PRN PO CONSTIPATION 08/16/20 09:00 Polyethylene Glycol (miraLAX) 17 gm DAILY PO 08/16/20 09:00 08/18/20 08:27 Hydroxyzine HCl (Atarax) 10 mg PRN Q6HRS PRN PO ITCHING 08/17/20 17:15 I have reviewed the current psychotropics carefully including drug interactions. Risk benefit ratio favors no change other than as noted in my dictated progress note. Diagnosis: Problems: (1) Impulse control disorder, unspecified (2) Anxiety disorder, unspecified (3) Dementia, vascular, with depression (4) Dementia, vascular, with delusions (5) Dementia in Alzheimer's disease with depression (6) Dementia in Alzheimer's disease with delusions (7) Dementia of the Alzheimer's type with early onset with behavioral disturbance (8) Major neurocognitive disorder KATHY BARNHART MD Aug 18, 2020 22:12
--- NOTE | 2020-08-18 22:45 | NUR ---
Pt restless and anxious this evening. Pt repeatedly stating that she needs to urinate. Unable to comprehend that she has a lainez in place. Compliant with whole medications HS cares.
[2020-08-19] MEDS: LEVOTHYROXINE 125 MCG TABLET PO SCH (05:10)
[2020-08-19 05:42] VITALS: BP 158/79
--- NOTE | 2020-08-19 08:06 | PDOC ---
Exam Note: Roni Note: This note is a late entry for 08/17/2020 covers elements not covered in my initial note. Subjective: The patient was seen individually in the evening of 08/17/2020 with Carmelina SCHAFER, discussed and reviewed the chart. She slept 9-1/4 hours previous night. Appetite 25%-50%. The patient has been somewhat anxious. Short-term memory is impaired. Repeatedly questioning nursing staff about where she was and why she came here fearful that her family does not know where she is. She is back at the nursing station frequently. We discussed adding Ativan for p.r.n. but this would create a fall risk and we will add hydroxyzine 10 mg q.i.d. p.r.n. anxiety. Review of Systems: Impaired ambulation. No CV, , pulmonary, eye, ENT system symptoms on review. Mental Status Exam: The patient is alert and oriented to herself and situation. The patient is repeatedly asking if her family knew where she was and I reassured her that they are . She was back at me about 20 mins later into the rounds asking the same question, having forgotten our previous discussion. Speech has some latency, coherent. Abstraction fair. Computation impaired Attention span short. Mood and affect labile. No suicidal or homicidal ideation. Laboratory Data: Reviewed. Impression: Major neurocognitive disorder Alzheimer vascular with delusion, d epression, and behavioral disturbance. Anxiety disorder unspecified. Impulse control disorder unspecified. Plan: Continue current psychotropics unchanged. Assessment: Vital Signs/I&O: Vital Signs Date Time Temp Pulse Resp B/P (MAP) Pulse Ox O2 Delivery O2 Flow Rate FiO2 08/19/20 05:42 97.2 65 20 158/79 (105) 93 08/16/20 05:53 Room Air I & O 08/18/20 08/18/20 08/19/20 15:00 23:00 07:00 Intake Total 570 ml 360 ml Output Total 600 ml 1425 ml Balance 570 ml -240 ml -1425 ml Current Medications: Meds: Current Medications Medications (Trade) Dose Ordered Sig/Pino Route PRN Reason Start Time Stop Time Status Last Admin Dose Admin Acetaminophen (Tylenol) 1,000 mg PRN Q6HRS PRN PO MILD PAIN 1-3 08/08/20 23:00 08/11/20 11:07 Atorvastatin Calcium (Lipitor) 10 mg QHS PO 08/09/20 00:00 08/18/20 20:08 Carvedilol (Coreg) 6.25 mg BIDWMEALS PO 08/09/20 08:00 08/18/20 17:21 Cefdinir (Omnicef) 300 mg BID PO 08/09/20 09:00 08/09/20 05:54 DC Cetirizine HCl (ZyrTEC) 10 mg DAILY PO 08/09/20 09:00 08/18/20 08:29 Cyclosporine (Restasis) 1 drop BID OU 08/09/20 00:00 08/18/20 20:09 Levothyroxine Sodium (Synthroid) 125 mcg DAILY06 PO 08/09/20 06:00 08/19/20 05:10 Al Hydroxide/Mg Hydroxide (Mylanta Plus Xs) 15 ml PRN AFTMEALHC PRN PO DYSPEPSIA 08/08/20 23:00 Memantine (Namenda) 10 mg BID PO 08/09/20 00:00 08/18/20 20:08 Multi-Ingredient Ointment (Analgesic [place]) 1 cole PRN QID PRN TP MUSCLE PAIN 08/08/20 23:00 Mirtazapine (Remeron) 7.5 mg QHS PO 08/09/20 00:00 08/18/20 20:08 Montelukast Sodium (Singulair) 10 mg HS PO 08/09/20 00:00 08/18/20 20:08 Olanzapine (ZyPREXA ZYDIS) 2.5 mg PRN Q2HRS PRN PO PSYCHOSIS 08/08/20 23:00 08/14/20 19:40 Ondansetron HCl (Zofran Odt) 4 mg PRN Q6HRS PRN PO nausea/vomiting 08/08/20 23:00 08/12/20 05:13 Quetiapine Fumarate (SEROquel) 12.5 mg NOON PO 08/09/20 12:00 08/18/20 12:13 Quetiapine Fumarate (SEROquel) 12.5 mg QHS PO 08/09/20 00:00 08/18/20 20:09 Trimethoprim/ Sulfamethoxazole (Bactrim Ds) 1 tab BID PO 08/09/20 09:00 08/18/20 20:08 Clobetasol Propionate 1 cole PRN DAILY PRN TP dermatitis 08/08/20 23:30 Diltiazem HCl (Cardizem 24hr Cd) 240 mg DAILY PO 08/09/20 09:00 08/18/20 08:27 Doxycycline Hyclate (Vibra-Tab) 100 mg BID PO 08/09/20 09:00 08/18/20 20:08 Fluvoxamine Maleate (Luvox) 50 mg QHS PO 08/09/20 00:00 08/18/20 20:09 Lactobacillus Rhamnosus (Culturelle) 1 cap BID PO 08/09/20 09:00 08/18/20 20:08 Losartan Potassium (Cozaar) 100 mg DAILY PO 08/09/20 09:00 08/18/20 08:28 Magnesium Hydroxide (Milk Of Magnesia) 2,400 mg PRN QHS PRN PO CONSTIPATION 08/08/20 23:30 08/16/20 00:25 Multivitamins/ Calcium (Thera-M Plus) 1 tab DAILY PO 08/09/20 09:00 08/18/20 08:28 Pantoprazole Sodium (Protonix) 40 mg DAILYAC PO 08/09/20 07:30 08/18/20 08:28 Acetaminophen (Tylenol) 650 mg PRN Q6HRS PRN PO MILD PAIN / TEMP > 100.3'F 08/08/20 23:15 UNV Magnesium Hydroxide (Milk Of Magnesia) 2,400 mg PRN QHS PRN PO CONSTIPATION 08/08/20 23:15 UNV Iohexol (Omnipaque 350 Mg/ml) 100 ml 1X ONCE IV 08/09/20 15:15 08/09/20 15:16 DC 08/09/20 15:15 Enoxaparin Sodium (Lovenox 40mg Syringe) 40 mg Q24H SQ 08/09/20 21:00 08/18/20 20:08 Oxycodone HCl (Roxicodone) 5 mg PRN Q6HRS PRN PO MOD-SEVERE PAIN 08/11/20 14:30 08/14/20 08:48 Magnesium Citrate (Citroma) 296 ml PRN 1X PRN PO CONSTIPATION 08/16/20 09:00 Polyethylene Glycol (miraLAX) 17 gm DAILY PO 08/16/20 09:00 08/18/20 08:27 Hydroxyzine HCl (Atarax) 10 mg PRN Q6HRS PRN PO ITCHING 08/17/20 17:15 I have reviewed the current psychotropics carefully including drug interactions. Risk benefit ratio favors no change other than as noted in my dictated progress note. Diagnosis: Problems: (1) Impulse control disorder, unspecified (2) Anxiety disorder, unspecified (3) Dementia, vascular, with depression (4) Dementia, vascular, with delusions (5) Dementia in Alzheimer's disease with depression (6) Dementia in Alzheimer's disease with delusions (7) Dementia of the Alzheimer's type with early onset with behavioral disturbance (8) Major neurocognitive disorder KATHY BARNHART MD Aug 19, 2020 08:06
[2020-08-19] MEDS: POLYETHYLENE GLYCOL 3350 17 GM PACKET. PO SCH (08:20)
[2020-08-19] MEDS: CARVEDILOL 6.25 MG TABLET PO SCH ×2 (08:21→18:02)
[2020-08-19] MEDS: LACTOBACILLUS RHAMNOSUS GG 1 CAPSULE. PO SCH ×2 (08:21→20:18)
[2020-08-19] MEDS: SMZ/TMP 800/160MG TABLET. PO SCH ×2 (08:21→20:18)
[2020-08-19] MEDS: cycloSPORINE 0.05% OPTH 1 DROP DROPERETTE OU SCH ×2 (08:21→20:18)
[2020-08-19] MEDS: DOXYCYCLINE HYCLATE 100 MG TABLET PO SCH ×2 (08:21→20:18)
[2020-08-19] MEDS: LOSARTAN 50 MG TABLET. PO SCH (08:21)
[2020-08-19] MEDS: MEMANTINE 10 MG TABLET. PO SCH ×2 (08:21→20:18)
[2020-08-19] MEDS: PANTOPRAZOLE 40 MG TABLET. PO SCH (08:21)
[2020-08-19] MEDS: CETIRIZINE HCL 10 MG TABLET PO SCH (08:21)
[2020-08-19] MEDS: MULTIVITAMIN with MINERAL TABLET. PO SCH (08:21)
--- NOTE | 2020-08-19 08:28 | PDOC ---
Exam Note: Roni Note: This note is a late entry for 08/18/2020 covers elements not covered in my initial note. Subjective: The patient was seen individually in the evening of 08/18/2020 with Sarah SCHAFER, discussed and reviewed the chart. She slept 7 hours previous night. The patient has a Rascon in place and keeps pulling on it, pulled the bag off at one point. She has had her dressing changed completed for her toes, somewhat forgetful. We have added hydroxyzine p.r.n. for anxiety and this seems to be helping. Review of Systems: Impaired ambulation. No CV, , pulmonary, eye, ENT system symptoms on review. Mental Status Exam: The patient is alert and oriented to herself and situation. Speech has some latency, coherent. Abstraction fair. Computation impaired Attention span short. Mood and affect labile. No suicidal or homicidal ideation. Laboratory Data: Reviewed. Impression: Major neurocognitive disorder Alzheimer vascular with delusion, depression, and behavioral disturbance. Anxiety disorder unspecified. Impulse control disorder unspecified. Plan: Continue current psychotropics unchanged. Assessment: Vital Signs/I&O: Vital Signs Date Time Temp Pulse Resp B/P (MAP) Pulse Ox O2 Delivery O2 Flow Rate FiO2 08/19/20 08:21 65 158/79 08/19/20 05:42 97.2 20 93 08/16/20 05:53 Room Air I & O 08/18/20 08/18/20 08/19/20 15:00 23:00 07:00 Intake Total 570 ml 360 ml Output Total 600 ml 1425 ml Balance 570 ml -240 ml -1425 ml Current Medications: Meds: Current Medications Medications (Trade) Dose Ordered Sig/Pino Route PRN Reason Start Time Stop Time Status Last Admin Dose Admin Acetaminophen (Tylenol) 1,000 mg PRN Q6HRS PRN PO MILD PAIN 1-3 08/08/20 23:00 08/11/20 11:07 Atorvastatin Calcium (Lipitor) 10 mg QHS PO 08/09/20 00:00 08/18/20 20:08 Carvedilol (Coreg) 6.25 mg BIDWMEALS PO 08/09/20 08:00 08/19/20 08:21 Cefdinir (Omnicef) 300 mg BID PO 08/09/20 09:00 08/09/20 05:54 DC Cetirizine HCl (ZyrTEC) 10 mg DAILY PO 08/09/20 09:00 08/19/20 08:21 Cyclosporine (Restasis) 1 drop BID OU 08/09/20 00:00 08/19/20 08:21 Levothyroxine Sodium (Synthroid) 125 mcg DAILY06 PO 08/09/20 06:00 08/19/20 05:10 Al Hydroxide/Mg Hydroxide (Mylanta Plus Xs) 15 ml PRN AFTMEALHC PRN PO DYSPEPSIA 08/08/20 23:00 Memantine (Namenda) 10 mg BID PO 08/09/20 00:00 08/19/20 08:21 Multi-Ingredient Ointment (Analgesic [place]) 1 cole PRN QID PRN TP MUSCLE PAIN 08/08/20 23:00 Mirtazapine (Remeron) 7.5 mg QHS PO 08/09/20 00:00 08/18/20 20:08 Montelukast Sodium (Singulair) 10 mg HS PO 08/09/20 00:00 08/18/20 20:08 Olanzapine (ZyPREXA ZYDIS) 2.5 mg PRN Q2HRS PRN PO PSYCHOSIS 08/08/20 23:00 08/14/20 19:40 Ondansetron HCl (Zofran Odt) 4 mg PRN Q6HRS PRN PO nausea/vomiting 08/08/20 23:00 08/12/20 05:13 Quetiapine Fumarate (SEROquel) 12.5 mg NOON PO 08/09/20 12:00 08/18/20 12:13 Quetiapine Fumarate (SEROquel) 12.5 mg QHS PO 08/09/20 00:00 08/18/20 20:09 Trimethoprim/ Sulfamethoxazole (Bactrim Ds) 1 tab BID PO 08/09/20 09:00 08/19/20 08:21 Clobetasol Propionate 1 cole PRN DAILY PRN TP dermatitis 08/08/20 23:30 Diltiazem HCl (Cardizem 24hr Cd) 240 mg DAILY PO 08/09/20 09:00 08/19/20 08:20 Doxycycline Hyclate (Vibra-Tab) 100 mg BID PO 08/09/20 09:00 08/19/20 08:21 Fluvoxamine Maleate (Luvox) 50 mg QHS PO 08/09/20 00:00 08/18/20 20:09 Lactobacillus Rhamnosus (Culturelle) 1 cap BID PO 08/09/20 09:00 08/19/20 08:21 Losartan Potassium (Cozaar) 100 mg DAILY PO 08/09/20 09:00 08/19/20 08:21 Magnesium Hydroxide (Milk Of Magnesia) 2,400 mg PRN QHS PRN PO CONSTIPATION 08/08/20 23:30 08/16/20 00:25 Multivitamins/ Calcium (Thera-M Plus) 1 tab DAILY PO 08/09/20 09:00 08/19/20 08:21 Pantoprazole Sodium (Protonix) 40 mg DAILYAC PO 08/09/20 07:30 08/19/20 08:21 Acetaminophen (Tylenol) 650 mg PRN Q6HRS PRN PO MILD PAIN / TEMP > 100.3'F 08/08/20 23:15 UNV Magnesium Hydroxide (Milk Of Magnesia) 2,400 mg PRN QHS PRN PO CONSTIPATION 08/08/20 23:15 UNV Iohexol (Omnipaque 350 Mg/ml) 100 ml 1X ONCE IV 08/09/20 15:15 08/09/20 15:16 DC 08/09/20 15:15 Enoxaparin Sodium (Lovenox 40mg Syringe) 40 mg Q24H SQ 08/09/20 21:00 08/18/20 20:08 Oxycodone HCl (Roxicodone) 5 mg PRN Q6HRS PRN PO MOD-SEVERE PAIN 08/11/20 14:30 08/14/20 08:48 Magnesium Citrate (Citroma) 296 ml PRN 1X PRN PO CONSTIPATION 08/16/20 09:00 Polyethylene Glycol (miraLAX) 17 gm DAILY PO 08/16/20 09:00 08/19/20 08:20 Hydroxyzine HCl (Atarax) 10 mg PRN Q6HRS PRN PO ITCHING 08/17/20 17:15 I have reviewed the current psychotropics carefully including drug interactions. Risk benefit ratio favors no change other than as noted in my dictated progress note. Diagnosis: Problems: (1) Impulse control disorder, unspecified (2) Anxiety disorder, unspecified (3) Dementia, vascular, with depression (4) Dementia, vascular, with delusions (5) Dementia in Alzheimer's disease with depression (6) Dementia in Alzheimer's disease with delusions (7) Dementia of the Alzheimer's type with early onset with behavioral disturbance (8) Major neurocognitive disorder KATHY BARNHART MD Aug 19, 2020 08:28
[2020-08-19] MEDS: QUEtiapine 25 MG TABLET. PO SCH ×2 (12:09→20:18)
[2020-08-19 16:00] VITALS: BP 115/57
[2020-08-19] MEDS: ATORVASTATIN CALCIUM 10 MG TABLET. PO SCH (20:18)
[2020-08-19] MEDS: MONTELUKAST 10 MG TABLET. PO SCH (20:18)
[2020-08-19] MEDS: MIRTAZAPINE 7.5 MG TABLET. PO SCH (20:18)
[2020-08-19] MEDS: ENOXAPARIN 40 MG/0.4 ML SYRINGE. SQ SCH (20:19)
--- NOTE | 2020-08-19 22:05 | PDOC ---
Exam Note: Roni Note: Please also refer to the separate dictated note~for this date of service dictated separately.~Patient seen individually. Discussed the patient with Nursing staff reviewed the chart.~Reviewed interim history and current functioning. Reviewed vital signs,~Labs/ Radiology~and current medications noted below. Continue current treatment with the changes noted in the dictated addendum note Assessment: Vital Signs/I&O: Vital Signs Date Time Temp Pulse Resp B/P (MAP) Pulse Ox O2 Delivery O2 Flow Rate FiO2 08/19/20 18:02 57 115/57 08/19/20 16:00 97.5 18 97 08/16/20 05:53 Room Air I & O 08/18/20 08/18/20 08/19/20 15:00 23:00 07:00 Intake Total 570 ml 360 ml Output Total 600 ml 1425 ml Balance 570 ml -240 ml -1425 ml Current Medications: Meds: Current Medications Medications (Trade) Dose Ordered Sig/Pino Route PRN Reason Start Time Stop Time Status Last Admin Dose Admin Acetaminophen (Tylenol) 1,000 mg PRN Q6HRS PRN PO MILD PAIN 1-3 08/08/20 23:00 08/11/20 11:07 Atorvastatin Calcium (Lipitor) 10 mg QHS PO 08/09/20 00:00 08/19/20 20:18 Carvedilol (Coreg) 6.25 mg BIDWMEALS PO 08/09/20 08:00 08/19/20 18:02 Cefdinir (Omnicef) 300 mg BID PO 08/09/20 09:00 08/09/20 05:54 DC Cetirizine HCl (ZyrTEC) 10 mg DAILY PO 08/09/20 09:00 08/19/20 08:21 Cyclosporine (Restasis) 1 drop BID OU 08/09/20 00:00 08/19/20 20:18 Levothyroxine Sodium (Synthroid) 125 mcg DAILY06 PO 08/09/20 06:00 08/19/20 05:10 Al Hydroxide/Mg Hydroxide (Mylanta Plus Xs) 15 ml PRN AFTMEALHC PRN PO DYSPEPSIA 08/08/20 23:00 Memantine (Namenda) 10 mg BID PO 08/09/20 00:00 08/19/20 20:18 Multi-Ingredient Ointment (Analgesic [place]) 1 cole PRN QID PRN TP MUSCLE PAIN 08/08/20 23:00 Mirtazapine (Remeron) 7.5 mg QHS PO 08/09/20 00:00 08/19/20 20:18 Montelukast Sodium (Singulair) 10 mg HS PO 08/09/20 00:00 08/19/20 20:18 Olanzapine (ZyPREXA ZYDIS) 2.5 mg PRN Q2HRS PRN PO PSYCHOSIS 08/08/20 23:00 08/14/20 19:40 Ondansetron HCl (Zofran Odt) 4 mg PRN Q6HRS PRN PO nausea/vomiting 08/08/20 23:00 08/12/20 05:13 Quetiapine Fumarate (SEROquel) 12.5 mg NOON PO 08/09/20 12:00 08/19/20 12:09 Quetiapine Fumarate (SEROquel) 12.5 mg QHS PO 08/09/20 00:00 08/19/20 20:18 Trimethoprim/ Sulfamethoxazole (Bactrim Ds) 1 tab BID PO 08/09/20 09:00 08/19/20 20:18 Clobetasol Propionate 1 cole PRN DAILY PRN TP dermatitis 08/08/20 23:30 Diltiazem HCl (Cardizem 24hr Cd) 240 mg DAILY PO 08/09/20 09:00 08/19/20 08:20 Doxycycline Hyclate (Vibra-Tab) 100 mg BID PO 08/09/20 09:00 08/19/20 20:18 Fluvoxamine Maleate (Luvox) 50 mg QHS PO 08/09/20 00:00 08/19/20 20:18 Lactobacillus Rhamnosus (Culturelle) 1 cap BID PO 08/09/20 09:00 08/19/20 20:18 Losartan Potassium (Cozaar) 100 mg DAILY PO 08/09/20 09:00 08/19/20 08:21 Magnesium Hydroxide (Milk Of Magnesia) 2,400 mg PRN QHS PRN PO CONSTIPATION 08/08/20 23:30 08/16/20 00:25 Multivitamins/ Calcium (Thera-M Plus) 1 tab DAILY PO 08/09/20 09:00 08/19/20 08:21 Pantoprazole Sodium (Protonix) 40 mg DAILYAC PO 08/09/20 07:30 08/19/20 08:21 Acetaminophen (Tylenol) 650 mg PRN Q6HRS PRN PO MILD PAIN / TEMP > 100.3'F 08/08/20 23:15 UNV Magnesium Hydroxide (Milk Of Magnesia) 2,400 mg PRN QHS PRN PO CONSTIPATION 08/08/20 23:15 UNV Iohexol (Omnipaque 350 Mg/ml) 100 ml 1X ONCE IV 08/09/20 15:15 08/09/20 15:16 DC 08/09/20 15:15 Enoxaparin Sodium (Lovenox 40mg Syringe) 40 mg Q24H SQ 08/09/20 21:00 08/19/20 20:19 Oxycodone HCl (Roxicodone) 5 mg PRN Q6HRS PRN PO MOD-SEVERE PAIN 08/11/20 14:30 08/14/20 08:48 Magnesium Citrate (Citroma) 296 ml PRN 1X PRN PO CONSTIPATION 08/16/20 09:00 Polyethylene Glycol (miraLAX) 17 gm DAILY PO 08/16/20 09:00 08/19/20 08:20 Hydroxyzine HCl (Atarax) 10 mg PRN Q6HRS PRN PO ITCHING 08/17/20 17:15 I have reviewed the current psychotropics carefully including drug interactions. Risk benefit ratio favors no change other than as noted in my dictated progress note. Diagnosis: Problems: (1) Impulse control disorder, unspecified (2) Anxiety disorder, unspecified (3) Dementia, vascular, with depression (4) Dementia, vascular, with delusions (5) Dementia in Alzheimer's disease with depression (6) Dementia in Alzheimer's disease with delusions (7) Dementia of the Alzheimer's type with early onset with behavioral disturbance (8) Major neurocognitive disorder KATHY BARNHART MD Aug 19, 2020 22:05
--- NOTE | 2020-08-19 22:16 | NUR ---
Pt disorganized, restless and anxious this evening. Compliant with whole medications. Poor short term memory.
[2020-08-20] MEDS: oxyCODONE IR 5 MG TABLET PO PRN (00:05)
[2020-08-20] MEDS: LEVOTHYROXINE 125 MCG TABLET PO SCH (05:41)
[2020-08-20 05:59] VITALS: BP 119/74
--- NOTE | 2020-08-20 06:44 | PDOC ---
Exam Note: Roni Note: This note is a late entry for 08/19/2020 covers elements not covered in my initial note. Subjective: The patient was seen individually in the evening of 08/19/2020 with Sarah SCHAFER, discussed and reviewed the chart. She slept 7-3/4 hours previous night. The patient remains confused, pleasant, smiling as I met with her. She is oriented to herself. She stated she needed to go home, oblivious of her circumstances. Review of Systems: Impaired ambulation. No CV, , pulmonary, eye, ENT system symptoms on review. Mental Status Exam: The patient is alert and oriented to herself and situation. Speech has some latency, coherent. Abstraction fair. Computation impaired Attention span short. Mood and affect labile. No suicidal or homicidal ideation. Laboratory Data: Reviewed. Impression: Major neurocognitive disorder Alzheimer vascular with delusion, depression, and behavioral disturbance. Anxiety disorder unspecified. Impulse control disorder unspecified. Plan: Continue current psychotropics unchanged. Assessment: Vital Signs/I&O: Vital Signs Date Time Temp Pulse Resp B/P (MAP) Pulse Ox O2 Delivery O2 Flow Rate FiO2 08/20/20 05:59 96.8 58 18 119/74 (89) 97 08/16/20 05:53 Room Air I & O 08/19/20 08/19/20 08/20/20 15:00 23:00 07:00 Intake Total 480 ml 360 ml Output Total 775 ml 700 ml Balance 480 ml -415 ml -700 ml Current Medications: Meds: Current Medications Medications (Trade) Dose Ordered Sig/Pino Route PRN Reason Start Time Stop Time Status Last Admin Dose Admin Acetaminophen (Tylenol) 1,000 mg PRN Q6HRS PRN PO MILD PAIN 1-3 08/08/20 23:00 08/11/20 11:07 Atorvastatin Calcium (Lipitor) 10 mg QHS PO 08/09/20 00:00 08/19/20 20:18 Carvedilol (Coreg) 6.25 mg BIDWMEALS PO 08/09/20 08:00 08/19/20 18:02 Cefdinir (Omnicef) 300 mg BID PO 08/09/20 09:00 08/09/20 05:54 DC Cetirizine HCl (ZyrTEC) 10 mg DAILY PO 08/09/20 09:00 08/19/20 08:21 Cyclosporine (Restasis) 1 drop BID OU 08/09/20 00:00 08/19/20 20:18 Levothyroxine Sodium (Synthroid) 125 mcg DAILY06 PO 08/09/20 06:00 08/20/20 05:41 Al Hydroxide/Mg Hydroxide (Mylanta Plus Xs) 15 ml PRN AFTMEALHC PRN PO DYSPEPSIA 08/08/20 23:00 Memantine (Namenda) 10 mg BID PO 08/09/20 00:00 08/19/20 20:18 Multi-Ingredient Ointment (Analgesic [place]) 1 cole PRN QID PRN TP MUSCLE PAIN 08/08/20 23:00 Mirtazapine (Remeron) 7.5 mg QHS PO 08/09/20 00:00 08/19/20 20:18 Montelukast Sodium (Singulair) 10 mg HS PO 08/09/20 00:00 08/19/20 20:18 Olanzapine (ZyPREXA ZYDIS) 2.5 mg PRN Q2HRS PRN PO PSYCHOSIS 08/08/20 23:00 08/20/20 00:05 Ondansetron HCl (Zofran Odt) 4 mg PRN Q6HRS PRN PO nausea/vomiting 08/08/20 23:00 08/12/20 05:13 Quetiapine Fumarate (SEROquel) 12.5 mg NOON PO 08/09/20 12:00 08/19/20 12:09 Quetiapine Fumarate (SEROquel) 12.5 mg QHS PO 08/09/20 00:00 08/19/20 20:18 Trimethoprim/ Sulfamethoxazole (Bactrim Ds) 1 tab BID PO 08/09/20 09:00 08/19/20 20:18 Clobetasol Propionate 1 cole PRN DAILY PRN TP dermatitis 08/08/20 23:30 Diltiazem HCl (Cardizem 24hr Cd) 240 mg DAILY PO 08/09/20 09:00 08/19/20 08:20 Doxycycline Hyclate (Vibra-Tab) 100 mg BID PO 08/09/20 09:00 08/19/20 20:18 Fluvoxamine Maleate (Luvox) 50 mg QHS PO 08/09/20 00:00 08/19/20 20:18 Lactobacillus Rhamnosus (Culturelle) 1 cap BID PO 08/09/20 09:00 08/19/20 20:18 Losartan Potassium (Cozaar) 100 mg DAILY PO 08/09/20 09:00 08/19/20 08:21 Magnesium Hydroxide (Milk Of Magnesia) 2,400 mg PRN QHS PRN PO CONSTIPATION 08/08/20 23:30 08/16/20 00:25 Multivitamins/ Calcium (Thera-M Plus) 1 tab DAILY PO 08/09/20 09:00 08/19/20 08:21 Pantoprazole Sodium (Protonix) 40 mg DAILYAC PO 08/09/20 07:30 08/19/20 08:21 Acetaminophen (Tylenol) 650 mg PRN Q6HRS PRN PO MILD PAIN / TEMP > 100.3'F 08/08/20 23:15 UNV Magnesium Hydroxide (Milk Of Magnesia) 2,400 mg PRN QHS PRN PO CONSTIPATION 08/08/20 23:15 UNV Iohexol (Omnipaque 350 Mg/ml) 100 ml 1X ONCE IV 08/09/20 15:15 08/09/20 15:16 DC 08/09/20 15:15 Enoxaparin Sodium (Lovenox 40mg Syringe) 40 mg Q24H SQ 08/09/20 21:00 08/19/20 20:19 Oxycodone HCl (Roxicodone) 5 mg PRN Q6HRS PRN PO MOD-SEVERE PAIN 08/11/20 14:30 08/20/20 00:05 Magnesium Citrate (Citroma) 296 ml PRN 1X PRN PO CONSTIPATION 08/16/20 09:00 Polyethylene Glycol (miraLAX) 17 gm DAILY PO 08/16/20 09:00 08/19/20 08:20 Hydroxyzine HCl (Atarax) 10 mg PRN Q6HRS PRN PO ITCHING 08/17/20 17:15 I have reviewed the current psychotropics carefully including drug interactions. Risk benefit ratio favors no change other than as noted in my dictated progress note. Diagnosis: Problems: (1) Impulse control disorder, unspecified (2) Anxiety disorder, unspecified (3) Dementia, vascular, with depression (4) Dementia, vascular, with delusions (5) Dementia in Alzheimer's disease with depression (6) Dementia in Alzheimer's disease with delusions (7) Dementia of the Alzheimer's type with early onset with behavioral disturbance (8) Major neurocognitive disorder KATHY BARNHART MD Aug 20, 2020 06:44
[2020-08-20 06:59] LABS: BASO # 0.1 x10^3/uL (0.0-0.2); BASO % 1 % (0-3); EOS % 0 % (0-3); HEMATOCRIT 30.2 % (36.0-47.0); HEMOGLOBIN 10.3 g/dL (12.0-15.5); LYMPH # 1.7 x10^3/uL (1.0-4.8); LYMPH % 22 % (24-48); MEAN CORPUSCULAR HEMOGLOBIN 32 pg (25-35); MEAN CORPUSCULAR HGB CONC 34 g/dL (31-37); MEAN CORPUSCULAR VOLUME 93 fL (79-100); MONO # 0.9 x10^3/uL (0.0-1.1); MONO % 12 % (0-9); NEUT # 5.1 x10^3uL (1.8-7.7); NEUT % 66 % (31-73); PLATELET COUNT 396 x10^3/uL (140-400); RED BLOOD COUNT 3.26 x10^6/uL (3.50-5.40); RED CELL DISTRIBUTION WIDTH 13.7 % (11.5-14.5); WHITE BLOOD COUNT 7.7 x10^3/uL (4.0-11.0)
[2020-08-20 07:23] LABS: ALBUMIN 2.7 g/dL (3.4-5.0); ALBUMIN/GLOBULIN RATIO 0.7 (1.0-1.7); CALCIUM 8.6 mg/dL (8.5-10.1); CREATININE 0.8 mg/dL (0.6-1.0); GFR 70.3; POTASSIUM 4.4 mmol/L (3.5-5.1); TOTAL BILIRUBIN 0.3 mg/dL (0.2-1.0); TOTAL PROTEIN 6.5 g/dL (6.4-8.2)
[2020-08-20] MEDS: MAGNESIUM HYDROXIDE 2,400 MG/30 ML ORAL.SUSP. PO PRN (07:55)
[2020-08-20] MEDS: POLYETHYLENE GLYCOL 3350 17 GM PACKET. PO SCH (07:55)
[2020-08-20] MEDS: CARVEDILOL 6.25 MG TABLET PO SCH ×2 (07:55→17:00)
[2020-08-20] MEDS: CETIRIZINE HCL 10 MG TABLET PO SCH (07:56)
[2020-08-20] MEDS: LACTOBACILLUS RHAMNOSUS GG 1 CAPSULE. PO SCH ×2 (07:56→20:08)
[2020-08-20] MEDS: SMZ/TMP 800/160MG TABLET. PO SCH ×2 (07:56→20:08)
[2020-08-20] MEDS: MEMANTINE 10 MG TABLET. PO SCH ×2 (07:56→20:08)
[2020-08-20] MEDS: MULTIVITAMIN with MINERAL TABLET. PO SCH (07:56)
[2020-08-20] MEDS: LOSARTAN 50 MG TABLET. PO SCH (07:56)
[2020-08-20] MEDS: cycloSPORINE 0.05% OPTH 1 DROP DROPERETTE OU SCH ×2 (07:56→20:08)
[2020-08-20] MEDS: DOXYCYCLINE HYCLATE 100 MG TABLET PO SCH ×2 (07:56→20:08)
[2020-08-20] MEDS: PANTOPRAZOLE 40 MG TABLET. PO SCH (08:00)
[2020-08-20] MEDS: QUEtiapine 25 MG TABLET. PO SCH ×2 (12:21→20:09)
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
[2020-08-20 15:41] VITALS: BP 135/63
--- NOTE | 2020-08-20 16:35 | NUR ---
Wound care will see 08/22/20 for follow up
[2020-08-20] MEDS: MONTELUKAST 10 MG TABLET. PO SCH (20:08)
[2020-08-20] MEDS: ATORVASTATIN CALCIUM 10 MG TABLET. PO SCH (20:08)
[2020-08-20] MEDS: MIRTAZAPINE 7.5 MG TABLET. PO SCH (20:08)
[2020-08-20] MEDS: ENOXAPARIN 40 MG/0.4 ML SYRINGE. SQ SCH (20:10)
--- NOTE | 2020-08-20 22:03 | PDOC ---
Exam Note: Roni Note: Please also refer to the separate dictated note~for this date of service dictated separately.~Patient seen individually. Discussed the patient with Nursing staff reviewed the chart.~Reviewed interim history and current functioning. Reviewed vital signs,~Labs/ Radiology~and current medications noted below. Continue current treatment with the changes noted in the dictated addendum note Assessment: Vital Signs/I&O: Vital Signs Date Time Temp Pulse Resp B/P (MAP) Pulse Ox O2 Delivery O2 Flow Rate FiO2 08/20/20 17:00 48 135/63 08/20/20 15:41 97.8 18 100 08/16/20 05:53 Room Air I & O 08/19/20 08/19/20 08/20/20 15:00 23:00 07:00 Intake Total 480 ml 360 ml Output Total 775 ml 700 ml Balance 480 ml -415 ml -700 ml Labs: Laboratory Tests Test 08/20/20 06:13 White Blood Count 7.7 x10^3/uL (4.0-11.0) Red Blood Count 3.26 x10^6/uL (3.50-5.40) L Hemoglobin 10.3 g/dL (12.0-15.5) L Hematocrit 30.2 % (36.0-47.0) L Mean Corpuscular Volume 93 fL (79-100) Mean Corpuscular Hemoglobin 32 pg (25-35) Mean Corpuscular Hemoglobin Concent 34 g/dL (31-37) Red Cell Distribution Width 13.7 % (11.5-14.5) Platelet Count 396 x10^3/uL (140-400) Neutrophils (%) (Auto) 66 % (31-73) Lymphocytes (%) (Auto) 22 % (24-48) L Monocytes (%) (Auto) 12 % (0-9) H Eosinophils (%) (Auto) 0 % (0-3) Basophils (%) (Auto) 1 % (0-3) Neutrophils # (Auto) 5.1 x10^3uL (1.8-7.7) Lymphocytes # (Auto) 1.7 x10^3/uL (1.0-4.8) Monocytes # (Auto) 0.9 x10^3/uL (0.0-1.1) Eosinophils # (Auto) 0.0 x10^3/uL (0.0-0.7) Basophils # (Auto) 0.1 x10^3/uL (0.0-0.2) Sodium Level 134 mmol/L (136-145) L Potassium Level 4.4 mmol/L (3.5-5.1) Chloride Level 100 mmol/L (98-107) Carbon Dioxide Level 26 mmol/L (21-32) Anion Gap 8 (6-14) Blood Urea Nitrogen 29 mg/dL (7-20) H Creatinine 0.8 mg/dL (0.6-1.0) Estimated GFR (Cockcroft-Gault) 70.3 BUN/Creatinine Ratio 36 (6-20) H Glucose Level 80 mg/dL (70-99) Calcium Level 8.6 mg/dL (8.5-10.1) Total Bilirubin 0.3 mg/dL (0.2-1.0) Aspartate Amino Transferase (AST) 22 U/L (15-37) Alanine Aminotransferase (ALT) 28 U/L (14-59) Alkaline Phosphatase 72 U/L (46-116) Total Protein 6.5 g/dL (6.4-8.2) Albumin 2.7 g/dL (3.4-5.0) L Albumin/Globulin Ratio 0.7 (1.0-1.7) L Current Medications: Meds: Laboratory Tests Test 08/20/20 06:13 White Blood Count 7.7 x10^3/uL Red Blood Count 3.26 x10^6/uL Hemoglobin 10.3 g/dL Hematocrit 30.2 % Mean Corpuscular Volume 93 fL Mean Corpuscular Hemoglobin 32 pg Mean Corpuscular Hemoglobin Concent 34 g/dL Red Cell Distribution Width 13.7 % Platelet Count 396 x10^3/uL Neutrophils (%) (Auto) 66 % Lymphocytes (%) (Auto) 22 % Monocytes (%) (Auto) 12 % Eosinophils (%) (Auto) 0 % Basophils (%) (Auto) 1 % Neutrophils # (Auto) 5.1 x10^3uL Lymphocytes # (Auto) 1.7 x10^3/uL Monocytes # (Auto) 0.9 x10^3/uL Eosinophils # (Auto) 0.0 x10^3/uL Basophils # (Auto) 0.1 x10^3/uL Sodium Level 134 mmol/L Potassium Level 4.4 mmol/L Chloride Level 100 mmol/L Carbon Dioxide Level 26 mmol/L Anion Gap 8 Blood Urea Nitrogen 29 mg/dL Creatinine 0.8 mg/dL Estimated GFR (Cockcroft-Gault) 70.3 BUN/Creatinine Ratio 36 Glucose Level 80 mg/dL Calcium Level 8.6 mg/dL Total Bilirubin 0.3 mg/dL Aspartate Amino Transf (AST/SGOT) 22 U/L Alanine Aminotransferase (ALT/SGPT) 28 U/L Alkaline Phosphatase 72 U/L Total Protein 6.5 g/dL Albumin 2.7 g/dL Albumin/Globulin Ratio 0.7 Current Medications Medications (Trade) Dose Ordered Sig/Pino Route PRN Reason Start Time Stop Time Status Last Admin Dose Admin Acetaminophen (Tylenol) 1,000 mg PRN Q6HRS PRN PO MILD PAIN 1-3 08/08/20 23:00 08/11/20 11:07 Atorvastatin Calcium (Lipitor) 10 mg QHS PO 08/09/20 00:00 08/20/20 20:08 Carvedilol (Coreg) 6.25 mg BIDWMEALS PO 08/09/20 08:00 08/20/20 07:55 Cefdinir (Omnicef) 300 mg BID PO 08/09/20 09:00 08/09/20 05:54 DC Cetirizine HCl (ZyrTEC) 10 mg DAILY PO 08/09/20 09:00 08/20/20 07:56 Cyclosporine (Restasis) 1 drop BID OU 08/09/20 00:00 08/20/20 20:08 Levothyroxine Sodium (Synthroid) 125 mcg DAILY06 PO 08/09/20 06:00 08/20/20 05:41 Al Hydroxide/Mg Hydroxide (Mylanta Plus Xs) 15 ml PRN AFTMEALHC PRN PO DYSPEPSIA 08/08/20 23:00 Memantine (Namenda) 10 mg BID PO 08/09/20 00:00 08/20/20 20:08 Multi-Ingredient Ointment (Analgesic [place]) 1 cole PRN QID PRN TP MUSCLE PAIN 08/08/20 23:00 Mirtazapine (Remeron) 7.5 mg QHS PO 08/09/20 00:00 08/20/20 20:08 Montelukast Sodium (Singulair) 10 mg HS PO 08/09/20 00:00 08/20/20 20:08 Olanzapine (ZyPREXA ZYDIS) 2.5 mg PRN Q2HRS PRN PO PSYCHOSIS 08/08/20 23:00 08/20/20 17:56 Ondansetron HCl (Zofran Odt) 4 mg PRN Q6HRS PRN PO nausea/vomiting 08/08/20 23:00 08/12/20 05:13 Quetiapine Fumarate (SEROquel) 12.5 mg NOON PO 08/09/20 12:00 08/20/20 12:21 Quetiapine Fumarate (SEROquel) 12.5 mg QHS PO 08/09/20 00:00 08/20/20 20:09 Trimethoprim/ Sulfamethoxazole (Bactrim Ds) 1 tab BID PO 08/09/20 09:00 08/20/20 20:08 Clobetasol Propionate 1 cole PRN DAILY PRN TP dermatitis 08/08/20 23:30 Diltiazem HCl (Cardizem 24hr Cd) 240 mg DAILY PO 08/09/20 09:00 08/20/20 07:56 Doxycycline Hyclate (Vibra-Tab) 100 mg BID PO 08/09/20 09:00 08/20/20 20:08 Fluvoxamine Maleate (Luvox) 50 mg QHS PO 08/09/20 00:00 08/20/20 20:09 Lactobacillus Rhamnosus (Culturelle) 1 cap BID PO 08/09/20 09:00 08/20/20 20:08 Losartan Potassium (Cozaar) 100 mg DAILY PO 08/09/20 09:00 08/20/20 07:56 Magnesium Hydroxide (Milk Of Magnesia) 2,400 mg PRN QHS PRN PO CONSTIPATION 08/08/20 23:30 08/20/20 07:55 Multivitamins/ Calcium (Thera-M Plus) 1 tab DAILY PO 08/09/20 09:00 08/20/20 07:56 Pantoprazole Sodium (Protonix) 40 mg DAILYAC PO 08/09/20 07:30 08/20/20 08:00 Acetaminophen (Tylenol) 650 mg PRN Q6HRS PRN PO MILD PAIN / TEMP > 100.3'F 08/08/20 23:15 UNV Magnesium Hydroxide (Milk Of Magnesia) 2,400 mg PRN QHS PRN PO CONSTIPATION 08/08/20 23:15 UNV Iohexol (Omnipaque 350 Mg/ml) 100 ml 1X ONCE IV 08/09/20 15:15 08/09/20 15:16 DC 08/09/20 15:15 Enoxaparin Sodium (Lovenox 40mg Syringe) 40 mg Q24H SQ 08/09/20 21:00 08/20/20 20:10 Oxycodone HCl (Roxicodone) 5 mg PRN Q6HRS PRN PO MOD-SEVERE PAIN 08/11/20 14:30 08/20/20 00:05 Magnesium Citrate (Citroma) 296 ml PRN 1X PRN PO CONSTIPATION 08/16/20 09:00 Polyethylene Glycol (miraLAX) 17 gm DAILY PO 08/16/20 09:00 08/20/20 07:55 Hydroxyzine HCl (Atarax) 10 mg PRN Q6HRS PRN PO ITCHING 08/17/20 17:15 I have reviewed the current psychotropics carefully including drug interactions. Risk benefit ratio favors no change other than as noted in my dictated progress note. Diagnosis: Problems: (1) Impulse control disorder, unspecified (2) Anxiety disorder, unspecified (3) Dementia, vascular, with depression (4) Dementia, vascular, with delusions (5) Dementia in Alzheimer's disease with depression (6) Dementia in Alzheimer's disease with delusions (7) Dementia of the Alzheimer's type with early onset with behavioral disturbance (8) Major neurocognitive disorder KATHY BARNHART MD Aug 20, 2020 22:03
--- NOTE | 2020-08-20 23:41 | NUR ---
Pt anxious and restless this evening. Compliant with whole medications and shower. No agitation or aggression.
[2020-08-21] MEDS: LEVOTHYROXINE 125 MCG TABLET PO SCH (06:00)
--- NOTE | 2020-08-21 07:04 | PDOC ---
Exam Note: Roni Note: This note is a late entry for 08/20/2020 covers elements not covered in my initial note. Subjective: The patient was seen individually in the evening of 08/20/2020 with Sarah SCHAFER, discussed and reviewed the chart. She slept 7-1/4 hours previous night. At times the patient remains confused, irritable. When one of the demented patient walked into her, she pushed her away but not in any aggressive manner. She is compliant with medications. I met with her in the dayroom. Review of Systems: Impaired ambulation. No CV, , pulmonary, eye, ENT system symptoms on review. Mental Status Exam: The patient is alert and oriented to herself and situation. She is pleasant, cooperative, was having chocolate pudding and was able to describe this to me accurately. Speech has some latency, coherent. Abstraction fair. Computation impaired Attention span short. Mood and affect labile. No suicidal or homicidal ideation. Laboratory Data: Reviewed. Impression: Major neurocognitive disorder Alzheimer vascular with delusion, depression, and behavioral disturbance. Anxiety disorder unspecified. Impulse control disorder unspecified. Plan: Continue current psychotropics unchanged. Assessment: Vital Signs/I&O: Vital Signs Date Time Temp Pulse Resp B/P (MAP) Pulse Ox O2 Delivery O2 Flow Rate FiO2 08/20/20 17:00 48 135/63 08/20/20 15:41 97.8 18 100 08/16/20 05:53 Room Air I & O 08/20/20 08/20/20 08/21/20 15:00 23:00 07:00 Intake Total 480 ml 240 ml Output Total 1250 ml Balance 480 ml -1010 ml Current Medications: Meds: Current Medications Medications (Trade) Dose Ordered Sig/Pino Route PRN Reason Start Time Stop Time Status Last Admin Dose Admin Acetaminophen (Tylenol) 1,000 mg PRN Q6HRS PRN PO MILD PAIN 1-3 08/08/20 23:00 08/11/20 11:07 Atorvastatin Calcium (Lipitor) 10 mg QHS PO 08/09/20 00:00 08/20/20 20:08 Carvedilol (Coreg) 6.25 mg BIDWMEALS PO 08/09/20 08:00 08/20/20 07:55 Cefdinir (Omnicef) 300 mg BID PO 08/09/20 09:00 08/09/20 05:54 DC Cetirizine HCl (ZyrTEC) 10 mg DAILY PO 08/09/20 09:00 08/20/20 07:56 Cyclosporine (Restasis) 1 drop BID OU 08/09/20 00:00 08/20/20 20:08 Levothyroxine Sodium (Synthroid) 125 mcg DAILY06 PO 08/09/20 06:00 08/20/20 05:41 Al Hydroxide/Mg Hydroxide (Mylanta Plus Xs) 15 ml PRN AFTMEALHC PRN PO DYSPEPSIA 08/08/20 23:00 Memantine (Namenda) 10 mg BID PO 08/09/20 00:00 08/20/20 20:08 Multi-Ingredient Ointment (Analgesic [place]) 1 cole PRN QID PRN TP MUSCLE PAIN 08/08/20 23:00 Mirtazapine (Remeron) 7.5 mg QHS PO 08/09/20 00:00 08/20/20 20:08 Montelukast Sodium (Singulair) 10 mg HS PO 08/09/20 00:00 08/20/20 20:08 Olanzapine (ZyPREXA ZYDIS) 2.5 mg PRN Q2HRS PRN PO PSYCHOSIS 08/08/20 23:00 08/20/20 17:56 Ondansetron HCl (Zofran Odt) 4 mg PRN Q6HRS PRN PO nausea/vomiting 08/08/20 23:00 08/12/20 05:13 Quetiapine Fumarate (SEROquel) 12.5 mg NOON PO 08/09/20 12:00 08/20/20 12:21 Quetiapine Fumarate (SEROquel) 12.5 mg QHS PO 08/09/20 00:00 08/20/20 20:09 Trimethoprim/ Sulfamethoxazole (Bactrim Ds) 1 tab BID PO 08/09/20 09:00 08/20/20 20:08 Clobetasol Propionate 1 cole PRN DAILY PRN TP dermatitis 08/08/20 23:30 Diltiazem HCl (Cardizem 24hr Cd) 240 mg DAILY PO 08/09/20 09:00 08/20/20 07:56 Doxycycline Hyclate (Vibra-Tab) 100 mg BID PO 08/09/20 09:00 08/20/20 20:08 Fluvoxamine Maleate (Luvox) 50 mg QHS PO 08/09/20 00:00 08/20/20 20:09 Lactobacillus Rhamnosus (Culturelle) 1 cap BID PO 08/09/20 09:00 08/20/20 20:08 Losartan Potassium (Cozaar) 100 mg DAILY PO 08/09/20 09:00 08/20/20 07:56 Magnesium Hydroxide (Milk Of Magnesia) 2,400 mg PRN QHS PRN PO CONSTIPATION 08/08/20 23:30 08/20/20 07:55 Multivitamins/ Calcium (Thera-M Plus) 1 tab DAILY PO 08/09/20 09:00 08/20/20 07:56 Pantoprazole Sodium (Protonix) 40 mg DAILYAC PO 08/09/20 07:30 08/20/20 08:00 Acetaminophen (Tylenol) 650 mg PRN Q6HRS PRN PO MILD PAIN / TEMP > 100.3'F 08/08/20 23:15 UNV Magnesium Hydroxide (Milk Of Magnesia) 2,400 mg PRN QHS PRN PO CONSTIPATION 08/08/20 23:15 UNV Iohexol (Omnipaque 350 Mg/ml) 100 ml 1X ONCE IV 08/09/20 15:15 08/09/20 15:16 DC 08/09/20 15:15 Enoxaparin Sodium (Lovenox 40mg Syringe) 40 mg Q24H SQ 08/09/20 21:00 08/20/20 20:10 Oxycodone HCl (Roxicodone) 5 mg PRN Q6HRS PRN PO MOD-SEVERE PAIN 08/11/20 14:30 08/20/20 00:05 Magnesium Citrate (Citroma) 296 ml PRN 1X PRN PO CONSTIPATION 08/16/20 09:00 Polyethylene Glycol (miraLAX) 17 gm DAILY PO 08/16/20 09:00 08/20/20 07:55 Hydroxyzine HCl (Atarax) 10 mg PRN Q6HRS PRN PO ITCHING 08/17/20 17:15 I have reviewed the current psychotropics carefully including drug interactions. Risk benefit ratio favors no change other than as noted in my dictated progress note. Diagnosis: Problems: (1) Impulse control disorder, unspecified (2) Anxiety disorder, unspecified (3) Dementia, vascular, with depression (4) Dementia, vascular, with delusions (5) Dementia in Alzheimer's disease with depression (6) Dementia in Alzheimer's disease with delusions (7) Dementia of the Alzheimer's type with early onset with behavioral disturbance (8) Major neurocognitive disorder KATHY BARNHART MD Aug 21, 2020 07:04
[2020-08-21] MEDS: CARVEDILOL 6.25 MG TABLET PO SCH ×2 (08:00→17:04)
[2020-08-21] MEDS: MEMANTINE 10 MG TABLET. PO SCH ×2 (08:35→20:30)
[2020-08-21] MEDS: MULTIVITAMIN with MINERAL TABLET. PO SCH (08:35)
[2020-08-21] MEDS: PANTOPRAZOLE 40 MG TABLET. PO SCH (08:35)
[2020-08-21] MEDS: MAGNESIUM HYDROXIDE 2,400 MG/30 ML ORAL.SUSP. PO PRN (08:35)
[2020-08-21] MEDS: POLYETHYLENE GLYCOL 3350 17 GM PACKET. PO SCH (08:35)
[2020-08-21] MEDS: CETIRIZINE HCL 10 MG TABLET PO SCH (08:36)
[2020-08-21] MEDS: LACTOBACILLUS RHAMNOSUS GG 1 CAPSULE. PO SCH ×2 (08:36→20:30)
[2020-08-21] MEDS: DOXYCYCLINE HYCLATE 100 MG TABLET PO SCH ×2 (08:36→20:30)
[2020-08-21] MEDS: SMZ/TMP 800/160MG TABLET. PO SCH ×2 (08:36→20:30)
[2020-08-21] MEDS: LOSARTAN 50 MG TABLET. PO SCH (08:37)
[2020-08-21] MEDS: cycloSPORINE 0.05% OPTH 1 DROP DROPERETTE OU SCH ×2 (08:47→20:30)
[2020-08-21 09:14] VITALS: BP 134/73
--- NOTE | 2020-08-21 11:50 | NUR ---
BETTYE received an email correspondence from BETTYE Jamison at [facility]. Below is the excerpt from that email: "In conversation yesterday we have come to conclusion that Maribel will not meet our resident service guidelines to return, therefore she will need a higher level of care. During that conversation I told Emre that I would get him the information and help where I can for further placement. Maribell the [facility] does offer long-term and could care for her as further needed. They have a female bed open at their [facility] location and will await a referral. The fax number is [phone]". BETTYE received a follow up email from the asking BETTYE to send the referral and noted that if he need to do anything further to let him know. BETTYE will fax the referral JESSIE.
[2020-08-21] MEDS: QUEtiapine 25 MG TABLET. PO SCH ×2 (12:03→20:31)
--- NOTE | 2020-08-21 14:50 | NUR ---
Nursing note: Patient in dinning room at time of AM med pass and assessment, medication taken whole. She is oriented to self. Patient is confused, disorganized, forgetful, very short term memory and irritable with peers. Patient denies and pain/discomfort at this time. She is currently walking in the [place]. Will continue to monitor.
[2020-08-21 16:02] VITALS: BP 128/69
[2020-08-21] MEDS: MIRTAZAPINE 7.5 MG TABLET. PO SCH (20:30)
[2020-08-21] MEDS: ATORVASTATIN CALCIUM 10 MG TABLET. PO SCH (20:30)
[2020-08-21] MEDS: MONTELUKAST 10 MG TABLET. PO SCH (20:31)
[2020-08-21] MEDS: ENOXAPARIN 40 MG/0.4 ML SYRINGE. SQ SCH (20:32)
--- NOTE | 2020-08-21 22:02 | PDOC ---
Exam Note: Roni Note: Please also refer to the separate dictated note~for this date of service dictated separately.~Patient seen individually. Discussed the patient with Nursing staff reviewed the chart.~Reviewed interim history and current functioning. Reviewed vital signs,~Labs/ Radiology~and current medications noted below. Continue current treatment with the changes noted in the dictated addendum note Assessment: Vital Signs/I&O: Vital Signs Date Time Temp Pulse Resp B/P (MAP) Pulse Ox O2 Delivery O2 Flow Rate FiO2 08/21/20 17:04 57 128/69 08/21/20 16:02 97.3 18 99 08/16/20 05:53 Room Air I & O 08/20/20 08/20/20 08/21/20 15:00 23:00 07:00 Intake Total 480 ml 240 ml Output Total 1250 ml Balance 480 ml -1010 ml Current Medications: Meds: Current Medications Medications (Trade) Dose Ordered Sig/Pino Route PRN Reason Start Time Stop Time Status Last Admin Dose Admin Acetaminophen (Tylenol) 1,000 mg PRN Q6HRS PRN PO MILD PAIN 1-3 08/08/20 23:00 08/11/20 11:07 Atorvastatin Calcium (Lipitor) 10 mg QHS PO 08/09/20 00:00 08/21/20 20:30 Carvedilol (Coreg) 6.25 mg BIDWMEALS PO 08/09/20 08:00 08/21/20 17:04 Cefdinir (Omnicef) 300 mg BID PO 08/09/20 09:00 08/09/20 05:54 DC Cetirizine HCl (ZyrTEC) 10 mg DAILY PO 08/09/20 09:00 08/21/20 08:36 Cyclosporine (Restasis) 1 drop BID OU 08/09/20 00:00 08/21/20 20:30 Levothyroxine Sodium (Synthroid) 125 mcg DAILY06 PO 08/09/20 06:00 08/21/20 06:00 Al Hydroxide/Mg Hydroxide (Mylanta Plus Xs) 15 ml PRN AFTMEALHC PRN PO DYSPEPSIA 08/08/20 23:00 Memantine (Namenda) 10 mg BID PO 08/09/20 00:00 08/21/20 20:30 Multi-Ingredient Ointment (Analgesic [place]) 1 cole PRN QID PRN TP MUSCLE PAIN 08/08/20 23:00 Mirtazapine (Remeron) 7.5 mg QHS PO 08/09/20 00:00 08/21/20 20:30 Montelukast Sodium (Singulair) 10 mg HS PO 08/09/20 00:00 08/21/20 20:31 Olanzapine (ZyPREXA ZYDIS) 2.5 mg PRN Q2HRS PRN PO PSYCHOSIS 08/08/20 23:00 08/20/20 17:56 Ondansetron HCl (Zofran Odt) 4 mg PRN Q6HRS PRN PO nausea/vomiting 08/08/20 23:00 08/12/20 05:13 Quetiapine Fumarate (SEROquel) 12.5 mg NOON PO 08/09/20 12:00 08/21/20 12:03 Quetiapine Fumarate (SEROquel) 12.5 mg QHS PO 08/09/20 00:00 08/21/20 20:31 Trimethoprim/ Sulfamethoxazole (Bactrim Ds) 1 tab BID PO 08/09/20 09:00 08/21/20 20:30 Clobetasol Propionate 1 cole PRN DAILY PRN TP dermatitis 08/08/20 23:30 Diltiazem HCl (Cardizem 24hr Cd) 240 mg DAILY PO 08/09/20 09:00 08/20/20 07:56 Doxycycline Hyclate (Vibra-Tab) 100 mg BID PO 08/09/20 09:00 08/21/20 20:30 Fluvoxamine Maleate (Luvox) 50 mg QHS PO 08/09/20 00:00 08/21/20 20:31 Lactobacillus Rhamnosus (Culturelle) 1 cap BID PO 08/09/20 09:00 08/21/20 20:30 Losartan Potassium (Cozaar) 100 mg DAILY PO 08/09/20 09:00 08/21/20 08:37 Magnesium Hydroxide (Milk Of Magnesia) 2,400 mg PRN QHS PRN PO CONSTIPATION 08/08/20 23:30 08/21/20 08:35 Multivitamins/ Calcium (Thera-M Plus) 1 tab DAILY PO 08/09/20 09:00 08/21/20 08:35 Pantoprazole Sodium (Protonix) 40 mg DAILYAC PO 08/09/20 07:30 08/21/20 08:35 Acetaminophen (Tylenol) 650 mg PRN Q6HRS PRN PO MILD PAIN / TEMP > 100.3'F 08/08/20 23:15 UNV Magnesium Hydroxide (Milk Of Magnesia) 2,400 mg PRN QHS PRN PO CONSTIPATION 08/08/20 23:15 UNV Iohexol (Omnipaque 350 Mg/ml) 100 ml 1X ONCE IV 08/09/20 15:15 08/09/20 15:16 DC 08/09/20 15:15 Enoxaparin Sodium (Lovenox 40mg Syringe) 40 mg Q24H SQ 08/09/20 21:00 08/21/20 20:32 Oxycodone HCl (Roxicodone) 5 mg PRN Q6HRS PRN PO MOD-SEVERE PAIN 08/11/20 14:30 08/20/20 00:05 Magnesium Citrate (Citroma) 296 ml PRN 1X PRN PO CONSTIPATION 08/16/20 09:00 Polyethylene Glycol (miraLAX) 17 gm DAILY PO 08/16/20 09:00 08/21/20 08:35 Hydroxyzine HCl (Atarax) 10 mg PRN Q6HRS PRN PO ITCHING 08/17/20 17:15 I have reviewed the current psychotropics carefully including drug interactions. Risk benefit ratio favors no change other than as noted in my dictated progress note. Diagnosis: Problems: (1) Impulse control disorder, unspecified (2) Anxiety disorder, unspecified (3) Dementia, vascular, with depression (4) Dementia, vascular, with delusions (5) Dementia in Alzheimer's disease with depression (6) Dementia in Alzheimer's disease with delusions (7) Dementia of the Alzheimer's type with early onset with behavioral disturbance (8) Major neurocognitive disorder KATHY BARNHART MD Aug 21, 2020 22:02
--- NOTE | 2020-08-22 02:17 | NUR ---
Last evening pt walked on the unit or sat in the dayroom until going to bed. She was social with others and has had no behaviors tonight. Meds were taken whole without difficulty.
[2020-08-22] MEDS: LEVOTHYROXINE 125 MCG TABLET PO SCH (05:36)
[2020-08-22 06:15] VITALS: BP 167/81
--- NOTE | 2020-08-22 06:56 | PDOC ---
Exam Note: Roni Note: This note is a late entry for 08/21/2020 covers elements not covered in my initial note. Subjective: The patient was seen individually in the evening of 08/21/2020 with Sarah SCHAFER, discussed and reviewed the chart. She slept 7-1/4 hours previous night. The patient is withdrawn, somewhat forgetful but otherwise, pleasant, less paranoid. I met with her in the dayroom. Review of Systems: Impaired ambulation. No CV, , pulmonary, eye, ENT system symptoms on review. Mental Status Exam: The patient is alert and oriented to herself and situation. Speech has some latency, coherent. Abstraction fair. Computation impaired Attention span short. Mood and affect labile. No suicidal or homicidal ideation. Laboratory Data: Reviewed. Impression: Major neurocognitive disorder Alzheimer vascular with delusion, de pression, and behavioral disturbance. Anxiety disorder unspecified. Impulse control disorder unspecified. Plan: Continue current psychotropics unchanged. Assessment: Vital Signs/I&O: Vital Signs Date Time Temp Pulse Resp B/P (MAP) Pulse Ox O2 Delivery O2 Flow Rate FiO2 08/22/20 06:15 98.8 70 20 167/81 (109) 97 I & O 08/21/20 08/21/20 08/22/20 15:00 23:00 07:00 Intake Total 720 ml 240 ml Output Total 1600 ml 1100 ml 1800 ml Balance -880 ml -860 ml -1800 ml Current Medications: Meds: Current Medications Medications (Trade) Dose Ordered Sig/Pino Route PRN Reason Start Time Stop Time Status Last Admin Dose Admin Acetaminophen (Tylenol) 1,000 mg PRN Q6HRS PRN PO MILD PAIN 1-3 08/08/20 23:00 08/11/20 11:07 Atorvastatin Calcium (Lipitor) 10 mg QHS PO 08/09/20 00:00 08/21/20 20:30 Carvedilol (Coreg) 6.25 mg BIDWMEALS PO 08/09/20 08:00 08/21/20 17:04 Cefdinir (Omnicef) 300 mg BID PO 08/09/20 09:00 08/09/20 05:54 DC Cetirizine HCl (ZyrTEC) 10 mg DAILY PO 08/09/20 09:00 08/21/20 08:36 Cyclosporine (Restasis) 1 drop BID OU 08/09/20 00:00 08/21/20 20:30 Levothyroxine Sodium (Synthroid) 125 mcg DAILY06 PO 08/09/20 06:00 08/22/20 05:36 Al Hydroxide/Mg Hydroxide (Mylanta Plus Xs) 15 ml PRN AFTMEALHC PRN PO DYSPEPSIA 08/08/20 23:00 Memantine (Namenda) 10 mg BID PO 08/09/20 00:00 08/21/20 20:30 Multi-Ingredient Ointment (Analgesic [place]) 1 cole PRN QID PRN TP MUSCLE PAIN 08/08/20 23:00 Mirtazapine (Remeron) 7.5 mg QHS PO 08/09/20 00:00 08/21/20 20:30 Montelukast Sodium (Singulair) 10 mg HS PO 08/09/20 00:00 08/21/20 20:31 Olanzapine (ZyPREXA ZYDIS) 2.5 mg PRN Q2HRS PRN PO PSYCHOSIS 08/08/20 23:00 08/20/20 17:56 Ondansetron HCl (Zofran Odt) 4 mg PRN Q6HRS PRN PO nausea/vomiting 08/08/20 23:00 08/12/20 05:13 Quetiapine Fumarate (SEROquel) 12.5 mg NOON PO 08/09/20 12:00 08/21/20 12:03 Quetiapine Fumarate (SEROquel) 12.5 mg QHS PO 08/09/20 00:00 08/21/20 20:31 Trimethoprim/ Sulfamethoxazole (Bactrim Ds) 1 tab BID PO 08/09/20 09:00 08/21/20 20:30 Clobetasol Propionate 1 cole PRN DAILY PRN TP dermatitis 08/08/20 23:30 Diltiazem HCl (Cardizem 24hr Cd) 240 mg DAILY PO 08/09/20 09:00 08/20/20 07:56 Doxycycline Hyclate (Vibra-Tab) 100 mg BID PO 08/09/20 09:00 08/21/20 20:30 Fluvoxamine Maleate (Luvox) 50 mg QHS PO 08/09/20 00:00 08/21/20 20:31 Lactobacillus Rhamnosus (Culturelle) 1 cap BID PO 08/09/20 09:00 08/21/20 20:30 Losartan Potassium (Cozaar) 100 mg DAILY PO 08/09/20 09:00 08/21/20 08:37 Magnesium Hydroxide (Milk Of Magnesia) 2,400 mg PRN QHS PRN PO CONSTIPATION 08/08/20 23:30 08/21/20 08:35 Multivitamins/ Calcium (Thera-M Plus) 1 tab DAILY PO 08/09/20 09:00 08/21/20 08:35 Pantoprazole Sodium (Protonix) 40 mg DAILYAC PO 08/09/20 07:30 08/21/20 08:35 Acetaminophen (Tylenol) 650 mg PRN Q6HRS PRN PO MILD PAIN / TEMP > 100.3'F 08/08/20 23:15 UNV Magnesium Hydroxide (Milk Of Magnesia) 2,400 mg PRN QHS PRN PO CONSTIPATION 08/08/20 23:15 UNV Iohexol (Omnipaque 350 Mg/ml) 100 ml 1X ONCE IV 08/09/20 15:15 08/09/20 15:16 DC 08/09/20 15:15 Enoxaparin Sodium (Lovenox 40mg Syringe) 40 mg Q24H SQ 08/09/20 21:00 08/21/20 20:32 Oxycodone HCl (Roxicodone) 5 mg PRN Q6HRS PRN PO MOD-SEVERE PAIN 08/11/20 14:30 08/20/20 00:05 Magnesium Citrate (Citroma) 296 ml PRN 1X PRN PO CONSTIPATION 08/16/20 09:00 Polyethylene Glycol (miraLAX) 17 gm DAILY PO 08/16/20 09:00 08/21/20 08:35 Hydroxyzine HCl (Atarax) 10 mg PRN Q6HRS PRN PO ITCHING 08/17/20 17:15 I have reviewed the current psychotropics carefully including drug interactions. Risk benefit ratio favors no change other than as noted in my dictated progress note. 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
[2020-08-22] MEDS: SMZ/TMP 800/160MG TABLET. PO SCH ×2 (08:26→19:57)
[2020-08-22] MEDS: cycloSPORINE 0.05% OPTH 1 DROP DROPERETTE OU SCH ×2 (08:26→19:57)
[2020-08-22] MEDS: PANTOPRAZOLE 40 MG TABLET. PO SCH (08:26)
[2020-08-22] MEDS: MULTIVITAMIN with MINERAL TABLET. PO SCH (08:27)
[2020-08-22] MEDS: DOXYCYCLINE HYCLATE 100 MG TABLET PO SCH ×2 (08:27→19:56)
[2020-08-22] MEDS: CARVEDILOL 6.25 MG TABLET PO SCH ×2 (08:27→17:14)
[2020-08-22] MEDS: MEMANTINE 10 MG TABLET. PO SCH ×2 (08:27→19:57)
[2020-08-22] MEDS: CETIRIZINE HCL 10 MG TABLET PO SCH (08:27)
[2020-08-22] MEDS: LOSARTAN 50 MG TABLET. PO SCH (08:28)
[2020-08-22] MEDS: POLYETHYLENE GLYCOL 3350 17 GM PACKET. PO SCH (08:28)
[2020-08-22] MEDS: LACTOBACILLUS RHAMNOSUS GG 1 CAPSULE. PO SCH ×2 (08:28→19:56)
--- NOTE | 2020-08-22 12:13 | NUR ---
BETTYE faxed referral over to [facility] in [place] to have pt evaluated for possible placement. BETTYE will follow up this afternoon for admission decision.
[2020-08-22] MEDS: QUEtiapine 25 MG TABLET. PO SCH ×2 (12:18→19:58)
[2020-08-22] MEDS: DOCUSATE SODIUM 100 MG CAPSULE PO SCH ×2 (12:21→19:57)
--- NOTE | 2020-08-22 13:14 | NUR ---
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 Sutures intact and skin approximated, dry bloody drainage cleansed with chloroprep. No redness noted on left foot, right great toe and metatarsals remain slightly reddened and swollen, but improving. Recommend incisions be cleansed daily with chloroprep or betadine and covered with xeroform and gauze. Post op shoes ordered for patient but according to nurse patient was walking around kicking doors with them so they took them away. WC will follow up next week to monitor incision sites
--- NOTE | 2020-08-22 13:59 | NUR ---
NSG NOTE; Maribel has been more settled today, not being repetitive about "what are we doing next?" she is med compliant
[2020-08-22 15:58] VITALS: BP 116/69
[2020-08-22] MEDS: MIRTAZAPINE 7.5 MG TABLET. PO SCH (19:57)
[2020-08-22] MEDS: MONTELUKAST 10 MG TABLET. PO SCH (19:57)
[2020-08-22] MEDS: ATORVASTATIN CALCIUM 10 MG TABLET. PO SCH (19:58)
--- NOTE | 2020-08-22 22:10 | PDOC ---
Exam Note: Roni Note: Please also refer to the separate dictated note~for this date of service dictated separately.~Patient seen individually. Discussed the patient with Nursing staff reviewed the chart.~Reviewed interim history and current functioning. Reviewed vital signs,~Labs/ Radiology~and current medications noted below. Continue current treatment with the changes noted in the dictated addendum note Assessment: Vital Signs/I&O: Vital Signs Date Time Temp Pulse Resp B/P (MAP) Pulse Ox O2 Delivery O2 Flow Rate FiO2 08/22/20 17:14 59 116/69 08/22/20 15:58 97.1 16 98 I & O 08/21/20 08/21/20 08/22/20 15:00 23:00 07:00 Intake Total 720 ml 240 ml Output Total 1600 ml 1100 ml 1800 ml Balance -880 ml -860 ml -1800 ml Current Medications: Meds: Current Medications Medications (Trade) Dose Ordered Sig/Pino Route PRN Reason Start Time Stop Time Status Last Admin Dose Admin Acetaminophen (Tylenol) 1,000 mg PRN Q6HRS PRN PO MILD PAIN 1-3 08/08/20 23:00 08/11/20 11:07 Atorvastatin Calcium (Lipitor) 10 mg QHS PO 08/09/20 00:00 08/22/20 19:58 Carvedilol (Coreg) 6.25 mg BIDWMEALS PO 08/09/20 08:00 08/22/20 17:14 Cefdinir (Omnicef) 300 mg BID PO 08/09/20 09:00 08/09/20 05:54 DC Cetirizine HCl (ZyrTEC) 10 mg DAILY PO 08/09/20 09:00 08/22/20 08:27 Cyclosporine (Restasis) 1 drop BID OU 08/09/20 00:00 08/22/20 19:57 Levothyroxine Sodium (Synthroid) 125 mcg DAILY06 PO 08/09/20 06:00 08/22/20 05:36 Al Hydroxide/Mg Hydroxide (Mylanta Plus Xs) 15 ml PRN AFTMEALHC PRN PO DYSPEPSIA 08/08/20 23:00 Memantine (Namenda) 10 mg BID PO 08/09/20 00:00 08/22/20 19:57 Multi-Ingredient Ointment (Analgesic [place]) 1 cole PRN QID PRN TP MUSCLE PAIN 08/08/20 23:00 Mirtazapine (Remeron) 7.5 mg QHS PO 08/09/20 00:00 08/22/20 19:57 Montelukast Sodium (Singulair) 10 mg HS PO 08/09/20 00:00 08/22/20 19:57 Olanzapine (ZyPREXA ZYDIS) 2.5 mg PRN Q2HRS PRN PO PSYCHOSIS 08/08/20 23:00 08/20/20 17:56 Ondansetron HCl (Zofran Odt) 4 mg PRN Q6HRS PRN PO nausea/vomiting 08/08/20 23:00 08/12/20 05:13 Quetiapine Fumarate (SEROquel) 12.5 mg NOON PO 08/09/20 12:00 08/22/20 12:18 Quetiapine Fumarate (SEROquel) 12.5 mg QHS PO 08/09/20 00:00 08/22/20 19:58 Trimethoprim/ Sulfamethoxazole (Bactrim Ds) 1 tab BID PO 08/09/20 09:00 08/22/20 19:57 Clobetasol Propionate 1 cole PRN DAILY PRN TP dermatitis 08/08/20 23:30 Diltiazem HCl (Cardizem 24hr Cd) 240 mg DAILY PO 08/09/20 09:00 08/22/20 08:27 Doxycycline Hyclate (Vibra-Tab) 100 mg BID PO 08/09/20 09:00 08/22/20 19:56 Fluvoxamine Maleate (Luvox) 50 mg QHS PO 08/09/20 00:00 08/22/20 19:56 Lactobacillus Rhamnosus (Culturelle) 1 cap BID PO 08/09/20 09:00 08/22/20 19:56 Losartan Potassium (Cozaar) 100 mg DAILY PO 08/09/20 09:00 08/22/20 08:28 Magnesium Hydroxide (Milk Of Magnesia) 2,400 mg PRN QHS PRN PO CONSTIPATION 08/08/20 23:30 08/21/20 08:35 Multivitamins/ Calcium (Thera-M Plus) 1 tab DAILY PO 08/09/20 09:00 08/22/20 08:27 Pantoprazole Sodium (Protonix) 40 mg DAILYAC PO 08/09/20 07:30 08/22/20 08:26 Acetaminophen (Tylenol) 650 mg PRN Q6HRS PRN PO MILD PAIN / TEMP > 100.3'F 08/08/20 23:15 UNV Magnesium Hydroxide (Milk Of Magnesia) 2,400 mg PRN QHS PRN PO CONSTIPATION 08/08/20 23:15 UNV Iohexol (Omnipaque 350 Mg/ml) 100 ml 1X ONCE IV 08/09/20 15:15 08/09/20 15:16 DC 08/09/20 15:15 Enoxaparin Sodium (Lovenox 40mg Syringe) 40 mg Q24H SQ 08/09/20 21:00 08/22/20 19:06 DC 08/21/20 20:32 Oxycodone HCl (Roxicodone) 5 mg PRN Q6HRS PRN PO MOD-SEVERE PAIN 08/11/20 14:30 08/20/20 00:05 Magnesium Citrate (Citroma) 296 ml PRN 1X PRN PO CONSTIPATION 08/16/20 09:00 Polyethylene Glycol (miraLAX) 17 gm DAILY PO 08/16/20 09:00 08/22/20 08:28 Hydroxyzine HCl (Atarax) 10 mg PRN Q6HRS PRN PO ITCHING 08/17/20 17:15 Docusate Sodium (Colace) 100 mg BID PO 08/22/20 10:00 08/22/20 19:57 Current Medications Medications (Trade) Dose Ordered Sig/Pino Route PRN Reason Start Time Stop Time Status Last Admin Dose Admin Docusate Sodium (Colace) 100 mg BID PO 08/22/20 10:00 08/22/20 19:57 I have reviewed the current psychotropics carefully including drug interactions. Risk benefit ratio favors no change other than as noted in my dictated progress note. Diagnosis: Problems: (1) Impulse control disorder, unspecified (2) Anxiety disorder, unspecified (3) Dementia, vascular, with depression (4) Dementia, vascular, with delusions (5) Dementia in Alzheimer's disease with depression (6) Dementia in Alzheimer's disease with delusions (7) Dementia of the Alzheimer's type with early onset with behavioral disturbance (8) Major neurocognitive disorder KATHY BARNHART MD Aug 22, 2020 22:10
--- NOTE | 2020-08-23 00:51 | NUR ---
Pt has been in her room in bed tonight. She was awaken for HS meds and took them whole without issue. She has been cooperative and had no behaviors tonight.
[2020-08-23] MEDS: LEVOTHYROXINE 125 MCG TABLET PO SCH (05:38)
[2020-08-23 06:18] VITALS: BP 121/62
[2020-08-23] MEDS: CARVEDILOL 6.25 MG TABLET PO SCH ×2 (08:00→17:33)
--- NOTE | 2020-08-23 08:06 | PDOC ---
Exam Note: Roni Note: This note is a late entry for 08/22/2020 covers elements not covered in my initial note. Subjective: The patient was seen individually in the evening of 08/22/2020 with Carmelina SCHAFER, discussed and reviewed the chart. She slept 5 hours previous night. The patient is less obsessive, less anxious. Previous evening she called her occupational health nursing director, somewhat stupid. She remains confused, compliant with medications and cares. Review of Systems: Impaired ambulation. No CV, , pulmonary, eye, ENT system symptoms on review. Mental Status Exam: The patient is alert and oriented to herself and situation. Speech has some latency, coherent. Abstraction fair. Computation impaired Attention span short. Mood and affect labile. No suicidal or homicidal ideation. Laboratory Data: Reviewed. Impression: Major neurocognitive disorder Alzheimer vascular with delusion, depression, and behavioral disturbance. Anxiety disorder unspecified. Impulse control disorder unspecified. Plan: Continue current psychotropics unchanged. Assessment: Vital Signs/I&O: Vital Signs Date Time Temp Pulse Resp B/P (MAP) Pulse Ox O2 Delivery O2 Flow Rate FiO2 08/23/20 06:18 98.2 50 18 121/62 (81) 96 Room Air I & O 08/22/20 08/22/20 08/23/20 15:00 23:00 07:00 Intake Total 480 ml 240 ml Balance 480 ml 240 ml Current Medications: Meds: Current Medications Medications (Trade) Dose Ordered Sig/Pino Route PRN Reason Start Time Stop Time Status Last Admin Dose Admin Acetaminophen (Tylenol) 1,000 mg PRN Q6HRS PRN PO MILD PAIN 1-3 08/08/20 23:00 08/11/20 11:07 Atorvastatin Calcium (Lipitor) 10 mg QHS PO 08/09/20 00:00 08/22/20 19:58 Carvedilol (Coreg) 6.25 mg BIDWMEALS PO 08/09/20 08:00 08/22/20 17:14 Cefdinir (Omnicef) 300 mg BID PO 08/09/20 09:00 08/09/20 05:54 DC Cetirizine HCl (ZyrTEC) 10 mg DAILY PO 08/09/20 09:00 08/22/20 08:27 Cyclosporine (Restasis) 1 drop BID OU 08/09/20 00:00 08/22/20 19:57 Levothyroxine Sodium (Synthroid) 125 mcg DAILY06 PO 08/09/20 06:00 08/23/20 05:38 Al Hydroxide/Mg Hydroxide (Mylanta Plus Xs) 15 ml PRN AFTMEALHC PRN PO DYSPEPSIA 08/08/20 23:00 Memantine (Namenda) 10 mg BID PO 08/09/20 00:00 08/22/20 19:57 Multi-Ingredient Ointment (Analgesic [place]) 1 cole PRN QID PRN TP MUSCLE PAIN 08/08/20 23:00 Mirtazapine (Remeron) 7.5 mg QHS PO 08/09/20 00:00 08/22/20 19:57 Montelukast Sodium (Singulair) 10 mg HS PO 08/09/20 00:00 08/22/20 19:57 Olanzapine (ZyPREXA ZYDIS) 2.5 mg PRN Q2HRS PRN PO PSYCHOSIS 08/08/20 23:00 08/20/20 17:56 Ondansetron HCl (Zofran Odt) 4 mg PRN Q6HRS PRN PO nausea/vomiting 08/08/20 23:00 08/12/20 05:13 Quetiapine Fumarate (SEROquel) 12.5 mg NOON PO 08/09/20 12:00 08/22/20 12:18 Quetiapine Fumarate (SEROquel) 12.5 mg QHS PO 08/09/20 00:00 08/22/20 19:58 Trimethoprim/ Sulfamethoxazole (Bactrim Ds) 1 tab BID PO 08/09/20 09:00 08/22/20 19:57 Clobetasol Propionate 1 cole PRN DAILY PRN TP dermatitis 08/08/20 23:30 Diltiazem HCl (Cardizem 24hr Cd) 240 mg DAILY PO 08/09/20 09:00 08/22/20 08:27 Doxycycline Hyclate (Vibra-Tab) 100 mg BID PO 08/09/20 09:00 08/22/20 19:56 Fluvoxamine Maleate (Luvox) 50 mg QHS PO 08/09/20 00:00 08/22/20 19:56 Lactobacillus Rhamnosus (Culturelle) 1 cap BID PO 08/09/20 09:00 08/22/20 19:56 Losartan Potassium (Cozaar) 100 mg DAILY PO 08/09/20 09:00 08/22/20 08:28 Magnesium Hydroxide (Milk Of Magnesia) 2,400 mg PRN QHS PRN PO CONSTIPATION, 1ST CHOICE 08/08/20 23:30 08/21/20 08:35 Multivitamins/ Calcium (Thera-M Plus) 1 tab DAILY PO 08/09/20 09:00 08/22/20 08:27 Pantoprazole Sodium (Protonix) 40 mg DAILYAC PO 08/09/20 07:30 08/22/20 08:26 Acetaminophen (Tylenol) 650 mg PRN Q6HRS PRN PO MILD PAIN / TEMP > 100.3'F 08/08/20 23:15 UNV Magnesium Hydroxide (Milk Of Magnesia) 2,400 mg PRN QHS PRN PO CONSTIPATION 08/08/20 23:15 UNV Iohexol (Omnipaque 350 Mg/ml) 100 ml 1X ONCE IV 08/09/20 15:15 08/09/20 15:16 DC 08/09/20 15:15 Enoxaparin Sodium (Lovenox 40mg Syringe) 40 mg Q24H SQ 08/09/20 21:00 08/22/20 19:06 DC 08/21/20 20:32 Oxycodone HCl (Roxicodone) 5 mg PRN Q6HRS PRN PO MOD-SEVERE PAIN 08/11/20 14:30 08/20/20 00:05 Magnesium Citrate (Citroma) 296 ml PRN 1X PRN PO CONSTIPATION, 2ND CHOICE 08/16/20 09:00 Polyethylene Glycol (miraLAX) 17 gm DAILY PO 08/16/20 09:00 08/22/20 08:28 Hydroxyzine HCl (Atarax) 10 mg PRN Q6HRS PRN PO ITCHING 08/17/20 17:15 Docusate Sodium (Colace) 100 mg BID PO 08/22/20 10:00 08/22/20 19:57 Current Medications Medications (Trade) Dose Ordered Sig/Pino Route PRN Reason Start Time Stop Time Status Last Admin Dose Admin Docusate Sodium (Colace) 100 mg BID PO 08/22/20 10:00 08/22/20 19:57 I have reviewed the current psychotropics carefully including drug interactions. Risk benefit ratio favors no change other than as noted in my dictated progress note. Diagnosis: Problems: (1) Impulse control disorder, unspecified (2) Anxiety disorder, unspecified (3) Dementia, vascular, with depression (4) Dementia, vascular, with delusions (5) Dementia in Alzheimer's disease with depression (6) Dementia in Alzheimer's disease with delusions (7) Dementia of the Alzheimer's type with early onset with behavioral disturbance (8) Major neurocognitive disorder KATHY BARNHART MD Aug 23, 2020 08:06
[2020-08-23] MEDS: POLYETHYLENE GLYCOL 3350 17 GM PACKET. PO SCH (08:28)
[2020-08-23] MEDS: DOCUSATE SODIUM 100 MG CAPSULE PO SCH ×2 (08:29→20:49)
[2020-08-23] MEDS: LACTOBACILLUS RHAMNOSUS GG 1 CAPSULE. PO SCH ×2 (08:30→20:49)
[2020-08-23] MEDS: LOSARTAN 50 MG TABLET. PO SCH (08:31)
[2020-08-23] MEDS: MULTIVITAMIN with MINERAL TABLET. PO SCH (08:31)
[2020-08-23] MEDS: DOXYCYCLINE HYCLATE 100 MG TABLET PO SCH ×2 (08:31→20:49)
[2020-08-23] MEDS: MEMANTINE 10 MG TABLET. PO SCH ×2 (08:31→20:48)
[2020-08-23] MEDS: SMZ/TMP 800/160MG TABLET. PO SCH ×2 (08:31→20:49)
[2020-08-23] MEDS: PANTOPRAZOLE 40 MG TABLET. PO SCH (08:31)
[2020-08-23] MEDS: CETIRIZINE HCL 10 MG TABLET PO SCH (08:31)
[2020-08-23] MEDS: cycloSPORINE 0.05% OPTH 1 DROP DROPERETTE OU SCH ×2 (08:32→20:48)
[2020-08-23] MEDS: QUEtiapine 25 MG TABLET. PO SCH ×2 (12:00→20:48)
--- NOTE | 2020-08-23 12:21 | NUR ---
WEEKLY ACTIVITY THERAPY NOTE Date of Admission:07/27/20, DC 08/06 to [facility], Readmitted 08/09 Date of AT Assessment: 07/30 remains valid Precipitating behaviors that initiated 08/09 admission: Pt ripped out her IV at [facility] was wandering about confused. Precipitating behaviors that initiated intake and 07/27 admission: Patient admitted from [facility] via [facility] ED for reportedly flipping dining room chairs, throwing ensure bottles at staff, pushing and shoving staff, eloping from locked facility, being obsessive, and attention seeking Goal aimed: increase stress management and relaxation skills Initial Goal: Pt will participate in at least five individual or group Activity Therapy sessions per week. Goal changed 08/06:Pt will participate in all group Activity Therapy sessions offered. Weekly progress towards goal: Group participation level: 2 min, 1 mod,7 full Weekly highlights: pool noodle exercise and crack the code activity , independently tossed horseshoes , trivia Thursday, patio social hour Thursday, flexibility exercise and Name 5 activity Thursday, sang RelTelpel songs Thursday Behaviors observed: social and pleasant with peers, fairly independent, reassurance needed, redirectable Plan: no change to goal Beneficial adaptations: music, socialization, direct prompting, redirection
--- NOTE | 2020-08-23 15:16 | NUR ---
Nursing Note: Pt has be pleasantly confused and medication compliant. Pt was awake and attended breakfast this morning. She did wander slightly throughout the day asking where she should be at, but once she got comfortable in the day room she stayed in there. She napped on and off in a chair in the day room and participated in group therapy. She will be discharging to [facility] hopefully by next week.
[2020-08-23 15:47] VITALS: BP 119/71
--- NOTE | 2020-08-23 16:28 | NUR ---
SW attempted to contact pt , Emre, and left a message asking for him to contact SW when possible.
--- NOTE | 2020-08-23 16:31 | NUR ---
Treatment team note: Pt is eating roughly 75% of meals and sleeping on average 7.75 hours per night. Pt is calm and cooperative with all staff direction and cares; compliant with medications whole. Pt is very forgetful and needs direction on "where she needs to be". Pt is less agitated and does not have any physical aggression noted. Pt has attended 10 groups in this last week with full participation and appears to have enjoyed doing the trivia questions the most. Pt was approved for admission to [facility] and SW will make all arrangements with pt for the beginning of next week.
--- NOTE | 2020-08-23 16:37 | TX PLAN ---
Interdisciplinary Tx Plan Admission Information Aug 08, 2020 at 17:30 Legal Status (on Admission): Voluntary DPOA/Guardian Name: Emre Carroll Contact Other Contact Name: Camryn Boone Other Contact Verified Code Status: Full Code Allergies: Coded Allergies: adhesive (Verified Allergy, Unknown, 07/27/20) amlodipine (Verified Allergy, Unknown, Swelling, 07/27/20) clindamycin (Verified Allergy, Unknown, Rash, 07/27/20) Diagnoses Primary Diagnosis: Major Neurocognitive D/O, Alzheimers with delusions, depression and BD. Problem in Patient's Words: Decline in cognition Additional Admission Comments: According to the intake, pt was readmitted to 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 Pt continues to be confused, agitated, pulled out her IV, verbally and physically aggressive. Problems Active Problems: agitated anxious restless Inactive Problems: Medication compliant Pt Strengths/Limitations Ability for [place]: Poor Cognitive Functioning/Ability: Fair Communication Skills/Ability: Fair Financial Resources: Good Insight/Judgement: Poor Intellectual Ability: Fair Physical Health: Poor Social Skills: Fair Stability in Family: Good Stability in School/Work: Poor Verbal Skills: Fair Discharge Criteria Discharge Criteria: No need for close observ., Adequate arrangements @DC, Improved behavior, Improved mood/thought Preliminary Discharge Plan Preliminary DC Plan: Current Living Arrange. Special Precautions Fall Risk: Moderate Initial D/C Plan Pt to return to [facility] once stable. Identified Discharge Needs: Continued psychiatric services Currently Utilized Resources Currently Utilized Resources/P: Primary Care Physician Identified Problems/Hx/Goals Objectives/Short-Term Goals Short Term Goals: Dec. Aggression, Dec. Outbursts, Medication Stabilization, Promote Coping Skill Short Term Goals in Patient's: NA Interventions/Frequency Staff Interventions/Frequency&: Psychiatrist to assess pt at least 3x per week for medication managment. Social Work to assess pt at least 2x per week to identify barriers to care and finalize discharge plans with family/facility. Nursing to assess medication effects, behavior modification and complete 15 minute checks daily. Encourage participation in group activities (if applicable) or 1:1 engagement based off Activity Dept goals. 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 Pt also did some training at the [employer] for a few years. She retired in 2009 due to complications with breast cancer. Education: Pt graduated HS (12th grade). Pt has her Bachelors in Psychology and received her Masters in Psychology; pt attended and initially started on her degree in School Counseling/Psychology. 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 Pt is calm and cooperative with all staff direction and cares; compliant with medications whole. Pt is very forgetful and needs direction on "where she needs to be". Pt is less agitated and does not have any physical aggression noted. Pt has attended 10 groups in this last week with full participation and appears to have enjoyed doing the trivia questions the most. Pt was approved for admission to [facility] and SW will make all arrangements with pt for the beginning of next week. LUPE IGNACIO Aug 23, 2020 16:37
[2020-08-23] MEDS: ATORVASTATIN CALCIUM 10 MG TABLET. PO SCH (20:48)
[2020-08-23] MEDS: MIRTAZAPINE 7.5 MG TABLET. PO SCH (20:49)
[2020-08-23] MEDS: MONTELUKAST 10 MG TABLET. PO SCH (20:49)
--- NOTE | 2020-08-23 22:07 | PDOC ---
Exam Note: Roni Note: Please also refer to the separate dictated note~for this date of service dictated separately.~Patient seen individually. Discussed the patient with Nursing staff reviewed the chart.~Reviewed interim history and current functioning. Reviewed vital signs,~Labs/ Radiology~and current medications noted below. Continue current treatment with the changes noted in the dictated addendum note Assessment: Vital Signs/I&O: Vital Signs Date Time Temp Pulse Resp B/P (MAP) Pulse Ox O2 Delivery O2 Flow Rate FiO2 08/23/20 17:33 101 119/71 08/23/20 15:47 97.7 16 94 08/23/20 06:18 Room Air I & O 08/22/20 08/22/20 08/23/20 15:00 23:00 07:00 Intake Total 480 ml 240 ml Balance 480 ml 240 ml Current Medications: Meds: Current Medications Medications (Trade) Dose Ordered Sig/Pino Route PRN Reason Start Time Stop Time Status Last Admin Dose Admin Acetaminophen (Tylenol) 1,000 mg PRN Q6HRS PRN PO MILD PAIN 1-3 08/08/20 23:00 08/11/20 11:07 Atorvastatin Calcium (Lipitor) 10 mg QHS PO 08/09/20 00:00 08/23/20 20:48 Carvedilol (Coreg) 6.25 mg BIDWMEALS PO 08/09/20 08:00 08/23/20 17:33 Cefdinir (Omnicef) 300 mg BID PO 08/09/20 09:00 08/09/20 05:54 DC Cetirizine HCl (ZyrTEC) 10 mg DAILY PO 08/09/20 09:00 08/23/20 08:31 Cyclosporine (Restasis) 1 drop BID OU 08/09/20 00:00 08/23/20 20:48 Levothyroxine Sodium (Synthroid) 125 mcg DAILY06 PO 08/09/20 06:00 08/23/20 05:38 Al Hydroxide/Mg Hydroxide (Mylanta Plus Xs) 15 ml PRN AFTMEALHC PRN PO DYSPEPSIA 08/08/20 23:00 Memantine (Namenda) 10 mg BID PO 08/09/20 00:00 08/23/20 20:48 Multi-Ingredient Ointment (Analgesic [place]) 1 cole PRN QID PRN TP MUSCLE PAIN 08/08/20 23:00 Mirtazapine (Remeron) 7.5 mg QHS PO 08/09/20 00:00 08/23/20 20:49 Montelukast Sodium (Singulair) 10 mg HS PO 08/09/20 00:00 08/23/20 20:49 Olanzapine (ZyPREXA ZYDIS) 2.5 mg PRN Q2HRS PRN PO PSYCHOSIS 08/08/20 23:00 08/20/20 17:56 Ondansetron HCl (Zofran Odt) 4 mg PRN Q6HRS PRN PO nausea/vomiting 08/08/20 23:00 08/12/20 05:13 Quetiapine Fumarate (SEROquel) 12.5 mg NOON PO 08/09/20 12:00 08/23/20 12:00 Quetiapine Fumarate (SEROquel) 12.5 mg QHS PO 08/09/20 00:00 08/23/20 20:48 Trimethoprim/ Sulfamethoxazole (Bactrim Ds) 1 tab BID PO 08/09/20 09:00 08/23/20 20:49 Clobetasol Propionate 1 cole PRN DAILY PRN TP dermatitis 08/08/20 23:30 Diltiazem HCl (Cardizem 24hr Cd) 240 mg DAILY PO 08/09/20 09:00 08/22/20 08:27 Doxycycline Hyclate (Vibra-Tab) 100 mg BID PO 08/09/20 09:00 08/23/20 20:49 Fluvoxamine Maleate (Luvox) 50 mg QHS PO 08/09/20 00:00 08/23/20 20:49 Lactobacillus Rhamnosus (Culturelle) 1 cap BID PO 08/09/20 09:00 08/23/20 20:49 Losartan Potassium (Cozaar) 100 mg DAILY PO 08/09/20 09:00 08/23/20 08:31 Magnesium Hydroxide (Milk Of Magnesia) 2,400 mg PRN QHS PRN PO CONSTIPATION, 1ST CHOICE 08/08/20 23:30 08/21/20 08:35 Multivitamins/ Calcium (Thera-M Plus) 1 tab DAILY PO 08/09/20 09:00 08/23/20 08:31 Pantoprazole Sodium (Protonix) 40 mg DAILYAC PO 08/09/20 07:30 08/23/20 08:31 Acetaminophen (Tylenol) 650 mg PRN Q6HRS PRN PO MILD PAIN / TEMP > 100.3'F 08/08/20 23:15 UNV Magnesium Hydroxide (Milk Of Magnesia) 2,400 mg PRN QHS PRN PO CONSTIPATION 08/08/20 23:15 UNV Iohexol (Omnipaque 350 Mg/ml) 100 ml 1X ONCE IV 08/09/20 15:15 08/09/20 15:16 DC 08/09/20 15:15 Enoxaparin Sodium (Lovenox 40mg Syringe) 40 mg Q24H SQ 08/09/20 21:00 08/22/20 19:06 DC 08/21/20 20:32 Oxycodone HCl (Roxicodone) 5 mg PRN Q6HRS PRN PO MOD-SEVERE PAIN 08/11/20 14:30 08/20/20 00:05 Magnesium Citrate (Citroma) 296 ml PRN 1X PRN PO CONSTIPATION, 2ND CHOICE 08/16/20 09:00 Polyethylene Glycol (miraLAX) 17 gm DAILY PO 08/16/20 09:00 08/23/20 08:28 Hydroxyzine HCl (Atarax) 10 mg PRN Q6HRS PRN PO ITCHING 08/17/20 17:15 Docusate Sodium (Colace) 100 mg BID PO 08/22/20 10:00 08/23/20 20:49 I have reviewed the current psychotropics carefully including drug interactions. Risk benefit ratio favors no change other than as noted in my dictated progress note. Diagnosis: Problems: (1) Impulse control disorder, unspecified (2) Anxiety disorder, unspecified (3) Dementia, vascular, with depression (4) Dementia, vascular, with delusions (5) Dementia in Alzheimer's disease with depression (6) Dementia in Alzheimer's disease with delusions (7) Dementia of the Alzheimer's type with early onset with behavioral disturbance (8) Major neurocognitive disorder KATHY BARNHART MD Aug 23, 2020 22:07
--- NOTE | 2020-08-24 02:46 | NUR ---
Pt has been in her room tonight mainly sleeping. She took HS meds whole without difficulty and has been pleasant and cooperative with care.
[2020-08-24] MEDS: LEVOTHYROXINE 125 MCG TABLET PO SCH (06:09)
[2020-08-24 06:16] VITALS: BP 153/82
--- NOTE | 2020-08-24 06:17 | NUR ---
RAMA zyprexa zydis given. Pt restless this morning and trying to pull out her lainez and anxious. Seated with peers in day room with warm blanket on.
[2020-08-24] MEDS: CARVEDILOL 6.25 MG TABLET PO SCH ×2 (08:41→17:07)
[2020-08-24] MEDS: MEMANTINE 10 MG TABLET. PO SCH ×2 (08:41→20:51)
[2020-08-24] MEDS: LOSARTAN 50 MG TABLET. PO SCH (08:41)
[2020-08-24] MEDS: DOCUSATE SODIUM 100 MG CAPSULE PO SCH ×2 (08:41→20:51)
[2020-08-24] MEDS: PANTOPRAZOLE 40 MG TABLET. PO SCH (08:41)
[2020-08-24] MEDS: MULTIVITAMIN with MINERAL TABLET. PO SCH (08:41)
[2020-08-24] MEDS: DOXYCYCLINE HYCLATE 100 MG TABLET PO SCH ×2 (08:41→20:51)
[2020-08-24] MEDS: LACTOBACILLUS RHAMNOSUS GG 1 CAPSULE. PO SCH ×2 (08:41→20:52)
[2020-08-24] MEDS: CETIRIZINE HCL 10 MG TABLET PO SCH (08:42)
[2020-08-24] MEDS: SMZ/TMP 800/160MG TABLET. PO SCH ×2 (08:42→20:52)
[2020-08-24] MEDS: cycloSPORINE 0.05% OPTH 1 DROP DROPERETTE OU SCH ×2 (08:42→20:51)
[2020-08-24] MEDS: POLYETHYLENE GLYCOL 3350 17 GM PACKET. PO SCH (08:42)
--- NOTE | 2020-08-24 12:00 | NUR ---
BETTYE returned call to Emre re: pt placement and had to leave a message asking for Emre to contact BETTYE back when possible.
[2020-08-24] MEDS: QUEtiapine 25 MG TABLET. PO SCH ×2 (12:34→20:52)
--- NOTE | 2020-08-24 14:56 | NUR ---
BETTYE returned call to Emre, pt , to confirm the details for discharge that he left on voicemail. Emre reports that he was told the facility would be handling transport arrangements and BETTYE will plan to call the [facility] to discuss this with them. Emre has completed all the paperwork and made arrangements for her stuff to be transferred over Thursday morning. BETTYE encouraged Emre to contact BETTYE if anything should change or he needs assistance with the discharge plans.
--- NOTE | 2020-08-24 15:00 | NUR ---
BETTYE contacted Maribell at the [facility] pt is going to and wanted to clarify all arrangements. Maribell is planning to schedule discharge and have it all set up for 1300. BETTYE will make sure Maribell receives all discharge paperwork first thing Thursday.
--- NOTE | 2020-08-24 15:05 | NUR ---
[facility] Social Work Discharge Planning Form Patient Name JOSSIE TANG Admit Date: 08 August 2020 DISCHARGE PLAN Discharge Destination: Pt to discharge to [facility] Care Assessment: N/A Level II Assessment: N/A Transportation: [employer] is to provide transport for pt around 1300. Special Instructions/Notes: Please fax discharge orders, discharge medications and discharge summary to the fax number listed below. DISCHARGE TO FACILITY Facility: [facility] Address: [address] [place] [address] Contact Name: Maribell Owusu, Computer Networker: Contact Name: Please ask to speak to the staff caring for pt upon admission. PCP: Patricia Borrego
[2020-08-24 15:54] VITALS: BP 112/76
[2020-08-24] MEDS: MONTELUKAST 10 MG TABLET. PO SCH (20:51)
[2020-08-24] MEDS: MIRTAZAPINE 7.5 MG TABLET. PO SCH (20:51)
[2020-08-24] MEDS: ATORVASTATIN CALCIUM 10 MG TABLET. PO SCH (20:52)
--- NOTE | 2020-08-24 21:57 | PDOC ---
Exam Note: Roni Note: Please also refer to the separate dictated note~for this date of service dictated separately.~Patient seen individually. Discussed the patient with Nursing staff reviewed the chart.~Reviewed interim history and current functioning. Reviewed vital signs,~Labs/ Radiology~and current medications noted below. Continue current treatment with the changes noted in the dictated addendum note Assessment: Vital Signs/I&O: Vital Signs Date Time Temp Pulse Resp B/P (MAP) Pulse Ox O2 Delivery O2 Flow Rate FiO2 08/24/20 17:07 60 112/76 08/24/20 15:54 97.1 18 96 08/23/20 06:18 Room Air I & O 08/23/20 08/23/20 08/24/20 15:00 23:00 07:00 Intake Total 720 ml 320 ml Output Total 1700 ml 2000 ml Balance 720 ml -1380 ml -2000 ml Current Medications: Meds: Current Medications Medications (Trade) Dose Ordered Sig/Pino Route PRN Reason Start Time Stop Time Status Last Admin Dose Admin Acetaminophen (Tylenol) 1,000 mg PRN Q6HRS PRN PO MILD PAIN 1-3 08/08/20 23:00 08/11/20 11:07 Atorvastatin Calcium (Lipitor) 10 mg QHS PO 08/09/20 00:00 08/24/20 20:52 Carvedilol (Coreg) 6.25 mg BIDWMEALS PO 08/09/20 08:00 08/24/20 17:07 Cefdinir (Omnicef) 300 mg BID PO 08/09/20 09:00 08/09/20 05:54 DC Cetirizine HCl (ZyrTEC) 10 mg DAILY PO 08/09/20 09:00 08/24/20 08:42 Cyclosporine (Restasis) 1 drop BID OU 08/09/20 00:00 08/24/20 20:51 Levothyroxine Sodium (Synthroid) 125 mcg DAILY06 PO 08/09/20 06:00 08/24/20 06:09 Al Hydroxide/Mg Hydroxide (Mylanta Plus Xs) 15 ml PRN AFTMEALHC PRN PO DYSPEPSIA 08/08/20 23:00 Memantine (Namenda) 10 mg BID PO 08/09/20 00:00 08/24/20 20:51 Multi-Ingredient Ointment (Analgesic [place]) 1 cole PRN QID PRN TP MUSCLE PAIN 08/08/20 23:00 Mirtazapine (Remeron) 7.5 mg QHS PO 08/09/20 00:00 08/24/20 20:51 Montelukast Sodium (Singulair) 10 mg HS PO 08/09/20 00:00 08/24/20 20:51 Olanzapine (ZyPREXA ZYDIS) 2.5 mg PRN Q2HRS PRN PO PSYCHOSIS 08/08/20 23:00 08/24/20 06:09 Ondansetron HCl (Zofran Odt) 4 mg PRN Q6HRS PRN PO nausea/vomiting 08/08/20 23:00 08/12/20 05:13 Quetiapine Fumarate (SEROquel) 12.5 mg NOON PO 08/09/20 12:00 08/24/20 12:34 Quetiapine Fumarate (SEROquel) 12.5 mg QHS PO 08/09/20 00:00 08/24/20 20:52 Trimethoprim/ Sulfamethoxazole (Bactrim Ds) 1 tab BID PO 08/09/20 09:00 08/24/20 20:52 Clobetasol Propionate 1 cole PRN DAILY PRN TP dermatitis 08/08/20 23:30 Diltiazem HCl (Cardizem 24hr Cd) 240 mg DAILY PO 08/09/20 09:00 08/24/20 08:42 Doxycycline Hyclate (Vibra-Tab) 100 mg BID PO 08/09/20 09:00 08/24/20 20:51 Fluvoxamine Maleate (Luvox) 50 mg QHS PO 08/09/20 00:00 08/24/20 20:52 Lactobacillus Rhamnosus (Culturelle) 1 cap BID PO 08/09/20 09:00 08/24/20 20:52 Losartan Potassium (Cozaar) 100 mg DAILY PO 08/09/20 09:00 08/24/20 08:41 Magnesium Hydroxide (Milk Of Magnesia) 2,400 mg PRN QHS PRN PO CONSTIPATION, 1ST CHOICE 08/08/20 23:30 08/21/20 08:35 Multivitamins/ Calcium (Thera-M Plus) 1 tab DAILY PO 08/09/20 09:00 08/24/20 08:41 Pantoprazole Sodium (Protonix) 40 mg DAILYAC PO 08/09/20 07:30 08/24/20 08:41 Acetaminophen (Tylenol) 650 mg PRN Q6HRS PRN PO MILD PAIN / TEMP > 100.3'F 08/08/20 23:15 UNV Magnesium Hydroxide (Milk Of Magnesia) 2,400 mg PRN QHS PRN PO CONSTIPATION 08/08/20 23:15 UNV Iohexol (Omnipaque 350 Mg/ml) 100 ml 1X ONCE IV 08/09/20 15:15 08/09/20 15:16 DC 08/09/20 15:15 Enoxaparin Sodium (Lovenox 40mg Syringe) 40 mg Q24H SQ 08/09/20 21:00 08/22/20 19:06 DC 08/21/20 20:32 Oxycodone HCl (Roxicodone) 5 mg PRN Q6HRS PRN PO MOD-SEVERE PAIN 08/11/20 14:30 08/20/20 00:05 Magnesium Citrate (Citroma) 296 ml PRN 1X PRN PO CONSTIPATION, 2ND CHOICE 08/16/20 09:00 Polyethylene Glycol (miraLAX) 17 gm DAILY PO 08/16/20 09:00 08/24/20 08:42 Hydroxyzine HCl (Atarax) 10 mg PRN Q6HRS PRN PO ITCHING 08/17/20 17:15 Docusate Sodium (Colace) 100 mg BID PO 08/22/20 10:00 08/24/20 20:51 I have reviewed the current psychotropics carefully including drug interactions. Risk benefit ratio favors no change other than as noted in my dictated progress note. Diagnosis: Problems: (1) Impulse control disorder, unspecified (2) Anxiety disorder, unspecified (3) Dementia, vascular, with depression (4) Dementia, vascular, with delusions (5) Dementia in Alzheimer's disease with depression (6) Dementia in Alzheimer's disease with delusions (7) Dementia of the Alzheimer's type with early onset with behavioral disturbance (8) Major neurocognitive disorder KATHY BARNHART MD Aug 24, 2020 21:57
--- NOTE | 2020-08-25 03:50 | NUR ---
Patient has been pleasantly confused, alternating between some anxiety and a constant habit of asking "what do i do now, what is next?'. She was constantly ambulating the hallways and day [place], sitting down for a few minutes in between. Maribel was compliant with her night medications and had Ice cream during snack time. She denied any nausea, vomiting or pain. 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 She was helped to her room where she stayed in bed resting with eyes closed, breathing normally and showing no signs of distress. Will continue to monitor.
[2020-08-25] MEDS: PANTOPRAZOLE 40 MG TABLET. PO SCH (05:26)
[2020-08-25] MEDS: LEVOTHYROXINE 125 MCG TABLET PO SCH (05:26)
[2020-08-25 05:50] VITALS: BP 138/79
[2020-08-25] MEDS: DOCUSATE SODIUM 100 MG CAPSULE PO SCH ×2 (07:58→20:44)
[2020-08-25] MEDS: CARVEDILOL 6.25 MG TABLET PO SCH ×2 (07:58→17:57)
[2020-08-25] MEDS: MULTIVITAMIN with MINERAL TABLET. PO SCH (07:58)
[2020-08-25] MEDS: LOSARTAN 50 MG TABLET. PO SCH (07:58)
[2020-08-25] MEDS: DOXYCYCLINE HYCLATE 100 MG TABLET PO SCH ×2 (07:59→20:43)
[2020-08-25] MEDS: SMZ/TMP 800/160MG TABLET. PO SCH ×2 (07:59→20:44)
[2020-08-25] MEDS: cycloSPORINE 0.05% OPTH 1 DROP DROPERETTE OU SCH ×2 (07:59→20:43)
[2020-08-25] MEDS: MEMANTINE 10 MG TABLET. PO SCH ×2 (07:59→20:43)
[2020-08-25] MEDS: LACTOBACILLUS RHAMNOSUS GG 1 CAPSULE. PO SCH ×2 (07:59→20:44)
[2020-08-25] MEDS: CETIRIZINE HCL 10 MG TABLET PO SCH (07:59)
[2020-08-25] MEDS: POLYETHYLENE GLYCOL 3350 17 GM PACKET. PO SCH (08:00)
--- NOTE | 2020-08-25 08:43 | PDOC ---
Exam Note: Roni Note: This note is a late entry for 08/23/2020 covers elements not covered in my initial note. Subjective: The patient was seen individually in the morning of 08/23/2020 for a treatment team meeting with Jayshree Ramachandran, Kassi Bradley (forensic social worker), Pallavi, activity therapy and Paramjit SCHAFER, discussed and reviewed the chart. Discussed her progress, current psychotropics, reviewed drug interactions, risk-benefit ratio. She slept 9 hours previous night. The patient has been less anxious, remains confused, has attended 10 groups in the past week. Overall she is doing better, less agitated. She was pleasant, verbal, interactive, as I met with her in the evening of August 23. Review of Systems: Impaired ambulation. No CV, , pulmonary, eye, ENT system symptoms on review. Mental Status Exam: The patient is alert and oriented to herself and situation. Speech has some latency, coherent. Abstraction fair. Computation impaired Attention span short. Mood and affect labile. No suicidal or homicidal ideation. Laboratory Data: Reviewed. Impression: Major neurocognitive disorder Alzheimer vascular with delusion, depression, and behavioral disturbance. Anxiety disorder unspecified. Impulse control disorder unspecified. Plan: Continue current psychotropics unchanged. We will transition her to alf as soon as placement arranged by social service staff. Assessment: Vital Signs/I&O: Vital Signs Date Time Temp Pulse Resp B/P (MAP) Pulse Ox O2 Delivery O2 Flow Rate FiO2 08/25/20 07:59 62 138/79 08/25/20 05:50 97.4 18 97 Room Air I & O 08/24/20 08/24/20 08/25/20 14:59 22:59 06:59 Intake Total 720 ml 480 ml Output Total 950 ml 900 ml Balance 720 ml -470 ml -900 ml Current Medications: Meds: Current Medications Medications (Trade) Dose Ordered Sig/Pino Route PRN Reason Start Time Stop Time Status Last Admin Dose Admin Acetaminophen (Tylenol) 1,000 mg PRN Q6HRS PRN PO MILD PAIN 1-3 08/08/20 23:00 08/11/20 11:07 Atorvastatin Calcium (Lipitor) 10 mg QHS PO 08/09/20 00:00 08/24/20 20:52 Carvedilol (Coreg) 6.25 mg BIDWMEALS PO 08/09/20 08:00 08/25/20 07:58 Cefdinir (Omnicef) 300 mg BID PO 08/09/20 09:00 08/09/20 05:54 DC Cetirizine HCl (ZyrTEC) 10 mg DAILY PO 08/09/20 09:00 08/25/20 07:59 Cyclosporine (Restasis) 1 drop BID OU 08/09/20 00:00 08/25/20 07:59 Levothyroxine Sodium (Synthroid) 125 mcg DAILY06 PO 08/09/20 06:00 08/25/20 05:26 Al Hydroxide/Mg Hydroxide (Mylanta Plus Xs) 15 ml PRN AFTMEALHC PRN PO DYSPEPSIA 08/08/20 23:00 Memantine (Namenda) 10 mg BID PO 08/09/20 00:00 08/25/20 07:59 Multi-Ingredient Ointment (Analgesic [place]) 1 cole PRN QID PRN TP MUSCLE PAIN 08/08/20 23:00 Mirtazapine (Remeron) 7.5 mg QHS PO 08/09/20 00:00 08/24/20 20:51 Montelukast Sodium (Singulair) 10 mg HS PO 08/09/20 00:00 08/24/20 20:51 Olanzapine (ZyPREXA ZYDIS) 2.5 mg PRN Q2HRS PRN PO PSYCHOSIS 08/08/20 23:00 08/24/20 06:09 Ondansetron HCl (Zofran Odt) 4 mg PRN Q6HRS PRN PO nausea/vomiting 08/08/20 23:00 08/12/20 05:13 Quetiapine Fumarate (SEROquel) 12.5 mg NOON PO 08/09/20 12:00 08/24/20 12:34 Quetiapine Fumarate (SEROquel) 12.5 mg QHS PO 08/09/20 00:00 08/24/20 20:52 Trimethoprim/ Sulfamethoxazole (Bactrim Ds) 1 tab BID PO 08/09/20 09:00 08/25/20 07:59 Clobetasol Propionate 1 cole PRN DAILY PRN TP dermatitis 08/08/20 23:30 Diltiazem HCl (Cardizem 24hr Cd) 240 mg DAILY PO 08/09/20 09:00 08/25/20 07:59 Doxycycline Hyclate (Vibra-Tab) 100 mg BID PO 08/09/20 09:00 08/25/20 07:59 Fluvoxamine Maleate (Luvox) 50 mg QHS PO 08/09/20 00:00 08/24/20 20:52 Lactobacillus Rhamnosus (Culturelle) 1 cap BID PO 08/09/20 09:00 08/25/20 07:59 Losartan Potassium (Cozaar) 100 mg DAILY PO 08/09/20 09:00 08/25/20 07:58 Magnesium Hydroxide (Milk Of Magnesia) 2,400 mg PRN QHS PRN PO CONSTIPATION, 1ST CHOICE 08/08/20 23:30 08/21/20 08:35 Multivitamins/ Calcium (Thera-M Plus) 1 tab DAILY PO 08/09/20 09:00 08/25/20 07:58 Pantoprazole Sodium (Protonix) 40 mg DAILYAC PO 08/09/20 07:30 08/25/20 05:26 Acetaminophen (Tylenol) 650 mg PRN Q6HRS PRN PO MILD PAIN / TEMP > 100.3'F 08/08/20 23:15 UNV Magnesium Hydroxide (Milk Of Magnesia) 2,400 mg PRN QHS PRN PO CONSTIPATION 08/08/20 23:15 UNV Iohexol (Omnipaque 350 Mg/ml) 100 ml 1X ONCE IV 08/09/20 15:15 08/09/20 15:16 DC 08/09/20 15:15 Enoxaparin Sodium (Lovenox 40mg Syringe) 40 mg Q24H SQ 08/09/20 21:00 08/22/20 19:06 DC 08/21/20 20:32 Oxycodone HCl (Roxicodone) 5 mg PRN Q6HRS PRN PO MOD-SEVERE PAIN 08/11/20 14:30 08/20/20 00:05 Magnesium Citrate (Citroma) 296 ml PRN 1X PRN PO CONSTIPATION, 2ND CHOICE 08/16/20 09:00 Polyethylene Glycol (miraLAX) 17 gm DAILY PO 08/16/20 09:00 08/25/20 08:00 Hydroxyzine HCl (Atarax) 10 mg PRN Q6HRS PRN PO ITCHING 08/17/20 17:15 Docusate Sodium (Colace) 100 mg BID PO 08/22/20 10:00 08/25/20 07:58 I have reviewed the current psychotropics carefully including drug interactions. Risk benefit ratio favors no change other than as noted in my dictated progress note. Diagnosis: Problems: (1) Impulse control disorder, unspecified (2) Anxiety disorder, unspecified (3) Dementia, vascular, with depression (4) Dementia, vascular, with delusions (5) Dementia in Alzheimer's disease with depression (6) Dementia in Alzheimer's disease with delusions (7) Dementia of the Alzheimer's type with early onset with behavioral disturbance (8) Major neurocognitive disorder KATHY BARNHART MD Aug 25, 2020 08:43
[2020-08-25] MEDS: QUEtiapine 25 MG TABLET. PO SCH ×2 (12:26→20:44)
[2020-08-25 16:11] VITALS: BP 164/75
[2020-08-25] MEDS: MONTELUKAST 10 MG TABLET. PO SCH (20:43)
[2020-08-25] MEDS: ATORVASTATIN CALCIUM 10 MG TABLET. PO SCH (20:44)
[2020-08-25] MEDS: MIRTAZAPINE 7.5 MG TABLET. PO SCH (20:44)
--- NOTE | 2020-08-25 21:58 | PDOC ---
Exam Note: Roni Note: Please also refer to the separate dictated note~for this date of service dictated separately.~Patient seen individually. Discussed the patient with Nursing staff reviewed the chart.~Reviewed interim history and current functioning. Reviewed vital signs,~Labs/ Radiology~and current medications noted below. Continue current treatment with the changes noted in the dictated addendum note Assessment: Vital Signs/I&O: Vital Signs Date Time Temp Pulse Resp B/P (MAP) Pulse Ox O2 Delivery O2 Flow Rate FiO2 08/25/20 17:57 68 164/75 08/25/20 16:11 97.7 20 98 08/25/20 05:50 Room Air I & O 08/24/20 08/24/20 08/25/20 15:00 23:00 07:00 Intake Total 720 ml 480 ml Output Total 950 ml 900 ml Balance 720 ml -470 ml -900 ml Current Medications: Meds: Current Medications Medications (Trade) Dose Ordered Sig/Pino Route PRN Reason Start Time Stop Time Status Last Admin Dose Admin Acetaminophen (Tylenol) 1,000 mg PRN Q6HRS PRN PO MILD PAIN 1-3 08/08/20 23:00 08/11/20 11:07 Atorvastatin Calcium (Lipitor) 10 mg QHS PO 08/09/20 00:00 08/25/20 20:44 Carvedilol (Coreg) 6.25 mg BIDWMEALS PO 08/09/20 08:00 08/25/20 17:57 Cefdinir (Omnicef) 300 mg BID PO 08/09/20 09:00 08/09/20 05:54 DC Cetirizine HCl (ZyrTEC) 10 mg DAILY PO 08/09/20 09:00 08/25/20 07:59 Cyclosporine (Restasis) 1 drop BID OU 08/09/20 00:00 08/25/20 20:43 Levothyroxine Sodium (Synthroid) 125 mcg DAILY06 PO 08/09/20 06:00 08/25/20 05:26 Al Hydroxide/Mg Hydroxide (Mylanta Plus Xs) 15 ml PRN AFTMEALHC PRN PO DYSPEPSIA 08/08/20 23:00 Memantine (Namenda) 10 mg BID PO 08/09/20 00:00 08/25/20 20:43 Multi-Ingredient Ointment (Analgesic [place]) 1 cole PRN QID PRN TP MUSCLE PAIN 08/08/20 23:00 Mirtazapine (Remeron) 7.5 mg QHS PO 08/09/20 00:00 08/25/20 20:44 Montelukast Sodium (Singulair) 10 mg HS PO 08/09/20 00:00 08/25/20 20:43 Olanzapine (ZyPREXA ZYDIS) 2.5 mg PRN Q2HRS PRN PO PSYCHOSIS 08/08/20 23:00 08/24/20 06:09 Ondansetron HCl (Zofran Odt) 4 mg PRN Q6HRS PRN PO nausea/vomiting 08/08/20 23:00 08/12/20 05:13 Quetiapine Fumarate (SEROquel) 12.5 mg NOON PO 08/09/20 12:00 08/25/20 12:26 Quetiapine Fumarate (SEROquel) 12.5 mg QHS PO 08/09/20 00:00 08/25/20 20:44 Trimethoprim/ Sulfamethoxazole (Bactrim Ds) 1 tab BID PO 08/09/20 09:00 08/25/20 20:44 Clobetasol Propionate 1 cole PRN DAILY PRN TP dermatitis 08/08/20 23:30 Diltiazem HCl (Cardizem 24hr Cd) 240 mg DAILY PO 08/09/20 09:00 08/25/20 07:59 Doxycycline Hyclate (Vibra-Tab) 100 mg BID PO 08/09/20 09:00 08/25/20 20:43 Fluvoxamine Maleate (Luvox) 50 mg QHS PO 08/09/20 00:00 08/25/20 20:44 Lactobacillus Rhamnosus (Culturelle) 1 cap BID PO 08/09/20 09:00 08/25/20 20:44 Losartan Potassium (Cozaar) 100 mg DAILY PO 08/09/20 09:00 08/25/20 07:58 Magnesium Hydroxide (Milk Of Magnesia) 2,400 mg PRN QHS PRN PO CONSTIPATION, 1ST CHOICE 08/08/20 23:30 08/21/20 08:35 Multivitamins/ Calcium (Thera-M Plus) 1 tab DAILY PO 08/09/20 09:00 08/25/20 07:58 Pantoprazole Sodium (Protonix) 40 mg DAILYAC PO 08/09/20 07:30 08/25/20 05:26 Acetaminophen (Tylenol) 650 mg PRN Q6HRS PRN PO MILD PAIN / TEMP > 100.3'F 08/08/20 23:15 UNV Magnesium Hydroxide (Milk Of Magnesia) 2,400 mg PRN QHS PRN PO CONSTIPATION 08/08/20 23:15 UNV Iohexol (Omnipaque 350 Mg/ml) 100 ml 1X ONCE IV 08/09/20 15:15 08/09/20 15:16 DC 08/09/20 15:15 Enoxaparin Sodium (Lovenox 40mg Syringe) 40 mg Q24H SQ 08/09/20 21:00 08/22/20 19:06 DC 08/21/20 20:32 Oxycodone HCl (Roxicodone) 5 mg PRN Q6HRS PRN PO MOD-SEVERE PAIN 08/11/20 14:30 08/20/20 00:05 Magnesium Citrate (Citroma) 296 ml PRN 1X PRN PO CONSTIPATION, 2ND CHOICE 08/16/20 09:00 Polyethylene Glycol (miraLAX) 17 gm DAILY PO 08/16/20 09:00 08/25/20 08:00 Hydroxyzine HCl (Atarax) 10 mg PRN Q6HRS PRN PO ITCHING 08/17/20 17:15 Docusate Sodium (Colace) 100 mg BID PO 08/22/20 10:00 08/25/20 20:44 I have reviewed the current psychotropics carefully including drug interactions. Risk benefit ratio favors no change other than as noted in my dictated progress note. Diagnosis: Problems: (1) Impulse control disorder, unspecified (2) Anxiety disorder, unspecified (3) Dementia, vascular, with depression (4) Dementia, vascular, with delusions (5) Dementia in Alzheimer's disease with depression (6) Dementia in Alzheimer's disease with delusions (7) Dementia of the Alzheimer's type with early onset with behavioral disturbance (8) Major neurocognitive disorder KATHY BARNHART MD Aug 25, 2020 21:58
--- NOTE | 2020-08-25 23:26 | NUR ---
Pt labile this evening. Pt wandering, restless and forgetful. Compliant with whole medications. No agitation or aggression.
[2020-08-26 05:32] VITALS: BP 134/69
[2020-08-26] MEDS: LEVOTHYROXINE 125 MCG TABLET PO SCH (05:56)
[2020-08-26] MEDS: LACTOBACILLUS RHAMNOSUS GG 1 CAPSULE. PO SCH ×2 (08:17→20:07)
[2020-08-26] MEDS: PANTOPRAZOLE 40 MG TABLET. PO SCH (08:17)
[2020-08-26] MEDS: CETIRIZINE HCL 10 MG TABLET PO SCH (08:17)
[2020-08-26] MEDS: POLYETHYLENE GLYCOL 3350 17 GM PACKET. PO SCH (08:17)
[2020-08-26] MEDS: MULTIVITAMIN with MINERAL TABLET. PO SCH (08:17)
[2020-08-26] MEDS: cycloSPORINE 0.05% OPTH 1 DROP DROPERETTE OU SCH ×2 (08:17→20:07)
[2020-08-26] MEDS: MEMANTINE 10 MG TABLET. PO SCH ×2 (08:18→20:07)
[2020-08-26] MEDS: DOXYCYCLINE HYCLATE 100 MG TABLET PO SCH ×2 (08:18→20:07)
[2020-08-26] MEDS: SMZ/TMP 800/160MG TABLET. PO SCH ×2 (08:18→20:07)
[2020-08-26] MEDS: CARVEDILOL 6.25 MG TABLET PO SCH ×2 (08:19→17:32)
[2020-08-26] MEDS: LOSARTAN 50 MG TABLET. PO SCH (08:19)
[2020-08-26] MEDS: DOCUSATE SODIUM 100 MG CAPSULE PO SCH ×2 (08:19→20:07)
--- NOTE | 2020-08-26 08:50 | PDOC ---
Exam Note: Roni Note: This note is a late entry for 08/24/2020 covers elements not covered in my initial note. Subjective: The patient was seen individually in the evening of 08/24/2020 with Carmelina SCHAFER, discussed and reviewed the chart. She slept 7-1/4 hours previous night. Appetite is 50%. The patient is less anxious, less repeatedly questioning about what she needs to do next like she was doing a few days back. She is more accepting of changes on the unit and has been out of the room and in the dayroom most of the day. This is where I met with her in the evening of 08/24. Review of Systems: Impaired ambulation. No CV, , pulmonary, eye, ENT system symptoms on review. Mental Status Exam: The patient is alert and oriented to herself and situation. Speech has some latency, coherent. Abstraction fair. Computation impaired A ttention span short. Mood and affect labile. No suicidal or homicidal ideation. Laboratory Data: Reviewed. Impression: Major neurocognitive disorder Alzheimer vascular with delusion, depression, and behavioral disturbance. Anxiety disorder unspecified. Impulse control disorder unspecified. Plan: Continue current psychotropics unchanged. Assessment: Vital Signs/I&O: Vital Signs Date Time Temp Pulse Resp B/P (MAP) Pulse Ox O2 Delivery O2 Flow Rate FiO2 08/26/20 08:24 56 134/69 08/26/20 05:32 97.5 16 97 Room Air I & O 08/25/20 08/25/20 08/26/20 14:59 22:59 06:59 Intake Total 600 ml 240 ml Output Total 800 ml 2000 ml Balance 600 ml -560 ml -2000 ml Current Medications: Meds: Current Medications Medications (Trade) Dose Ordered Sig/Pino Route PRN Reason Start Time Stop Time Status Last Admin Dose Admin Acetaminophen (Tylenol) 1,000 mg PRN Q6HRS PRN PO MILD PAIN 1-3 08/08/20 23:00 08/11/20 11:07 Atorvastatin Calcium (Lipitor) 10 mg QHS PO 08/09/20 00:00 08/25/20 20:44 Carvedilol (Coreg) 6.25 mg BIDWMEALS PO 08/09/20 08:00 08/26/20 08:19 Cefdinir (Omnicef) 300 mg BID PO 08/09/20 09:00 08/09/20 05:54 DC Cetirizine HCl (ZyrTEC) 10 mg DAILY PO 08/09/20 09:00 08/26/20 08:17 Cyclosporine (Restasis) 1 drop BID OU 08/09/20 00:00 08/26/20 08:17 Levothyroxine Sodium (Synthroid) 125 mcg DAILY06 PO 08/09/20 06:00 08/26/20 05:56 Al Hydroxide/Mg Hydroxide (Mylanta Plus Xs) 15 ml PRN AFTMEALHC PRN PO DYSPEPSIA 08/08/20 23:00 Memantine (Namenda) 10 mg BID PO 08/09/20 00:00 08/26/20 08:18 Multi-Ingredient Ointment (Analgesic [place]) 1 cole PRN QID PRN TP MUSCLE PAIN 08/08/20 23:00 Mirtazapine (Remeron) 7.5 mg QHS PO 08/09/20 00:00 08/25/20 20:44 Montelukast Sodium (Singulair) 10 mg HS PO 08/09/20 00:00 08/25/20 20:43 Olanzapine (ZyPREXA ZYDIS) 2.5 mg PRN Q2HRS PRN PO PSYCHOSIS 08/08/20 23:00 08/24/20 06:09 Ondansetron HCl (Zofran Odt) 4 mg PRN Q6HRS PRN PO nausea/vomiting 08/08/20 23:00 08/12/20 05:13 Quetiapine Fumarate (SEROquel) 12.5 mg NOON PO 08/09/20 12:00 08/25/20 12:26 Quetiapine Fumarate (SEROquel) 12.5 mg QHS PO 08/09/20 00:00 08/25/20 20:44 Trimethoprim/ Sulfamethoxazole (Bactrim Ds) 1 tab BID PO 08/09/20 09:00 08/26/20 08:18 Clobetasol Propionate 1 cole PRN DAILY PRN TP dermatitis 08/08/20 23:30 Diltiazem HCl (Cardizem 24hr Cd) 240 mg DAILY PO 08/09/20 09:00 08/25/20 07:59 Doxycycline Hyclate (Vibra-Tab) 100 mg BID PO 08/09/20 09:00 08/26/20 08:18 Fluvoxamine Maleate (Luvox) 50 mg QHS PO 08/09/20 00:00 08/25/20 20:44 Lactobacillus Rhamnosus (Culturelle) 1 cap BID PO 08/09/20 09:00 08/26/20 08:17 Losartan Potassium (Cozaar) 100 mg DAILY PO 08/09/20 09:00 08/26/20 08:19 Magnesium Hydroxide (Milk Of Magnesia) 2,400 mg PRN QHS PRN PO CONSTIPATION, 1ST CHOICE 08/08/20 23:30 08/21/20 08:35 Multivitamins/ Calcium (Thera-M Plus) 1 tab DAILY PO 08/09/20 09:00 08/26/20 08:17 Pantoprazole Sodium (Protonix) 40 mg DAILYAC PO 08/09/20 07:30 08/26/20 08:17 Acetaminophen (Tylenol) 650 mg PRN Q6HRS PRN PO MILD PAIN / TEMP > 100.3'F 08/08/20 23:15 UNV Magnesium Hydroxide (Milk Of Magnesia) 2,400 mg PRN QHS PRN PO CONSTIPATION 08/08/20 23:15 UNV Iohexol (Omnipaque 350 Mg/ml) 100 ml 1X ONCE IV 08/09/20 15:15 08/09/20 15:16 DC 08/09/20 15:15 Enoxaparin Sodium (Lovenox 40mg Syringe) 40 mg Q24H SQ 08/09/20 21:00 08/22/20 19:06 DC 08/21/20 20:32 Oxycodone HCl (Roxicodone) 5 mg PRN Q6HRS PRN PO MOD-SEVERE PAIN 08/11/20 14:30 08/20/20 00:05 Magnesium Citrate (Citroma) 296 ml PRN 1X PRN PO CONSTIPATION, 2ND CHOICE 08/16/20 09:00 Polyethylene Glycol (miraLAX) 17 gm DAILY PO 08/16/20 09:00 08/26/20 08:17 Hydroxyzine HCl (Atarax) 10 mg PRN Q6HRS PRN PO ITCHING 08/17/20 17:15 Docusate Sodium (Colace) 100 mg BID PO 08/22/20 10:00 08/26/20 08:19 I have reviewed the current psychotropics carefully including drug interactions. Risk benefit ratio favors no change other than as noted in my dictated progress note. Diagnosis: Problems: (1) Impulse control disorder, unspecified (2) Anxiety disorder, unspecified (3) Dementia, vascular, with depression (4) Dementia, vascular, with delusions (5) Dementia in Alzheimer's disease with depression (6) Dementia in Alzheimer's disease with delusions (7) Dementia of the Alzheimer's type with early onset with behavioral disturbance (8) Major neurocognitive disorder KATHY BARNHART MD Aug 26, 2020 08:50
[2020-08-26] MEDS: QUEtiapine 25 MG TABLET. PO SCH ×2 (13:04→20:08)
[2020-08-26] MEDS: ONDANSETRON ODT 4 MG TAB.RAPDIS PO PRN (13:04)
--- NOTE | 2020-08-26 15:57 | NUR ---
Nursing note: Patient in dinning room at time of AM med pass and assessment, medication taken whole. She is oriented to self. Patient is confused, disorganized, forgetful, very short term memory and irritable with peers & staff. Patient denies and pain/discomfort at this time. She did c/o nausea at lunch time, spit some phlegm out in trash can. PRN given per order. She is currently walking in the [place]. Will continue to monitor.
[2020-08-26 16:02] VITALS: BP 121/71
[2020-08-26] MEDS: ATORVASTATIN CALCIUM 10 MG TABLET. PO SCH (20:07)
[2020-08-26] MEDS: MIRTAZAPINE 7.5 MG TABLET. PO SCH (20:07)
[2020-08-26] MEDS: MONTELUKAST 10 MG TABLET. PO SCH (20:07)
--- NOTE | 2020-08-26 21:57 | PDOC ---
Exam Note: Roni Note: Please also refer to the separate dictated note~for this date of service dictated separately.~Patient seen individually. Discussed the patient with Nursing staff reviewed the chart.~Reviewed interim history and current functioning. Reviewed vital signs,~Labs/ Radiology~and current medications noted below. Continue current treatment with the changes noted in the dictated addendum note Assessment: Vital Signs/I&O: Vital Signs Date Time Temp Pulse Resp B/P (MAP) Pulse Ox O2 Delivery O2 Flow Rate FiO2 08/26/20 17:32 60 121/71 08/26/20 16:02 98.6 20 97 Room Air I & O 08/25/20 08/25/20 08/26/20 15:00 23:00 07:00 Intake Total 600 ml 240 ml Output Total 800 ml 2000 ml Balance 600 ml -560 ml -2000 ml Current Medications: Meds: Current Medications Medications (Trade) Dose Ordered Sig/Pino Route PRN Reason Start Time Stop Time Status Last Admin Dose Admin Acetaminophen (Tylenol) 1,000 mg PRN Q6HRS PRN PO MILD PAIN 1-3 08/08/20 23:00 08/11/20 11:07 Atorvastatin Calcium (Lipitor) 10 mg QHS PO 08/09/20 00:00 08/26/20 20:07 Carvedilol (Coreg) 6.25 mg BIDWMEALS PO 08/09/20 08:00 08/26/20 17:32 Cefdinir (Omnicef) 300 mg BID PO 08/09/20 09:00 08/09/20 05:54 DC Cetirizine HCl (ZyrTEC) 10 mg DAILY PO 08/09/20 09:00 08/26/20 08:17 Cyclosporine (Restasis) 1 drop BID OU 08/09/20 00:00 08/26/20 20:07 Levothyroxine Sodium (Synthroid) 125 mcg DAILY06 PO 08/09/20 06:00 08/26/20 05:56 Al Hydroxide/Mg Hydroxide (Mylanta Plus Xs) 15 ml PRN AFTMEALHC PRN PO DYSPEPSIA 08/08/20 23:00 Memantine (Namenda) 10 mg BID PO 08/09/20 00:00 08/26/20 20:07 Multi-Ingredient Ointment (Analgesic [place]) 1 cole PRN QID PRN TP MUSCLE PAIN 08/08/20 23:00 Mirtazapine (Remeron) 7.5 mg QHS PO 08/09/20 00:00 08/26/20 20:07 Montelukast Sodium (Singulair) 10 mg HS PO 08/09/20 00:00 08/26/20 20:07 Olanzapine (ZyPREXA ZYDIS) 2.5 mg PRN Q2HRS PRN PO PSYCHOSIS 08/08/20 23:00 08/24/20 06:09 Ondansetron HCl (Zofran Odt) 4 mg PRN Q6HRS PRN PO nausea/vomiting 08/08/20 23:00 08/26/20 13:04 Quetiapine Fumarate (SEROquel) 12.5 mg NOON PO 08/09/20 12:00 08/26/20 13:04 Quetiapine Fumarate (SEROquel) 12.5 mg QHS PO 08/09/20 00:00 08/26/20 20:08 Trimethoprim/ Sulfamethoxazole (Bactrim Ds) 1 tab BID PO 08/09/20 09:00 08/26/20 20:07 Clobetasol Propionate 1 cole PRN DAILY PRN TP dermatitis 08/08/20 23:30 Diltiazem HCl (Cardizem 24hr Cd) 240 mg DAILY PO 08/09/20 09:00 08/25/20 07:59 Doxycycline Hyclate (Vibra-Tab) 100 mg BID PO 08/09/20 09:00 08/26/20 20:07 Fluvoxamine Maleate (Luvox) 50 mg QHS PO 08/09/20 00:00 08/26/20 20:07 Lactobacillus Rhamnosus (Culturelle) 1 cap BID PO 08/09/20 09:00 08/26/20 20:07 Losartan Potassium (Cozaar) 100 mg DAILY PO 08/09/20 09:00 08/26/20 08:19 Magnesium Hydroxide (Milk Of Magnesia) 2,400 mg PRN QHS PRN PO CONSTIPATION, 1ST CHOICE 08/08/20 23:30 08/21/20 08:35 Multivitamins/ Calcium (Thera-M Plus) 1 tab DAILY PO 08/09/20 09:00 08/26/20 08:17 Pantoprazole Sodium (Protonix) 40 mg DAILYAC PO 08/09/20 07:30 08/26/20 20:07 DC 08/26/20 08:17 Acetaminophen (Tylenol) 650 mg PRN Q6HRS PRN PO MILD PAIN / TEMP > 100.3'F 08/08/20 23:15 UNV Magnesium Hydroxide (Milk Of Magnesia) 2,400 mg PRN QHS PRN PO CONSTIPATION 08/08/20 23:15 UNV Iohexol (Omnipaque 350 Mg/ml) 100 ml 1X ONCE IV 08/09/20 15:15 08/09/20 15:16 DC 08/09/20 15:15 Enoxaparin Sodium (Lovenox 40mg Syringe) 40 mg Q24H SQ 08/09/20 21:00 08/22/20 19:06 DC 08/21/20 20:32 Oxycodone HCl (Roxicodone) 5 mg PRN Q6HRS PRN PO MOD-SEVERE PAIN 08/11/20 14:30 08/20/20 00:05 Magnesium Citrate (Citroma) 296 ml PRN 1X PRN PO CONSTIPATION, 2ND CHOICE 08/16/20 09:00 Polyethylene Glycol (miraLAX) 17 gm DAILY PO 08/16/20 09:00 08/26/20 08:17 Hydroxyzine HCl (Atarax) 10 mg PRN Q6HRS PRN PO ITCHING 08/17/20 17:15 Docusate Sodium (Colace) 100 mg BID PO 08/22/20 10:00 08/26/20 20:07 Pantoprazole Sodium (Protonix) 40 mg BID PO 08/27/20 09:00 I have reviewed the current psychotropics carefully including drug interactions. Risk benefit ratio favors no change other than as noted in my dictated progress note. Diagnosis: Problems: (1) Impulse control disorder, unspecified (2) Anxiety disorder, unspecified (3) Dementia, vascular, with depression (4) Dementia, vascular, with delusions (5) Dementia in Alzheimer's disease with depression (6) Dementia in Alzheimer's disease with delusions (7) Dementia of the Alzheimer's type with early onset with behavioral disturbance (8) Major neurocognitive disorder KATHY BARNHART MD Aug 26, 2020 21:57
--- NOTE | 2020-08-26 23:23 | NUR ---
Pt disorganized, restless and irritable this evening. Poor short term memory with repetitive statements. Compliant with whole medications.
[2020-08-27] MEDS ORDERED: DOCU-109 PO (00:49)
[2020-08-27] MEDS ORDERED: MAGN296S4 PO (00:53)
[2020-08-27] MEDS ORDERED: POLY17PO5 PO (00:53)
[2020-08-27] MEDS ORDERED: HYDR10TA2 PO (00:54)
[2020-08-27] MEDS ORDERED: OXYC15TA22 PO (01:08)
[2020-08-27 05:37] VITALS: BP 156/76
[2020-08-27] MEDS: LEVOTHYROXINE 125 MCG TABLET PO SCH (06:04)
[2020-08-27 07:20] LABS: BASO # 0.1 x10^3/uL (0.0-0.2); BASO % 1 % (0-3); EOS % 0 % (0-3); HEMATOCRIT 31.5 % (36.0-47.0); HEMOGLOBIN 10.5 g/dL (12.0-15.5); LYMPH # 1.1 x10^3/uL (1.0-4.8); LYMPH % 19 % (24-48); MEAN CORPUSCULAR HEMOGLOBIN 32 pg (25-35); MEAN CORPUSCULAR HGB CONC 33 g/dL (31-37); MEAN CORPUSCULAR VOLUME 94 fL (79-100); MONO # 0.6 x10^3/uL (0.0-1.1); MONO % 11 % (0-9); NEUT # 3.9 x10^3uL (1.8-7.7); NEUT % 69 % (31-73); PLATELET COUNT 320 x10^3/uL (140-400); RED BLOOD COUNT 3.34 x10^6/uL (3.50-5.40); RED CELL DISTRIBUTION WIDTH 14.5 % (11.5-14.5); WHITE BLOOD COUNT 5.7 x10^3/uL (4.0-11.0)
[2020-08-27 07:39] LABS: ALBUMIN 2.9 g/dL (3.4-5.0); ALBUMIN/GLOBULIN RATIO 0.7 (1.0-1.7); CALCIUM 9.1 mg/dL (8.5-10.1); GFR 54.3; POTASSIUM 4.1 mmol/L (3.5-5.1); TOTAL BILIRUBIN 0.4 mg/dL (0.2-1.0); TOTAL PROTEIN 6.8 g/dL (6.4-8.2)
[2020-08-27] MEDS: POLYETHYLENE GLYCOL 3350 17 GM PACKET. PO SCH (08:30)
[2020-08-27 08:31] VITALS: BP 156/76
[2020-08-27] MEDS: DOXYCYCLINE HYCLATE 100 MG TABLET PO SCH (08:31)
[2020-08-27] MEDS: LACTOBACILLUS RHAMNOSUS GG 1 CAPSULE. PO SCH (08:31)
[2020-08-27] MEDS: MULTIVITAMIN with MINERAL TABLET. PO SCH (08:31)
[2020-08-27] MEDS: DOCUSATE SODIUM 100 MG CAPSULE PO SCH (08:31)
[2020-08-27] MEDS: LOSARTAN 50 MG TABLET. PO SCH (08:31)
[2020-08-27] MEDS: CARVEDILOL 6.25 MG TABLET PO SCH (08:31)
[2020-08-27] MEDS: CETIRIZINE HCL 10 MG TABLET PO SCH (08:31)
[2020-08-27] MEDS: MEMANTINE 10 MG TABLET. PO SCH (08:32)
[2020-08-27] MEDS: cycloSPORINE 0.05% OPTH 1 DROP DROPERETTE OU SCH (08:32)
[2020-08-27] MEDS: SMZ/TMP 800/160MG TABLET. PO SCH (08:32)
[2020-08-27] MEDS ORDERED: PANTOPRAZOLE 40 MG TABLET. PO SCH (09:00)
--- NOTE | 2020-08-27 09:02 | PDOC ---
Exam Note: Roni Note: This note is a late entry for 08/25/2020 covers elements not covered in my initial note. Subjective: The patient was seen individually in the evening of 08/25/2020 with Carmelina SCHAFER, discussed and reviewed the chart. She slept 5-1/2 hours previous night. Appetite is 75%. Previous evening, the patient was somewhat delusional, confused, felt her parents were coming to get her. None of that talk was evident on the 08/25. She is little more anxious however. Review of Systems: Impaired ambulation. No CV, , pulmonary, eye, ENT system symptoms on review. Mental Status Exam: The patient is alert and oriented to herself and situation. I met with the patient in the dayroom. Speech coherent. Abstraction fair. Computation impaired Attention span short. Mood and affect anxious. No clear psychotic symptoms noted. Laboratory Data: Reviewed. Impression: Major neurocognitive disorder Alzheimer vascular with delusion, depression, and behavioral disturbance. Anxiety disorder unspecified. Impulse control disorder unspecified. Plan: Continue current psychotropics unchanged. Assessment: Vital Signs/I&O: Vital Signs Date Time Temp Pulse Resp B/P (MAP) Pulse Ox O2 Delivery O2 Flow Rate FiO2 08/27/20 08:31 64 156/76 08/27/20 05:37 97.9 16 97 08/26/20 16:02 Room Air I & O 08/26/20 08/26/20 08/27/20 15:00 23:00 07:00 Intake Total 360 ml 200 ml 120 ml Output Total 900 ml 1450 ml Balance 360 ml -700 ml -1330 ml Labs: Laboratory Tests Test 08/27/20 06:47 White Blood Count 5.7 x10^3/uL (4.0-11.0) Red Blood Count 3.34 x10^6/uL (3.50-5.40) L Hemoglobin 10.5 g/dL (12.0-15.5) L Hematocrit 31.5 % (36.0-47.0) L Mean Corpuscular Volume 94 fL (79-100) Mean Corpuscular Hemoglobin 32 pg (25-35) Mean Corpuscular Hemoglobin Concent 33 g/dL (31-37) Red Cell Distribution Width 14.5 % (11.5-14.5) Platelet Count 320 x10^3/uL (140-400) Neutrophils (%) (Auto) 69 % (31-73) Lymphocytes (%) (Auto) 19 % (24-48) L Monocytes (%) (Auto) 11 % (0-9) H Eosinophils (%) (Auto) 0 % (0-3) Basophils (%) (Auto) 1 % (0-3) Neutrophils # (Auto) 3.9 x10^3uL (1.8-7.7) Lymphocytes # (Auto) 1.1 x10^3/uL (1.0-4.8) Monocytes # (Auto) 0.6 x10^3/uL (0.0-1.1) Eosinophils # (Auto) 0.0 x10^3/uL (0.0-0.7) Basophils # (Auto) 0.1 x10^3/uL (0.0-0.2) Sodium Level 140 mmol/L (136-145) Potassium Level 4.1 mmol/L (3.5-5.1) Chloride Level 104 mmol/L (98-107) Carbon Dioxide Level 30 mmol/L (21-32) Anion Gap 6 (6-14) Blood Urea Nitrogen 26 mg/dL (7-20) H Creatinine 1.0 mg/dL (0.6-1.0) Estimated GFR (Cockcroft-Gault) 54.3 BUN/Creatinine Ratio 26 (6-20) H Glucose Level 86 mg/dL (70-99) Calcium Level 9.1 mg/dL (8.5-10.1) Total Bilirubin 0.4 mg/dL (0.2-1.0) Aspartate Amino Transferase (AST) 21 U/L (15-37) Alanine Aminotransferase (ALT) 26 U/L (14-59) Alkaline Phosphatase 78 U/L (46-116) Total Protein 6.8 g/dL (6.4-8.2) Albumin 2.9 g/dL (3.4-5.0) L Albumin/Globulin Ratio 0.7 (1.0-1.7) L Current Medications: Meds: Laboratory Tests Test 08/27/20 06:47 White Blood Count 5.7 x10^3/uL Red Blood Count 3.34 x10^6/uL Hemoglobin 10.5 g/dL Hematocrit 31.5 % Mean Corpuscular Volume 94 fL Mean Corpuscular Hemoglobin 32 pg Mean Corpuscular Hemoglobin Concent 33 g/dL Red Cell Distribution Width 14.5 % Platelet Count 320 x10^3/uL Neutrophils (%) (Auto) 69 % Lymphocytes (%) (Auto) 19 % Monocytes (%) (Auto) 11 % Eosinophils (%) (Auto) 0 % Basophils (%) (Auto) 1 % Neutrophils # (Auto) 3.9 x10^3uL Lymphocytes # (Auto) 1.1 x10^3/uL Monocytes # (Auto) 0.6 x10^3/uL Eosinophils # (Auto) 0.0 x10^3/uL Basophils # (Auto) 0.1 x10^3/uL Sodium Level 140 mmol/L Potassium Level 4.1 mmol/L Chloride Level 104 mmol/L Carbon Dioxide Level 30 mmol/L Anion Gap 6 Blood Urea Nitrogen 26 mg/dL Creatinine 1.0 mg/dL Estimated GFR (Cockcroft-Gault) 54.3 BUN/Creatinine Ratio 26 Glucose Level 86 mg/dL Calcium Level 9.1 mg/dL Total Bilirubin 0.4 mg/dL Aspartate Amino Transf (AST/SGOT) 21 U/L Alanine Aminotransferase (ALT/SGPT) 26 U/L Alkaline Phosphatase 78 U/L Total Protein 6.8 g/dL Albumin 2.9 g/dL Albumin/Globulin Ratio 0.7 Current Medications Medications (Trade) Dose Ordered Sig/Pino Route PRN Reason Start Time Stop Time Status Last Admin Dose Admin Acetaminophen (Tylenol) 1,000 mg PRN Q6HRS PRN PO MILD PAIN 1-3 08/08/20 23:00 08/11/20 11:07 Atorvastatin Calcium (Lipitor) 10 mg QHS PO 08/09/20 00:00 08/26/20 20:07 Carvedilol (Coreg) 6.25 mg BIDWMEALS PO 08/09/20 08:00 08/27/20 08:31 Cefdinir (Omnicef) 300 mg BID PO 08/09/20 09:00 08/09/20 05:54 DC Cetirizine HCl (ZyrTEC) 10 mg DAILY PO 08/09/20 09:00 08/27/20 08:31 Cyclosporine (Restasis) 1 drop BID OU 08/09/20 00:00 08/27/20 08:32 Levothyroxine Sodium (Synthroid) 125 mcg DAILY06 PO 08/09/20 06:00 08/27/20 06:04 Al Hydroxide/Mg Hydroxide (Mylanta Plus Xs) 15 ml PRN AFTMEALHC PRN PO DYSPEPSIA 08/08/20 23:00 Memantine (Namenda) 10 mg BID PO 08/09/20 00:00 08/27/20 08:32 Multi-Ingredient Ointment (Analgesic [place]) 1 cole PRN QID PRN TP MUSCLE PAIN 08/08/20 23:00 Mirtazapine (Remeron) 7.5 mg QHS PO 08/09/20 00:00 08/26/20 20:07 Montelukast Sodium (Singulair) 10 mg HS PO 08/09/20 00:00 08/26/20 20:07 Olanzapine (ZyPREXA ZYDIS) 2.5 mg PRN Q2HRS PRN PO PSYCHOSIS 08/08/20 23:00 08/24/20 06:09 Ondansetron HCl (Zofran Odt) 4 mg PRN Q6HRS PRN PO nausea/vomiting 08/08/20 23:00 08/26/20 13:04 Quetiapine Fumarate (SEROquel) 12.5 mg NOON PO 08/09/20 12:00 08/26/20 13:04 Quetiapine Fumarate (SEROquel) 12.5 mg QHS PO 08/09/20 00:00 08/26/20 20:08 Trimethoprim/ Sulfamethoxazole (Bactrim Ds) 1 tab BID PO 08/09/20 09:00 08/27/20 08:32 Clobetasol Propionate 1 cole PRN DAILY PRN TP dermatitis 08/08/20 23:30 Diltiazem HCl (Cardizem 24hr Cd) 240 mg DAILY PO 08/09/20 09:00 08/27/20 08:31 Doxycycline Hyclate (Vibra-Tab) 100 mg BID PO 08/09/20 09:00 08/27/20 08:31 Fluvoxamine Maleate (Luvox) 50 mg QHS PO 08/09/20 00:00 08/26/20 20:07 Lactobacillus Rhamnosus (Culturelle) 1 cap BID PO 08/09/20 09:00 08/27/20 08:31 Losartan Potassium (Cozaar) 100 mg DAILY PO 08/09/20 09:00 08/27/20 08:31 Magnesium Hydroxide (Milk Of Magnesia) 2,400 mg PRN QHS PRN PO CONSTIPATION, 1ST CHOICE 08/08/20 23:30 08/21/20 08:35 Multivitamins/ Calcium (Thera-M Plus) 1 tab DAILY PO 08/09/20 09:00 08/27/20 08:31 Pantoprazole Sodium (Protonix) 40 mg DAILYAC PO 08/09/20 07:30 08/26/20 20:07 DC 08/26/20 08:17 Acetaminophen (Tylenol) 650 mg PRN Q6HRS PRN PO MILD PAIN / TEMP > 100.3'F 08/08/20 23:15 UNV Magnesium Hydroxide (Milk Of Magnesia) 2,400 mg PRN QHS PRN PO CONSTIPATION 08/08/20 23:15 UNV Iohexol (Omnipaque 350 Mg/ml) 100 ml 1X ONCE IV 08/09/20 15:15 08/09/20 15:16 DC 08/09/20 15:15 Enoxaparin Sodium (Lovenox 40mg Syringe) 40 mg Q24H SQ 08/09/20 21:00 08/22/20 19:06 DC 08/21/20 20:32 Oxycodone HCl (Roxicodone) 5 mg PRN Q6HRS PRN PO MOD-SEVERE PAIN 08/11/20 14:30 08/20/20 00:05 Magnesium Citrate (Citroma) 296 ml PRN 1X PRN PO CONSTIPATION, 2ND CHOICE 08/16/20 09:00 Polyethylene Glycol (miraLAX) 17 gm DAILY PO 08/16/20 09:00 08/27/20 08:30 Hydroxyzine HCl (Atarax) 10 mg PRN Q6HRS PRN PO ITCHING 08/17/20 17:15 Docusate Sodium (Colace) 100 mg BID PO 08/22/20 10:00 08/27/20 08:31 Pantoprazole Sodium (Protonix) 40 mg BID PO 08/27/20 09:00 08/27/20 08:32 Current Medications Medications (Trade) Dose Ordered Sig/Pino Route PRN Reason Start Time Stop Time Status Last Admin Dose Admin Pantoprazole Sodium (Protonix) 40 mg BID PO 08/27/20 09:00 08/27/20 08:32 I have reviewed the current psychotropics carefully including drug interactions. Risk benefit ratio favors no change other than as noted in my dictated progress note. Diagnosis: Problems: (1) Impulse control disorder, unspecified (2) Anxiety disorder, unspecified (3) Dementia, vascular, with depression (4) Dementia, vascular, with delusions (5) Dementia in Alzheimer's disease with depression (6) Dementia in Alzheimer's disease with delusions (7) Dementia of the Alzheimer's type with early onset with behavioral disturbance (8) Major neurocognitive disorder KATHY BARNHART MD Aug 27, 2020 09:02
--- NOTE | 2020-08-27 09:33 | PDOC ---
Exam Note: Roni Note: This note is a late entry for 08/26/2020 covers elements not covered in my initial note. Subjective: The patient was seen individually in the evening of 08/26/2020 with Sarah SCHAFER, discussed and reviewed the chart. She slept 7-3/4 hours previous night. The patient has complained of some GI symptoms. We will defer to Dr. Workman. The patient is less delusional today. Review of Systems: Impaired ambulation. No CV, , pulmonary, eye, ENT system symptoms on review. Mental Status Exam: The patient is alert and oriented to herself and situation. Speech has some latency, coherent. Abstraction fair. Computation impaired Attention span short. Mood and affect labile. No suicidal or homicidal ideation. Laboratory Data: Reviewed. Impression: Major neurocognitive disorder Alzheimer vascular with delusion, depression, and behavioral disturbance. Anxiety disorder unspecified. Impulse control disorder unspecified. Plan: Continue current psychotropics unchanged. Assessment: Vital Signs/I&O: Vital Signs Date Time Temp Pulse Resp B/P (MAP) Pulse Ox O2 Delivery O2 Flow Rate FiO2 08/27/20 08:31 64 156/76 08/27/20 05:37 97.9 16 97 08/26/20 16:02 Room Air I & O 08/26/20 08/26/20 08/27/20 14:59 22:59 06:59 Intake Total 360 ml 200 ml 120 ml Output Total 900 ml 1450 ml Balance 360 ml -700 ml -1330 ml Labs: Laboratory Tests Test 08/27/20 06:47 White Blood Count 5.7 x10^3/uL (4.0-11.0) Red Blood Count 3.34 x10^6/uL (3.50-5.40) L Hemoglobin 10.5 g/dL (12.0-15.5) L Hematocrit 31.5 % (36.0-47.0) L Mean Corpuscular Volume 94 fL (79-100) Mean Corpuscular Hemoglobin 32 pg (25-35) Mean Corpuscular Hemoglobin Concent 33 g/dL (31-37) Red Cell Distribution Width 14.5 % (11.5-14.5) Platelet Count 320 x10^3/uL (140-400) Neutrophils (%) (Auto) 69 % (31-73) Lymphocytes (%) (Auto) 19 % (24-48) L Monocytes (%) (Auto) 11 % (0-9) H Eosinophils (%) (Auto) 0 % (0-3) Basophils (%) (Auto) 1 % (0-3) Neutrophils # (Auto) 3.9 x10^3uL (1.8-7.7) Lymphocytes # (Auto) 1.1 x10^3/uL (1.0-4.8) Monocytes # (Auto) 0.6 x10^3/uL (0.0-1.1) Eosinophils # (Auto) 0.0 x10^3/uL (0.0-0.7) Basophils # (Auto) 0.1 x10^3/uL (0.0-0.2) Sodium Level 140 mmol/L (136-145) Potassium Level 4.1 mmol/L (3.5-5.1) Chloride Level 104 mmol/L (98-107) Carbon Dioxide Level 30 mmol/L (21-32) Anion Gap 6 (6-14) Blood Urea Nitrogen 26 mg/dL (7-20) H Creatinine 1.0 mg/dL (0.6-1.0) Estimated GFR (Cockcroft-Gault) 54.3 BUN/Creatinine Ratio 26 (6-20) H Glucose Level 86 mg/dL (70-99) Calcium Level 9.1 mg/dL (8.5-10.1) Total Bilirubin 0.4 mg/dL (0.2-1.0) Aspartate Amino Transferase (AST) 21 U/L (15-37) Alanine Aminotransferase (ALT) 26 U/L (14-59) Alkaline Phosphatase 78 U/L (46-116) Total Protein 6.8 g/dL (6.4-8.2) Albumin 2.9 g/dL (3.4-5.0) L Albumin/Globulin Ratio 0.7 (1.0-1.7) L Current Medications: Meds: Laboratory Tests Test 08/27/20 06:47 White Blood Count 5.7 x10^3/uL Red Blood Count 3.34 x10^6/uL Hemoglobin 10.5 g/dL Hematocrit 31.5 % Mean Corpuscular Volume 94 fL Mean Corpuscular Hemoglobin 32 pg Mean Corpuscular Hemoglobin Concent 33 g/dL Red Cell Distribution Width 14.5 % Platelet Count 320 x10^3/uL Neutrophils (%) (Auto) 69 % Lymphocytes (%) (Auto) 19 % Monocytes (%) (Auto) 11 % Eosinophils (%) (Auto) 0 % Basophils (%) (Auto) 1 % Neutrophils # (Auto) 3.9 x10^3uL Lymphocytes # (Auto) 1.1 x10^3/uL Monocytes # (Auto) 0.6 x10^3/uL Eosinophils # (Auto) 0.0 x10^3/uL Basophils # (Auto) 0.1 x10^3/uL Sodium Level 140 mmol/L Potassium Level 4.1 mmol/L Chloride Level 104 mmol/L Carbon Dioxide Level 30 mmol/L Anion Gap 6 Blood Urea Nitrogen 26 mg/dL Creatinine 1.0 mg/dL Estimated GFR (Cockcroft-Gault) 54.3 BUN/Creatinine Ratio 26 Glucose Level 86 mg/dL Calcium Level 9.1 mg/dL Total Bilirubin 0.4 mg/dL Aspartate Amino Transf (AST/SGOT) 21 U/L Alanine Aminotransferase (ALT/SGPT) 26 U/L Alkaline Phosphatase 78 U/L Total Protein 6.8 g/dL Albumin 2.9 g/dL Albumin/Globulin Ratio 0.7 Current Medications Medications (Trade) Dose Ordered Sig/Pino Route PRN Reason Start Time Stop Time Status Last Admin Dose Admin Acetaminophen (Tylenol) 1,000 mg PRN Q6HRS PRN PO MILD PAIN 1-3 08/08/20 23:00 08/11/20 11:07 Atorvastatin Calcium (Lipitor) 10 mg QHS PO 08/09/20 00:00 08/26/20 20:07 Carvedilol (Coreg) 6.25 mg BIDWMEALS PO 08/09/20 08:00 08/27/20 08:31 Cefdinir (Omnicef) 300 mg BID PO 08/09/20 09:00 08/09/20 05:54 DC Cetirizine HCl (ZyrTEC) 10 mg DAILY PO 08/09/20 09:00 08/27/20 08:31 Cyclosporine (Restasis) 1 drop BID OU 08/09/20 00:00 08/27/20 08:32 Levothyroxine Sodium (Synthroid) 125 mcg DAILY06 PO 08/09/20 06:00 08/27/20 06:04 Al Hydroxide/Mg Hydroxide (Mylanta Plus Xs) 15 ml PRN AFTMEALHC PRN PO DYSPEPSIA 08/08/20 23:00 Memantine (Namenda) 10 mg BID PO 08/09/20 00:00 08/27/20 08:32 Multi-Ingredient Ointment (Analgesic Rosebud) 1 cole PRN QID PRN TP MUSCLE PAIN 08/08/20 23:00 Mirtazapine (Remeron) 7.5 mg QHS PO 08/09/20 00:00 08/26/20 20:07 Montelukast Sodium (Singulair) 10 mg HS PO 08/09/20 00:00 08/26/20 20:07 Olanzapine (ZyPREXA ZYDIS) 2.5 mg PRN Q2HRS PRN PO PSYCHOSIS 08/08/20 23:00 08/24/20 06:09 Ondansetron HCl (Zofran Odt) 4 mg PRN Q6HRS PRN PO nausea/vomiting 08/08/20 23:00 08/26/20 13:04 Quetiapine Fumarate (SEROquel) 12.5 mg NOON PO 08/09/20 12:00 08/26/20 13:04 Quetiapine Fumarate (SEROquel) 12.5 mg QHS PO 08/09/20 00:00 08/26/20 20:08 Trimethoprim/ Sulfamethoxazole (Bactrim Ds) 1 tab BID PO 08/09/20 09:00 08/27/20 08:32 Clobetasol Propionate 1 cole PRN DAILY PRN TP dermatitis 08/08/20 23:30 Diltiazem HCl (Cardizem 24hr Cd) 240 mg DAILY PO 08/09/20 09:00 08/27/20 08:31 Doxycycline Hyclate (Vibra-Tab) 100 mg BID PO 08/09/20 09:00 08/27/20 08:31 Fluvoxamine Maleate (Luvox) 50 mg QHS PO 08/09/20 00:00 08/26/20 20:07 Lactobacillus Rhamnosus (Culturelle) 1 cap BID PO 08/09/20 09:00 08/27/20 08:31 Losartan Potassium (Cozaar) 100 mg DAILY PO 08/09/20 09:00 08/27/20 08:31 Magnesium Hydroxide (Milk Of Magnesia) 2,400 mg PRN QHS PRN PO CONSTIPATION, 1ST CHOICE 08/08/20 23:30 08/21/20 08:35 Multivitamins/ Calcium (Thera-M Plus) 1 tab DAILY PO 08/09/20 09:00 08/27/20 08:31 Pantoprazole Sodium (Protonix) 40 mg DAILYAC PO 08/09/20 07:30 08/26/20 20:07 DC 08/26/20 08:17 Acetaminophen (Tylenol) 650 mg PRN Q6HRS PRN PO MILD PAIN / TEMP > 100.3'F 08/08/20 23:15 UNV Magnesium Hydroxide (Milk Of Magnesia) 2,400 mg PRN QHS PRN PO CONSTIPATION 08/08/20 23:15 UNV Iohexol (Omnipaque 350 Mg/ml) 100 ml 1X ONCE IV 08/09/20 15:15 08/09/20 15:16 DC 08/09/20 15:15 Enoxaparin Sodium (Lovenox 40mg Syringe) 40 mg Q24H SQ 08/09/20 21:00 08/22/20 19:06 DC 08/21/20 20:32 Oxycodone HCl (Roxicodone) 5 mg PRN Q6HRS PRN PO MOD-SEVERE PAIN 08/11/20 14:30 08/20/20 00:05 Magnesium Citrate (Citroma) 296 ml PRN 1X PRN PO CONSTIPATION, 2ND CHOICE 08/16/20 09:00 Polyethylene Glycol (miraLAX) 17 gm DAILY PO 08/16/20 09:00 08/27/20 08:30 Hydroxyzine HCl (Atarax) 10 mg PRN Q6HRS PRN PO ITCHING 08/17/20 17:15 Docusate Sodium (Colace) 100 mg BID PO 08/22/20 10:00 08/27/20 08:31 Pantoprazole Sodium (Protonix) 40 mg BID PO 08/27/20 09:00 08/27/20 08:32 Current Medications Medications (Trade) Dose Ordered Sig/Pino Route PRN Reason Start Time Stop Time Status Last Admin Dose Admin Pantoprazole Sodium (Protonix) 40 mg BID PO 08/27/20 09:00 7/19/21 08:32 I have reviewed the current psychotropics carefully including drug interactions. Risk benefit ratio favors no change other than as noted in my dictated progress note. Diagnosis: Problems: (1) Impulse control disorder, unspecified (2) Anxiety disorder, unspecified (3) Dementia, vascular, with depression (4) Dementia, vascular, with delusions (5) Dementia in Alzheimer's disease with depression (6) Dementia in Alzheimer's disease with delusions (7) Dementia of the Alzheimer's type with early onset with behavioral disturbance (8) Major neurocognitive disorder KATHY BARNHART MD Aug 27, 2020 09:33
[2020-08-27] MEDS: QUEtiapine 25 MG TABLET. PO SCH (12:08)
--- NOTE | 2020-08-27 13:45 | NUR ---
Transition Record was faxed to follow-up provider with the following elements: Reason for admission, procedures, tests, principal diagnosis, pending studies, patient instructions, 01/09 contact information for unit, phone number to obtain pending test results, plan for follow-up care, physician follow-up, advanced directive information, and medication list with dose, duration and instructions. This information was included in the following documents: History and physical, lab results, study results, progress notes, social work planning form, DC instruction form, patient visit summary, and medication reconciliation form. Date & time record faxed: 08/27/2020 @0159 Record faxed to: [facility] Record discussed with/ report given to: Maribell Dick (owner spa director), @[id number]
--- NOTE | 2020-08-28 21:17 | DS ---
DATE OF DISCHARGE: 08/27/2020 DISCHARGE SUMMARY AND PSYCHIATRIC PROGRESS NOTE This is a late entry, covers elements not covered in my initial note. REASON FOR ADMISSION: Please refer to the admission history for details. Briefly, the patient is a 75-year-old female who was initially referred to us from [facility] on account of increased confusion, agitation, paranoia and aggression. DICTATION ENDS HERE ALEJANDRINA DR: Codi TID: [id number]
--- NOTE | 2020-08-28 22:09 | PDOC ---
Exam Note: Roni Note: Late entry for date of discharge 08/27/2020. Please also refer to the separate dictated note~for this date of service dictated separately.~Patient seen individually. Discussed the patient with Nursing staff reviewed the chart.~Reviewed interim history and current functioning. Reviewed vital signs,~Labs/ Radiology~and current medications noted below. Continue current treatment with the changes noted in the dictated addendum note Assessment: Vital Signs/I&O: Vital Signs Date Time Temp Pulse Resp B/P (MAP) Pulse Ox O2 Delivery O2 Flow Rate FiO2 08/27/20 08:31 64 156/76 08/27/20 05:37 97.9 16 97 08/26/20 16:02 Room Air I & O 08/27/20 08/27/20 08/28/20 15:00 23:00 07:00 Intake Total 1080 ml Output Total 300 ml Balance 780 ml Current Medications: Meds: Current Medications Medications (Trade) Dose Ordered Sig/Pino Route PRN Reason Start Time Stop Time Status Last Admin Dose Admin Acetaminophen (Tylenol) 1,000 mg PRN Q6HRS PRN PO MILD PAIN 1-3 08/08/20 23:00 08/27/20 14:48 DC 08/11/20 11:07 Atorvastatin Calcium (Lipitor) 10 mg QHS PO 08/09/20 00:00 08/27/20 14:48 DC 08/26/20 20:07 Carvedilol (Coreg) 6.25 mg BIDWMEALS PO 08/09/20 08:00 08/27/20 14:48 DC 08/27/20 08:31 Cefdinir (Omnicef) 300 mg BID PO 08/09/20 09:00 08/09/20 05:54 DC Cetirizine HCl (ZyrTEC) 10 mg DAILY PO 08/09/20 09:00 08/27/20 14:48 DC 08/27/20 08:31 Cyclosporine (Restasis) 1 drop BID OU 08/09/20 00:00 08/27/20 14:48 DC 08/27/20 08:32 Levothyroxine Sodium (Synthroid) 125 mcg DAILY06 PO 08/09/20 06:00 08/27/20 14:48 DC 08/27/20 06:04 Al Hydroxide/Mg Hydroxide (Mylanta Plus Xs) 15 ml PRN AFTMEALHC PRN PO DYSPEPSIA 08/08/20 23:00 08/27/20 14:48 DC Memantine (Namenda) 10 mg BID PO 08/09/20 00:00 08/27/20 14:48 DC 08/27/20 08:32 Multi-Ingredient Ointment (Analgesic [place]ask[place]) 1 cole PRN QID PRN TP MUSCLE PAIN 08/08/20 23:00 08/27/20 14:48 DC Mirtazapine (Remeron) 7.5 mg QHS PO 08/09/20 00:00 08/27/20 14:48 DC 08/26/20 20:07 Montelukast Sodium (Singulair) 10 mg HS PO 08/09/20 00:00 08/27/20 14:48 DC 08/26/20 20:07 Olanzapine (ZyPREXA ZYDIS) 2.5 mg PRN Q2HRS PRN PO PSYCHOSIS 08/08/20 23:00 08/27/20 14:48 DC 08/24/20 06:09 Ondansetron HCl (Zofran Odt) 4 mg PRN Q6HRS PRN PO nausea/vomiting 08/08/20 23:00 08/27/20 14:48 DC 08/26/20 13:04 Quetiapine Fumarate (SEROquel) 12.5 mg NOON PO 08/09/20 12:00 08/27/20 14:48 DC 08/27/20 12:08 Quetiapine Fumarate (SEROquel) 12.5 mg QHS PO 08/09/20 00:00 08/27/20 14:48 DC 08/26/20 20:08 Trimethoprim/ Sulfamethoxazole (Bactrim Ds) 1 tab BID PO 08/09/20 09:00 08/27/20 14:48 DC 08/27/20 08:32 Clobetasol Propionate 1 cole PRN DAILY PRN TP dermatitis 08/08/20 23:30 08/27/20 14:48 DC Diltiazem HCl (Cardizem 24hr Cd) 240 mg DAILY PO 08/09/20 09:00 08/27/20 14:48 DC 08/27/20 08:31 Doxycycline Hyclate (Vibra-Tab) 100 mg BID PO 08/09/20 09:00 08/27/20 14:48 DC 08/27/20 08:31 Fluvoxamine Maleate (Luvox) 50 mg QHS PO 08/09/20 00:00 08/27/20 14:48 DC 08/26/20 20:07 Lactobacillus Rhamnosus (Culturelle) 1 cap BID PO 08/09/20 09:00 08/27/20 14:48 DC 08/27/20 08:31 Losartan Potassium (Cozaar) 100 mg DAILY PO 08/09/20 09:00 08/27/20 14:48 DC 08/27/20 08:31 Magnesium Hydroxide (Milk Of Magnesia) 2,400 mg PRN QHS PRN PO CONSTIPATION, 1ST CHOICE 08/08/20 23:30 08/27/20 14:48 DC 08/21/20 08:35 Multivitamins/ Calcium (Thera-M Plus) 1 tab DAILY PO 08/09/20 09:00 08/27/20 14:48 DC 08/27/20 08:31 Pantoprazole Sodium (Protonix) 40 mg DAILYAC PO 08/09/20 07:30 08/26/20 20:07 DC 08/26/20 08:17 Acetaminophen (Tylenol) 650 mg PRN Q6HRS PRN PO MILD PAIN / TEMP > 100.3'F 08/08/20 23:15 UNV Magnesium Hydroxide (Milk Of Magnesia) 2,400 mg PRN QHS PRN PO CONSTIPATION 08/08/20 23:15 UNV Iohexol (Omnipaque 350 Mg/ml) 100 ml 1X ONCE IV 08/09/20 15:15 08/09/20 15:16 DC 08/09/20 15:15 Enoxaparin Sodium (Lovenox 40mg Syringe) 40 mg Q24H SQ 08/09/20 21:00 08/22/20 19:06 DC 08/21/20 20:32 Oxycodone HCl (Roxicodone) 5 mg PRN Q6HRS PRN PO MOD-SEVERE PAIN 08/11/20 14:30 08/27/20 14:48 DC 08/20/20 00:05 Magnesium Citrate (Citroma) 296 ml PRN 1X PRN PO CONSTIPATION, 2ND CHOICE 08/16/20 09:00 08/27/20 14:48 DC Polyethylene Glycol (miraLAX) 17 gm DAILY PO 08/16/20 09:00 08/27/20 14:48 DC 08/27/20 08:30 Hydroxyzine HCl (Atarax) 10 mg PRN Q6HRS PRN PO ITCHING 08/17/20 17:15 08/27/20 14:48 DC Docusate Sodium (Colace) 100 mg BID PO 08/22/20 10:00 08/27/20 14:48 DC 08/27/20 08:31 Pantoprazole Sodium (Protonix) 40 mg BID PO 08/27/20 09:00 08/27/20 14:48 DC 08/27/20 08:32 I have reviewed the current psychotropics carefully including drug interactions. Risk benefit ratio favors no change other than as noted in my dictated progress note. Diagnosis: Problems: (1) Impulse control disorder, unspecified (2) Anxiety disorder, unspecified (3) Dementia, vascular, with depression (4) Dementia, vascular, with delusions (5) Dementia in Alzheimer's disease with depression (6) Dementia in Alzheimer's disease with delusions (7) Dementia of the Alzheimer's type with early onset with behavioral disturbance (8) Major neurocognitive disorder KATHY BARNHART MD Aug 28, 2020 22:09
--- NOTE | 2020-08-28 23:50 | DS ---
DATE OF DISCHARGE: 08/27/2020 DISCHARGE SUMMARY/PSYCHIATRIC PROGRESS NOTE This is a late entry, date of service 08/27/2020. Covers elements not covered in my initial note of 08/27/2020. I had started dictating this document a few hours back, but got disconnected and I am re-dictating the entire document again. REASON FOR ADMISSION: Please refer to the admission history for details. Briefly, the patient is a 75-year-old female referred to us from [facility] on account of worsening confusion, agitation, aggression, marked obsessive behaviors and anxiety, having failed outpatient psychiatric interventions. The patient was being stabilized psychiatrically, but then had to be transferred to [facility] for amputation of her toe. After surgery, behaviors persisted and needed further stabilization resulting in referral back to us for this stay. SIGNIFICANT FINDINGS AND CLINICAL COURSE: Following admission, the patient was seen daily individually by myself from a psychiatric standpoint, medical followup, Dr. Workman/Dr. Garza. The patient remained confused, anxious, repetitive. She was intermittently agitated at admission. Adjustments were made in her psychotropics and she seemed to respond to a combination of Luvox 50 mg at bedtime, Namenda 10 mg b.i.d., Remeron 7.5 mg at bedtime, Seroquel 12.5 mg noon and at bedtime, Zyprexa p.r.n., hydroxyzine 10 mg q.i.d. p.r.n. anxiety. REVIEW OF SYSTEMS: Prior to discharge 08/27/2020, no CV, , pulmonary, eye, ENT system symptoms on review. Reliability poor. MENTAL STATUS EXAMINATION: Oriented to herself. Insight, judgment, recent and remote memory, attention, concentration, fund of knowledge poor consistent with her diagnoses. FINAL DIAGNOSES: Major neurocognitive disorder, Alzheimer, vascular with delusion, depression, behavioral disturbance, anxiety disorder, unspecified; impulse control disorder, unspecified. DISCHARGE MEDICATIONS: Please refer to the MRAD. DISCHARGE INSTRUCTIONS: [facility] KATHARINA/RAYMUNDO DR: Codi TID: [id number]
== END 2020-08-27 13:45 | DRG 56 ==
LOC: GEROPSY 17:30
PROVIDERS: ADMIT Psychiatry & Neurology Psychiatry; ATTEND Psychiatry & Neurology Psychiatry
DX: G30.9 Alzheimer's disease, unspecified (principal); F01.50 Vascular dementia, unspecified severity, without behavioral disturbance, psychotic disturbance, mood disturbance, and anxiety; E43 Unspecified severe protein-calorie malnutrition; M86.9 Osteomyelitis, unspecified; F02.81 Dementia in other diseases classified elsewhere, unspecified severity, with behavioral disturbance; D64.9 Anemia, unspecified; E03.9 Hypothyroidism, unspecified; E11.69 Type 2 diabetes mellitus with other specified complication; E78.5 Hyperlipidemia, unspecified; F32.9 Major depressive disorder, single episode, unspecified; F41.9 Anxiety disorder, unspecified; F63.9 Impulse disorder, unspecified; I10 Essential (primary) hypertension; Z79.899 Other long term (current) drug therapy; Z87.828 Personal history of other (healed) physical injury and trauma; K21.9 Gastro-esophageal reflux disease without esophagitis; Z68.26 Body mass index [BMI] 26.0-26.9, adult; Z88.6 Allergy status to analgesic agent
CPT/HCPCS: 36415; 71275; 80053; 81001; 82306; 82607; 82947; 83540; 83550; 83735; 84436; 84443; 84480; 85025; 85379; 87040; 93970; J1650; Q0162; Q9967; 97530